=== PATIENT | female | born 1985 | race Caucasian/White ===

== ENCOUNTER 2017-12-17 10:26 | Inpatient (IN) | payer BC, OTHER ==
[2017-12-17] MEDS ORDERED: Sodium Chloride 0.9% 10 ML Syringe FLUSH PRN (11:05)
[2017-12-17] MEDS ORDERED: fentaNYL 100 MCG/2 ML SDV IVPUSH ONE ×2 (11:07→12:19)
[2017-12-17] MEDS ORDERED: Ondansetron 4 MG/2 ML SDV IVPUSH ONE (11:07)
--- NOTE | 2017-12-17 11:09 | EDM.PDOC ---
ED HPI GENERAL MEDICAL PROBLEM - General Chief Complaint: Abdominal Pain Stated Complaint: ABD PAIN/SCOTTY PT Time Seen by Provider: 12/17/17 10:59 Source of Information: Reports: Patient, RN Notes Reviewed History Limitations: Reports: No Limitations - History of Present Illness INITIAL COMMENTS - FREE TEXT/NARRATIVE: 32-year-old female presents to the emergency department day complaint of abdominal pain, she is a history of gastric bypass about 3 years ago states over the last couple days she's had increasing abdominal pain that does come in waves she has vomited does feel extremely nauseated. No fevers Epigastric Pain Score (Numeric/FACES): 5 - Related Data Allergies Allergy/AdvReac Type Severity Reaction Status Date / Time cefaclor [Cefaclor] Allergy Unknown Hives Verified 12/17/17 10:47 ciprofloxacin [From Cipro] Allergy Unknown Hives Verified 12/17/17 10:47 ciprofloxacin HCl Allergy Unknown Hives Verified 12/17/17 10:47 [From Cipro] Home Meds: Home Meds Cyanocobalamin (Vitamin B-12) [B-12] 1,000 mcg PO DAILY 06/05/14 [History] Multivitamin with Minerals [Multiple Vitamin] 1 tab PO BID 06/05/14 [History] Vitamin B Complex 1 each PO DAILY 08/03/14 [History] Calcium Carbonate [Calcium] 500 mg PO BID 08/04/14 [History] Cyanocobalamin (Vitamin B12) [Vitamin B12] 1,000 mcg IM ASDIRECTED 12/10/15 [ History] Ergocalciferol (Vitamin D2) [Vitamin D2] 1 cap PO .MWF 12/10/15 [History] Polyethylene Glycol 3350 [MiraLAX] 17 gm PO DAILY PRN 01/20/16 [History] ALPRAZolam [Xanax] 2 tab PO TID PRN 05/14/16 [History] Levonorgestrel [Mirena] 1 device IUTERINE ASDIRECTED 05/14/16 [History] Ondansetron [Zofran ODT] 4 mg PO Q6H PRN 05/14/16 [History] Sennosides [Senna] 2 tab PO DAILY PRN 05/14/16 [History] Biotin 2,500 mcg PO DAILY 08/05/16 [History] PHENobarb/Hyoscy/Atropine/Scop [ Tablet] 16.2 mg PO Q4HR PRN 08/06/16 [ History] Docusate Sodium [Colace] 100 mg PO BID PRN #100 cap 08/11/16 [Rx] Thiamine [Vitamin B-1] 50 mg PO DAILY 12/17/17 [History] Past Medical History HEENT History: Reports: Otitis Media Respiratory History: Reports: Sleep Apnea Other Respiratory History: history of sleep apnea but since her RNY she has not needed her CPAP Gastrointestinal History: Reports: Bowel Obstruction, Cholelithiasis, Gastritis , GERD, Hemorrhoids, Hiatal Hernia Genitourinary History: Reports: UTI, Recurrent MANAGEMENT LIAISON History: Reports: 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, Musculoskeletal History: Reports: Back Pain, Chronic Neurological History: Reports: Concussion, Headaches, Chronic, Seizure Psychiatric History: Reports: Anxiety, Depression, Psych Hospitalization(s) Endocrine/Metabolic History: Reports: Vitamin D Deficiency Hematologic History: Reports: B12 Deficiency, Iron Deficiency Dermatologic History: Reports: Other (See Below) Other Dermatologic History: mole removed neck - Infectious Disease History Infectious Disease History: Reports: Chicken Pox - Past Surgical History HEENT Surgical History: Reports: Adenoidectomy, Myringotomy w Tube(s), Tonsillectomy GI Surgical History: Reports: Bariatric Procedure, Cholecystectomy, EGD, Esophageal Dilatation, Hernia Repair/Other, Small Bowel Female Surgical History: Reports: Section Social & Family History - Family History Family Medical History: Noncontributory - Tobacco Use Smoking Status *Q: Light Tobacco Smoker Years of Tobacco use: 16 Packs/Tins Daily: 0.4 Used Tobacco, but Quit: No Month/Year Tobacco Last Used: November Second Hand Smoke Exposure: No - Caffeine Use Caffeine Use: Reports: None - Alcohol Use Days Per Week of Alcohol Use: 0 Number of Drinks Per Day: 5 Total Drinks Per Week: 0 - Recreational Drug Use Recreational Drug Use: No Drug Use in Last 12 Months: No Recreational Drug Type: Reports: Marijuana/Hashish Recreational Drug Use Frequency: Not Used In Over 1 Year ED ROS GENERAL - Review of Systems Review Of Systems: See Below Constitutional: Reports: No Symptoms HEENT: Reports: No Symptoms Respiratory: Reports: No Symptoms Cardiovascular: Reports: No Symptoms GI/Abdominal: Reports: Abdominal Pain, Flatus, Nausea, Vomiting : Reports: No Symptoms Musculoskeletal: Reports: No Symptoms Skin: Reports: No Symptoms Neurological: Reports: No Symptoms ED EXAM, GI/ABD - Physical Exam Exam: See Below Exam Limited By: No Limitations General Appearance: Alert, Mild Distress Respiratory/Chest: No Respiratory Distress, Lungs Clear, Normal Breath Sounds, No Accessory Muscle Use Cardiovascular: Regular Rate, Rhythm, No Murmur GI/Abdominal Exam: Soft, No Distention, Tender (Periumbilical region) Back Exam: Normal Inspection, Full Range of Motion. No: CVA Tenderness (R), CVA Tenderness (L) Course - Vital Signs Last Recorded V/S: Last Vital Signs Temp 98.2 F 12/17/17 10:53 Pulse 61 12/17/17 12:03 Resp 14 12/17/17 12:03 BP 126/65 12/17/17 12:03 Pulse Ox 96 12/17/17 12:03 - Orders/Labs/Meds Orders: Active Orders 24 hr Category Date Time Status Peripheral IV Care [RC] . DIRECTED Care 12/17/17 11:05 Active HCG QUALITATIVE,URINE [URCHEM] Routine Lab 12/17/17 11:08 Ordered UA W/MICROSCOPIC [URIN] Urgent Lab 12/17/17 11:08 Ordered Lactated Ringers [Ringers, Lactated] 1,000 ml Med 12/17/17 11:15 Active IV ASDIRECTED Sodium Chloride 0.9% [Normal Saline] 100 ml Med 12/17/17 11:30 Active IV ASDIRECTED Sodium Chloride 0.9% [Saline Flush] Med 12/17/17 11:05 Active 10 ml FLUSH ASDIRECTED PRN Peripheral IV Insertion Adult [OM.PC] Urgent Oth 12/17/17 11:05 Ordered Medication Orders Lactated Ringer's (Ringers, Lactated) 1,000 mls @ 500 mls/hr IV ASDIRECTED HENRY Last Admin: 12/17/17 11:24 Dose: 500 mls/hr Sodium Chloride (Normal Saline) 100 mls @ 3 mls/sec IV ASDIRECTED HENRY Last Admin: 12/17/17 11:55 Dose: 3 mls/sec Sodium Chloride (Saline Flush) 10 ml FLUSH ASDIRECTED PRN PRN Reason: Keep Vein Open Last Admin: 12/17/17 12:03 Dose: 10 ml Labs: Laboratory Tests 12/17/17 12/17/17 12/17/17 Range/Units 11:08 11:08 11:18 WBC 7.1 (4.5-11.0) K/uL RBC 5.20 (3.30-5.50) M/uL Hgb 15.3 H D (12.0-15.0) g/dL Hct 45.2 (36.0-48.0) % MCV 87 (80-98) fL MCH 29 (27-31) pg MCHC 34 (32-36) % Plt Count 251 (150-400) K/uL Neut % (Auto) 57 (36-66) % Lymph % (Auto) 34 (24-44) % [place] % (Auto) 6 (2-6) % Eos % (Auto) 3 (2-4) % Baso % (Auto) 1 (0-1) % Sodium (140-148) mmol/L Potassium (3.6-5.2) mmol/L Chloride (100-108) mmol/L Carbon Dioxide (21-32) mmol/L Anion Gap (5.0-14.0) mmol/L BUN (7-18) mg/dL Creatinine (0.6-1.0) mg/dL Est Cr Clr Drug Dosing mL/min Estimated GFR (MDRD) (>60) Glucose (74-106) mg/dL Lactic Acid (0.4-2.0) mmol/L Calcium (8.5-10.1) mg/dL Total Bilirubin (0.2-1.0) mg/dL AST (15-37) U/L ALT (12-78) U/L Alkaline Phosphatase (46-116) U/L Total Protein (6.4-8.2) g/dL Albumin (3.4-5.0) g/dL Globulin (2.3-3.5) g/dL Albumin/Globulin Ratio (1.2-2.2) Lipase (73-393) U/L Urine Color Yellow Urine Appearance Clear Urine pH 7.0 (4.5-8.0) Ur Specific [place] 1.005 L (1.008-1.030) Urine Protein Negative (NEGATIVE) mg/dL Urine Glucose (UA) Normal (NEGATIVE) mg/dL Urine Ketones Negative (NEGATIVE) mg/dL Urine Occult Blood Negative (NEGATIVE) Urine Nitrite Negative (NEGATIVE) Urine Bilirubin Negative (NEGATIVE) Urine Urobilinogen 4 (NORMAL) mg/dL Ur Leukocyte Esterase Negative (NEGATIVE) Urine RBC Not seen (0-5) Urine WBC 0-5 (0-5) Ur Epithelial Cells Few Amorphous Sediment Not seen Urine Bacteria Rare Urine Mucus Not seen Urine HCG, Qual Negative 12/17/17 12/17/17 Range/Units 11:18 11:18 WBC (4.5-11.0) K/uL RBC (3.30-5.50) M/uL Hgb (12.0-15.0) g/dL Hct (36.0-48.0) % MCV (80-98) fL MCH (27-31) pg MCHC (32-36) % Plt Count (150-400) K/uL Neut % (Auto) (36-66) % Lymph % (Auto) (24-44) % [place] % (Auto) (2-6) % Eos % (Auto) (2-4) % Baso % (Auto) (0-1) % Sodium 142 (140-148) mmol/L Potassium 4.1 (3.6-5.2) mmol/L Chloride 106 (100-108) mmol/L Carbon Dioxide 26 (21-32) mmol/L Anion Gap 10.5 (5.0-14.0) mmol/L BUN 12 (7-18) mg/dL Creatinine 0.6 (0.6-1.0) mg/dL Est Cr Clr Drug Dosing 112.38 mL/min Estimated GFR (MDRD) > 60 (>60) Glucose 90 (74-106) mg/dL Lactic Acid 1.2 (0.4-2.0) mmol/L Calcium 8.5 (8.5-10.1) mg/dL Total Bilirubin 0.6 (0.2-1.0) mg/dL AST 14 L (15-37) U/L ALT 30 D (12-78) U/L Alkaline Phosphatase 68 (46-116) U/L Total Protein 6.7 (6.4-8.2) g/dL Albumin 3.6 (3.4-5.0) g/dL Globulin 3.1 (2.3-3.5) g/dL Albumin/Globulin Ratio 1.2 (1.2-2.2) Lipase 166 (73-393) U/L Urine Color Urine Appearance Urine pH (4.5-8.0) Ur Specific [place] (1.008-1.030) Urine Protein (NEGATIVE) mg/dL Urine Glucose (UA) (NEGATIVE) mg/dL Urine Ketones (NEGATIVE) mg/dL Urine Occult Blood (NEGATIVE) Urine Nitrite (NEGATIVE) Urine Bilirubin (NEGATIVE) Urine Urobilinogen (NORMAL) mg/dL Ur Leukocyte Esterase (NEGATIVE) Urine RBC (0-5) Urine WBC (0-5) Ur Epithelial Cells Amorphous Sediment Urine Bacteria Urine Mucus Urine HCG, Qual Meds: Medications Generic Name Dose Route Start Last Admin Trade Name Freq PRN Reason Stop Dose Admin Lactated Ringer's 1,000 mls @ 500 mls/hr 12/17/17 11:15 12/17/17 11:24 Ringers, Lactated IV 500 mls/hr ASDIRECTED HENRY Administration Sodium Chloride 100 mls @ 3 mls/sec 12/17/17 11:30 12/17/17 11:55 Normal Saline IV 3 mls/sec ASDIRECTED HENRY Administration Sodium Chloride 10 ml 12/17/17 11:05 12/17/17 12:03 Saline Flush FLUSH 10 ml ASDIRECTED PRN Administration Keep Vein Open Discontinued Medications Generic Name Dose Route Start Last Admin Trade Name Freq PRN Reason Stop Dose Admin Fentanyl 50 mcg 12/17/17 11:07 12/17/17 11:25 Sublimaze IVPUSH 12/17/17 11:08 50 mcg ONETIME ONE Administration Iopamidol 150 ml 12/17/17 11:30 12/17/17 11:55 Isovue-300 (61%) IV 150 ml . DIRECTED HENRY Administration Ondansetron HCl 4 mg 12/17/17 11:07 12/17/17 11:25 Zofran IVPUSH 12/17/17 11:08 4 mg ONETIME ONE Administration Departure - Departure Time of Disposition: 12:17 Disposition: Admitted As Inpatient 67 Condition: Good Clinical Impression: Abdominal pain Qualifiers: Abdominal location: generalized Qualified Code(s): R10.84 - Generalized abdominal pain - Discharge Information Referrals: PCP,None [Primary Care Provider] - Forms: ED Department Discharge - My Orders Last 24 Hours: My Active Orders 12/17/17 11:05 Peripheral IV Care [RC] . DIRECTED Sodium Chloride 0.9% [Saline Flush] 10 ml FLUSH ASDIRECTED PRN Peripheral IV Insertion Adult [OM.PC] Urgent 12/17/17 11:08 HCG QUALITATIVE,URINE [URCHEM] Routine UA W/MICROSCOPIC [URIN] Urgent 12/17/17 11:15 Lactated Ringers [Ringers, Lactated] 1,000 ml IV ASDIRECTED 12/17/17 11:30 Sodium Chloride 0.9% [Normal Saline] 100 ml IV ASDIRECTED - Assessment/Plan Last 24 Hours: My Active Orders 12/17/17 11:05 Peripheral IV Care [RC] . DIRECTED Sodium Chloride 0.9% [Saline Flush] 10 ml FLUSH ASDIRECTED PRN Peripheral IV Insertion Adult [OM.PC] Urgent 12/17/17 11:08 HCG QUALITATIVE,URINE [URCHEM] Routine UA W/MICROSCOPIC [URIN] Urgent 12/17/17 11:15 Lactated Ringers [Ringers, Lactated] 1,000 ml IV ASDIRECTED 12/17/17 11:30 Sodium Chloride 0.9% [Normal Saline] 100 ml IV ASDIRECTED Plan: Assessment Acuity = acute Site and laterality = abdominal pain complicated patient with gastric bypass status Etiology = unclear etiology Manifestations = nausea vomiting Location of injury = Home Lab values = CBC, CMP, lactic acid, urinalysis all within normal limits CT scan does show thickened small bowel consists with enteritis and also concern for intussusception around the anastomosis Plan Called discussed case with Dori Mills physician administrative services assistant with gastric bypass team she agreed to come and evaluate the patient in the hospital for admission and further consultation with Dr. Felder general surgery This note was dictated using [employer] voice recognition software please call with any questions on syntax or nadia.
[2017-12-17] MEDS ORDERED: Lactated Ringers 1,000 ML IV SCH (11:15)
[2017-12-17] MEDS ORDERED: Sodium Chloride 0.9% 100 ML IV SCH (11:30)
[2017-12-17] MEDS ORDERED: Iopamidol 612 MG/ML 150 ML Bottle IV SCH (11:30)
--- NOTE | 2017-12-17 12:10 | CT ---
Abdomen Pelvis w Cont HISTORY: Prior gastric bypass. COMPARISON: CT scan 08/07/2016. FINDINGS: Lung bases demonstrate no infiltrates no effusions. There is been prior gastric bypass. Kieran ng the margin of the distal anastomosis there appears to be intussusception. This is best seen on axi al image 46. This is seen on coronal image 42. This is a new finding from the prior study. There are some slightly thickened small bowel loops in the left abdomen could represent nonspecific enteritis. I do not see evidence for obstruction. The liver, spleen, pancreas and adrenal glands appear normal. Prior cholecystectomy. The abdominal aorta is normal in caliber. Kidneys unremarkable. There is midli ne incision. There is early hernia formation between the rectus abdominous muscles. This is slightly more prominent than 2016 study this is seen on axial image 76. IUD in the uterus. No free fluid seen. Impression: 1. Along the distal anastomosis of the gastric bypass. There appears to be very small intussusception . No evidence for obstruction. There are some thickened small bowel loops in the left abdomen could r epresent nonspecific enteritis. 2. Early hernia formation in the midline. This involves approximately 1 cm of fat image 47 and minima l bowel herniation along the incision image 76 more prominent than previous study.
[2017-12-17] MEDS ORDERED: Acetaminophen 650 MG Supp RECTAL PRN (14:29)
[2017-12-17] MEDS ORDERED: Acetaminophen 325 MG Tab PO PRN (14:29)
[2017-12-17] MEDS ORDERED: Naloxone 0.4 MG/ML SDV IV PRN (14:38)
[2017-12-17] MEDS ORDERED: HYDROmorphone/Normal Saline 15 MG/30 ML PCA IV PRN (14:38)
[2017-12-17] MEDS ORDERED: HYDROmorphone/Normal Saline 15 MG/30 ML PCA IV ONE (14:39)
[2017-12-17] MEDS: Ondansetron 4 MG/2 ML SDV IVPUSH PRN (14:55)
[2017-12-17] MEDS: Dextrose 5%-Lactated Ringers 1,000 ML IV SCH ×2 (14:58→21:39)
[2017-12-17] MEDS: Pantoprazole 40 MG Vial IV SCH (15:24)
[2017-12-17] MEDS ORDERED: diphenhydrAMINE 25 MG Cap PO PRN (17:48)
[2017-12-17] MEDS: ALPRAZolam 0.25 MG Tab PO PRN (21:15)
[2017-12-17] MEDS ORDERED: Morphine PF 150 MG/30 ML PCA Syringe IV PRN (22:00)
[2017-12-17] MEDS ORDERED: Morphine PF 150 MG/30 ML PCA Syringe IV SCH (22:00)
--- NOTE | 2017-12-17 22:03 | PCM.HP ---
H&P History of Present Illness - General Date of Service: 12/17/17 Admit Problem/Dx: Admission Diagnosis/Problem Admission Diagnosis/Problem Partial small bowel obstruction Source of Information: Patient History Limitations: Reports: Other (History is somewhat limited by abdominal pain ) - History of Present Illness Initial Comments - Free Text/Narative: Pamela states she has had postprandial abdominal pain on and off for about 2 - 3 weeks. she states that the past 3 days the abdominal pain didn't go away and she has been nauseated. states she is having her normal 3 BMs a day but doesn't feel she is completely emptying out. Nausea comes and goes. Onset of Symptoms: Reports: Gradual Symptom Onset Date: 12/15/17 Duration of Symptoms: Reports: Getting Worse, Waxing/Waning Location: Reports: Generalized Epigastric Pain Score (Numeric/FACES): 5 - Related Data Allergies/Adverse Reactions: Allergies Allergy/AdvReac Type Severity Reaction Status Date / Time cefaclor [Cefaclor] Allergy Unknown Hives Verified 12/17/17 10:47 ciprofloxacin [From Cipro] Allergy Unknown Hives Verified 12/17/17 10:47 ciprofloxacin HCl Allergy Unknown Hives Verified 12/17/17 10:47 [From Cipro] tramadol Allergy Seizure Verified 12/17/17 13:29 Home Medications: Home Meds Cyanocobalamin (Vitamin B-12) [B-12] 1,000 mcg PO DAILY 06/05/14 [History] Multivitamin with Minerals [Multiple Vitamin] 1 tab PO BID 06/05/14 [History] Vitamin B Complex 1 each PO DAILY 08/03/14 [History] Calcium Carbonate [Calcium] 500 mg PO BID 08/04/14 [History] Cyanocobalamin (Vitamin B12) [Vitamin B12] 1,000 mcg IM ASDIRECTED 12/10/15 [ History] Ergocalciferol (Vitamin D2) [Vitamin D2] 1 cap PO .MWF 12/10/15 [History] Polyethylene Glycol 3350 [MiraLAX] 17 gm PO DAILY PRN 01/20/16 [History] ALPRAZolam [Xanax] 1 tab PO TID PRN 05/14/16 [History] Levonorgestrel [Mirena] 1 device IUTERINE ASDIRECTED 05/14/16 [History] Ondansetron [Zofran ODT] 4 mg PO Q6H PRN 05/14/16 [History] Sennosides [Senna] 2 tab PO DAILY PRN 05/14/16 [History] Biotin 2,500 mcg PO DAILY 08/05/16 [History] PHENobarb/Hyoscy/Atropine/Scop [ Tablet] 16.2 mg PO Q4HR PRN 08/06/16 [ History] Docusate Sodium [Colace] 100 mg PO BID PRN #100 cap 08/11/16 [Rx] Thiamine [Vitamin B-1] 50 mg PO DAILY 12/17/17 [History] Past Medical History HEENT History: Reports: Otitis Media Respiratory History: Reports: Sleep Apnea Other Respiratory History: history of sleep apnea but since her RNY she has not needed her CPAP Gastrointestinal History: Reports: Bowel Obstruction, Cholelithiasis, Gastritis , GERD, Hemorrhoids, Hiatal Hernia Genitourinary History: Reports: UTI, Recurrent [employer] History: Reports: 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, Musculoskeletal History: Reports: Back Pain, Chronic Neurological History: Reports: Concussion, Headaches, Chronic, Seizure Psychiatric History: Reports: Anxiety, Depression, Psych Hospitalization(s) Endocrine/Metabolic History: Reports: Vitamin D Deficiency Hematologic History: Reports: B12 Deficiency, Iron Deficiency Dermatologic History: Reports: Other (See Below) Other Dermatologic History: mole removed neck - Infectious Disease History Infectious Disease History: Reports: Chicken Pox - Past Surgical History HEENT Surgical History: Reports: Adenoidectomy, Myringotomy w Tube(s), Tonsillectomy GI Surgical History: Reports: Bariatric Procedure, Cholecystectomy, EGD, Esophageal Dilatation, Hernia Repair/Other, Small Bowel Female Surgical History: Reports: Section Social & Family History - Family History Family Medical History: Noncontributory Psychiatric: Reports: Other (See Below) Other Psychiatric Family History: sister and mom alcoholics Oncologic: Reports: Lung Other Oncologic Family History: grandpa had lung ca - Tobacco Use Smoking Status *Q: Current Every Day Smoker Years of Tobacco use: 15 Packs/Tins Daily: 0.5 Used Tobacco, but Quit: No Month/Year Tobacco Last Used: November Second Hand Smoke Exposure: No - Caffeine Use Caffeine Use: Reports: Coffee - Alcohol Use Days Per Week of Alcohol Use: 3 Number of Drinks Per Day: 5 Total Drinks Per Week: 15 Date of Last Drink: 11/28/17 Time of Last Drink: 00:00 - Recreational Drug Use Recreational Drug Use: No Drug Use in Last 12 Months: No Recreational Drug Type: Reports: Marijuana/Hashish Recreational Drug Use Frequency: Not Used In Over 1 Year H&P Review of Systems - Review of Systems: Review Of Systems: See Below General: Reports: Chills, Weakness, Fatigue, Decreased Appetite, Weight Gain HEENT: Reports: No Symptoms Pulmonary: Reports: No Symptoms Gastrointestinal: Reports: Abdominal Pain, Decreased Appetite, Distension, Other (nausea and vomiting ) Genitourinary: Reports: No Symptoms Musculoskeletal: Reports: No Symptoms Skin: Reports: No Symptoms Psychiatric: Reports: Depression, Anxiety Neurological: Reports: No Symptoms, Weakness Hematologic/Lymphatic: Reports: No Symptoms Immunologic: Reports: No Symptoms Exam - Exam Exam: See Below - Vital Signs Vital Signs: Last Vital Signs Temp 98.1 F 12/17/17 19:14 Pulse 65 12/17/17 19:14 Resp 16 12/17/17 19:14 BP 110/68 12/17/17 19:14 Pulse Ox 97 12/17/17 19:31 Weight: 174 lb 11.461 oz - Exam Quality Assessment: DVT Prophylaxis General: Alert, Oriented, Moderate Distress HEENT: PERRLA, Conjunctiva Clear Neck: Supple, Trachea Midline Lungs: Clear to Auscultation, Normal Respiratory Effort Cardiovascular: Regular Rate, Regular Rhythm GI/Abdominal Exam: Guarding, Tender (in the jv umbilical area ) (Female) Exam: Deferred Rectal (Female) Exam: Deferred Back Exam: Normal Inspection, Full Range of Motion Extremities: Normal Inspection, Normal Range of Motion Skin: Warm, Dry, Intact Neurological: Cranial Nerves Intact, Reflexes Equal Bilateral Neuro Extensive - Mental Status: Alert, Oriented x3, Normal Mood/Affect Neuro Extensive - Motor, Sensory, Reflexes: CN II-XII Intact, Normal Gait Psychiatric: Alert, Anxious, Other (enotional ) - Patient Data Lab Results Last 24 hrs: Laboratory Results - last 24 hr 12/17/17 12/17/17 12/17/17 Range/Units 11:08 11:08 11:18 WBC 7.1 (4.5-11.0) K/uL RBC 5.20 (3.30-5.50) M/uL Hgb 15.3 H D (12.0-15.0) g/dL Hct 45.2 (36.0-48.0) % MCV 87 (80-98) fL MCH 29 (27-31) pg MCHC 34 (32-36) % Plt Count 251 (150-400) K/uL Neut % (Auto) 57 (36-66) % Lymph % (Auto) 34 (24-44) % [place] % (Auto) 6 (2-6) % Eos % (Auto) 3 (2-4) % Baso % (Auto) 1 (0-1) % Sodium (140-148) mmol/L Potassium (3.6-5.2) mmol/L Chloride (100-108) mmol/L Carbon Dioxide (21-32) mmol/L Anion Gap (5.0-14.0) mmol/L BUN (7-18) mg/dL Creatinine (0.6-1.0) mg/dL Est Cr Clr Drug Dosing mL/min Estimated GFR (MDRD) (>60) Glucose (74-106) mg/dL Lactic Acid (0.4-2.0) mmol/L Calcium (8.5-10.1) mg/dL Total Bilirubin (0.2-1.0) mg/dL AST (15-37) U/L ALT (12-78) U/L Alkaline Phosphatase (46-116) U/L Total Protein (6.4-8.2) g/dL Albumin (3.4-5.0) g/dL Globulin (2.3-3.5) g/dL Albumin/Globulin Ratio (1.2-2.2) Lipase (73-393) U/L Urine Color Yellow Urine Appearance Clear Urine pH 7.0 (4.5-8.0) Ur Specific [place] 1.005 L (1.008-1.030) Urine Protein Negative (NEGATIVE) mg/dL Urine Glucose (UA) Normal (NEGATIVE) mg/dL Urine Ketones Negative (NEGATIVE) mg/dL Urine Occult Blood Negative (NEGATIVE) Urine Nitrite Negative (NEGATIVE) Urine Bilirubin Negative (NEGATIVE) Urine Urobilinogen 4 (NORMAL) mg/dL Ur Leukocyte Esterase Negative (NEGATIVE) Urine RBC Not seen (0-5) Urine WBC 0-5 (0-5) Ur Epithelial Cells Few Amorphous Sediment Not seen Urine Bacteria Rare Urine Mucus Not seen Urine HCG, Qual Negative 04/20/18 04/20/18 Range/Units 11:18 11:18 WBC (4.5-11.0) K/uL RBC (3.30-5.50) M/uL Hgb (12.0-15.0) g/dL Hct (36.0-48.0) % MCV (80-98) fL MCH (27-31) pg MCHC (32-36) % Plt Count (150-400) K/uL Neut % (Auto) (36-66) % Lymph % (Auto) (24-44) % [place] % (Auto) (2-6) % Eos % (Auto) (2-4) % Baso % (Auto) (0-1) % Sodium 142 (140-148) mmol/L Potassium 4.1 (3.6-5.2) mmol/L Chloride 106 (100-108) mmol/L Carbon Dioxide 26 (21-32) mmol/L Anion Gap 10.5 (5.0-14.0) mmol/L BUN 12 (7-18) mg/dL Creatinine 0.6 (0.6-1.0) mg/dL Est Cr Clr Drug Dosing 112.38 mL/min Estimated GFR (MDRD) > 60 (>60) Glucose 90 (74-106) mg/dL Lactic Acid 1.2 (0.4-2.0) mmol/L Calcium 8.5 (8.5-10.1) mg/dL Total Bilirubin 0.6 (0.2-1.0) mg/dL AST 14 L (15-37) U/L ALT 30 D (12-78) U/L Alkaline Phosphatase 68 (46-116) U/L Total Protein 6.7 (6.4-8.2) g/dL Albumin 3.6 (3.4-5.0) g/dL Globulin 3.1 (2.3-3.5) g/dL Albumin/Globulin Ratio 1.2 (1.2-2.2) Lipase 166 (73-393) U/L Urine Color Urine Appearance Urine pH (4.5-8.0) Ur Specific [place] (1.008-1.030) Urine Protein (NEGATIVE) mg/dL Urine Glucose (UA) (NEGATIVE) mg/dL Urine Ketones (NEGATIVE) mg/dL Urine Occult Blood (NEGATIVE) Urine Nitrite (NEGATIVE) Urine Bilirubin (NEGATIVE) Urine Urobilinogen (NORMAL) mg/dL Ur Leukocyte Esterase (NEGATIVE) Urine RBC (0-5) Urine WBC (0-5) Ur Epithelial Cells Amorphous Sediment Urine Bacteria Urine Mucus Urine HCG, Qual Result Diagrams: 12/17/17 11:18 12/17/17 11:18 - Problem List (1) Abdominal pain SNOMED Code(s): 03759801 ICD Code: R10.9 - UNSPECIFIED ABDOMINAL PAIN Status: Acute Current Visit : Yes Qualifiers: Abdominal location: generalized Qualified Code(s): R10.84 - Generalized abdominal pain Problem List Initiated/Reviewed/Updated: Yes Orders Last 24hrs: Active Orders 24 hr Category Date Time Status Patient Status [ADT] Routine ADT 12/17/17 13:39 Active Activity as Tolerated [RC] .Routine Care 12/17/17 13:54 Active Incentive Spirometry [RT Incentive Spirometry] [RC] Care 12/17/17 13:58 Active ASDIRECTED Intake and Output [RC] ASDIRECTED Care 12/17/17 13:57 Active May Shower [RC] ASDIRECTED Care 12/17/17 17:52 Active Verify Patient Consent Obtain [RC] ASDIRECTED Care 12/17/17 13:59 Active Vital Signs [RC] Q4H Care 12/17/17 13:55 Active Nothing Per Oral Diet [DIET] Diet 12/17/17 Dinner Active Nothing per Oral After Midnight Diet [DIET] Diet 12/17/17 Dinner Active CBC WITH AUTO DIFF [HEME] Routine Lab 12/18/17 05:00 Ordered COMPREHENSIVE METABOLIC PN,CMP [CHEM] Routine Lab 12/18/17 05:00 Ordered FERRITIN [CHEM] Routine Lab 12/18/17 05:00 Ordered HCG QUALITATIVE,URINE [URCHEM] Routine Lab 12/17/17 11:08 Ordered UA W/MICROSCOPIC [URIN] Urgent Lab 12/17/17 11:08 Ordered ALPRAZolam [Xanax] Med 12/17/17 17:15 Active 0.25 mg PO TID PRN Acetaminophen [Ofirmev] 1,000 mg Med 12/18/17 10:00 Active Premix Bag 1 bag IV ONETIME Acetaminophen [Tylenol] Med 12/17/17 14:29 Active 650 mg PO Q4H PRN Acetaminophen [Tylenol] Med 12/17/17 14:29 Active 650 mg RECTAL Q4H PRN Atropine/Hyoscy/PHENobarb/Scop [ Elixir] Med 12/17/17 17:30 Active 5 ml PO Q4H PRN Dextrose 5%-Lactated Ringers 1,000 ml Med 12/17/17 14:30 Active IV ASDIRECTED Ketamine [Ketalar] Med 12/18/17 11:00 Once 26 mg IV ONETIME ONE Ketamine [Ketalar] 100 mg Med 12/18/17 11:00 Active Sodium Chloride 0.9% [Normal Saline] 99 ml IV ASDIRECTED Lidocaine 0.4%/D5W [Lidocaine 2 GM/D5W 500 ML] Med 12/18/17 11:00 Active 2 gm in 500 ml IV 1.5 mg/min Lidocaine 2% [Xylocaine 2%] Med 12/18/17 11:00 Once 94 mg IVPUSH ONETIME ONE Naloxone [Narcan] Med 12/17/17 14:38 Active 0.1 mg IV ASDIRECTED PRN Ondansetron [Zofran] Med 12/17/17 14:29 Active 4 mg IVPUSH Q4H PRN Pantoprazole [ProTONIX IV] Med 12/17/17 16:00 Active 40 mg IV Q24H Ropivacaine [Naropin 0.5%] 40 ml Med 12/18/17 11:00 Active Dexamethasone 8 mg EPINEPHrine [Adrenalin] 0.4 mg Sodium Chloride 0.9% [Normal Saline] 37.6 ml NERVRT ONETIME diphenhydrAMINE [Benadryl] Med 12/17/17 17:48 Active 25 mg PO Q4H PRN Peripheral IV Insertion Adult [OM.PC] Urgent Oth 12/17/17 11:05 Ordered Code Status [Resuscitation Status] Routine Resus Stat 12/17/17 14:47 Ordered Medication Orders Acetaminophen (Tylenol) 650 mg PO Q4H PRN PRN Reason: ANALGESIA/FEVER Acetaminophen (Tylenol) 650 mg RECTAL Q4H PRN PRN Reason: ANALGESIA/FEVER Alprazolam (Xanax) 0.25 mg PO TID PRN PRN Reason: Anxiety Last Admin: 12/17/17 21:15 Dose: 0.25 mg Belladonna/Phenobarbital ( Elixir) 5 ml PO Q4H PRN PRN Reason: Indigestion Ropivacaine 40 ml/Dexamethasone 8 mg/Epinephrine HCl 0.4 mg/ Sodium Chloride 37.6 ml 0 ml NERVRT ONETIME ONE Stop: 12/18/17 11:01 Diphenhydramine HCl (Benadryl) 25 mg PO Q4H PRN PRN Reason: Itching Last Admin: 12/17/17 18:12 Dose: 25 mg Lidocaine HCl/Dextrose (Lidocaine 2 Gm/D5w 500 Ml) 2 gm in 500 mls @ 22.5 mls/ hr IV .[id number] HENRY Ketamine HCl 100 mg/ Sodium (Chloride) 100 mls @ 15.72 mls/hr IV ASDIRECTED HENRY Stop: 12/18/17 13:00 Dextrose/Lactated Ringer's (Dextrose 5%-Lactated Ringers) 1,000 mls @ 150 mls/ hr IV ASDIRECTED HENRY Last Admin: 12/17/17 21:39 Dose: 150 mls/hr Infusion: 12/17/17 21:39 Dose: 150 mls/hr Admin: 12/17/17 14:58 Dose: 150 mls/hr Acetaminophen 1,000 mg/ Premix 100 mls @ 400 mls/hr IV ONETIME ONE Stop: 12/18/17 10:14 Ketamine HCl (Ketalar) 26 mg IV ONETIME ONE Stop: 12/18/17 11:01 Lidocaine HCl (Xylocaine 2%) 94 mg IVPUSH ONETIME ONE Stop: 12/18/17 11:01 Naloxone HCl (Narcan) 0.1 mg IV ASDIRECTED PRN PRN Reason: decreased respiratory rate Ondansetron HCl (Zofran) 4 mg IVPUSH Q4H PRN PRN Reason: Nausea Last Admin: 12/17/17 14:55 Dose: 4 mg Pantoprazole Sodium (Protonix Iv) 40 mg IV Q24H HENRY Last Admin: 12/17/17 15:24 Dose: 40 mg Assessment/Plan Comment:: Admit to Inpatient Scheduled for Surgery in AM Humberto Felder MD was consulted See Copy of orders. Dori Wolfe 12/17/17
[2017-12-17] MEDS: diphenhydrAMINE 25 MG Cap PO PRN (22:25)
[2017-12-18] MEDS: diphenhydrAMINE 25 MG Cap PO PRN (03:35)
[2017-12-18] MEDS: Dextrose 5%-Lactated Ringers 1,000 ML IV SCH ×3 (03:43→23:48)
[2017-12-18] MEDS: ALPRAZolam 0.25 MG Tab PO PRN ×2 (05:31→10:28)
[2017-12-18] MEDS ORDERED: Meropenem 500 MG SDV ONE (05:49)
[2017-12-18] MEDS ORDERED: Dexamethasone 4 MG/ML SDV ONE (09:11)
[2017-12-18] MEDS ORDERED: Succinylcholine 200 MG/10 ML MDV ONE (09:11)
[2017-12-18] MEDS ORDERED: Rocuronium 50 MG/5 ML Vial ONE (09:11)
[2017-12-18] MEDS ORDERED: Neostigmine Methylsulfate 1 MG/ML 5 ML Syringe ONE (09:11)
[2017-12-18] MEDS ORDERED: Ondansetron 4 MG/2 ML SDV ONE (09:11)
[2017-12-18] MEDS ORDERED: Glycopyrrolate 0.2 MG/ML 5 ML MDV ONE (09:11)
[2017-12-18] MEDS ORDERED: Propofol 200 MG/20 ML SDV ONE (09:11)
[2017-12-18] MEDS ORDERED: fentaNYL 250 MCG/5 ML SDV ONE ×2 (09:11→11:52)
[2017-12-18] MEDS ORDERED: Acetaminophen 1,000 MG in Premix Bag 1 BAG IV ONE (10:00)
[2017-12-18] MEDS ORDERED: Ketamine 500 MG/5 ML MDV IV ONE (11:00)
[2017-12-18] MEDS ORDERED: Ropivacaine 40 ML, Dexamethasone 8 MG, EPINEPHrine 0.4 MG, Sodium Chloride 0.9% 37.6 ML NERVRT ONE ×4 (11:00)
[2017-12-18] MEDS ORDERED: Lidocaine 2% 100 MG/5 ML Syringe IVPUSH ONE (11:00)
[2017-12-18] MEDS ORDERED: Lidocaine 0.4%/D5W 2 GM/500 ML BAG IV SCH (11:00)
[2017-12-18] MEDS ORDERED: Scopolamine 1.5 MG Transdermal Patch ONE (11:21)
[2017-12-18] MEDS ORDERED: Meropenem 500 MG in Sodium Chloride 0.9% 50 ML IV ONE (12:00)
[2017-12-18] MEDS ORDERED: hydrOXYzine HCl 100 MG/2 ML SDV IM ONE ×2 (13:00→14:05)
[2017-12-18] MEDS ORDERED: Ondansetron 4 MG/2 ML SDV IVPUSH ONE (13:15)
[2017-12-18] MEDS ORDERED: diphenhydrAMINE 25 MG Cap PO PRN (13:19)
[2017-12-18] MEDS ORDERED: diphenhydrAMINE 50 MG/ML SDV IVPUSH PRN ×2 (13:20→14:00)
[2017-12-18] MEDS ORDERED: Labetalol 20 MG/4 ML Syringe IVPUSH PRN (14:00)
[2017-12-18] MEDS ORDERED: Meperidine PF 100 MG/ML Syringe IM ONE (14:05)
[2017-12-18] MEDS: LORazepam 2 MG/ML SDV IVPUSH PRN (14:32)
[2017-12-18] MEDS: Cyclobenzaprine 10 MG Tab PO PRN (14:42)
[2017-12-18] MEDS ORDERED: MVI, Adult with Vitamin K 10 ML, Thiamine 100 MG, Chromium/Copper/Mang/Selen/Zn 1 ML in... IV SCH ×4 (16:00)
[2017-12-18] MEDS: Gabapentin 250 MG/5 ML Solution ML 470 ML Bottle PO SCH ×2 (16:23→20:58)
[2017-12-18] MEDS: Pantoprazole 40 MG Vial IV SCH (16:23)
[2017-12-18] MEDS: Acetaminophen Soln 650 MG/20.3 ML UD Cup PO SCH ×2 (16:23→23:48)
[2017-12-18] MEDS: Meropenem 500 MG in Sodium Chloride 0.9% 50 ML IV SCH ×2 (16:23→23:05)
[2017-12-18] MEDS ORDERED: Morphine PF 150 MG/30 ML PCA Syringe IV SCH (19:45)
[2017-12-18] MEDS: Heparin Sodium 5,000 Units/ML Vial SUBCUT SCH (20:14)
[2017-12-19] MEDS: Cyclobenzaprine 10 MG Tab PO PRN ×4 (00:29→23:13)
[2017-12-19] MEDS: Ondansetron 4 MG/2 ML SDV IVPUSH PRN ×3 (02:14→22:14)
[2017-12-19] MEDS ORDERED: Iohexol 647 MG/ML 50 ML SDV PO STA (03:20)
[2017-12-19] MEDS: LORazepam 2 MG/ML SDV IVPUSH PRN (04:00)
[2017-12-19] MEDS: Acetaminophen Soln 650 MG/20.3 ML UD Cup PO SCH ×4 (04:20→23:14)
[2017-12-19] MEDS: Meropenem 500 MG in Sodium Chloride 0.9% 50 ML IV SCH (04:20)
[2017-12-19] MEDS: Dextrose 5%-Lactated Ringers 1,000 ML IV SCH (06:05)
[2017-12-19] MEDS: Celecoxib 200 MG Cap PO SCH (07:23)
[2017-12-19] MEDS: Heparin Sodium 5,000 Units/ML Vial SUBCUT SCH ×2 (07:23→19:44)
[2017-12-19] MEDS: ALPRAZolam 0.25 MG Tab PO PRN ×2 (07:23→14:00)
[2017-12-19] MEDS ORDERED: Morphine PF 150 MG/30 ML PCA Syringe IV PRN (08:12)
[2017-12-19] MEDS: Docusate Sodium 100 MG Cap PO SCH ×2 (10:06→20:44)
[2017-12-19] MEDS: SCOPOLAMINE PATCH CHECK TOP SCH (10:06)
[2017-12-19] MEDS: Atropine/Hyoscyamine/PHENobarbital/Scopolamine Elixir 10 ML UD PO PRN ×2 (10:13→16:57)
[2017-12-19] MEDS: Calcium Carbonate 500 MG Tab.Chew PO PRN (14:00)
--- NOTE | 2017-12-19 14:51 | PN ---
DATE OF SERVICE: 12/18/2017 The patient has been afebrile with stable vital signs. She still complains of some abdominal pain. The review of the CAT scan shows an incisional hernia present in the small upper midline incision. I did go ahead with an open laparotomy which will give us a little bit better fixation of the small bowel as well as allow repair of the hernia as we would not be able to use mesh assuming that we are doing some bowel resection type of work. She is allergic to cephalosporins. We will switch the preoperative antibiotic to meropenem, and otherwise plan to proceed with an open laparotomy, repair of incisional hernia. She is also noted to have some elevation of her liver function tests. She has already had her gallbladder out, and given this, we will also obtain a liver biopsy. Humberto Felder MD /[id number]
[2017-12-19] MEDS: Pantoprazole 40 MG Vial IV SCH (15:51)
[2017-12-19] MEDS: MVI, Adult with Vitamin K 10 ML, Thiamine 100 MG, Chromium/Copper/Mang/Selen/Zn 1 ML in... IV SCH ×4 (15:52)
[2017-12-19] MEDS: hydrOXYzine HCl 100 MG/2 ML SDV IM PRN (19:43)
[2017-12-19] MEDS: Metoclopramide 10 MG/2 ML SDV IVPUSH PRN (23:13)
[2017-12-20] MEDS: Dextrose 5%-Lactated Ringers 1,000 ML IV SCH (04:13)
[2017-12-20] MEDS: Acetaminophen Soln 650 MG/20.3 ML UD Cup PO SCH ×5 (05:03→22:06)
[2017-12-20] MEDS: Ondansetron 4 MG/2 ML SDV IVPUSH PRN ×4 (07:00→22:08)
[2017-12-20] MEDS ORDERED: oxyCODONE 5 MG Tab PO PRN (07:32)
[2017-12-20] MEDS: Celecoxib 200 MG Cap PO SCH (08:09)
[2017-12-20] MEDS: Heparin Sodium 5,000 Units/ML Vial SUBCUT SCH ×2 (08:09→22:06)
[2017-12-20] MEDS: Docusate Sodium 100 MG Cap PO SCH ×2 (08:10→22:06)
[2017-12-20] MEDS ORDERED: Magnesium Hydroxide 400 MG/5 ML Susp 30 ML Cup PO ONE (08:15)
[2017-12-20] MEDS: Cyclobenzaprine 10 MG Tab PO PRN ×3 (08:31→23:31)
[2017-12-20] MEDS ORDERED: Cyanocobalamin (Vitamin B12) 1,000 MCG/ML SDV IM ONE (09:00)
[2017-12-20] MEDS: SCOPOLAMINE PATCH CHECK TOP SCH (09:00)
--- NOTE | 2017-12-20 09:06 | CR ---
UGI wo KUB HISTORY: Eval R-Y GBP FINDINGS: Limited upper GI series was obtained without fluoroscopy. Water-soluble contrast was admini stered orally. Immediate along with 15 and 25 minute delayed images were obtained. Small gastric pouc h is demonstrated. Contrast passes readily through the gastrojejunostomy into loops of jejunum. No ob struction is identified. There is no contrast extravasation. Midline skin carmella are noted. IUD over lies the mid pelvis. Surgical clips are noted right upper quadrant consistent with prior cholecystect arin. Multiple surgical staple lines are noted left mid abdomen and in the pelvis. IMPRESSION: No postoperative complication identified status post Emerson-en-Y gastric bypass.
[2017-12-20] MEDS ORDERED: Bisacodyl 5 MG Tab PO ONE (09:15)
[2017-12-20] MEDS: Metoclopramide 10 MG/2 ML SDV IVPUSH PRN ×3 (10:12→23:32)
[2017-12-20] MEDS: hydrOXYzine HCl 100 MG/2 ML SDV IM PRN ×2 (11:01→16:39)
[2017-12-20] MEDS: ALPRAZolam 0.25 MG Tab PO PRN ×2 (11:10→19:20)
--- NOTE | 2017-12-20 12:26 | PN ---
DATE OF SERVICE: 12/19/2017 The patient has been afebrile with stable vital signs. She took in liquids satisfactorily yesterday. Upper GI x-ray looked good. She has been oversleeping and we will hold the lidocaine and gabapentin at this time with the exception of stool softener. We will go up to step-4 diet today and back down the IV rate, and maximize activity, and work with pulmonary toilet. Humberto Felder MD /[id number]
[2017-12-20] MEDS: oxyCODONE 5 MG Tab PO PRN ×3 (12:31→22:05)
[2017-12-20] MEDS: Atropine/Hyoscyamine/PHENobarbital/Scopolamine Elixir 10 ML UD PO PRN (12:34)
[2017-12-20] MEDS: Morphine 2 MG/ML Syringe IVPUSH PRN ×4 (13:10→22:07)
[2017-12-20] MEDS: Calcium Carbonate 500 MG Tab.Chew PO PRN ×2 (15:09→22:08)
[2017-12-20] MEDS: MVI, Adult with Vitamin K 10 ML, Thiamine 100 MG, Chromium/Copper/Mang/Selen/Zn 1 ML in... IV SCH ×4 (15:10)
[2017-12-20] MEDS: Pantoprazole 40 MG Tab.CR PO SCH (16:41)
--- NOTE | 2017-12-20 18:00 | PCM.SURGPN ---
- General Info Date of Service: 12/20/17 POD#: 2 Functional Status: Reports: Pain Controlled, Tolerating Diet, Ambulating - Review of Systems General: Reports: No Symptoms Pulmonary: Reports: No Symptoms Gastrointestinal: Reports: Abdominal Pain, Nausea Skin: Reports: No Symptoms Systems Review Comment:: Pt states she is doing very well and pain is well controlled but abdomen is bird tender. Pt states she was really nauseous through the night but the zofran and reglan helped this. - Patient Data Vitals - Most Recent: Last Vital Signs Temp 36.9 C 12/20/17 11:47 Pulse 49 L 12/20/17 11:47 Resp 16 12/20/17 11:47 BP 119/77 12/20/17 11:47 Pulse Ox 99 12/20/17 11:47 Weight - Most Recent: 79.25 kg I&O - Last 24 Hours: Intake & Output 12/20/17 12/20/17 12/20/17 06:59 14:59 22:59 Intake Total 1416 1000 240 Output Total 900 1250 1000 Balance 595 -313 -326 Med Orders - Current: Current Medications Acetaminophen (Tylenol) 650 mg PO Q6H [facility] Last Admin: 12/20/17 16:47 Dose: 650 mg Alprazolam (Xanax) 0.25 mg PO Q6H PRN PRN Reason: Anxiety Last Admin: 12/20/17 11:10 Dose: 0.25 mg Belladonna/Phenobarbital ( Elixir) 5 ml PO Q4H PRN PRN Reason: Indigestion Last Admin: 12/20/17 12:34 Dose: 5 ml Calcium Carbonate/Glycine (Tums) 1,000 mg PO Q2H PRN PRN Reason: Indigestion Last Admin: 12/20/17 15:09 Dose: 1,000 mg Celecoxib (Celebrex) 200 mg PO DAILY@0800 [facility] Last Admin: 12/20/17 08:09 Dose: 200 mg Cyclobenzaprine HCl (Flexeril) 10 mg PO Q6H PRN PRN Reason: Pain (moderate 4-6) Last Admin: 12/20/17 16:41 Dose: 10 mg Diphenhydramine HCl (Benadryl) 50 mg PO Q4H PRN PRN Reason: Itching Docusate Sodium (Colace) 100 mg PO BID [facility] Last Admin: 12/20/17 08:10 Dose: 100 mg Heparin Sodium (Porcine) (Heparin Sodium) 5,000 units SUBCUT Q12H [facility] Last Admin: 12/20/17 08:09 Dose: 5,000 units Hydroxyzine HCl (Vistaril) 75 - 100 mg IM Q4H PRN PRN Reason: pain Last Admin: 12/20/17 16:39 Dose: 100 mg Dextrose/Lactated Ringer's (Dextrose 5%-Lactated Ringers) 1,000 mls @ 80 mls/ hr IV ASDIRECTED [facility] Last Admin: 12/20/17 04:13 Dose: 80 mls/hr Multivitamins/Minerals 10 ml/Thiamine HCl 100 mg/ Chromium/Copper/Manganese/ Seleni/Zn 1 ml/ Dextrose/Lactated Ringer's 1,012 mls @ 80 mls/hr IV DAILY@1600 [facility] Last Admin: 12/20/17 15:10 Dose: 80 mls/hr Labetalol HCl (Normodyne) 5 - 15 mg IVPUSH Q1H PRN PRN Reason: SBP over 160 OR DBP over 95 Metoclopramide HCl (Reglan) 10 mg IVPUSH Q6H PRN PRN Reason: NAUSEA NOT CONTROL BY ZOFRAN Last Admin: 12/20/17 16:41 Dose: 10 mg Morphine Sulfate (Morphine) 2 mg IVPUSH Q2H PRN PRN Reason: Pain Last Admin: 12/20/17 15:36 Dose: 2 mg Ondansetron HCl (Zofran) 4 mg IVPUSH Q4H PRN PRN Reason: Nausea Last Admin: 12/20/17 15:09 Dose: 4 mg Oxycodone HCl (Oxycodone) 5 - 10 mg PO Q4H PRN PRN Reason: Pain Last Admin: 12/20/17 16:41 Dose: 10 mg Pantoprazole Sodium (Protonix) 40 mg PO Q24H [facility] Last Admin: 12/20/17 16:41 Dose: 40 mg Discontinued Medications Acetaminophen (Tylenol) 650 mg PO Q4H PRN PRN Reason: ANALGESIA/FEVER Acetaminophen (Tylenol) 650 mg RECTAL Q4H PRN PRN Reason: ANALGESIA/FEVER Alprazolam (Xanax) 0.25 mg PO TID PRN PRN Reason: Anxiety Last Admin: 12/18/17 10:28 Dose: 0.25 mg Bisacodyl (Dulcolax) 20 mg PO ONETIME ONE Stop: 12/20/17 09:16 Last Admin: 12/20/17 08:16 Dose: 20 mg Ropivacaine 40 ml/Dexamethasone 8 mg/Epinephrine HCl 0.4 mg/ Sodium Chloride 37.6 ml 0 ml NERVRT ONETIME ONE Stop: 12/18/17 11:01 Last Admin: 12/18/17 11:14 Dose: 80 syringe Cyanocobalamin (Vitamin B12) 1,000 mcg IM ONETIME ONE Stop: 12/20/17 09:01 Last Admin: 12/20/17 08:10 Dose: 1,000 mcg Dexamethasone (Dexamethasone) Confirm Administered Dose 4 mg .ROUTE .STK-MED ONE Stop: 12/18/17 09:12 Diphenhydramine HCl (Benadryl) 25 mg PO Q4H PRN PRN Reason: Itching Last Admin: 12/17/17 18:12 Dose: 25 mg Diphenhydramine HCl (Benadryl) 25 - 50 mg PO Q4H PRN PRN Reason: Itching Last Admin: 12/18/17 03:35 Dose: 50 mg Diphenhydramine HCl (Benadryl) 25 - 50 mg IVPUSH Q4H PRN PRN Reason: ITCHING Diphenhydramine HCl (Benadryl) 50 mg IVPUSH Q4H PRN PRN Reason: Itching Fentanyl (Sublimaze) 50 mcg IVPUSH ONETIME ONE Stop: 12/17/17 11:08 Last Admin: 12/17/17 11:25 Dose: 50 mcg Fentanyl (Sublimaze) 100 mcg IVPUSH ONETIME ONE Stop: 12/17/17 12:20 Last Admin: 12/17/17 12:30 Dose: 100 mcg Fentanyl (Sublimaze) Confirm Administered Dose 250 mcg .ROUTE .STK-MED ONE Stop: 12/18/17 09:12 Fentanyl (Sublimaze) Confirm Administered Dose 250 mcg .ROUTE .STK-MED ONE Stop: 12/18/17 11:53 Gabapentin (Neurontin) 300 mg PO TID [facility] Last Admin: 12/18/17 20:58 Dose: 300 mg Glycopyrrolate (Robinul) Confirm Administered Dose 1 mg .ROUTE .STK-MED ONE Stop: 12/18/17 09:12 Hydromorphone HCl (Dilaudid Project/Production Manager Imaging 15 Mg In Ns 30 Ml) 0 mg IV ASDIRECTED PRN; Protocol PRN Reason: BILLET CUTTER PAIN CONTROL Last Admin: 12/17/17 14:59 Dose: 15 mg Hydromorphone HCl (Dilaudid Project/Production Manager Imaging 15 Mg In Ns 30 Ml) Confirm Administered Dose 15 mg IV .STK-MED ONE Stop: 12/17/17 14:40 Last Admin: 12/17/17 15:01 Dose: Not Given Hydroxyzine HCl (Vistaril) 100 mg IM ONETIME ONE Stop: 12/18/17 13:01 Last Admin: 12/18/17 12:57 Dose: 100 mg Hydroxyzine HCl (Vistaril) 50 mg IM ONETIME ONE Stop: 12/18/17 14:06 Last Admin: 12/18/17 14:12 Dose: 50 mg Lactated Ringer's (Ringers, Lactated) 1,000 mls @ 500 mls/hr IV ASDIRECTED [facility] Last Admin: 12/17/17 11:24 Dose: 500 mls/hr Sodium Chloride (Normal Saline) 100 mls @ 3 mls/sec IV ASDIRECTED [facility] Last Admin: 12/17/17 11:55 Dose: 3 mls/sec Lidocaine HCl/Dextrose (Lidocaine 2 Gm/D5w 500 Ml) 2 gm in 500 mls @ 22.5 mls/ hr IV .[id number] [facility] Stop: 12/19/17 09:00 Last Admin: 12/18/17 14:52 Dose: 1.5 mg/min, 22.5 mls/hr Dextrose/Lactated Ringer's (Dextrose 5%-Lactated Ringers) 1,000 mls @ 150 mls/ hr IV ASDIRECTED [facility] Last Admin: 12/18/17 10:24 Dose: 150 mls/hr Acetaminophen 1,000 mg/ Premix 100 mls @ 400 mls/hr IV ONETIME ONE Stop: 12/18/17 10:14 Last Admin: 12/18/17 11:14 Dose: 400 mls/hr Meropenem 500 mg/ Sodium (Chloride) 50 mls @ 100 mls/hr IV ONCALL ONE Stop: 12/18/17 12:29 Last Admin: 12/18/17 11:10 Dose: 100 mls/hr Dextrose/Lactated Ringer's (Dextrose 5%-Lactated Ringers) 1,000 mls @ 175 mls/ hr IV ASDIRECTED [facility] Last Admin: 12/19/17 06:05 Dose: 175 mls/hr Multivitamins/Minerals 10 ml/Thiamine HCl 100 mg/ Chromium/Copper/Manganese/ Seleni/Zn 1 ml/ Dextrose/Lactated Ringer's 1,012 mls @ 175 mls/hr IV DAILY@ 1600 [facility] Last Admin: 12/18/17 17:36 Dose: 175 mls/hr Meropenem 500 mg/ Sodium (Chloride) 50 mls @ 100 mls/hr IV Q6H [facility] Stop: 12/19/17 05:29 Last Admin: 12/19/17 04:20 Dose: 100 mls/hr Iohexol (Omnipaque-300) 50 ml PO .ASDIRECTED [facility] Stop: 12/19/17 03:21 Last Admin: 12/19/17 03:33 Dose: 50 ml Iopamidol (Isovue-300 (61%)) 150 ml IV . DIRECTED [facility] Last Admin: 12/17/17 11:55 Dose: 150 ml Ketamine HCl (Ketalar) 26 mg IV ONETIME ONE Stop: 12/18/17 11:01 Last Admin: 12/18/17 14:52 Dose: Not Given Lidocaine HCl (Xylocaine 2%) 94 mg IVPUSH ONETIME ONE Stop: 12/18/17 11:01 Last Admin: 12/18/17 14:52 Dose: Not Given Lorazepam (Ativan) 1 mg IVPUSH Q1H PRN PRN Reason: Pain (mild 1-3) Last Admin: 12/19/17 04:00 Dose: 1 mg Magnesium Hydroxide (Milk Of Magnesia) 30 ml PO ONETIME ONE Stop: 12/20/17 08:16 Last Admin: 12/20/17 08:10 Dose: 30 ml Meperidine HCl (Demerol) 100 mg IM ONETIME ONE Stop: 12/18/17 14:06 Last Admin: 12/18/17 14:13 Dose: 100 mg Meropenem (Merrem) Confirm Administered Dose 500 mg .ROUTE .STK-MED ONE Stop: 12/18/17 05:50 Last Admin: 12/18/17 14:16 Dose: 500 mg Miscellaneous Information (Remove Patch) 1 ea TRDERM ONETIME ONE Stop: 12/20/17 10:01 Last Admin: 12/20/17 16:49 Dose: 1 ea Morphine Sulfate (Morphine Project/Production Manager Imaging 150 Mg In 30 Ml) 0 mg IV ASDIRECTED PRN; Protocol PRN Reason: PAIN Last Admin: 12/17/17 22:15 Dose: 150 mg Morphine Sulfate (Morphine Project/Production Manager Imaging 150 Mg In 30 Ml) 150 mg IV ASDIRECTED [facility]; Protocol Morphine Sulfate (Morphine Project/Production Manager Imaging 150 Mg In 30 Ml) 150 mg IV ASDIRECTED [facility]; Protocol Morphine Sulfate (Morphine Project/Production Manager Imaging 150 Mg In 30 Ml) 0 mg IV ASDIRECTED PRN; Protocol PRN Reason: Pain Naloxone HCl (Narcan) 0.1 mg IV ASDIRECTED PRN PRN Reason: decreased respiratory rate Neostigmine Methylsulfate (Neostigmine) Confirm Administered Dose 5 mg .ROUTE .STK-MED ONE Stop: 12/18/17 09:12 Scopolamine Patch (Check) 1 each TOP DAILY [facility] Stop: 12/20/17 14:01 Last Admin: 12/20/17 09:00 Dose: Not Given Ondansetron HCl (Zofran) 4 mg IVPUSH ONETIME ONE Stop: 12/17/17 11:08 Last Admin: 12/17/17 11:25 Dose: 4 mg Ondansetron HCl (Zofran) Confirm Administered Dose 4 mg .ROUTE .STK-MED ONE Stop: 12/18/17 09:12 Ondansetron HCl (Zofran) 4 mg IVPUSH ONETIME ONE Stop: 12/18/17 13:16 Last Admin: 12/18/17 13:13 Dose: 4 mg Oxycodone HCl (Oxycodone) 5 mg PO Q4H PRN PRN Reason: Pain Last Admin: 12/20/17 08:11 Dose: 5 mg Pantoprazole Sodium (Protonix Iv) 40 mg IV Q24H [facility] Last Admin: 12/19/17 15:51 Dose: 40 mg Propofol (Diprivan 20 Ml) Confirm Administered Dose 200 mg .ROUTE .STK-MED ONE Stop: 12/18/17 09:12 Rocuronium [place] (Zemuron) Confirm Administered Dose 50 mg .ROUTE .STK-MED ONE Stop: 12/18/17 09:12 Scopolamine (Transderm-Scop) Confirm Administered Dose 1.5 mg .ROUTE .STK-MED ONE Stop: 12/18/17 11:22 Sodium Chloride (Saline Flush) 10 ml FLUSH ASDIRECTED PRN PRN Reason: Keep Vein Open Last Admin: 12/17/17 12:03 Dose: 10 ml Succinylcholine Chloride (Quelicin) Confirm Administered Dose 200 mg .ROUTE .STK -MED ONE Stop: 12/18/17 09:12 - Exam General: Alert, Oriented, Cooperative, No Acute Distress Lungs: Clear to Auscultation, Normal Respiratory Effort GI/Abdominal Exam: Tender Skin: Warm, Dry Psy/Mental Status: Alert, Normal Affect, Normal Mood Physical Findings Comment:: Pt is AO X3 and affect is very bright today. pt is sitting up in bed. - Problem List & Annotations (1) Abdominal pain SNOMED Code(s): 98042376 Code(s): R10.9 - UNSPECIFIED ABDOMINAL PAIN Status: Acute Current Visit: Yes Qualifiers: Abdominal location: generalized Qualified Code(s): R10.84 - Generalized abdominal pain (2) Status post colon resection SNOMED Code(s): 638142029, 71274845, 37111610, 293606286 Code(s): Z90.49 - ACQUIRED ABSENCE OF OTHER SPECIFIED PARTS OF DIGESTIVE TRACT Status: Acute Current Visit: Yes (3) Status post exploratory laparotomy SNOMED Code(s): 675622847, 81720551, 099069641 Code(s): Z98.890 - OTHER SPECIFIED POSTPROCEDURAL STATES Status: Acute Current Visit: Yes Annotation/Comment:: release of small bowel obstruction, small bowel resection, hernia repair (4) Status post hernia repair SNOMED Code(s): 95916595196891, 46733615967069 Code(s): Z98.890 - OTHER SPECIFIED POSTPROCEDURAL STATES; Z87.19 - PERSONAL HISTORY OF OTHER DISEASES OF THE DIGESTIVE SYSTEM Status: Acute Current Visit: Yes - Problem List Review Problem List Initiated/Reviewed/Updated: Yes - My Orders Last 24 Hours: Active Orders 24 hr Category Date Time Status May Shower [RC] ASDIRECTED Care 12/20/17 07:33 Active Consult to Yard Specialist [CONS] Routine Cons 12/20/17 08:00 Active Morphine Med 12/20/17 12:52 Active 2 mg IVPUSH Q2H PRN Pantoprazole [ProTONIX] Med 12/20/17 16:00 Active 40 mg PO Q24H oxyCODONE Med 12/20/17 10:47 Active 5 - 10 mg PO Q4H PRN PT Screening [OM.PC] Routine Oth 12/20/17 08:00 Active Remove Dressing [OM.PC] Routine Oth 12/20/17 07:33 Ordered Medication Orders Acetaminophen (Tylenol) 650 mg PO Q6H [facility] Last Admin: 12/20/17 16:47 Dose: 650 mg Admin: 12/20/17 11:07 Dose: 650 mg Admin: 12/20/17 05:03 Dose: 650 mg Admin: 12/19/17 23:14 Dose: 650 mg Admin: 12/19/17 16:57 Dose: 650 mg Admin: 12/19/17 10:06 Dose: 650 mg Admin: 12/19/17 04:20 Dose: 650 mg Admin: 12/18/17 23:48 Dose: 650 mg Admin: 12/18/17 16:23 Dose: 650 mg Alprazolam (Xanax) 0.25 mg PO Q6H PRN PRN Reason: Anxiety Last Admin: 12/20/17 11:10 Dose: 0.25 mg Admin: 12/19/17 14:00 Dose: 0.25 mg Admin: 12/19/17 07:23 Dose: 0.25 mg Belladonna/Phenobarbital ( Elixir) 5 ml PO Q4H PRN PRN Reason: Indigestion Last Admin: 12/20/17 12:34 Dose: 5 ml Admin: 12/19/17 16:57 Dose: 5 ml Admin: 12/19/17 10:13 Dose: 5 ml Calcium Carbonate/Glycine (Tums) 1,000 mg PO Q2H PRN PRN Reason: Indigestion Last Admin: 12/20/17 15:09 Dose: 1,000 mg Admin: 12/19/17 14:00 Dose: 1,000 mg Celecoxib (Celebrex) 200 mg PO DAILY@0800 [facility] Last Admin: 12/20/17 08:09 Dose: 200 mg Admin: 12/19/17 07:23 Dose: 200 mg Cyclobenzaprine HCl (Flexeril) 10 mg PO Q6H PRN PRN Reason: Pain (moderate 4-6) Last Admin: 12/20/17 16:41 Dose: 10 mg Admin: 12/20/17 08:31 Dose: 10 mg Admin: 12/19/17 23:13 Dose: 10 mg Admin: 12/19/17 14:00 Dose: 10 mg Admin: 12/19/17 07:23 Dose: 10 mg Admin: 12/19/17 00:29 Dose: 10 mg Admin: 12/18/17 14:42 Dose: 10 mg Diphenhydramine HCl (Benadryl) 50 mg PO Q4H PRN PRN Reason: Itching Docusate Sodium (Colace) 100 mg PO BID [facility] Last Admin: 12/20/17 08:10 Dose: 100 mg Admin: 12/19/17 20:44 Dose: 100 mg Admin: 12/19/17 10:06 Dose: 100 mg Heparin Sodium (Porcine) (Heparin Sodium) 5,000 units SUBCUT Q12H [facility] Last Admin: 12/20/17 08:09 Dose: 5,000 units Admin: 12/19/17 19:44 Dose: 5,000 units Admin: 12/19/17 07:23 Dose: 5,000 units Admin: 12/18/17 20:14 Dose: 5,000 units Hydroxyzine HCl (Vistaril) 75 - 100 mg IM Q4H PRN PRN Reason: pain Last Admin: 12/20/17 16:39 Dose: 100 mg Admin: 12/20/17 11:01 Dose: 100 mg Admin: 12/19/17 19:43 Dose: 100 mg Dextrose/Lactated Ringer's (Dextrose 5%-Lactated Ringers) 1,000 mls @ 80 mls/ hr IV ASDIRECTED [facility] Last Admin: 12/20/17 04:13 Dose: 80 mls/hr Multivitamins/Minerals 10 ml/Thiamine HCl 100 mg/ Chromium/Copper/Manganese/ Seleni/Zn 1 ml/ Dextrose/Lactated Ringer's 1,012 mls @ 80 mls/hr IV DAILY@1600 [facility] Last Admin: 12/20/17 15:10 Dose: 80 mls/hr Admin: 12/19/17 15:52 Dose: 80 mls/hr Labetalol HCl (Normodyne) 5 - 15 mg IVPUSH Q1H PRN PRN Reason: SBP over 160 OR DBP over 95 Metoclopramide HCl (Reglan) 10 mg IVPUSH Q6H PRN PRN Reason: NAUSEA NOT CONTROL BY ZOFRAN Last Admin: 12/20/17 16:41 Dose: 10 mg Admin: 12/20/17 10:12 Dose: 10 mg Admin: 12/19/17 23:13 Dose: 10 mg Morphine Sulfate (Morphine) 2 mg IVPUSH Q2H PRN PRN Reason: Pain Last Admin: 12/20/17 15:36 Dose: 2 mg Admin: 12/20/17 13:10 Dose: 2 mg Ondansetron HCl (Zofran) 4 mg IVPUSH Q4H PRN PRN Reason: Nausea Last Admin: 12/20/17 15:09 Dose: 4 mg Admin: 12/20/17 11:01 Dose: 4 mg Admin: 12/20/17 07:00 Dose: 4 mg Admin: 12/19/17 22:14 Dose: 4 mg Admin: 12/19/17 16:45 Dose: 4 mg Admin: 12/19/17 02:14 Dose: 4 mg Admin: 12/17/17 14:55 Dose: 4 mg Oxycodone HCl (Oxycodone) 5 - 10 mg PO Q4H PRN PRN Reason: Pain Last Admin: 12/20/17 16:41 Dose: 10 mg Admin: 12/20/17 12:31 Dose: 10 mg Pantoprazole Sodium (Protonix) 40 mg PO Q24H [facility] Last Admin: 12/20/17 16:41 Dose: 40 mg - Assessment Assessment (Free Text/Narrative):: abdominal pain post op exploratory laparotomy, colon resection, and hernia repair - Plan Plan (Free Text/Narrative):: -We will DC BILLET CUTTER and switch to oral pain medication : Tylenol, Celebrex, Oxycodone, and flexeril -give 2 tabs ducolax BID and milk of magnesia to help move bowels -may remove dressing and shower today
[2017-12-20] MEDS ORDERED: Lidocaine 2% 60 ML, Alum Hydrox/Mag Hydrox/Simeth 360 ML PO ONE ×2 (19:22)
[2017-12-20] MEDS ORDERED: MAGNESIUM HYDROXIDE PO ONE ×2 (19:23)
[2017-12-20] MEDS ORDERED: LIDOCAINE PO ONE ×2 (19:23)
[2017-12-20] MEDS ORDERED: ALUMINUM HYDROXIDE PO ONE ×2 (19:23)
[2017-12-20] MEDS ORDERED: SIMETHICONE PO ONE ×2 (19:23)
[2017-12-20] MEDS ORDERED: Aluminum Hydroxide/Magnesium Hydroxide/Simethicone Susp 30 ML Cup ONE (19:58)
[2017-12-20] MEDS ORDERED: Lidocaine 2% Viscous Solution 15 ML Cup ONE (19:58)
[2017-12-21] MEDS: Ondansetron 4 MG/2 ML SDV IVPUSH PRN (02:25)
[2017-12-21] MEDS: Morphine 2 MG/ML Syringe IVPUSH PRN (02:33)
[2017-12-21] MEDS: Dextrose 5%-Lactated Ringers 1,000 ML IV SCH (03:53)
[2017-12-21] MEDS: Acetaminophen Soln 650 MG/20.3 ML UD Cup PO SCH ×4 (04:13→23:05)
[2017-12-21] MEDS: Calcium Carbonate 500 MG Tab.Chew PO PRN (04:13)
[2017-12-21] MEDS: ALPRAZolam 0.25 MG Tab PO PRN ×3 (04:13→18:11)
[2017-12-21] MEDS: oxyCODONE 5 MG Tab PO PRN ×3 (04:14→20:13)
[2017-12-21] MEDS: Heparin Sodium 5,000 Units/ML Vial SUBCUT SCH ×2 (08:30→20:15)
[2017-12-21] MEDS: Bisacodyl 10 MG Supp RECTAL SCH ×2 (08:30→20:17)
[2017-12-21] MEDS: Docusate Sodium 100 MG Cap PO SCH ×2 (08:30→20:18)
[2017-12-21] MEDS: Celecoxib 200 MG Cap PO SCH (08:30)
--- NOTE | 2017-12-21 08:56 | CR ---
Abdomen 2V AP Flat Upright HISTORY: post op ileus FINDINGS: There is residual contrast in the colon. Bowel gas pattern is otherwise nonspecific. No obstruction o r free air is identified. No soft tissue mass, organomegaly, or abnormal calcifications are seen. Ector gical clips right upper quadrant are noted consistent with prior cholecystectomy. IUD overlies the mi d pelvis. Gastric bypass postoperative changes are again noted. There are midline skin carmella. Bony structures are unremarkable. IMPRESSION: Postoperative changes. Otherwise nonspecific abdomen.
[2017-12-21] MEDS ORDERED: Polyethylene Glycol 3350 Powder 119 GM Bottle PO ONE (09:00)
--- NOTE | 2017-12-21 15:03 | PCM.SURGPN ---
- General Info Date of Service: 12/21/17 POD#: 3 Functional Status: Reports: Ambulating, Urinating - Review of Systems General: Reports: No Symptoms Pulmonary: Reports: No Symptoms Cardiovascular: Reports: No Symptoms Gastrointestinal: Reports: Abdominal Pain, Constipation, Decreased Appetite Genitourinary: Reports: No Symptoms Skin: Reports: No Symptoms Psychiatric: Reports: Anxiety (Pt complains of abdominal pain and bloating, pt states he appetite is decreased and she still has not had a BM. ) - Patient Data Vitals - Most Recent: Last Vital Signs Temp 36.9 C 12/21/17 11:21 Pulse 66 12/21/17 11:21 Resp 19 12/21/17 11:21 BP 136/67 12/21/17 11:21 Pulse Ox 93 L 12/21/17 11:21 Weight - Most Recent: 79.25 kg I&O - Last 24 Hours: Intake & Output 12/20/17 12/21/17 12/21/17 22:59 06:59 14:59 Intake Total 1507 1522 Output Total 1950 1000 400 Balance -443 522 -400 Med Orders - Current: Current Medications Acetaminophen (Tylenol) 650 mg PO Q6H [facility] Last Admin: 12/21/17 10:33 Dose: 650 mg Alprazolam (Xanax) 0.25 mg PO Q6H PRN PRN Reason: Anxiety Last Admin: 12/21/17 10:33 Dose: 0.25 mg Belladonna/Phenobarbital ( Elixir) 5 ml PO Q4H PRN PRN Reason: Indigestion Last Admin: 12/20/17 12:34 Dose: 5 ml Bisacodyl (Dulcolax) 10 mg RECTAL BID [facility] Last Admin: 12/21/17 08:30 Dose: 10 mg Calcium Carbonate/Glycine (Tums) 1,000 mg PO Q2H PRN PRN Reason: Indigestion Last Admin: 12/21/17 04:13 Dose: 1,000 mg Celecoxib (Celebrex) 200 mg PO DAILY@0800 [facility] Last Admin: 12/21/17 08:30 Dose: 200 mg Cyclobenzaprine HCl (Flexeril) 10 mg PO Q6H PRN PRN Reason: Pain (moderate 4-6) Last Admin: 12/20/17 23:31 Dose: 10 mg Diphenhydramine HCl (Benadryl) 50 mg PO Q4H PRN PRN Reason: Itching Last Admin: 12/20/17 23:32 Dose: 50 mg Docusate Sodium (Colace) 100 mg PO BID [facility] Last Admin: 12/21/17 08:30 Dose: 100 mg Heparin Sodium (Porcine) (Heparin Sodium) 5,000 units SUBCUT Q12H [facility] Last Admin: 12/21/17 08:30 Dose: 5,000 units Hydroxyzine HCl (Vistaril) 75 - 100 mg IM Q4H PRN PRN Reason: pain Last Admin: 12/20/17 16:39 Dose: 100 mg Dextrose/Lactated Ringer's (Dextrose 5%-Lactated Ringers) 1,000 mls @ 80 mls/ hr IV ASDIRECTED [facility] Last Admin: 12/21/17 03:53 Dose: 80 mls/hr Multivitamins/Minerals 10 ml/Thiamine HCl 100 mg/ Chromium/Copper/Manganese/ Seleni/Zn 1 ml/ Dextrose/Lactated Ringer's 1,012 mls @ 80 mls/hr IV DAILY@1600 [facility] Last Admin: 12/20/17 15:10 Dose: 80 mls/hr Labetalol HCl (Normodyne) 5 - 15 mg IVPUSH Q1H PRN PRN Reason: SBP over 160 OR DBP over 95 Metoclopramide HCl (Reglan) 10 mg IVPUSH Q6H PRN PRN Reason: NAUSEA NOT CONTROL BY ZOFRAN Last Admin: 12/20/17 23:32 Dose: 10 mg Morphine Sulfate (Morphine) 2 mg IVPUSH Q2H PRN PRN Reason: Pain Last Admin: 12/21/17 02:33 Dose: 2 mg Ondansetron HCl (Zofran) 4 mg IVPUSH Q4H PRN PRN Reason: Nausea Last Admin: 12/21/17 02:25 Dose: 4 mg Oxycodone HCl (Oxycodone) 5 - 10 mg PO Q4H PRN PRN Reason: Pain Last Admin: 12/21/17 12:06 Dose: 10 mg Pantoprazole Sodium (Protonix) 40 mg PO Q24H [facility] Last Admin: 12/20/17 16:41 Dose: 40 mg Discontinued Medications Acetaminophen (Tylenol) 650 mg PO Q4H PRN PRN Reason: ANALGESIA/FEVER Acetaminophen (Tylenol) 650 mg RECTAL Q4H PRN PRN Reason: ANALGESIA/FEVER Al Hydroxide/Mg Hydroxide (Mag-Al Plus) Confirm Administered Dose 30 ml .ROUTE .STK-MED ONE Stop: 12/20/17 19:59 Last Admin: 12/20/17 21:58 Dose: Not Given Alprazolam (Xanax) 0.25 mg PO TID PRN PRN Reason: Anxiety Last Admin: 12/18/17 10:28 Dose: 0.25 mg Bisacodyl (Dulcolax) 20 mg PO ONETIME ONE Stop: 12/20/17 09:16 Last Admin: 12/20/17 08:16 Dose: 20 mg Ropivacaine 40 ml/Dexamethasone 8 mg/Epinephrine HCl 0.4 mg/ Sodium Chloride 37.6 ml 0 ml NERVRT ONETIME ONE Stop: 12/18/17 11:01 Last Admin: 12/18/17 11:14 Dose: 80 syringe Al Hydroxide/Mg Hydroxide 30 (ml/ Lidocaine HCl 30 ml) 0 ml PO ONETIME ONE Stop: 12/20/17 19:24 Last Admin: 12/20/17 20:00 Dose: 30 ml Cyanocobalamin (Vitamin B12) 1,000 mcg IM ONETIME ONE Stop: 12/20/17 09:01 Last Admin: 12/20/17 08:10 Dose: 1,000 mcg Dexamethasone (Dexamethasone) Confirm Administered Dose 4 mg .ROUTE .STK-MED ONE Stop: 12/18/17 09:12 Diphenhydramine HCl (Benadryl) 25 mg PO Q4H PRN PRN Reason: Itching Last Admin: 12/17/17 18:12 Dose: 25 mg Diphenhydramine HCl (Benadryl) 25 - 50 mg PO Q4H PRN PRN Reason: Itching Last Admin: 12/18/17 03:35 Dose: 50 mg Diphenhydramine HCl (Benadryl) 25 - 50 mg IVPUSH Q4H PRN PRN Reason: ITCHING Diphenhydramine HCl (Benadryl) 50 mg IVPUSH Q4H PRN PRN Reason: Itching Fentanyl (Sublimaze) 50 mcg IVPUSH ONETIME ONE Stop: 12/17/17 11:08 Last Admin: 12/17/17 11:25 Dose: 50 mcg Fentanyl (Sublimaze) 100 mcg IVPUSH ONETIME ONE Stop: 12/17/17 12:20 Last Admin: 12/17/17 12:30 Dose: 100 mcg Fentanyl (Sublimaze) Confirm Administered Dose 250 mcg .ROUTE .STK-MED ONE Stop: 12/18/17 09:12 Fentanyl (Sublimaze) Confirm Administered Dose 250 mcg .ROUTE .STK-MED ONE Stop: 12/18/17 11:53 Gabapentin (Neurontin) 300 mg PO TID [facility] Last Admin: 12/18/17 20:58 Dose: 300 mg Glycopyrrolate (Robinul) Confirm Administered Dose 1 mg .ROUTE .STK-MED ONE Stop: 12/18/17 09:12 Hydromorphone HCl (Dilaudid Insurance Defense Attorney 15 Mg In Ns 30 Ml) 0 mg IV ASDIRECTED PRN; Protocol PRN Reason: [employer] PAIN CONTROL Last Admin: 12/17/17 14:59 Dose: 15 mg Hydromorphone HCl (Dilaudid Insurance Defense Attorney 15 Mg In Ns 30 Ml) Confirm Administered Dose 15 mg IV .STK-MED ONE Stop: 12/17/17 14:40 Last Admin: 12/17/17 15:01 Dose: Not Given Hydroxyzine HCl (Vistaril) 100 mg IM ONETIME ONE Stop: 12/18/17 13:01 Last Admin: 12/18/17 12:57 Dose: 100 mg Hydroxyzine HCl (Vistaril) 50 mg IM ONETIME ONE Stop: 12/18/17 14:06 Last Admin: 12/18/17 14:12 Dose: 50 mg Lactated Ringer's (Ringers, Lactated) 1,000 mls @ 500 mls/hr IV ASDIRECTED [facility] Last Admin: 12/17/17 11:24 Dose: 500 mls/hr Sodium Chloride (Normal Saline) 100 mls @ 3 mls/sec IV ASDIRECTED [facility] Last Admin: 12/17/17 11:55 Dose: 3 mls/sec Lidocaine HCl/Dextrose (Lidocaine 2 Gm/D5w 500 Ml) 2 gm in 500 mls @ 22.5 mls/ hr IV .[id number] [facility] Stop: 12/19/17 09:00 Last Admin: 12/18/17 14:52 Dose: 1.5 mg/min, 22.5 mls/hr Dextrose/Lactated Ringer's (Dextrose 5%-Lactated Ringers) 1,000 mls @ 150 mls/ hr IV ASDIRECTED [facility] Last Admin: 12/18/17 10:24 Dose: 150 mls/hr Acetaminophen 1,000 mg/ Premix 100 mls @ 400 mls/hr IV ONETIME ONE Stop: 12/18/17 10:14 Last Admin: 12/18/17 11:14 Dose: 400 mls/hr Meropenem 500 mg/ Sodium (Chloride) 50 mls @ 100 mls/hr IV ONCALL ONE Stop: 12/18/17 12:29 Last Admin: 12/18/17 11:10 Dose: 100 mls/hr Dextrose/Lactated Ringer's (Dextrose 5%-Lactated Ringers) 1,000 mls @ 175 mls/ hr IV ASDIRECTED [facility] Last Admin: 12/19/17 06:05 Dose: 175 mls/hr Multivitamins/Minerals 10 ml/Thiamine HCl 100 mg/ Chromium/Copper/Manganese/ Seleni/Zn 1 ml/ Dextrose/Lactated Ringer's 1,012 mls @ 175 mls/hr IV DAILY@ 1600 [facility] Last Admin: 12/18/17 17:36 Dose: 175 mls/hr Meropenem 500 mg/ Sodium (Chloride) 50 mls @ 100 mls/hr IV Q6H [facility] Stop: 12/19/17 05:29 Last Admin: 12/19/17 04:20 Dose: 100 mls/hr Iohexol (Omnipaque-300) 50 ml PO .ASDIRECTED [facility] Stop: 12/19/17 03:21 Last Admin: 12/19/17 03:33 Dose: 50 ml Iopamidol (Isovue-300 (61%)) 150 ml IV . DIRECTED [facility] Last Admin: 12/17/17 11:55 Dose: 150 ml Ketamine HCl (Ketalar) 26 mg IV ONETIME ONE Stop: 12/18/17 11:01 Last Admin: 12/18/17 14:52 Dose: Not Given Lidocaine HCl (Xylocaine 2%) 94 mg IVPUSH ONETIME ONE Stop: 12/18/17 11:01 Last Admin: 12/18/17 14:52 Dose: Not Given Lidocaine HCl (Xylocaine 2% Viscous) Confirm Administered Dose 30 ml .ROUTE .STK -MED ONE Stop: 12/20/17 19:59 Last Admin: 12/20/17 21:59 Dose: Not Given Lorazepam (Ativan) 1 mg IVPUSH Q1H PRN PRN Reason: Pain (mild 1-3) Last Admin: 12/19/17 04:00 Dose: 1 mg Magnesium Hydroxide (Milk Of Magnesia) 30 ml PO ONETIME ONE Stop: 12/20/17 08:16 Last Admin: 12/20/17 08:10 Dose: 30 ml Meperidine HCl (Demerol) 100 mg IM ONETIME ONE Stop: 12/18/17 14:06 Last Admin: 12/18/17 14:13 Dose: 100 mg Meropenem (Merrem) Confirm Administered Dose 500 mg .ROUTE .STK-MED ONE Stop: 12/18/17 05:50 Last Admin: 12/18/17 14:16 Dose: 500 mg Miscellaneous Information (Remove Patch) 1 ea TRDERM ONETIME ONE Stop: 12/20/17 10:01 Last Admin: 12/20/17 16:49 Dose: 1 ea Morphine Sulfate (Morphine Insurance Defense Attorney 150 Mg In 30 Ml) 0 mg IV ASDIRECTED PRN; Protocol PRN Reason: PAIN Last Admin: 12/17/17 22:15 Dose: 150 mg Morphine Sulfate (Morphine Insurance Defense Attorney 150 Mg In 30 Ml) 150 mg IV ASDIRECTED [facility]; Protocol Morphine Sulfate (Morphine Insurance Defense Attorney 150 Mg In 30 Ml) 150 mg IV ASDIRECTED [facility]; Protocol Morphine Sulfate (Morphine Insurance Defense Attorney 150 Mg In 30 Ml) 0 mg IV ASDIRECTED PRN; Protocol PRN Reason: Pain Naloxone HCl (Narcan) 0.1 mg IV ASDIRECTED PRN PRN Reason: decreased respiratory rate Neostigmine Methylsulfate (Neostigmine) Confirm Administered Dose 5 mg .ROUTE .STK-MED ONE Stop: 12/18/17 09:12 Scopolamine Patch (Check) 1 each TOP DAILY [facility] Stop: 12/20/17 14:01 Last Admin: 12/20/17 09:00 Dose: Not Given Ondansetron HCl (Zofran) 4 mg IVPUSH ONETIME ONE Stop: 12/17/17 11:08 Last Admin: 12/17/17 11:25 Dose: 4 mg Ondansetron HCl (Zofran) Confirm Administered Dose 4 mg .ROUTE .STK-MED ONE Stop: 12/18/17 09:12 Ondansetron HCl (Zofran) 4 mg IVPUSH ONETIME ONE Stop: 12/18/17 13:16 Last Admin: 12/18/17 13:13 Dose: 4 mg Oxycodone HCl (Oxycodone) 5 mg PO Q4H PRN PRN Reason: Pain Last Admin: 12/20/17 08:11 Dose: 5 mg Pantoprazole Sodium (Protonix Iv) 40 mg IV Q24H [facility] Last Admin: 12/19/17 15:51 Dose: 40 mg Polyethylene Glycol (Miralax) 119 gm PO ONETIME ONE Stop: 12/21/17 09:01 Last Admin: 12/21/17 08:30 Dose: 119 gm Propofol (Diprivan 20 Ml) Confirm Administered Dose 200 mg .ROUTE .STK-MED ONE Stop: 12/18/17 09:12 Rocuronium [place] (Zemuron) Confirm Administered Dose 50 mg .ROUTE .STK-MED ONE Stop: 12/18/17 09:12 Scopolamine (Transderm-Scop) Confirm Administered Dose 1.5 mg .ROUTE .STK-MED ONE Stop: 12/18/17 11:22 Sodium Chloride (Saline Flush) 10 ml FLUSH ASDIRECTED PRN PRN Reason: Keep Vein Open Last Admin: 12/17/17 12:03 Dose: 10 ml Succinylcholine Chloride (Quelicin) Confirm Administered Dose 200 mg .ROUTE .STK -MED ONE Stop: 12/18/17 09:12 - Exam Wound/Incisions: Healing Well, Dressing Dry and Intact, No Drainage General: Alert, Oriented, Cooperative, No Acute Distress HEENT: Pupils Equal, EOMI Lungs: Clear to Auscultation, Normal Respiratory Effort Cardiovascular: Regular Rate, Regular Rhythm, No Murmurs GI/Abdominal Exam: Soft, Tender (very tender near superior aspect of incision) Skin: Warm, Dry (Pts incision is healing well, and seen without erythema or drainage) Neurological: Normal Speech Psy/Mental Status: Normal Affect, Normal Mood - Problem List & Annotations (1) Abdominal pain SNOMED Code(s): 91714552 Code(s): R10.9 - UNSPECIFIED ABDOMINAL PAIN Status: Acute Current Visit: Yes Qualifiers: Abdominal location: generalized Qualified Code(s): R10.84 - Generalized abdominal pain (2) Status post colon resection SNOMED Code(s): 718985146, 06332344, 61056039, 043133678 Code(s): Z90.49 - ACQUIRED ABSENCE OF OTHER SPECIFIED PARTS OF DIGESTIVE TRACT Status: Acute Current Visit: Yes (3) Status post exploratory laparotomy SNOMED Code(s): 717577979, 68829980, 074045318 Code(s): Z98.890 - OTHER SPECIFIED POSTPROCEDURAL STATES Status: Acute Current Visit: Yes Annotation/Comment:: release of small bowel obstruction, small bowel resection, hernia repair (4) Status post hernia repair SNOMED Code(s): 34855910271990, 85683108174744 Code(s): Z98.890 - OTHER SPECIFIED POSTPROCEDURAL STATES; Z87.19 - PERSONAL HISTORY OF OTHER DISEASES OF THE DIGESTIVE SYSTEM Status: Acute Current Visit: Yes - Problem List Review Problem List Initiated/Reviewed/Updated: Yes - My Orders Last 24 Hours: Active Orders 24 hr Category Date Time Status Full Liquid Diet [DIET] Diet 12/21/17 Breakfast Ordered Abdomen 2V AP Flat Upright [CR] DAILY Exams 12/22/17 04:00 Ordered Abdomen 2V AP Flat Upright [CR] DAILY Exams 12/23/17 04:00 Ordered Abdomen 2V AP Flat Upright [CR] DAILY Exams 12/24/17 04:00 Ordered Bisacodyl [Dulcolax] Med 12/21/17 09:00 Active 10 mg RECTAL BID Pantoprazole [ProTONIX] Med 12/20/17 16:00 Active 40 mg PO Q24H Medication Orders Acetaminophen (Tylenol) 650 mg PO Q6H [facility] Last Admin: 12/21/17 10:33 Dose: 650 mg Admin: 12/21/17 04:13 Dose: 650 mg Admin: 12/20/17 22:06 Dose: 650 mg Admin: 12/20/17 18:15 Dose: Not Given Admin: 12/20/17 11:07 Dose: 650 mg Admin: 12/20/17 05:03 Dose: 650 mg Admin: 12/19/17 23:14 Dose: 650 mg Admin: 12/19/17 16:57 Dose: 650 mg Admin: 12/19/17 10:06 Dose: 650 mg Admin: 12/19/17 04:20 Dose: 650 mg Admin: 12/18/17 23:48 Dose: 650 mg Admin: 12/18/17 16:23 Dose: 650 mg Alprazolam (Xanax) 0.25 mg PO Q6H PRN PRN Reason: Anxiety Last Admin: 12/21/17 10:33 Dose: 0.25 mg Admin: 12/21/17 04:13 Dose: 0.25 mg Admin: 12/20/17 19:20 Dose: 0.25 mg Admin: 12/20/17 11:10 Dose: 0.25 mg Admin: 12/19/17 14:00 Dose: 0.25 mg Admin: 12/19/17 07:23 Dose: 0.25 mg Belladonna/Phenobarbital ( Elixir) 5 ml PO Q4H PRN PRN Reason: Indigestion Last Admin: 12/20/17 12:34 Dose: 5 ml Admin: 12/19/17 16:57 Dose: 5 ml Admin: 12/19/17 10:13 Dose: 5 ml Bisacodyl (Dulcolax) 10 mg RECTAL BID [facility] Last Admin: 12/21/17 08:30 Dose: 10 mg Calcium Carbonate/Glycine (Tums) 1,000 mg PO Q2H PRN PRN Reason: Indigestion Last Admin: 12/21/17 04:13 Dose: 1,000 mg Admin: 12/20/17 22:08 Dose: 1,000 mg Admin: 12/20/17 15:09 Dose: 1,000 mg Admin: 12/19/17 14:00 Dose: 1,000 mg Celecoxib (Celebrex) 200 mg PO DAILY@0800 [facility] Last Admin: 12/21/17 08:30 Dose: 200 mg Admin: 12/20/17 08:09 Dose: 200 mg Admin: 12/19/17 07:23 Dose: 200 mg Cyclobenzaprine HCl (Flexeril) 10 mg PO Q6H PRN PRN Reason: Pain (moderate 4-6) Last Admin: 12/20/17 23:31 Dose: 10 mg Admin: 12/20/17 16:41 Dose: 10 mg Admin: 12/20/17 08:31 Dose: 10 mg Admin: 12/19/17 23:13 Dose: 10 mg Admin: 12/19/17 14:00 Dose: 10 mg Admin: 12/19/17 07:23 Dose: 10 mg Admin: 12/19/17 00:29 Dose: 10 mg Admin: 12/18/17 14:42 Dose: 10 mg Diphenhydramine HCl (Benadryl) 50 mg PO Q4H PRN PRN Reason: Itching Last Admin: 12/20/17 23:32 Dose: 50 mg Docusate Sodium (Colace) 100 mg PO BID [facility] Last Admin: 12/21/17 08:30 Dose: 100 mg Admin: 12/20/17 22:06 Dose: 100 mg Admin: 12/20/17 08:10 Dose: 100 mg Admin: 12/19/17 20:44 Dose: 100 mg Admin: 12/19/17 10:06 Dose: 100 mg Heparin Sodium (Porcine) (Heparin Sodium) 5,000 units SUBCUT Q12H [facility] Last Admin: 12/21/17 08:30 Dose: 5,000 units Admin: 12/20/17 22:06 Dose: 5,000 units Admin: 12/20/17 08:09 Dose: 5,000 units Admin: 12/19/17 19:44 Dose: 5,000 units Admin: 12/19/17 07:23 Dose: 5,000 units Admin: 12/18/17 20:14 Dose: 5,000 units Hydroxyzine HCl (Vistaril) 75 - 100 mg IM Q4H PRN PRN Reason: pain Last Admin: 12/20/17 16:39 Dose: 100 mg Admin: 12/20/17 11:01 Dose: 100 mg Admin: 12/19/17 19:43 Dose: 100 mg Dextrose/Lactated Ringer's (Dextrose 5%-Lactated Ringers) 1,000 mls @ 80 mls/ hr IV ASDIRECTED [facility] Last Admin: 12/21/17 03:53 Dose: 80 mls/hr Infusion: 12/20/17 16:43 Dose: 80 mls/hr Admin: 12/20/17 04:13 Dose: 80 mls/hr Multivitamins/Minerals 10 ml/Thiamine HCl 100 mg/ Chromium/Copper/Manganese/ Seleni/Zn 1 ml/ Dextrose/Lactated Ringer's 1,012 mls @ 80 mls/hr IV DAILY@1600 [facility] Last Admin: 12/20/17 15:10 Dose: 80 mls/hr Admin: 12/19/17 15:52 Dose: 80 mls/hr Labetalol HCl (Normodyne) 5 - 15 mg IVPUSH Q1H PRN PRN Reason: SBP over 160 OR DBP over 95 Metoclopramide HCl (Reglan) 10 mg IVPUSH Q6H PRN PRN Reason: NAUSEA NOT CONTROL BY ZOFRAN Last Admin: 12/20/17 23:32 Dose: 10 mg Admin: 12/20/17 16:41 Dose: 10 mg Admin: 12/20/17 10:12 Dose: 10 mg Admin: 12/19/17 23:13 Dose: 10 mg Morphine Sulfate (Morphine) 2 mg IVPUSH Q2H PRN PRN Reason: Pain Last Admin: 12/21/17 02:33 Dose: 2 mg Admin: 12/20/17 22:07 Dose: 2 mg Admin: 12/20/17 19:20 Dose: 2 mg Admin: 12/20/17 15:36 Dose: 2 mg Admin: 12/20/17 13:10 Dose: 2 mg Ondansetron HCl (Zofran) 4 mg IVPUSH Q4H PRN PRN Reason: Nausea Last Admin: 12/21/17 02:25 Dose: 4 mg Admin: 12/20/17 22:08 Dose: 4 mg Admin: 12/20/17 15:09 Dose: 4 mg Admin: 12/20/17 11:01 Dose: 4 mg Admin: 12/20/17 07:00 Dose: 4 mg Admin: 12/19/17 22:14 Dose: 4 mg Admin: 12/19/17 16:45 Dose: 4 mg Admin: 12/19/17 02:14 Dose: 4 mg Admin: 12/17/17 14:55 Dose: 4 mg Oxycodone HCl (Oxycodone) 5 - 10 mg PO Q4H PRN PRN Reason: Pain Last Admin: 12/21/17 12:06 Dose: 10 mg Admin: 12/21/17 04:14 Dose: 10 mg Admin: 12/20/17 22:05 Dose: 5 mg Admin: 12/20/17 16:41 Dose: 10 mg Admin: 12/20/17 12:31 Dose: 10 mg Pantoprazole Sodium (Protonix) 40 mg PO Q24H [facility] Last Admin: 12/20/17 16:41 Dose: 40 mg - Assessment Assessment (Free Text/Narrative):: abdominal pain post op exploratory laparotomy, colon resection, and hernia repair - Plan Plan (Free Text/Narrative):: -continue oral oxycodone and IV morphine for pain -move to full liquid diet -get abdominal xray flat and upright -leave IV at 8o ml/hr -give Ducolax suppository, pt may try Miralax if she can tolerate it
[2017-12-21] MEDS: MVI, Adult with Vitamin K 10 ML, Thiamine 100 MG, Chromium/Copper/Mang/Selen/Zn 1 ML in... IV SCH ×4 (15:25)
[2017-12-21] MEDS: Pantoprazole 40 MG Tab.CR PO SCH (15:25)
[2017-12-21] MEDS: Cyclobenzaprine 10 MG Tab PO PRN (17:05)
[2017-12-22] MEDS: Calcium Carbonate 500 MG Tab.Chew PO PRN (02:06)
[2017-12-22] MEDS: Acetaminophen Soln 650 MG/20.3 ML UD Cup PO SCH (05:54)
[2017-12-22] MEDS: oxyCODONE 5 MG Tab PO PRN (06:03)
[2017-12-22] MEDS: Celecoxib 200 MG Cap PO SCH (07:30)
[2017-12-22] MEDS ORDERED: Ondansetron 4 MG Tab.DIS PO PRN (07:48)
[2017-12-22] MEDS: Docusate Sodium 100 MG Cap PO SCH (08:12)
[2017-12-22] MEDS: Bisacodyl 10 MG Supp RECTAL SCH (08:12)
[2017-12-22] MEDS: Cyclobenzaprine 10 MG Tab PO PRN (08:17)
--- NOTE | 2017-12-22 08:39 | CR ---
Abdomen 2V AP Flat Upright HISTORY: postop ileus FINDINGS: Bowel gas pattern is nonspecific. No obstruction or free air is identified. No soft tissue mass, orga nomegaly, or abnormal calcifications are seen. Bony structures are unremarkable. Midline skin carmella are redemonstrated. Postcholecystectomy changes are noted. IUD overlies the mid pelvis. IMPRESSION: Postoperative changes are redemonstrated. Nonspecific bowel gas pattern. No obstruction is identified .
[2017-12-22 09:18] VITALS: BP 108/64
[2017-12-22] MEDS: Heparin Sodium 5,000 Units/ML Vial SUBCUT SCH (10:05)
--- NOTE | 2017-12-23 08:17 | DISCH ---
ADMISSION DIAGNOSES: Partial small bowel obstruction, status post Emerson-en-Y gastric bypass surgery, unspecified surgical malabsorption, B12 deficiency, vitamin D deficiency, vitamin B deficiency, iron deficiency, endometriosis, chronic back pain, chronic headaches, depression and anxiety, and alcohol abuse and nicotine addiction. DISCHARGE DIAGNOSES: Exploratory laparotomy with small bowel resection with revision of the JJ, sigmoid colon resection and ileoproctostomy, repair of multifocal incarcerated hernia, and liver biopsy for partial small bowel obstruction secondary to intussusception of the JJ sigmoid colon volvulus, incarcerated periumbilical incisional hernia, non-incarcerated separate hernia at support end of incision, and elevated liver function tests. Date of surgery, 12/18/2017. HISTORY: Pamela Mendoza is a 32-year-old female, who presented to the emergency room with severe abdominal pain on 12/17/2017. After preoperative evaluation and discussion of possible risks and possible complications, she had surgery on 12/18/2017. She had no operative complications. On postop day 1, her [employer] was increased to demand dose of 2 mg. Gabapentin was discontinued. She was started on a step-4 gastric bypass diet, stool softener, and her IV was decreased. On postop day 2, she was given bowel stimulation and by postop day 4, her pain was well managed, her activity was good, oral intake adequate, pain controlled, and she was able to be discharged to home without any complications. PHYSICAL EXAMINATION: GENERAL: Pamela Mendoza is a 32-year-old female. Height is 5 feet 2.99 inches. Weight is 174 pounds. VITAL SIGNS: TPR 98.4, 65, 18, blood pressure 102/68. HEENT: Negative. NECK: Supple. HEART: Regular rate and rhythm. LUNGS: Clear. ABDOMEN: Danii intact. Abdominal binder is on. EXTREMITIES: Without peripheral edema. DISPOSITION: Discharged to home. CONDITION: Stable and improving. FOLLOWUP APPOINTMENT: With Dori Mills PA-C, on 01/03/2018 at 11 a.m. DISCHARGE MEDICATIONS: New home medications: 1. Percocet 5/325 mg 1 to 2 every 4 hours p.r.n. pain, #40. 2. Zofran ODT 4 mg q.4 hours sublingual p.r.n. nausea, #30. She is to resume her home medications and vitamins and supplements. DISCHARGE DIET: Step-4 gastric bypass diet. Drink 8 to 10 glasses of water a day ACTIVITY: No lifting greater than 10 pounds for 6 weeks. Driving, do not drive while on pain medication. Wear abdominal binder for 6 weeks and then as tolerated. Shower/bathing, may shower. DISCHARGE INSTRUCTIONS: Notify provider if any fever, increased pain, nausea, or vomiting. Keep site clean and dry. Wear abdominal binder for 6 weeks and then as tolerated. Special instruction, use incentive spirometer 10 times every hour while awake.
--- NOTE | 2017-12-27 21:16 | OR ---
DATE OF PROCEDURE: 12/18/2017 PREOPERATIVE DIAGNOSES: 1. Partial small bowel obstruction secondary to intussusception at jejunojejunostomy. 2. Elevated liver function test. POSTOPERATIVE DIAGNOSES: 1. Partial small bowel obstruction secondary to intussusception at jejunojejunostomy. 2. Elevated liver function test. 3. Sigmoid colon volvulus. 4. Incarcerated periumbilical incisional hernia. 5. Non-incarcerated separate hernia at the superior end of upper midline incision. OPERATIVE PROCEDURE: Exploratory laparotomy with: 1. Small bowel resection and revision of jejunojejunostomy (31180). 2. Rectosigmoid colon resection with coloproctostomy (70969). 3. Repair of non-incarcerated periumbilical incisional hernia (04123). 4. Repair of incarcerated separate incisional hernia (81786). 5. Candido-Cut needle liver biopsy (96290). ANESTHESIA: General. INDICATIONS FOR PROCEDURE: This is a 32-year-old presenting with ongoing crampy abdominal pain particularly in the postprandial period. On recent CT scan, she was noted to have intussusception involving the jejunojejunostomy, which appeared to be likely the source of her symptoms. The plan is to proceed with an exploratory laparotomy with likely revision of the jejunojejunostomy, so as to alleviate the recurrent intussusception and then other procedures as indicated. Potential risks including bleeding, infection, injury to underlying viscera, possible recurrent bowel obstruction over time as well as possibility of cardiopulmonary, septic, or hemorrhagic complications leading to were discussed, and the patient wishes to proceed. She was also noted to have some elevated liver function tests and will proceed with intraoperative liver biopsy and finally clinically she appears to have hernias involving the previous midline incision, one in the periumbilical area and one on the superior end of the incision. If these are confirmed, these will be repaired concurrently, but not likely with mesh, as some bowel resection was undertaken. DETAILS OF PROCEDURE: The patient was taken to the operating room, and after general endotracheal anesthesia was induced, a Branch catheter was inserted and the abdomen was prepped and draped. Previous midline incision was then re-used from the umbilicus to roughly a handsbreadth's above that carried down to a full-thickness abdominal wall. At each end of the incision, the hernias were identified. The incision along the inferior aspect near the umbilicus was incarcerated with some omentum. This was reduced and the hernia along the superior end of this incision was non-incarcerated. Some loose adhesions to that were taken down. Following initial lysis of adhesions, there were 2 significant findings, one is markedly edematous and reddened jejunojejunostomy likely consistent with recurrent volvulus. She also had a massively dilated sigmoid colon with an obvious chronic volvulus with the colon rotated on itself and increased across the colon where it crossed over itself. Additionally, the patient was noted otherwise to have normal-appearing liver. At this point, Candido-Cut needle biopsies were taken from the left lobe of the liver. Minimal bleeding from the biopsy sites was controlled with electrocautery. The point where the biliopancreatic limb entered, the Emerson limb was then divided with a TAJ stapler roughly 20 cm further distally, then this was reimplanted with a standard side-to- side enteroenterostomy using a sequence of 60 mm staplers. The underlying mesenteric defect was closed with 2-0 Vicryl stitch and angle was anastomosed, was reinforced with some 3-0 Vicryl stitch. At this point, it was decided to proceed with the rectosigmoid resection. The area roughly amounting to the junction of the upper and mid levels of the rectum were then divided with a TAJ stapler as was the roughly mid sigmoid colon. This allowed a [id number] coloproctostomy with a staple sequence of 60 mm stapler followed by 45 mm stapler within and then common opening was closed transversely with 2 firings of the TAJ stapler as well. Angle was anastomosed and mesenteric defect was then anastomosed and reinforced with some 3- 0 Vicryl stitch. At this point, no further problems noted. The abdomen was irrigated with antibiotic- containing saline solution. The midline incision was then closed with #2-0 Vicryl stitch, which included repair of both hernias. A 10-Mauritanian round Macario-Matthew drain was then placed into the depths of the incision and the subcutaneous tissue was closed with 2 layers of 3-0 Vicryl stitch and the skin with carmella. Dressing was applied. The patient was taken to the recovery room in satisfactory condition. There were no evident complications. One additional aspect of the procedure was a bilateral transversus abdominis plane block was placed from within using a standard solution. Humberto Felder MD /[id number]
== END 2017-12-22 10:11 | disposition home or self-care (01) | DRG 221 ==
LOC: JP.ED 10:26 → JP.2SS 13:39
PROVIDERS: ADMIT Surgery; ATTEND Surgery
PROC: 0DBA0ZX Excision of Jejunum, Open Approach, Diagnostic (ICD-10-PCS; principal; 2017-12-18)
PROC: 0FB20ZX Excision of Left Lobe Liver, Open Approach, Diagnostic (ICD-10-PCS; 2017-12-18)
PROC: 0DBP0ZX Excision of Rectum, Open Approach, Diagnostic (ICD-10-PCS; 2017-12-18)
PROC: 0DBN0ZX Excision of Sigmoid Colon, Open Approach, Diagnostic (ICD-10-PCS; 2017-12-18)
PROC: 0D1N0ZP Bypass Sigmoid Colon to Rectum, Open Approach (ICD-10-PCS; 2017-12-18)
PROC: 3E0T3BZ Introduction of Anesthetic Agent into Peripheral Nerves and Plexi, Percutaneous Approach (ICD-10-PCS; 2017-12-18)
PROC: 0WQF0ZZ Repair Abdominal Wall, Open Approach (ICD-10-PCS; 2017-12-18)
PROC: 0WQF0ZZ Repair Abdominal Wall, Open Approach (ICD-10-PCS; 2017-12-18)
DX: K56.1 Intussusception (principal); K43.0 Incisional hernia with obstruction, without gangrene; K56.2 Volvulus; K43.2 Incisional hernia without obstruction or gangrene; K91.2 Postsurgical malabsorption, not elsewhere classified; R79.89 Other specified abnormal findings of blood chemistry; G44.89 Other headache syndrome; Z98.84 Bariatric surgery status; Z98.0 Intestinal bypass and anastomosis status; F17.210 Nicotine dependence, cigarettes, uncomplicated; F10.10 Alcohol abuse, uncomplicated; Z90.49 Acquired absence of other specified parts of digestive tract; E53.8 Deficiency of other specified B group vitamins; E55.9 Vitamin D deficiency, unspecified; F32.9 Major depressive disorder, single episode, unspecified; F41.9 Anxiety disorder, unspecified; Z87.440 Personal history of urinary (tract) infections; Z88.1 Allergy status to other antibiotic agents
CPT/HCPCS: 36415; 74019; 74019-26; 74177; 74177-26; 74240; 74240-26; 80053; 81001; 81025; 82728; 83605; 83690; 85025; 88302; 88307; 88313; 94762; 96361; 96374; 96375; 96376; 99285-25; A9270-GY; C9113; J0131; J0171; J0330; J1100; J1170; J1644; J2001; J2060; J2175; J2185; J2270; J2405; J2704; J2710; J2765; J2795; J3010; J3410; J3411; J3420; J7030; J7042; J7050; J7120; Q9967

== ENCOUNTER 2018-01-13 21:35 | Inpatient (IN) | payer BC ==
[2018-01-13] MEDS ORDERED: Ondansetron 4 MG/2 ML SDV IVPUSH ONE (22:38)
[2018-01-13] MEDS ORDERED: Morphine 2 MG/ML Syringe IVPUSH ONE (22:38)
--- NOTE | 2018-01-13 22:43 | EDM.PDOC ---
ED HPI GENERAL MEDICAL PROBLEM - General Chief Complaint: Gastrointestinal Problem Stated Complaint: ABD PAIN/VOMITING/SURG 3 WKS AGO Time Seen by Provider: 01/13/18 22:39 Source of Information: Reports: Patient History Limitations: Reports: No Limitations - History of Present Illness INITIAL COMMENTS - FREE TEXT/NARRATIVE: pt arrived with severe pain in the rt upper abdoman. She has been vomiting alot today. She has been having stools. She did have surgery 3 weeks ago for 2 hernias and some adhesions. Onset: Today, Other ( The pain got alot worse today and she started having alot of vomiting. ) Duration: Hour(s):, Getting Worse Location: Reports: Abdomen Associated Symptoms: Reports: Nausea/Vomiting, Other (pt has some chilling. ) Abdomen Pain Score (Numeric/FACES): 10 - Related Data Allergies Allergy/AdvReac Type Severity Reaction Status Date / Time cefaclor [Cefaclor] Allergy Unknown Hives Verified 01/13/18 22:58 ciprofloxacin [From Cipro] Allergy Unknown Hives Verified 01/13/18 22:58 Home Meds: Home Meds Cyanocobalamin (Vitamin B-12) [B-12] 1,000 mcg PO DAILY 06/05/14 [History] Multivitamin with Minerals [Multiple Vitamin] 1 tab PO BID 06/05/14 [History] Vitamin B Complex 1 each PO DAILY 08/03/14 [History] Calcium Carbonate [Calcium] 500 mg PO BID 08/04/14 [History] Cyanocobalamin (Vitamin B12) [Vitamin B12] 1,000 mcg IM ASDIRECTED 12/10/15 [ History] Ergocalciferol (Vitamin D2) [Vitamin D2] 1 cap PO .MWF 12/10/15 [History] Polyethylene Glycol 3350 [MiraLAX] 17 gm PO DAILY PRN 01/20/16 [History] ALPRAZolam [Xanax] 1 tab PO TID PRN 05/14/16 [History] Levonorgestrel [Mirena] 1 device IUTERINE ASDIRECTED 05/14/16 [History] Biotin 2,500 mcg PO DAILY 08/05/16 [History] Docusate Sodium [Colace] 100 mg PO BID PRN #100 cap 08/11/16 [Rx] Thiamine [Vitamin B-1] 50 mg PO DAILY 12/17/17 [History] Ondansetron [Zofran ODT] 4 mg PO Q4H PRN #30 tab.dis 12/22/17 [Rx] DULoxetine HCl [Duloxetine HCl] 60 mg PO DAILY 01/13/18 [History] Dicyclomine [Bentyl] 10 mg PO QIDACANDBED 01/13/18 [History] traMADol [Ultram] 50 mg PO Q4H PRN 01/13/18 [History] Past Medical History HEENT History: Reports: Otitis Media Respiratory History: Reports: Sleep Apnea Other Respiratory History: history of sleep apnea but since her RNY she has not needed her CPAP Gastrointestinal History: Reports: Bowel Obstruction, Cholelithiasis, Gastritis , GERD, Hemorrhoids, Hiatal Hernia Genitourinary History: Reports: UTI, 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: Reports: 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, Musculoskeletal History: Reports: Back Pain, Chronic Neurological History: Reports: Concussion, Headaches, Chronic, Seizure Psychiatric History: Reports: Anxiety, Depression, Psych Hospitalization(s) Endocrine/Metabolic History: Reports: Vitamin D Deficiency Hematologic History: Reports: B12 Deficiency, Iron Deficiency Dermatologic History: Reports: Other (See Below) Other Dermatologic History: mole removed neck - Infectious Disease History Infectious Disease History: Reports: Chicken Pox - Past Surgical History HEENT Surgical History: Reports: Adenoidectomy, Myringotomy w Tube(s), Tonsillectomy GI Surgical History: Reports: Bariatric Procedure, Cholecystectomy, EGD, Esophageal Dilatation, Hernia Repair/Other, Small Bowel Female Surgical History: Reports: Section Social & Family History - Family History Family Medical History: Noncontributory Psychiatric: Reports: Other (See Below) Other Psychiatric Family History: sister and mom alcoholics Oncologic: Reports: Lung Other Oncologic Family History: grandpa had lung ca - Caffeine Use Caffeine Use: Reports: Coffee ED ROS GENERAL - Review of Systems Review Of Systems: See Below Constitutional: Reports: Fever, Malaise, Decreased Appetite HEENT: Reports: No Symptoms Respiratory: Reports: No Symptoms Cardiovascular: Reports: No Symptoms Endocrine: Reports: No Symptoms GI/Abdominal: Reports: Abdominal Pain, Nausea ( pt has severe pain in the rt upper abdoman. ), Vomiting, Other : Reports: No Symptoms Musculoskeletal: Reports: No Symptoms ED EXAM, GI/ABD - Physical Exam Exam: See Below Text/Narrative:: arrived with severe abdomanal pain in the rt upper abdoman. She has a iud. She has her period. Exam Limited By: No Limitations General Appearance: Alert, Severe Distress Ears: Normal TMs Nose: Normal Inspection Throat/Mouth: Normal Inspection Head: Atraumatic Neck: Normal Inspection Respiratory/Chest: No Respiratory Distress Cardiovascular: Regular Rate, Rhythm GI/Abdominal Exam: Tender, Other (pt is having severe pain in the rt upper abdoman. ) (Female) Exam: Deferred Rectal (Female) Exam: Deferred Back Exam: Normal Inspection Extremities: Normal Inspection Neurological: Alert, Oriented, Normal Cognition Psychiatric: Anxious, Other (pt is very agitated. ) Course - Vital Signs Last Recorded V/S: Last Vital Signs Temp 36.0 C 01/14/18 00:24 Pulse 96 01/14/18 00:24 Resp 16 01/14/18 00:24 BP 128/88 01/14/18 00:24 Pulse Ox 94 L 01/14/18 00:24 - Orders/Labs/Meds Orders: Active Orders 24 hr Category Date Time Status Abdomen Pelvis w Cont [CT] Stat Exams 01/13/18 23:18 Taken UA W/MICROSCOPIC [URIN] Urgent Lab 01/13/18 22:39 Ordered Iopamidol [Isovue-300 (61%)] Med 01/13/18 23:30 Active 100 ml IV . DIRECTED Sodium Chloride 0.9% [Normal Saline] 1,000 ml Med 01/13/18 22:45 Active IV ASDIRECTED Sodium Chloride 0.9% [Normal Saline] 1,000 ml Med 01/14/18 00:15 Active IV ASDIRECTED Sodium Chloride 0.9% [Normal Saline] 100 ml Med 01/13/18 23:30 Active IV ASDIRECTED Medication Orders Sodium Chloride (Normal Saline) 1,000 mls @ 999 mls/hr IV ASDIRECTED [facility] Last Admin: 01/13/18 22:58 Dose: 999 mls/hr Sodium Chloride (Normal Saline) 100 mls @ 3 mls/sec IV ASDIRECTED [facility] Last Admin: 01/13/18 23:51 Dose: 3 mls/sec Sodium Chloride (Normal Saline) 1,000 mls @ 999 mls/hr IV ASDIRECTED [facility] Last Admin: 01/14/18 00:19 Dose: 999 mls/hr Iopamidol (Isovue-300 (61%)) 100 ml IV . DIRECTED [facility] Last Admin: 01/13/18 23:51 Dose: 100 ml Labs: Laboratory Tests 01/13/18 01/13/18 Range/Units 22:48 22:48 WBC 9.8 (4.5-11.0) K/uL RBC 5.27 (3.30-5.50) M/uL Hgb 15.5 H D (12.0-15.0) g/dL Hct 45.4 (36.0-48.0) % MCV 86 (80-98) fL MCH 29 (27-31) pg MCHC 34 (32-36) % Plt Count 342 (150-400) K/uL Neut % (Auto) 53 (36-66) % Lymph % (Auto) 35 (24-44) % [place] % (Auto) 6 (2-6) % Eos % (Auto) 5 H (2-4) % Baso % (Auto) 1 (0-1) % Sodium 142 (140-148) mmol/L Potassium 4.1 (3.6-5.2) mmol/L Chloride 106 (100-108) mmol/L Carbon Dioxide 25 (21-32) mmol/L Anion Gap 10.6 (5.0-14.0) mmol/L BUN 7 (7-18) mg/dL Creatinine 0.7 (0.6-1.0) mg/dL Est Cr Clr Drug Dosing 96.33 mL/min Estimated GFR (MDRD) > 60 (>60) Glucose 91 (74-106) mg/dL Calcium 8.5 (8.5-10.1) mg/dL Total Bilirubin 0.4 D (0.2-1.0) mg/dL AST 29 D (15-37) U/L ALT 67 D (12-78) U/L Alkaline Phosphatase 85 (46-116) U/L Total Protein 6.8 (6.4-8.2) g/dL Albumin 3.6 (3.4-5.0) g/dL Globulin 3.2 (2.3-3.5) g/dL Albumin/Globulin Ratio 1.1 L (1.2-2.2) Meds: Medications Generic Name Dose Route Start Last Admin Trade Name Freq PRN Reason Stop Dose Admin Sodium Chloride 1,000 mls @ 999 mls/hr 05/17/18 22:45 01/13/18 22:58 Normal Saline IV 999 mls/hr ASDIRECTED [facility] Administration Sodium Chloride 100 mls @ 3 mls/sec 01/13/18 23:30 01/13/18 23:51 Normal Saline IV 3 mls/sec ASDIRECTED [facility] Administration Sodium Chloride 1,000 mls @ 999 mls/hr 01/14/18 00:15 01/14/18 00:19 Normal Saline IV 999 mls/hr ASDIRECTED [facility] Administration Iopamidol 100 ml 01/13/18 23:30 01/13/18 23:51 Isovue-300 (61%) IV 100 ml . DIRECTED [facility] Administration Discontinued Medications Generic Name Dose Route Start Last Admin Trade Name Robertq PRN Reason Stop Dose Admin Lorazepam 0.5 mg 01/13/18 23:40 01/13/18 23:58 Ativan IVPUSH 01/13/18 23:41 0.5 mg ONETIME ONE Administration Morphine Sulfate 2 mg 01/13/18 22:38 01/13/18 23:03 Morphine IVPUSH 01/13/18 22:39 2 mg ONETIME ONE Administration Morphine Sulfate 4 mg 01/13/18 23:41 01/14/18 00:03 Morphine IVPUSH 01/13/18 23:42 4 mg ONETIME ONE Administration Ondansetron HCl 4 mg 01/13/18 22:38 01/13/18 23:00 Zofran IVPUSH 01/13/18 22:39 4 mg ONETIME ONE Administration - Re-Assessments/Exams Free Text/Narrative Re-Assessment/Exam: 01/14/18 00:50 pt had a cat scan of the abdoman which did not show acute findings Departure - Departure Time of Disposition: 00:51 Disposition: Admitted As Inpatient 67 Condition: Fair Clinical Impression: Gastric bypass status for obesity, Dehydration Abdominal pain Qualifiers: Abdominal location: generalized Qualified Code(s): R10.84 - Generalized abdominal pain - Discharge Information Referrals: Nyasia Arevalo MD [Primary Care Provider] - Forms: ED Department Discharge Care Plan Goals: admit to [facility] for pain control - My Orders Last 24 Hours: My Active Orders 01/13/18 22:39 UA W/MICROSCOPIC [URIN] Urgent 01/13/18 22:45 Sodium Chloride 0.9% [Normal Saline] 1,000 ml IV ASDIRECTED 01/13/18 23:18 Abdomen Pelvis w Cont [CT] Stat 01/13/18 23:30 Iopamidol [Isovue-300 (61%)] 100 ml IV . DIRECTED Sodium Chloride 0.9% [Normal Saline] 100 ml IV ASDIRECTED 01/14/18 00:15 Sodium Chloride 0.9% [Normal Saline] 1,000 ml IV ASDIRECTED - Assessment/Plan Last 24 Hours: My Active Orders 01/13/18 22:39 UA W/MICROSCOPIC [URIN] Urgent 01/13/18 22:45 Sodium Chloride 0.9% [Normal Saline] 1,000 ml IV ASDIRECTED 01/13/18 23:18 Abdomen Pelvis w Cont [CT] Stat 01/13/18 23:30 Iopamidol [Isovue-300 (61%)] 100 ml IV . DIRECTED Sodium Chloride 0.9% [Normal Saline] 100 ml IV ASDIRECTED 01/14/18 00:15 Sodium Chloride 0.9% [Normal Saline] 1,000 ml IV ASDIRECTED
[2018-01-13] MEDS ORDERED: Sodium Chloride 0.9% 1,000 ML IV SCH (22:45)
[2018-01-13] MEDS ORDERED: Sodium Chloride 0.9% 100 ML IV SCH (23:30)
[2018-01-13] MEDS ORDERED: Iopamidol 612 MG/ML 100 ML Bottle IV SCH (23:30)
[2018-01-13] MEDS ORDERED: LORazepam 2 MG/ML SDV IVPUSH ONE (23:40)
[2018-01-13] MEDS ORDERED: Morphine 4 MG/ML Syringe IVPUSH ONE (23:41)
[2018-01-14] MEDS ORDERED: Sodium Chloride 0.9% 1,000 ML IV SCH (00:15)
[2018-01-14] MEDS ORDERED: Morphine PF 150 MG/30 ML PCA Syringe IV PRN (01:19)
[2018-01-14] MEDS ORDERED: Naloxone 0.4 MG/ML SDV IVPUSH PRN (01:19)
[2018-01-14] MEDS ORDERED: Ondansetron 4 MG/2 ML SDV IVPUSH PRN (01:21)
[2018-01-14] MEDS: Sodium Chloride 0.9% 1,000 ML IV SCH ×2 (01:55→07:05)
[2018-01-14] MEDS ORDERED: Ondansetron 4 MG Tab.DIS PO PRN (09:21)
[2018-01-14] MEDS ORDERED: ALPRAZolam 0.25 MG Tab PO PRN (09:21)
[2018-01-14] MEDS ORDERED: Docusate Sodium 100 MG Cap PO PRN (09:21)
[2018-01-14] MEDS ORDERED: Celecoxib 200 MG Cap PO SCH (09:30)
[2018-01-14] MEDS ORDERED: DULOXETINE HCL 60 MG PO SCH (09:30)
[2018-01-14] MEDS: DULoxetine 30 MG Cap PO SCH (10:16)
[2018-01-14] MEDS: Dicyclomine 10 MG Cap PO SCH ×3 (10:16→20:10)
[2018-01-14] MEDS: Acetaminophen/HYDROcodone 325-5 MG Tab PO PRN ×3 (10:19→20:02)
[2018-01-14] MEDS: Cyclobenzaprine 10 MG Tab PO PRN ×2 (11:26→20:02)
[2018-01-14] MEDS ORDERED: Sodium Chloride 0.9% 10 ML Syringe FLUSH PRN (11:30)
[2018-01-14] MEDS ORDERED: Calcium Carbonate 500 MG Tab.Chew PO PRN (11:46)
[2018-01-14] MEDS: Dextrose 5%-Lactated Ringers 1,000 ML IV SCH ×2 (13:38→22:59)
[2018-01-14] MEDS: Pantoprazole 40 MG Tab.CR PO SCH ×2 (13:57→20:11)
--- NOTE | 2018-01-14 14:12 | PCM.HP ---
H&P History of Present Illness - General Date of Service: 01/13/18 Admit Problem/Dx: Admission Diagnosis/Problem Admission Diagnosis/Problem Dehydration Source of Information: Patient History Limitations: Reports: No Limitations - History of Present Illness Initial Comments - Free Text/Narative: Pamela states she saw me on Wednesday and then the day she developed pain in the mid right abdominal incision states it is where the incision is draining. She had a seroma that drained. Abdomen Pain Score (Numeric/FACES): 7 - Related Data Allergies/Adverse Reactions: Allergies Allergy/AdvReac Type Severity Reaction Status Date / Time cefaclor [Cefaclor] Allergy Unknown Hives Verified 01/13/18 22:58 ciprofloxacin [From Cipro] Allergy Unknown Hives Verified 01/13/18 22:58 Home Medications: Home Meds Cyanocobalamin (Vitamin B-12) [B-12] 1,000 mcg PO DAILY 06/05/14 [History] Multivitamin with Minerals [Multiple Vitamin] 1 tab PO BID 06/05/14 [History] Vitamin B Complex 1 each PO DAILY 08/03/14 [History] Calcium Carbonate [Calcium] 500 mg PO BID 08/04/14 [History] Cyanocobalamin (Vitamin B12) [Vitamin B12] 1,000 mcg IM ASDIRECTED 12/10/15 [ History] Ergocalciferol (Vitamin D2) [Vitamin D2] 1 cap PO .MWF 12/10/15 [History] Polyethylene Glycol 3350 [MiraLAX] 17 gm PO DAILY PRN 01/20/16 [History] ALPRAZolam [Xanax] 1 tab PO TID PRN 05/14/16 [History] Levonorgestrel [Mirena] 1 device IUTERINE ASDIRECTED 05/14/16 [History] Biotin 2,500 mcg PO DAILY 08/05/16 [History] Docusate Sodium [Colace] 100 mg PO BID PRN #100 cap 08/11/16 [Rx] Thiamine [Vitamin B-1] 50 mg PO DAILY 12/17/17 [History] Ondansetron [Zofran ODT] 4 mg PO Q4H PRN #30 tab.dis 12/22/17 [Rx] DULoxetine HCl [Duloxetine HCl] 60 mg PO DAILY 01/13/18 [History] Dicyclomine [Bentyl] 10 mg PO QIDACANDBED 01/13/18 [History] traMADol [Ultram] 50 mg PO Q4H PRN 01/13/18 [History] Past Medical History HEENT History: Reports: Otitis Media Respiratory History: Reports: Sleep Apnea Other Respiratory History: history of sleep apnea but since her RNY she has not needed her CPAP Gastrointestinal History: Reports: Bowel Obstruction, Cholelithiasis, Gastritis , GERD, Hemorrhoids, Hiatal Hernia Genitourinary History: Reports: UTI, 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, Musculoskeletal History: Reports: Back Pain, Chronic Neurological History: Reports: Concussion, Headaches, Chronic, Seizure Psychiatric History: Reports: Anxiety, Depression, Psych Hospitalization(s) Endocrine/Metabolic History: Reports: Vitamin D Deficiency Hematologic History: Reports: B12 Deficiency, Iron Deficiency Dermatologic History: Reports: Other (See Below) Other Dermatologic History: mole removed neck - Infectious Disease History Infectious Disease History: Reports: Chicken Pox - Past Surgical History Head Surgeries/Procedures: Reports: None HEENT Surgical History: Reports: Adenoidectomy, Myringotomy w Tube(s), Tonsillectomy GI Surgical History: Reports: Bariatric Procedure, Cholecystectomy, EGD, Esophageal Dilatation, Hernia Repair/Other, Small Bowel Female Surgical History: Reports: Section Social & Family History - Family History Family Medical History: Noncontributory Psychiatric: Reports: Other (See Below) Other Psychiatric Family History: sister and mom alcoholics Oncologic: Reports: Lung Other Oncologic Family History: grandpa had lung ca - Tobacco Use Smoking Status *Q: Never Smoker Second Hand Smoke Exposure: No - Caffeine Use Caffeine Use: Reports: Soda - Recreational Drug Use Recreational Drug Use: No Exam - Vital Signs Vital Signs: Last Vital Signs Temp 97.4 F 01/14/18 11:52 Pulse 88 01/14/18 11:52 Resp 16 01/14/18 11:52 BP 131/95 H 01/14/18 11:52 Pulse Ox 95 01/14/18 11:52 Weight: 166 lb 14.415 oz - Patient Data Lab Results Last 24 hrs: Laboratory Results - last 24 hr 01/13/18 01/13/18 01/14/18 Range/Units 22:48 22:48 08:30 WBC 9.8 (4.5-11.0) K/uL RBC 5.27 (3.30-5.50) M/uL Hgb 15.5 H D (12.0-15.0) g/dL Hct 45.4 (36.0-48.0) % MCV 86 (80-98) fL MCH 29 (27-31) pg MCHC 34 (32-36) % Plt Count 342 (150-400) K/uL Neut % (Auto) 53 (36-66) % Lymph % (Auto) 35 (24-44) % [place] % (Auto) 6 (2-6) % Eos % (Auto) 5 H (2-4) % Baso % (Auto) 1 (0-1) % Sodium 142 (140-148) mmol/L Potassium 4.1 (3.6-5.2) mmol/L Chloride 106 (100-108) mmol/L Carbon Dioxide 25 (21-32) mmol/L Anion Gap 10.6 (5.0-14.0) mmol/L BUN 7 (7-18) mg/dL Creatinine 0.7 (0.6-1.0) mg/dL Est Cr Clr Drug Dosing 96.33 mL/min Estimated GFR (MDRD) > 60 (>60) Glucose 91 (74-106) mg/dL Calcium 8.5 (8.5-10.1) mg/dL Total Bilirubin 0.4 D (0.2-1.0) mg/dL AST 29 D (15-37) U/L ALT 67 D (12-78) U/L Alkaline Phosphatase 85 (46-116) U/L Total Protein 6.8 (6.4-8.2) g/dL Albumin 3.6 (3.4-5.0) g/dL Globulin 3.2 (2.3-3.5) g/dL Albumin/Globulin Ratio 1.1 L (1.2-2.2) Urine Color Yellow Urine Appearance Clear Urine pH 5.0 (4.5-8.0) Ur Specific [place] 1.010 (1.008-1.030) Urine Protein Negative (NEGATIVE) mg/dL Urine Glucose (UA) Normal (NEGATIVE) mg/dL Urine Ketones Negative (NEGATIVE) mg/dL Urine Occult Blood Negative (NEGATIVE) Urine Nitrite Negative (NEGATIVE) Urine Bilirubin Small (NEGATIVE) Urine Urobilinogen 8 (NORMAL) mg/dL Ur Leukocyte Esterase Negative (NEGATIVE) Urine RBC 0-5 (0-5) Urine WBC Not seen (0-5) Ur Epithelial Cells Not seen Amorphous Sediment Rare Urine Bacteria Not seen Urine Mucus Not seen Result Diagrams: 01/13/18 22:48 01/13/18 22:48 Orders Last 24hrs: Active Orders 24 hr Category Date Time Status Admission Status [Patient Status] [ADT] Routine ADT 01/14/18 01:04 Active Activity as Tolerated [RC] .Routine Care 01/14/18 01:15 Active Bariatric Diet [DIET] Diet 01/14/18 Breakfast Active Abdomen Pelvis w Cont [CT] Stat Exams 01/13/18 23:18 Taken UA W/MICROSCOPIC [URIN] Urgent Lab 01/14/18 08:30 Ordered ALPRAZolam [Xanax] Med 01/14/18 09:21 Active 0.25 mg PO TID PRN Acetaminophen/HYDROcodone [[place] 325-5 MG] Med 01/14/18 09:33 Active 1 - 2 tab PO Q4H PRN Calcium Carbonate [Tums] Med 01/14/18 11:46 Active 1,000 mg PO Q2H PRN Cyclobenzaprine [Flexeril] Med 01/14/18 09:19 Active 10 mg PO Q6H PRN DULoxetine [Cymbalta] Med 01/14/18 10:00 Active 60 mg PO DAILY Dextrose 5%-Lactated Ringers 1,000 ml Med 01/14/18 09:30 Active IV ASDIRECTED Dicyclomine [Bentyl] Med 01/14/18 11:00 Active 10 mg PO QIDACANDBED Docusate Sodium [Colace] Med 01/14/18 09:21 Active 100 mg PO BID PRN Lidocaine 2% [Xylocaine 2% Viscous] 60 ml Med 01/14/18 13:18 Active Alum Hydrox/Mag Hydrox/Simeth [Mag-Al Plus] 360 ml PO ASDIRECTED Ondansetron [Zofran ODT] Med 01/14/18 09:21 Active 4 mg PO Q4H PRN Ondansetron [Zofran] Med 01/14/18 01:21 Active 4 mg IVPUSH Q6H PRN Pantoprazole [ProTONIX] Med 01/14/18 13:30 Active 40 mg PO BID Sodium Chloride 0.9% [Saline Flush] Med 01/14/18 11:30 Active 10 ml FLUSH ASDIRECTED PRN Sucralfate [Carafate] Med 01/14/18 17:00 Active 1 gm PO QIDACANDBED Ice Pack [Ice Therapy] [OM.PC] Routine Oth 01/14/18 09:20 Ordered SCD [Sequential Compression Device] [OM.PC] Routine Oth 01/14/18 01:22 Ordered Medication Orders Hydrocodone Bitart/Acetaminophen ([place] 325-5 Mg) 1 - 2 tab PO Q4H PRN PRN Reason: Pain Last Admin: 01/14/18 10:19 Dose: 2 tab Alprazolam (Xanax) 0.25 mg PO TID PRN PRN Reason: Anxiety Calcium Carbonate/Glycine (Tums) 1,000 mg PO Q2H PRN PRN Reason: Indigestion Lidocaine HCl 60 ml/ Al (Hydroxide/Mg Hydroxide 360 ml) 0 ml PO ASDIRECTED PRN PRN Reason: Indigestion Cyclobenzaprine HCl (Flexeril) 10 mg PO Q6H PRN PRN Reason: muscle spasms Last Admin: 01/14/18 11:26 Dose: 10 mg Dicyclomine HCl (Bentyl) 10 mg PO QIDACANDBED [facility] Last Admin: 01/14/18 10:16 Dose: 10 mg Docusate Sodium (Colace) 100 mg PO BID PRN PRN Reason: Constipation Duloxetine HCl (Cymbalta) 60 mg PO DAILY [facility] Last Admin: 01/14/18 10:16 Dose: 60 mg Dextrose/Lactated Ringer's (Dextrose 5%-Lactated Ringers) 1,000 mls @ 100 mls/ hr IV ASDIRECTED [facility] Last Admin: 01/14/18 13:38 Dose: 100 mls/hr Ondansetron HCl (Zofran) 4 mg IVPUSH Q6H PRN PRN Reason: Nausea/Vomiting Last Admin: 01/14/18 11:30 Dose: 4 mg Ondansetron HCl (Zofran Odt) 4 mg PO Q4H PRN PRN Reason: Nausea/Vomiting Pantoprazole Sodium (Protonix) 40 mg PO BID [facility] Last Admin: 01/14/18 13:57 Dose: 40 mg Sodium Chloride (Saline Flush) 10 ml FLUSH ASDIRECTED PRN PRN Reason: Keep Vein Open Sucralfate (Carafate) 1 gm PO QIDACANDBED [facility]
[2018-01-14] MEDS: Lidocaine 2% 60 ML, Alum Hydrox/Mag Hydrox/Simeth 360 ML PO PRN ×4 (14:17→20:12)
[2018-01-14] MEDS: Sucralfate Suspension 1 GM/10 ML Cup PO SCH ×2 (16:42→20:10)
[2018-01-14] MEDS ORDERED: hydrOXYzine HCl 100 MG/2 ML SDV IM PRN (20:46)
[2018-01-14] MEDS ORDERED: ALPRAZolam 0.5 MG Tab PO PRN (20:47)
[2018-01-15] MEDS: Acetaminophen/HYDROcodone 325-5 MG Tab PO PRN ×2 (00:15→07:36)
[2018-01-15] MEDS: Cyclobenzaprine 10 MG Tab PO PRN ×3 (03:17→22:18)
[2018-01-15] MEDS: Dextrose 5%-Lactated Ringers 1,000 ML IV SCH ×2 (07:37→09:03)
[2018-01-15] MEDS: Dicyclomine 10 MG Cap PO SCH ×4 (07:38→20:26)
[2018-01-15] MEDS: Sucralfate Suspension 1 GM/10 ML Cup PO SCH ×4 (07:38→20:26)
--- NOTE | 2018-01-15 09:25 | PN ---
DATE OF SERVICE: 01/15/2018 SUBJECTIVE: Pamela reports that she is still having the pain intermittently in the right upper quadrant adjacent to where the seroma was. She states it feels like a bad muscle spasm and will be quite intense. If she gets up, walks around and rubs it, it will improve. She has not had a bowel movement for 2 days. No appetite. No fever or chills. Vital signs have been stable. REVIEW OF SYSTEMS: HEENT: Negative. NECK: Negative. CV: No chest pain, shortness of breath, fast or irregular heartbeat. LUNGS: No cough. ABDOMEN: As above. Localized abdominal pain, right mid-quadrant, comes and goes. : Negative. EXTREMITIES: No joint pain or swelling. NEURO: Negative for weakness, dizziness, or loss of coordination. PSYCHIATRIC: Less emotional today. History of anxiety and depression. Remainder of review of systems negative for any pertinent positives and negatives. OBJECTIVE: GENERAL: Pamela Mendoza is a 32-year-old female. She is lying in bed with her boyfriend. VITAL SIGNS: TPR is 97.5, 67, 16, and blood pressure 108/80. HEENT: Negative. NECK: Supple. HEART: Regular rate and rhythm. LUNGS: Clear. ABDOMEN: Soft and nontender. EXTREMITIES: Without peripheral edema. ASSESSMENT: Right-sided abdominal pain. PLAN: 1. Continue to increase liquids. 2. [place] was discontinued. 3. Milk of magnesia 30 mL given b.i.d. until BM. 4. Protein supplements t.i.d. 5. Communication order to give 3 med cups per hour in order to get enough fluids in. 6. Saline lock IV today. 7. Plan discharge in a.. Dori Mills PA-C /[id number]
[2018-01-15] MEDS: Pantoprazole 40 MG Tab.CR PO SCH ×2 (09:40→20:27)
[2018-01-15] MEDS: Magnesium Hydroxide 400 MG/5 ML Susp 30 ML Cup PO SCH ×2 (09:40→20:26)
[2018-01-15] MEDS: DULoxetine 30 MG Cap PO SCH (09:41)
[2018-01-15] MEDS: Acetaminophen 160 MG Tab,Disintegrating PO PRN ×2 (12:23→20:23)
[2018-01-16] MEDS: Acetaminophen 160 MG Tab,Disintegrating PO PRN (05:56)
[2018-01-16] MEDS: Cyclobenzaprine 10 MG Tab PO PRN (06:02)
[2018-01-16] MEDS: Dicyclomine 10 MG Cap PO SCH (08:07)
[2018-01-16] MEDS: Magnesium Hydroxide 400 MG/5 ML Susp 30 ML Cup PO SCH (08:07)
[2018-01-16] MEDS: DULoxetine 30 MG Cap PO SCH (08:07)
[2018-01-16] MEDS: Sucralfate Suspension 1 GM/10 ML Cup PO SCH (08:08)
[2018-01-16] MEDS: Pantoprazole 40 MG Tab.CR PO SCH (08:08)
--- NOTE | 2018-01-16 08:20 | PCM.HP ---
H&P History of Present Illness - General Admit Problem/Dx: Admission Diagnosis/Problem Admission Diagnosis/Problem Dehydration Abdomen Pain Score (Numeric/FACES): 4 - Related Data Allergies/Adverse Reactions: Allergies Allergy/AdvReac Type Severity Reaction Status Date / Time cefaclor [Cefaclor] Allergy Unknown Hives Verified 01/13/18 22:58 ciprofloxacin [From Cipro] Allergy Unknown Hives Verified 01/13/18 22:58 Home Medications: Home Meds Cyanocobalamin (Vitamin B-12) [B-12] 1,000 mcg PO DAILY 06/05/14 [History] Multivitamin with Minerals [Multiple Vitamin] 1 tab PO BID 06/05/14 [History] Vitamin B Complex 1 each PO DAILY 08/03/14 [History] Calcium Carbonate [Calcium] 500 mg PO BID 08/04/14 [History] Cyanocobalamin (Vitamin B12) [Vitamin B12] 1,000 mcg IM ASDIRECTED 12/10/15 [ History] Ergocalciferol (Vitamin D2) [Vitamin D2] 1 cap PO .MWF 12/10/15 [History] Polyethylene Glycol 3350 [MiraLAX] 17 gm PO DAILY PRN 01/20/16 [History] ALPRAZolam [Xanax] 1 tab PO TID PRN 05/14/16 [History] Levonorgestrel [Mirena] 1 device IUTERINE ASDIRECTED 05/14/16 [History] Biotin 2,500 mcg PO DAILY 08/05/16 [History] Docusate Sodium [Colace] 100 mg PO BID PRN #100 cap 08/11/16 [Rx] Thiamine [Vitamin B-1] 50 mg PO DAILY 12/17/17 [History] Ondansetron [Zofran ODT] 4 mg PO Q4H PRN #30 tab.dis 12/22/17 [Rx] DULoxetine HCl [Duloxetine HCl] 60 mg PO DAILY 01/13/18 [History] Dicyclomine [Bentyl] 10 mg PO QIDACANDBED 01/13/18 [History] traMADol [Ultram] 50 mg PO Q4H PRN 01/13/18 [History] Cyclobenzaprine [Flexeril] 10 mg PO Q6H PRN #30 tablet 01/16/18 [Rx] Past Medical History HEENT History: Reports: Otitis Media Respiratory History: Reports: Sleep Apnea Other Respiratory History: history of sleep apnea but since her RNY she has not needed her CPAP Gastrointestinal History: Reports: Bowel Obstruction, Cholelithiasis, Gastritis , GERD, Hemorrhoids, Hiatal Hernia Genitourinary History: Reports: UTI, Recurrent 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 History: Reports: 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, Musculoskeletal History: Reports: Back Pain, Chronic Neurological History: Reports: Concussion, Headaches, Chronic, Seizure Psychiatric History: Reports: Anxiety, Depression, Psych Hospitalization(s) Endocrine/Metabolic History: Reports: Vitamin D Deficiency Hematologic History: Reports: B12 Deficiency, Iron Deficiency Dermatologic History: Reports: Other (See Below) Other Dermatologic History: mole removed neck - Infectious Disease History Infectious Disease History: Reports: Chicken Pox - Past Surgical History Head Surgeries/Procedures: Reports: None HEENT Surgical History: Reports: Adenoidectomy, Myringotomy w Tube(s), Tonsillectomy GI Surgical History: Reports: Bariatric Procedure, Cholecystectomy, EGD, Esophageal Dilatation, Hernia Repair/Other, Small Bowel Female Surgical History: Reports: Section Social & Family History - Family History Family Medical History: Noncontributory Psychiatric: Reports: Other (See Below) Other Psychiatric Family History: sister and mom alcoholics Oncologic: Reports: Lung Other Oncologic Family History: grandpa had lung ca - Tobacco Use Smoking Status *Q: Never Smoker Second Hand Smoke Exposure: No - Caffeine Use Caffeine Use: Reports: Soda - Recreational Drug Use Recreational Drug Use: No H&P Review of Systems - Review of Systems: Review Of Systems: See Below General: Reports: No Symptoms HEENT: Reports: No Symptoms Pulmonary: Reports: No Symptoms Cardiovascular: Reports: No Symptoms Gastrointestinal: Reports: Abdominal Pain (pain is episodic spasms in the right mid quadrant ) Exam - Exam Exam: See Below - Vital Signs Vital Signs: Last Vital Signs Temp 98.4 F 01/15/18 23:00 Pulse 61 01/15/18 23:00 Resp 16 01/15/18 23:00 BP 125/79 01/15/18 23:00 Pulse Ox 94 L 01/15/18 23:00 Weight: 166 lb 14.415 oz - Exam General: Alert, Oriented HEENT: PERRLA Neck: Supple, Trachea Midline Lungs: Clear to Auscultation, Normal Respiratory Effort Cardiovascular: Regular Rate, Regular Rhythm GI/Abdominal Exam: Normal Bowel Sounds, Soft, Tender (tenderness adjacent to the pin point open area of the incision where a seroma had drained earlier this week. ), Other (Female) Exam: Deferred Rectal (Female) Exam: Deferred Back Exam: Normal Inspection Extremities: Normal Inspection Skin: Warm, Dry, Intact Neurological: Cranial Nerves Intact, Reflexes Equal Bilateral Neuro Extensive - Mental Status: Alert, Oriented x3, Normal Mood/Affect Neuro Extensive - Motor, Sensory, Reflexes: CN II-XII Intact Psychiatric: Anxious (emotional and crying), Depressed, Other - Patient Data Result Diagrams: 01/13/18 22:48 01/13/18 22:48 - Problem List (1) Abdominal pain SNOMED Code(s): 49177614 ICD Code: R10.9 - UNSPECIFIED ABDOMINAL PAIN Status: Acute Current Visit : Yes Qualifiers: Abdominal location: generalized Qualified Code(s): R10.84 - Generalized abdominal pain (2) Dehydration SNOMED Code(s): 15026527 ICD Code: E86.0 - DEHYDRATION Status: Acute Current Visit: Yes (3) Status post colon resection SNOMED Code(s): 826620327, 61364491, 24154121, 199304058 ICD Code: Z90.49 - ACQUIRED ABSENCE OF OTHER SPECIFIED PARTS OF DIGESTIVE TRACT Status: Acute Current Visit: No (4) Status post exploratory laparotomy SNOMED Code(s): 615128905, 78982692, 620298042 ICD Code: Z98.890 - OTHER SPECIFIED POSTPROCEDURAL STATES Status: Acute Current Visit: No Problem Details: release of small bowel obstruction, small bowel resection, hernia repair Problem List Initiated/Reviewed/Updated: Yes Orders Last 24hrs: Active Orders 24 hr Category Date Time Status Communication Order [RC] ASDIRECTED Care 01/15/18 07:36 Active Communication Order [RC] ROUTINE Care 01/15/18 07:36 Active Dietary Supplements [RC] TIDAC Care 01/15/18 07:35 Active Ready for Discharge [RC] PER UNIT ROUTINE Care 01/16/18 07:25 Active Acetaminophen [Tylenol Jr. Meltaways] Med 01/15/18 08:12 Active 640 mg PO Q4H PRN Magnesium Hydroxide [Milk of Magnesia] Med 01/15/18 09:00 Active 30 ml PO BID Medication Orders Acetaminophen (Tylenol Jr. Meltaways) 640 mg PO Q4H PRN PRN Reason: Pain Last Admin: 01/16/18 05:56 Dose: 640 mg Admin: 01/15/18 20:23 Dose: 640 mg Admin: 01/15/18 12:23 Dose: 640 mg Alprazolam (Xanax) 1 mg PO Q4H PRN PRN Reason: Anxiety Last Admin: 01/15/18 03:18 Dose: 1 mg Calcium Carbonate/Glycine (Tums) 1,000 mg PO Q2H PRN PRN Reason: Indigestion Lidocaine HCl 60 ml/ Al (Hydroxide/Mg Hydroxide 360 ml) 0 ml PO ASDIRECTED PRN PRN Reason: Indigestion Last Admin: 01/14/18 20:12 Dose: 30 ml Admin: 01/14/18 14:17 Dose: 60 ml Cyclobenzaprine HCl (Flexeril) 10 mg PO Q6H PRN PRN Reason: muscle spasms Last Admin: 01/16/18 06:02 Dose: 10 mg Admin: 01/15/18 22:18 Dose: 10 mg Admin: 01/15/18 15:21 Dose: 10 mg Admin: 01/15/18 03:17 Dose: 10 mg Admin: 01/14/18 20:02 Dose: 10 mg Admin: 01/14/18 11:26 Dose: 10 mg Dicyclomine HCl (Bentyl) 10 mg PO QIDACANDBED [facility] Last Admin: 01/16/18 08:07 Dose: 10 mg Admin: 01/15/18 20:26 Dose: 10 mg Admin: 01/15/18 17:28 Dose: 10 mg Admin: 01/15/18 12:24 Dose: 10 mg Admin: 01/15/18 07:38 Dose: 10 mg Admin: 01/14/18 20:10 Dose: 10 mg Admin: 01/14/18 16:39 Dose: 10 mg Admin: 01/14/18 10:16 Dose: 10 mg Docusate Sodium (Colace) 100 mg PO BID PRN PRN Reason: Constipation Last Admin: 01/15/18 17:28 Dose: 100 mg Duloxetine HCl (Cymbalta) 60 mg PO DAILY [facility] Last Admin: 01/16/18 08:07 Dose: 60 mg Admin: 01/15/18 09:41 Dose: 60 mg Admin: 01/14/18 10:16 Dose: 60 mg Hydroxyzine HCl (Vistaril) 50 mg IM Q4H PRN PRN Reason: Pain Last Admin: 01/14/18 21:01 Dose: 50 mg Magnesium Hydroxide (Milk Of Magnesia) 30 ml PO BID [facility] Last Admin: 01/16/18 08:07 Dose: 30 ml Admin: 01/15/18 20:26 Dose: 30 ml Admin: 01/15/18 09:40 Dose: 30 ml Ondansetron HCl (Zofran Odt) 4 mg PO Q4H PRN PRN Reason: Nausea/Vomiting Pantoprazole Sodium (Protonix) 40 mg PO BID [facility] Last Admin: 01/16/18 08:08 Dose: 40 mg Admin: 01/15/18 20:27 Dose: 40 mg Admin: 01/15/18 09:40 Dose: 40 mg Admin: 01/14/18 20:11 Dose: 40 mg Admin: 01/14/18 13:57 Dose: 40 mg Sodium Chloride (Saline Flush) 10 ml FLUSH ASDIRECTED PRN PRN Reason: Keep Vein Open Sucralfate (Carafate) 1 gm PO QIDACANDBED [facility] Last Admin: 01/16/18 08:08 Dose: 1 gm Admin: 01/15/18 20:26 Dose: 1 gm Admin: 01/15/18 17:28 Dose: 1 gm Admin: 01/15/18 12:23 Dose: 1 gm Admin: 01/15/18 07:38 Dose: 1 gm Admin: 01/14/18 20:10 Dose: 1 gm Admin: 01/14/18 16:42 Dose: 1 gm Assessment/Plan Comment:: Plan: Admit for inpatient length of stay 3 days and 4 nights. See Copy of Orders Dori Wolfe
[2018-01-16 08:34] VITALS: BP 128/88
--- NOTE | 2018-01-16 10:27 | DISCH ---
ADMISSION DIAGNOSES: 1. Abdominal pain. 2. Status post exploratory laparotomy for partial small bowel obstruction with small seroma which has drained. 3. Status post Emerson-en-Y gastric bypass surgery. 4. Unspecified surgical malabsorption. 5. B12 deficiency. 6. Anxiety and depression. 7. Alcohol abuse. DISCHARGE DIAGNOSES: Resolution/controlled right-sided abdominal pain, status post seroma in incision, status post Emerson-en-Y gastric bypass surgery, unspecified surgical malabsorption, B12 deficiency, anxiety and depression, and alcohol abuse with last use 2 weeks ago. HISTORY: Pamela Mendoza is a 32-year-old female who was admitted through the ER with severe pain in her right upper abdomen. She had been vomiting and could not get her pain under control. She was admitted for pain control and dehydration. HOSPITAL COURSE: Pamela was admitted on 01/13/2018, on a morphine GRINDING WHEEL FACER. She was given fluids replacement. She also was treated for her nausea. On day #1, she continued on the morphine GRINDING WHEEL FACER and started on a diet. On 01/15/2018, she felt like her pain was improved, it was more muscle spasm, and she did have episodic severe pain. The GRINDING WHEEL FACER was discontinued the day prior as well as the [place]. She was given bowel stimulation, protein supplements, and was encouraged to work on liquids. On 01/16/2018, she was able to be discharged to home. REVIEW OF SYSTEMS: CONSTITUTIONAL: No fever, chills, night sweats, or fatigue. HEENT: Negative. NECK: Negative for neck pain or lymphadenopathy. Full range of motion. HEART: No chest pain, shortness of breath, fast or irregular heartbeats. LUNGS: Denies any shortness of breath. ABDOMEN: Continues to have episodic, but less episodes. Small seroma, which has been draining very scant amounts out of a pencil-lead size opening in her abdomen and it has been pink serosanguineous, passing gas. Pain has been managed with Tylenol and Flexeril. Last bowel movement was diarrhea on the day of admission, 01/13/2018. : Negative. EXTREMITIES: Negative for joint pain or swelling. NEURO: No headaches, dizziness, or loss of coordination. PSYCHIATRIC: Mood and affect have improved. Less emotional. Boyfriend from [facility] is here with her. Remainder of review of systems negative for any pertinent positives and negatives. PHYSICAL EXAMINATION: GENERAL: Pamela Mendoza is a 32-year-old female. She is alert and orientated. Looks like she is feeling much better, quite talkative. VITAL SIGNS: Height is 5 feet 2.9 inches. Weight is 166 pounds. TPR is 98.4, 61, 16, and blood pressure 125/79. HEENT: Negative. NECK: Supple. HEART: Regular rate and rhythm. LUNGS: Clear. ABDOMEN: There is a pencil-lead opening in the mid-incision area, draining a pink serosanguineous drainage. The incision itself is soft and nontender. The seroma has completely drained and it was very superficial around the incision. Remainder of physical exam negative for any pertinent positives or negatives, with the exception of deep pain in the right mid-quadrant, but nothing is palpated. EXTREMITIES: Negative. NEURO: Intact. PSYCHIATRIC: Mood and affect appropriate. SKIN: Without rash. DISPOSITION: Discharged to home. CONDITION: Stable and improving. FOLLOWUP APPOINTMENT: With Dori Mills PA-C, on 01/19/2018 at 1:45 p.m. DISCHARGE MEDICATIONS: New Prescriptions: 1. Flexeril 10 mg q.6 hours p.r.n. muscle spasms, #30. 2. Resume Tylenol. Resume all home medications; 1. Xanax 1 tablet t.i.d. 2. Biotin 250 mcg oral daily. 3. Calcium 500 mg twice daily. 4. B12 1000 mcg oral daily. 5. B12 1000 mcg IM as directed. 6. Bentyl 10 mg oral before meals and at bedtime p.r.n. 7. Colace 100 mg b.i.d. 8. Vitamin D2 one capsule on Wednesday, Wednesday, and Wednesday. 9. Has a Mirena in. 10.Multivitamin 1 tablet twice a day. 11.Zofran ODT 4 mg every 4 hours p.r.n. nausea. 12.MiraLAX 17 grams oral daily as needed for constipation. 13.Vitamin B12 50 mg oral daily. 14.Vitamin B complex one daily. 15.Ultram 50 mg every 4 hours p.r.n. for severe pain, 7 to 10. DIET: Usual diet as tolerated. Drink 8 to 10 glasses of water a day. ACTIVITY: As tolerated. DISCHARGE INSTRUCTIONS: Wound incision care; keep area, that is draining, covered with gauze and change twice a day as needed. Keep dressing clean and dry. Notify provider if fever, increased pain, swelling, nausea, or vomiting. Follow up p.r.n.
--- NOTE | 2018-01-17 13:40 | PN ---
DATE OF SERVICE: 01/14/2018 Pamela was admitted yesterday 01/14/2018 through the emergency room. She had an incision with a seroma and it drained through a tiny opening in the incision. She states she is having a lot of pain to the right adjacent to the area where the incision has drained. It is no longer draining. Denies any fever, chills, night sweats, or fatigue. She does state that she just did not feel good yesterday. No fever. States that she tried oatmeal yesterday and it did not seem to settle where she was nauseated and threw up and that is when she decided to come into the emergency room. Nausea remains, but she states it is much better. Pain, if she is lying still, it is a 0/10. If she moves, the pain can be greater than 8/10. If she coughs or sits up, pain is 3/10. Pain used to be just when she coughed, moved, or sat up, now it is all the time. States that eating does not give any problems and it is not associated directly with the pain. CT was obtained. See copy of CT scan in the EMR. CURRENT MEDICATIONS: See EMR. PAST MEDICAL HISTORY: Alcohol abuse, anxiety associated with depression, SP Emerson-en-Y gastric bypass surgery, unspecified surgical malabsorption, B12 deficiency, endometriosis, GERD, history of depression, internal hernia, iron deficiency anemia, nicotine addiction. PAST SURGICAL HISTORY: SP Emerson-en-Y gastric bypass surgery 06/07/2014. Consult weight 284, today's weight 164.6, total weight loss 109 pounds. BMI is 28. Reduction of volvulus and internal hernia, intussusception 12/10/2015, another reduction of volvulus and internal bowel obstruction 05/15/2016. Part removal of colon with coloproctostomy 12/29/2017. A large laparoscopic cholecystectomy 08/03/2014. EGDs x5, section in 2009 and 2008 . SOCIAL HISTORY: Employed at the [employer], single, but recently broke up with her boyfriend of many years who is the father of her 2 children, children are 2 daughters. Step 2 gastric bypass diet. Protein is around 40 g. Exercise by walking. Fluid 64 ounces, taking all vitamins with the exception of vitamin B complex, PHQ 9 revealed a score of severe depression. She states that she has some therapy help and will be doing better. REVIEW OF SYSTEMS: Remainder of review of systems negative for any pertinent positives and negatives. OBJECTIVE: GENERAL: Pamela Mendoza is a 32-year-old female. VITAL SIGNS: Height is 5 feet 2.9. Weight is 166 pounds. TPR 97, 66, 16, blood pressure 90/70. HEENT: Negative. NECK: Supple. HEART: Regular rate and rhythm. LUNGS: Clear. ABDOMEN: Soft, nontender. She reports when she gets the pain it is about 3-4 inches from the middle of the abdomen which is draining as stated above. : Deferred. BREASTS: Deferred. EXTREMITIES: Without peripheral edema. Full range of motion. NEURO: Cranial nerves II through XII intact. EXTREMITIES: Without peripheral edema. PSYCHIATRIC: Emotional, cries easily. No anxiety is displayed. ASSESSMENT: 1. Abdominal pain, right mid quadrant. 2. Nausea and vomiting. 3. SP Emerson-en-Y gastric bypass surgery. 4. Unspecified surgical malabsorption. 5. B12 deficiency. 6. Anxiety associated with depression. 7. 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. 8. Chronic headaches. 9. Chronic back pain. PLAN: 1. Change IV to D5 LR. 2. Flexeril 10 mg q.6 hours p.r.n. muscle spasms. 3. Tums 1000 mg q.2 hours p.r.n. heartburn. 4. Discontinue GAR[employer] and continuous pulse ox. 5. [place] 5/325 mg 1-2 tabs every 4 hours p.r.n. pain. 6. Home medications. 7. Good pulmonary toilet. 8. We will evaluate. 9. Admit to inpatient. Length of stay would be 3 days and 3 nights. Dori Mills PA-C /[id number]
== END 2018-01-16 10:32 | disposition home or self-care (01) | DRG 251 ==
LOC: JP.ED 21:35 → JP.2SS 01-14 01:04
PROVIDERS: ADMIT Surgery; ATTEND Surgery
DX: R10.11 Right upper quadrant pain (principal); L76.34 Postprocedural seroma of skin and subcutaneous tissue following other procedure; E86.0 Dehydration; K91.2 Postsurgical malabsorption, not elsewhere classified; Z98.84 Bariatric surgery status; Z98.0 Intestinal bypass and anastomosis status; Z90.49 Acquired absence of other specified parts of digestive tract; Z98.890 Other specified postprocedural states; E53.8 Deficiency of other specified B group vitamins; E55.9 Vitamin D deficiency, unspecified; G44.89 Other headache syndrome; F32.9 Major depressive disorder, single episode, unspecified; F41.9 Anxiety disorder, unspecified; M54.9 Dorsalgia, unspecified; G89.29 Other chronic pain; Z87.440 Personal history of urinary (tract) infections; K21.9 Gastro-esophageal reflux disease without esophagitis; Z88.1 Allergy status to other antibiotic agents; F10.10 Alcohol abuse, uncomplicated; Z97.5 Presence of (intrauterine) contraceptive device
CPT/HCPCS: 36415; 74177; 80053; 81001; 85025; 96361; 96374; 96375; 99285-25; A9270-GY; J2060; J2270; J2405; J3410; J7030; J7040; J7042; Q9967

== ENCOUNTER 2018-11-03 05:38 | Inpatient (IN) | payer BC ==
[2018-11-03] MEDS ORDERED: Acetaminophen 500 MG Tab PO ONE (06:00)
[2018-11-03] MEDS ORDERED: Scopolamine 1.5 MG Transdermal Patch TOP SCH (06:00)
[2018-11-03] MEDS: Dextrose 5%-Lactated Ringers 1,000 ML IV SCH ×4 (06:15→23:00)
[2018-11-03] MEDS ORDERED: Bupivacaine 0.5%/EPINEPHrine 1:200,000 50 ML MDV ONE (06:47)
[2018-11-03] MEDS ORDERED: Meropenem 500 MG SDV ONE (06:47)
[2018-11-03] MEDS ORDERED: Meropenem 500 MG in Sodium Chloride 0.9% 50 ML IV ONE (07:00)
[2018-11-03] MEDS ORDERED: Albuterol/Ipratropium 3.0-0.5 MG/3 ML Neb Soln NEB ONE (07:15)
[2018-11-03] MEDS ORDERED: fentaNYL 250 MCG/5 ML SDV ONE ×3 (07:19→08:07)
[2018-11-03] MEDS ORDERED: Ondansetron 4 MG/2 ML SDV ONE (07:20)
[2018-11-03] MEDS ORDERED: Glycopyrrolate 0.2 MG/ML 5 ML MDV ONE (07:20)
[2018-11-03] MEDS ORDERED: Rocuronium 50 MG/5 ML Vial ONE (07:20)
[2018-11-03] MEDS ORDERED: Succinylcholine 200 MG/10 ML MDV ONE (07:20)
[2018-11-03] MEDS ORDERED: Neostigmine Methylsulfate 1 MG/ML 5 ML Syringe ONE (07:20)
[2018-11-03] MEDS ORDERED: Propofol 200 MG/20 ML SDV ONE ×2 (07:20→08:07)
[2018-11-03] MEDS ORDERED: Dexamethasone 4 MG/ML SDV ONE (07:20)
[2018-11-03] MEDS ORDERED: Ketamine 500 MG/5 ML MDV IV SCH (07:30)
[2018-11-03] MEDS ORDERED: Ropivacaine 40 ML, Dexamethasone 8 MG, EPINEPHrine 0.4 MG, Sodium Chloride 0.9% 37.6 ML NERVRT SCH ×4 (07:30)
[2018-11-03] MEDS ORDERED: Labetalol 20 MG/4 ML Syringe ONE (08:00)
[2018-11-03] MEDS ORDERED: LORazepam 2 MG/ML SDV IVPUSH ONE (09:05)
[2018-11-03] MEDS ORDERED: hydrOXYzine HCl 100 MG/2 ML SDV IM ONE (09:13)
[2018-11-03] MEDS ORDERED: HYDROmorphone/Normal Saline 15 MG/30 ML PCA IV PRN (09:14)
[2018-11-03] MEDS ORDERED: Naloxone 0.4 MG/ML SDV IVPUSH PRN (09:14)
[2018-11-03] MEDS: ALPRAZolam 0.25 MG Tab PO PRN ×2 (11:05→17:44)
[2018-11-03] MEDS ORDERED: diphenhydrAMINE 50 MG/ML SDV IVPUSH PRN (11:23)
[2018-11-03] MEDS: diphenhydrAMINE 25 MG Cap PO PRN ×2 (11:36→15:40)
[2018-11-03] MEDS: Meropenem 500 MG in Sodium Chloride 0.9% 50 ML IV SCH ×2 (13:07→18:17)
[2018-11-03] MEDS: Acetaminophen 500 MG Tab PO SCH ×2 (13:55→19:37)
[2018-11-03] MEDS: traMADol 50 MG Tab PO SCH ×2 (15:40→22:21)
[2018-11-03] MEDS: Ondansetron 4 MG/2 ML SDV IVPUSH PRN (16:54)
[2018-11-03] MEDS: Docusate Sodium 100 MG Cap PO SCH (22:21)
[2018-11-03] MEDS: LORazepam 2 MG/ML SDV IV PRN (22:57)
[2018-11-04] MEDS: Meropenem 500 MG in Sodium Chloride 0.9% 50 ML IV SCH (00:18)
[2018-11-04] MEDS: Acetaminophen 500 MG Tab PO SCH ×2 (01:08→09:38)
[2018-11-04] MEDS: traMADol 50 MG Tab PO SCH (04:21)
[2018-11-04] MEDS: LORazepam 2 MG/ML SDV IV PRN (06:04)
[2018-11-04] MEDS: Dextrose 5%-Lactated Ringers 1,000 ML IV SCH (06:09)
[2018-11-04] MEDS ORDERED: DULoxetine 30 MG Cap PO SCH (09:00)
[2018-11-04] MEDS: Docusate Sodium 100 MG Cap PO SCH (09:22)
[2018-11-04] MEDS: Bisacodyl 5 MG Tab PO SCH ×2 (09:22→20:32)
[2018-11-04] MEDS: Pantoprazole 40 MG Tab.CR PO SCH (09:23)
[2018-11-04] MEDS: Acetaminophen/oxyCODONE 325-5 MG Tab PO PRN ×3 (09:43→19:39)
[2018-11-04] MEDS: ALPRAZolam 0.25 MG Tab PO PRN ×2 (09:47→19:37)
[2018-11-04] MEDS ORDERED: MVI, Adult with Vitamin K 10 ML, Thiamine 100 MG, Magnesium Sulfate 2 GM, Folic Acid 1 ... IV ONE ×5 (10:00)
--- NOTE | 2018-11-04 10:22 | PCM.PN ---
- General Info Date of Service: 11/04/18 Admission Dx/Problem (Free Text): Recurrent incisional hernia Subjective Update: Pt is doing well. Pain 11/06. She has been up and walking. No gas yet. Tolerating diet. Functional Status: Reports: Pain Controlled Pain Score: 3 - Review of Systems General: Reports: No Symptoms HEENT: Reports: No Symptoms Pulmonary: Reports: No Symptoms Gastrointestinal: Reports: Abdominal Pain. Denies: Nausea, Vomiting Genitourinary: Reports: No Symptoms Musculoskeletal: Reports: No Symptoms Skin: Reports: No Symptoms Neurological: Reports: No Symptoms Psychiatric: Reports: No Symptoms - Patient Data Vitals - Most Recent: Last Vital Signs Temp 35.6 C 11/04/18 07:00 Pulse 47 L 11/04/18 07:00 Resp 16 11/04/18 07:00 BP 112/69 11/04/18 07:00 Pulse Ox 96 11/04/18 07:47 Weight - Most Recent: 78.653 kg I&O - Last 24 Hours: Intake & Output 11/03/18 11/04/18 11/04/18 22:59 06:59 14:59 Intake Total 1143 2634 200 Output Total 1125 700 500 Balance 18 1934 -300 Med Orders - Current: Current Medications Alprazolam (Xanax) 0.25 mg PO TID PRN PRN Reason: ANXIETY Last Admin: 11/04/18 09:47 Dose: 0.25 mg Bisacodyl (Dulcolax) 10 mg PO BID [facility] Last Admin: 11/04/18 09:22 Dose: 10 mg Bupropion HCl (Wellbutrin) 75 mg PO BEDTIME [facility] Diphenhydramine HCl (Benadryl) 25 - 50 mg PO Q4H PRN PRN Reason: Itching Last Admin: 11/03/18 15:40 Dose: 50 mg Docusate Sodium (Colace) 100 mg PO BID [facility] Last Admin: 11/04/18 09:22 Dose: 100 mg Duloxetine HCl (Cymbalta) 60 mg PO BEDTIME [facility] Dextrose/Lactated Ringer's (Dextrose 5%-Lactated Ringers) 1,000 mls @ 80 mls/ hr IV ASDIRECTED [facility] Last Admin: 11/04/18 06:09 Dose: 150 mls/hr Multivitamins/Minerals 10 ml/Thiamine HCl 100 mg/ Magnesium Sulfate 2 gm/ Folic Acid 1 mg / Lactated Ringer's 1,015.2 mls @ 100 mls/hr IV ONETIME ONE Stop: 11/04/18 20:09 Ondansetron HCl (Zofran) 4 mg IVPUSH Q4H PRN PRN Reason: Nausea Last Admin: 11/03/18 16:54 Dose: 4 mg Ondansetron HCl (Zofran Odt) 4 mg PO Q4H PRN PRN Reason: Nausea/Vomiting Oxycodone/Acetaminophen (Percocet 325-5 Mg) 1 - 2 tab PO Q4H PRN PRN Reason: paiin Last Admin: 11/04/18 09:43 Dose: 2 tab Pantoprazole Sodium (Protonix) 40 mg PO ACBREAKFAST [facility] Last Admin: 11/04/18 09:23 Dose: 40 mg Scopolamine (Transderm-Scop) 1.5 mg TOP Q72H [facility] Stop: 11/05/18 09:00 Last Admin: 11/03/18 06:14 Dose: 1.5 mg Senna/Docusate Sodium (Senna Plus) 2 tab PO BID [facility] Last Admin: 11/04/18 09:22 Dose: 2 tab Discontinued Medications Acetaminophen (Tylenol Extra Strength) 1,000 mg PO ONETIME ONE Stop: 11/03/18 06:01 Last Admin: 11/03/18 06:13 Dose: 1,000 mg Acetaminophen (Tylenol Extra Strength) 1,000 mg PO Q6H [facility] Last Admin: 11/04/18 09:38 Dose: Not Given Albuterol/Ipratropium (Duoneb 3.0-0.5 Mg/3 Ml) 3 ml NEB ONETIME ONE Stop: 11/03/18 07:16 Last Admin: 11/03/18 07:05 Dose: 3 ml Bupivacaine HCl/Epinephrine Bitart (Marcaine 0.5%/Epinephrine 1:200,000) Confirm Administered Dose 50 ml .ROUTE .STK-MED ONE Stop: 11/03/18 06:48 Ropivacaine 40 ml/Dexamethasone 8 mg/Epinephrine HCl 0.4 mg/ Sodium Chloride 37.6 ml 0 ml NERVRT ASDIRECTED [facility] Last Admin: 11/03/18 07:45 Dose: 80 syringe Dexamethasone (Dexamethasone) Confirm Administered Dose 4 mg .ROUTE .STK-MED ONE Stop: 11/03/18 07:21 Diphenhydramine HCl (Benadryl) 25 - 50 mg IVPUSH Q4H PRN PRN Reason: Itching Fentanyl (Sublimaze) Confirm Administered Dose 250 mcg .ROUTE .STK-MED ONE Stop: 11/03/18 07:20 Fentanyl (Sublimaze) Confirm Administered Dose 250 mcg .ROUTE .STK-MED ONE Stop: 11/03/18 07:39 Fentanyl (Sublimaze) Confirm Administered Dose 250 mcg .ROUTE .STK-MED ONE Stop: 11/03/18 08:08 Glycopyrrolate (Robinul) Confirm Administered Dose 1 mg .ROUTE .STK-MED ONE Stop: 11/03/18 07:21 Hydromorphone HCl (Dilaudid Net Wpf Developer 15 Mg In Ns 30 Ml) 0 mg IV ASDIRECTED PRN; Protocol PRN Reason: Pain Last Admin: 11/03/18 09:24 Dose: 0.3 mg Hydroxyzine HCl (Vistaril) 75 mg IM ONETIME ONE Stop: 11/03/18 09:14 Last Admin: 11/03/18 09:25 Dose: 75 mg Dextrose/Lactated Ringer's (Dextrose 5%-Lactated Ringers) 1,000 mls @ 100 mls/ hr IV ASDIRECTED [facility] Last Admin: 11/03/18 09:32 Dose: 100 mls/hr Meropenem 500 mg/ Sodium (Chloride) 50 mls @ 100 mls/hr IV ONCALL ONE Stop: 11/03/18 07:29 Last Admin: 11/03/18 07:15 Dose: 100 mls/hr Linezolid (Zyvox) Confirm Administered Dose 300 mls @ as directed .ROUTE .STK- MED ONE Stop: 11/03/18 07:57 Meropenem 500 mg/ Sodium (Chloride) 50 mls @ 100 mls/hr IV Q6H [facility] Stop: 11/04/18 00:59 Last Admin: 11/04/18 00:18 Dose: 100 mls/hr Ketamine HCl (Ketalar) 27 mg IV ASDIRECTED [facility] Labetalol HCl (Normodyne) Confirm Administered Dose 20 mg .ROUTE .STK-MED ONE Stop: 11/03/18 08:01 Linezolid (Zyvox) 600 mg .XX .STK-MED ONE Stop: 11/03/18 08:15 Last Admin: 11/03/18 08:14 Dose: 600 mg Lorazepam (Ativan) 0.5 mg IVPUSH ONETIME ONE Stop: 11/03/18 09:06 Last Admin: 11/03/18 09:15 Dose: 0.5 mg Lorazepam (Ativan) 0.5 - 1 mg IV Q2H PRN PRN Reason: ANXIETY Last Admin: 11/04/18 06:04 Dose: 1 mg Meropenem (Merrem) Confirm Administered Dose 500 mg .ROUTE .STK-MED ONE Stop: 11/03/18 06:48 Last Admin: 11/03/18 08:14 Dose: 500 mg Naloxone HCl (Narcan) 0.1 mg IVPUSH Q2M PRN PRN Reason: Respiratory Distress Neostigmine Methylsulfate (Neostigmine) Confirm Administered Dose 5 mg .ROUTE .STK-MED ONE Stop: 11/03/18 07:21 Ondansetron HCl (Zofran) Confirm Administered Dose 4 mg .ROUTE .STK-MED ONE Stop: 11/03/18 07:21 Propofol (Diprivan 20 Ml) Confirm Administered Dose 200 mg .ROUTE .STK-MED ONE Stop: 11/03/18 07:21 Propofol (Diprivan 20 Ml) Confirm Administered Dose 200 mg .ROUTE .STK-MED ONE Stop: 11/03/18 08:08 Rocuronium [place] (Zemuron) Confirm Administered Dose 50 mg .ROUTE .STK-MED ONE Stop: 11/03/18 07:21 Succinylcholine Chloride (Quelicin) Confirm Administered Dose 200 mg .ROUTE .STK -MED ONE Stop: 11/03/18 07:21 Tramadol HCl (Ultram) 50 mg PO Q6H [facility] Last Admin: 11/04/18 04:21 Dose: 50 mg - Exam General: Alert, Oriented HEENT: Pupils Equal, Pupils Reactive, EOMI, Mucous Membr. Moist/[place] Neck: Supple Lungs: Clear to Auscultation, Normal Respiratory Effort Cardiovascular: Regular Rate, Regular Rhythm GI/Abdominal Exam: Normal Bowel Sounds, Soft, Abnormal Bowel Sounds (hypoactive) Skin: Warm, Dry, Intact Wound/Incisions: Dressing Dry and Intact - Problem List & Annotations (1) Status post hernia repair SNOMED Code(s): 21076471177014, 59448183579585 Code(s): Z98.890 - OTHER SPECIFIED POSTPROCEDURAL STATES; Z87.19 - PERSONAL HISTORY OF OTHER DISEASES OF THE DIGESTIVE SYSTEM Status: Acute Current Visit: Yes Annotation/Comment:: recurrent incisional with mesh (2) Excessive drinking alcohol SNOMED Code(s): 329580082 Code(s): F10.10 - ALCOHOL ABUSE, UNCOMPLICATED Status: Acute Current Visit: No (3) Malabsorption due to intolerance, not elsewhere classified SNOMED Code(s): 29649999 Code(s): K90.49 - MALABSORPTION DUE TO INTOLERANCE, NOT ELSEWHERE CLASSIFIED Status: Acute Current Visit: No (4) Smoking SNOMED Code(s): 01908948 Code(s): F17.200 - NICOTINE DEPENDENCE, UNSPECIFIED, UNCOMPLICATED Status: Acute Current Visit: No (5) Bariatric surgery status SNOMED Code(s): 932483110, 571242526, 443661831 Code(s): Z98.84 - BARIATRIC SURGERY STATUS Status: Chronic Current Visit : No (6) Chronic back pain SNOMED Code(s): 726792500 Code(s): M54.9 - DORSALGIA, UNSPECIFIED; G89.29 - OTHER CHRONIC PAIN Status : Chronic Current Visit: No (7) Gastric bypass status for obesity SNOMED Code(s): 289869632, 971796781, 515436910, 499755622 Code(s): Z98.84 - BARIATRIC SURGERY STATUS Status: Chronic Current Visit : No (8) Gastroesophageal reflux disease SNOMED Code(s): 769645865 Code(s): K21.9 - GASTRO-ESOPHAGEAL REFLUX DISEASE WITHOUT ESOPHAGITIS Status: Chronic Current Visit: No - Problem List Review Problem List Initiated/Reviewed/Updated: Yes - Assessment Assessment:: 1. S/P hernia repair - Plan Plan:: 1. Continue with step 3 diet as tolerated. Start bowel regimen.
[2018-11-04] MEDS: diphenhydrAMINE 25 MG Cap PO PRN (11:52)
[2018-11-04] MEDS ORDERED: Bisacodyl 10 MG Supp RECTAL PRN (17:15)
[2018-11-04] MEDS: Dicyclomine 10 MG Cap PO PRN (17:50)
[2018-11-04] MEDS: DULoxetine 30 MG Cap PO SCH (20:32)
[2018-11-04] MEDS: Ondansetron 4 MG/2 ML SDV IVPUSH PRN (20:36)
[2018-11-05] MEDS: Dextrose 5%-Lactated Ringers 1,000 ML IV SCH (01:09)
[2018-11-05] MEDS: Acetaminophen/oxyCODONE 325-5 MG Tab PO PRN ×4 (01:12→19:35)
[2018-11-05] MEDS: ALPRAZolam 0.25 MG Tab PO PRN (03:25)
[2018-11-05] MEDS ORDERED: LORazepam 2 MG/ML SDV IVPUSH PRN (07:11)
[2018-11-05] MEDS: Pantoprazole 40 MG Tab.CR PO SCH (07:20)
[2018-11-05] MEDS ORDERED: Ketorolac 60 MG/2 ML SDV IM ONE (08:00)
[2018-11-05] MEDS ORDERED: Cyclobenzaprine 10 MG Tab PO ONE (08:00)
[2018-11-05] MEDS ORDERED: Ketorolac 60 MG/2 ML SDV IM PRN (13:00)
[2018-11-05] MEDS: Cyclobenzaprine 10 MG Tab PO PRN ×2 (14:42→21:30)
[2018-11-05] MEDS: Dicyclomine 10 MG Cap PO PRN (19:35)
[2018-11-05] MEDS: Ondansetron 4 MG Tab.DIS PO PRN (19:42)
[2018-11-05] MEDS: DULoxetine 30 MG Cap PO SCH (21:20)
[2018-11-06] MEDS: Acetaminophen/oxyCODONE 325-5 MG Tab PO PRN ×2 (01:20→07:14)
[2018-11-06] MEDS: Ondansetron 4 MG Tab.DIS PO PRN (03:45)
[2018-11-06] MEDS: Dicyclomine 10 MG Cap PO PRN (03:45)
[2018-11-06] MEDS: ALPRAZolam 0.25 MG Tab PO PRN (04:27)
[2018-11-06 07:49] VITALS: BP 123/72
[2018-11-06] MEDS: Pantoprazole 40 MG Tab.CR PO SCH (10:37)
--- NOTE | 2018-11-06 14:12 | PN ---
DATE OF SERVICE: 11/05/2018 The patient is complaining of quite a bit of pain in the right side of the abdomen and flank. I suspect this must be some sort of muscle spasm related to the trocar sites and such. We will give her some Toradol and Flexeril for that. Otherwise, she is not moving her bowels and we will back down on the bowel stimulation. The patient normally is quite anxious and we will offer some IV Ativan as well as needed. I suspect the overall situation should settle down as the day goes by. If it does not, we will need to readdress things and potentially getting a CAT scan. Humberto Felder MD /[id number]
--- NOTE | 2018-11-07 16:10 | DISCH ---
FINAL DIAGNOSES: 1. Recurrent incarcerated incisional hernia. 2. Extensive intraabdominal adhesions. 3. Bariatric surgery status. 4. History of depression. 5. History of alcoholism, presently in remission. 6. History of seizure disorder. OPERATIVE PROCEDURES: Done on 11/03/2018, diagnostic laparoscopy with lysis of adhesions. 1. Repair of recurrent incarcerated incisional hernia with mesh. 2. Placement of Vicryl mesh to limit recurrent adhesion formation. SUMMARY: This is a 33-year-old female presenting with recurrent incisional hernia located in the epigastrium. On the date of admission, the patient underwent repair of the hernia with mesh. This included adding some Vicryl mesh to limit recurrent adhesion formation. Postoperatively, the patient had some quite a bit of cramping on postop day #2 with bowel stimulation, but otherwise is doing well and at this point will be discharged home. Continue home her medications plus Flexeril 10 mg p.o. t.i.d. p.r.n. #24 refill x1 and Percocet 5/325, 1 to 2 tabs q.4 hours p.r.n. pain #40. She will be following up with Dori Mills in [facility] on 11/14/2018.
--- NOTE | 2018-11-09 11:51 | OR ---
DATE OF PROCEDURE: 11/03/2018 PREOPERATIVE DIAGNOSIS: Recurrent incarcerated incisional hernia. POSTOPERATIVE DIAGNOSES: 1. Recurrent incarcerated incisional hernia. 2. Extensive intraabdominal adhesions. OPERATIVE PROCEDURES: Diagnostic laparoscopy with lysis of extensive adhesions and; 1. Repair of recurrent incarcerated incisional hernia with mesh (72732). 2. Placement of Vicryl mesh to displace viscera from pelvic and abdominal wall to limit postoperative recurrent adhesion formation (08934). ANESTHESIA: General. LINE CREW SUPERVISOR: Dori Mills PA-C, and BALWINDER Thurman. INDICATION FOR PROCEDURE: This is a 33-year-old female, presenting with recurrent nonreducible incisional hernia that has decompressed at this time, and at this point wishes to proceed with repair. We will attempt a laparoscopic approach possible need for open approach. Otherwise potential risks including bleeding, infection, injury to underlying viscera, problems with hernia recurring or the mesh becoming infected as well as remote possibility of cardiopulmonary, septic, or hemorrhagic complications leading to were all discussed, and the patient wishes to proceed. DETAILS OF PROCEDURE: The patient was taken to the operating room, and after general endotracheal anesthesia was induced, a Branch catheter was inserted, and the abdomen prepped and draped. Branch catheter was removed at the conclusion of the procedure. In the left lower quadrant, a transverse incision was made and peritoneal cavity entered under direct vision with an Optiview trocar, inflated to 15 mmHg pressure with CO2. Laparoscope was then reinserted. No underlying trocar insertion site injuries were seen. Following this, eventually four additional 5 mm trocars were placed on the right and left abdomen, and the patient was noted to have quite a bit in the way of adhesions into the area of the hernia as well as some scattered adhesions between omentum and the pelvic sidewall. Once these adhesions were taken down, the incarcerated component of the hernia was reduced as well and small amount of that was sent as a surgical specimen. The hernia defect itself at fascia level measured at this time around 4 cm. Initially, the fascia was approximated from within with old Vicryl sutures and this nearly approximated the fascia. We then selected a Ventralight ST mesh with a circular configuration and then the balloon positioning system. The diameter on this mesh was 20.3 cm. Soaked int antibiotic-containing saline solution, placed into an intraabdominal location. Through the center of the hernia, small stab wound was made and the catheter pulled up, so thus centering the mesh in position at the left side of the hernia. The balloon was then inflated and the mesh was then fixed circumferentially with 2 rows of absorbable tacking screws. The balloon was then removed and the mesh appeared to be well positioned. A 12-inch square of Vicryl mesh was then placed underneath the area of the hernia repair and then extending downward into the pelvis from there to limit recurrent adhesion formation between the viscera and those areas. At this point, no further problems were noted. A 12 mm trocar was removed and fascia at that level closed with 0 Vicryl stitch and the skin with 4-0 Vicryl skin stitch. Dressing was applied. The patient was taken to the recovery room in satisfactory condition. Physician regulatory assistant, Dori Mills, played an essential role in assisting in this case, helping to position the patient, retract structures as needed, as well as suturing and cutting sutures when indicated. Her presence improved the patient's safety and decreased operative time. Humberto Felder MD /[id number]
== END 2018-11-06 10:20 | disposition home or self-care (01) | DRG 227 ==
LOC: JP.SDS 05:38 → JP.SDSSCHI 05:38 → JP.2SS 08:50 → UNDOADMIN 08:50 → EDSTATUS 09:00
PROVIDERS: ADMIT Surgery; ATTEND Surgery
PROC: 0WUF4JZ Supplement Abdominal Wall with Synthetic Substitute, Percutaneous Endoscopic Approach (ICD-10-PCS; principal; 2018-11-03)
PROC: 3E0M45Z Introduction of Adhesion Barrier into Peritoneal Cavity, Percutaneous Endoscopic Approach (ICD-10-PCS; 2018-11-03)
PROC: 0DNU4ZZ Release Omentum, Percutaneous Endoscopic Approach (ICD-10-PCS; 2018-11-03)
PROC: 0DNW4ZZ Release Peritoneum, Percutaneous Endoscopic Approach (ICD-10-PCS; 2018-11-03)
DX: K43.0 Incisional hernia with obstruction, without gangrene (principal); K90.49 Malabsorption due to intolerance, not elsewhere classified; E53.8 Deficiency of other specified B group vitamins; E55.9 Vitamin D deficiency, unspecified; K66.0 Peritoneal adhesions (postprocedural) (postinfection); F10.10 Alcohol abuse, uncomplicated; F17.210 Nicotine dependence, cigarettes, uncomplicated; M54.9 Dorsalgia, unspecified; G89.29 Other chronic pain; K21.9 Gastro-esophageal reflux disease without esophagitis; F41.8 Other specified anxiety disorders; Z98.84 Bariatric surgery status
CPT/HCPCS: 81025; 88302; 94640; 94762; A9270-GY; C1781; J0171; J0330; J1100; J1170; J1885; J2020; J2060; J2185; J2405; J2704; J2710; J2795; J3010; J3410; J3411; J3475; J3490; J7042; J7050; J7120; J7620-GY

== ENCOUNTER 2018-11-17 19:40 | Inpatient (IN) | payer BC ==
[2018-11-17] MEDS ORDERED: Sodium Chloride 0.9% 1,000 ML IV SCH (21:00)
[2018-11-17] MEDS ORDERED: Ondansetron 4 MG/2 ML SDV IVPUSH ONE (21:03)
[2018-11-17] MEDS ORDERED: HYDROmorphone 1 MG/ML Syringe IVPUSH ONE ×2 (21:04→22:27)
[2018-11-17] MEDS: Sodium Chloride 0.9% 10 ML Syringe FLUSH PRN ×2 (21:29→21:51)
[2018-11-17] MEDS ORDERED: Sodium Chloride 0.9% 80 ML IV SCH (21:30)
[2018-11-17] MEDS ORDERED: Iopamidol 612 MG/ML 100 ML Bottle IV SCH (21:30)
--- NOTE | 2018-11-17 22:13 | CRLCT ---
INDICATION: Abdominal pain, abdominal surgery 2 weeks ago, recurrent incisional hernia TECHNIQUE: CT Abdomen and pelvis with i.v. contrast. Coronal and sagittal reformats were obtained. CONTRAST: 100 mL Isovue 300 COMPARISON: 08/08/2018 FINDINGS: Lower chest: Trace bilateral pleural effusions are noted. Liver: Unremarkable. Spleen: Unremarkable. Pancreas: Unremarkable. Gallbladder: Previous cholecystectomy noted without significant intra- or extrahepatic biliary ductal dilatation seen. Kidney: Unremarkable. No kidney or ureteral stones or obstruction seen. Adrenal: Unremarkable. Bowel: Moderate amount of stool is present throughout the colon which may be due to chronic constipation. Previous antegastric-antecolic gastric bypass noted. There is a dilated stool filled loop of small bowel in the left flank between a proximal anastomotic staple line and a staple line seen in the left lower quadrant. Mild wall thickening is noted. The appendix is normal in appearance and size. Hyperdense mesh is seen in the anterior midline abdominal wall from prior PTFE ventral hernia repair. No evidence of recurrent hernia is seen. Vascular: Unremarkable. Lymph: Unremarkable. Peritoneum: Unremarkable. No pneumoperitoneum is seen. No significant ascites is noted. Pelvis: An IUD is present in the uterine cavity near the fundus with no identified complications. There is a cystic lesion in the left ovary measuring 4.8 x 4 cm. Soft tissue: A small fluid collection is seen in the midline subcutaneous soft tissues of the mid abdomen measuring 2.6 x 1.5 cm, likely a postoperative fluid collection. Bone: Unremarkable for age. IMPRESSIONS: 1. There is a dilated stool filled loop of small bowel in the left flank between a proximal anastomotic staple line and a staple line seen in the left lower quadrant. Mild wall thickening is noted. Mechanical bowel obstruction or anastomotic stricture should be considered. Given the mild wall thickening, ischemic changes of the segment should also be considered. 2. Trace bilateral pleural effusions are noted. 3. There is a cystic lesion in the left ovary measuring 4.8 x 4 cm. Dictated by Fernando Cohn MD @ 11/17/2018 10:12:25 PM Please note that all CT scans at this facility use dose modulation, iterative reconstruction, and/or weight-based dosing when appropriate to reduce radiation dose to as low as reasonably achievable. Dictated by: Fernando Cohn MD @ 11/17/2018 22:12:39 (Electronically Signed)
[2018-11-17] MEDS ORDERED: diphenhydrAMINE 50 MG/ML SDV IVPUSH ONE (22:42)
--- NOTE | 2018-11-17 23:19 | EDM.PDOC ---
ED HPI GENERAL MEDICAL PROBLEM - General Chief Complaint: Abdominal Pain Stated Complaint: SURGERY 2 WKS AGO,PAIN Time Seen by Provider: 11/17/18 20:55 Source of Information: Reports: Patient History Limitations: Reports: No Limitations - History of Present Illness INITIAL COMMENTS - FREE TEXT/NARRATIVE: Chief Complaint: abdominal pain, "worried something is wrong, can't stop vomiting" This is a 33 year old female presents to ER with friend. reports 2 weeks ago, had surgery for recurrent hernia with mesh. She reports on Wednesday, November 14 started to feel sick, abdomen was painful, then on Wednesday, had diarrhea, Wednesday felt better, Today, she ate, had a bowel movement, then experience unbearable abdominal pain, continuous vomiting. She arrived to ER with active vomiting. Onset: Gradual Onset Date: 11/14/18 Duration: Day(s):, Getting Worse Location: Reports: Abdomen Quality: Reports: Same as Previous Episode Severity: Severe Improves with: Reports: None Worsens with: Reports: Eating Context: Reports: Other (hx of 6 abdominal surgeries per patient) Treatments DIAMOND SIZER: Reports: Acetaminophen Right Upper Abdomen Pain Score (Numeric/FACES): 8 - Related Data Allergies Allergy/AdvReac Type Severity Reaction Status Date / Time cefaclor [Cefaclor] Allergy Unknown Hives Verified 11/17/18 20:42 ciprofloxacin [From Cipro] Allergy Unknown Hives Verified 11/17/18 20:42 Home Meds: Home Meds Cyanocobalamin (Vitamin B-12) [B-12] 1,000 mcg PO DAILY 06/05/14 [History] Multivitamin with Minerals [Multiple Vitamin] 1 tab PO BID 06/05/14 [History] Vitamin B Complex 1 each PO DAILY 08/03/14 [History] Calcium Carbonate [Calcium] 500 mg PO BID 08/04/14 [History] Cyanocobalamin (Vitamin B12) [Vitamin B12] 1,000 mcg IM ASDIRECTED 12/10/15 [ History] Polyethylene Glycol 3350 [MiraLAX] 17 gm PO DAILY PRN 01/20/16 [History] ALPRAZolam [Xanax] 0.25 mg PO TID PRN 05/14/16 [History] Levonorgestrel [Mirena] 1 device IUTERINE ASDIRECTED 05/14/16 [History] Biotin 2,500 mcg PO DAILY 08/05/16 [History] Docusate Sodium [Colace] 100 mg PO BID PRN #100 cap 08/11/16 [Rx] Thiamine [Vitamin B-1] 50 mg PO DAILY 12/17/17 [History] Ondansetron [Zofran ODT] 4 mg PO Q4H PRN #30 tab.dis 12/22/17 [Rx] DULoxetine HCl [Duloxetine HCl] 60 mg PO DAILY 01/13/18 [History] Dicyclomine [Bentyl] 10 mg PO QIDACANDBED 01/13/18 [History] Esomeprazole [NexIUM] 40 mg PO BID 11/01/18 [History] buPROPion [Wellbutrin] 75 mg PO DAILY 11/01/18 [History] traMADol [Ultram] 50 mg PO Q6H PRN 11/01/18 [History] Past Medical History HEENT History: Reports: Otitis Media Respiratory History: Reports: Sleep Apnea, Other (See Below) Other Respiratory History: history of sleep apnea but since her RNY she has not needed her CPAP Gastrointestinal History: Reports: Bowel Obstruction, Cholelithiasis, Gastritis , GERD, Hemorrhoids, Hiatal Hernia Genitourinary History: Reports: UTI, Recurrent CH[employer] MACHINE History: Reports: 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, Musculoskeletal History: Reports: Back Pain, Chronic Neurological History: Reports: Concussion, Headaches, Chronic, Migraines, Seizure Psychiatric History: Reports: Anxiety, Depression, Psych Hospitalization(s), Suicidal Ideation Endocrine/Metabolic History: Reports: Obesity/BMI 30+, Vitamin D Deficiency Hematologic History: Reports: B12 Deficiency, Iron Deficiency Dermatologic History: Reports: Other (See Below) Other Dermatologic History: mole removed neck and vaginal lip - Infectious Disease History Infectious Disease History: Reports: Chicken Pox - Past Surgical History Head Surgeries/Procedures: Reports: None HEENT Surgical History: Reports: Adenoidectomy, Myringotomy w Tube(s), Tonsillectomy GI Surgical History: Reports: Bariatric Procedure, Cholecystectomy, EGD, Esophageal Dilatation, Hernia Repair/Other, Small Bowel, Other (See Below) Female Surgical History: Reports: Section Endocrine Surgical History: Reports: None Musculoskeletal Surgical History: Reports: None Dermatological Surgical History: Reports: None Social & Family History - Family History Family Medical History: Noncontributory Psychiatric: Reports: Other (See Below) Other Psychiatric Family History: sister and mom alcoholics Oncologic: Reports: Lung Other Oncologic Family History: grandpa had lung ca - Tobacco Use Smoking Status *Q: Current Some Day Smoker Years of Tobacco use: 16 Packs/Tins Daily: 0.5 Second Hand Smoke Exposure: No - Caffeine Use Caffeine Use: Reports: Coffee - Recreational Drug Use Recreational Drug Use: No - Living Situation & Occupation Living situation: Reports: Single Occupation: Employed (Employed at [employer] in [place]. lives in house in [place] with her 2 children and a Friend and her children.) ED ROS GENERAL - Review of Systems Review Of Systems: See Below Constitutional: Reports: Weakness, Decreased Appetite, Other (active vomiting upon arrival to ER.) HEENT: Reports: No Symptoms Respiratory: Reports: No Symptoms, Other (smoking from 1/4 to 1 pack per day.) Cardiovascular: Reports: No Symptoms Endocrine: Reports: No Symptoms GI/Abdominal: Reports: Abdominal Pain, Diarrhea, Decreased Appetite, Nausea, Vomiting : Reports: No Symptoms Musculoskeletal: Reports: No Symptoms Skin: Reports: Pruritis (allergic type rash started on November 14, seen in Clinic , medications started), Urticaria (reports rash/hives started on Wednesday as well. was seen in [facility], given TMC 1%, [place], Benedryl and ) Neurological: Reports: No Symptoms Psychiatric: Reports: Anxiety Hematologic/Lymphatic: Reports: No Symptoms Immunologic: Reports: Environmental Allergy, Other (unknown allergic reaction since WednesdayNovember 14.) ED EXAM, GI/ABD - Physical Exam Exam: See Below Exam Limited By: No Limitations General Appearance: Anxious, Moderate Distress Eyes: Bilateral: Normal Appearance, EOMI Ears: Normal External Exam, Normal Canal, Hearing Grossly Normal, Normal TMs Nose: Normal Inspection, Normal Mucosa, No Blood Throat/Mouth: Normal Inspection Head: Atraumatic, Normocephalic Neck: Normal Inspection, Supple, Non-Tender, Full Range of Motion Respiratory/Chest: No Respiratory Distress, Lungs Clear, Normal Breath Sounds, No Accessory Muscle Use, Chest Non-Tender Cardiovascular: Normal Peripheral Pulses, Regular Rate, Rhythm, No Edema, No Gallop, No JVD, No Murmur, No Rub GI/Abdominal Exam: Normal Bowel Sounds, Soft, Non-Tender, No Organomegaly, No Distention, No Abnormal Bruit, No Mass, Pelvis Stable (Female) Exam: Deferred Rectal (Female) Exam: Deferred Back Exam: Normal Inspection, Full Range of Motion Extremities: Normal Inspection, Normal Range of Motion, Non-Tender, Normal Capillary Refill, No Pedal Edema Neurological: Alert, Oriented, Normal Cognition, No Motor/Sensory Deficits Psychiatric: Anxious, Tearful (when given results of CT scan began to cry, worried about missing work.) Skin Exam: Warm, Dry, Intact, Normal Color, Rash (generalized, reports started at abdomen and spread to arms and legs. ) Lymphatic: No Adenopathy Course - Vital Signs Last Recorded V/S: Last Vital Signs Temp 35.9 C 11/17/18 22:30 Pulse 82 11/17/18 22:30 Resp 14 11/17/18 22:30 BP 129/75 11/17/18 22:30 Pulse Ox 98 11/17/18 22:30 - Orders/Labs/Meds Orders: Active Orders 24 hr Category Date Time Status Patient Status Manage Transfer [TRANSFER] Routine ADT 11/17/18 22:52 Active CULTURE BLOOD [BC] Urgent Lab 11/17/18 21:00 Received CULTURE BLOOD [BC] Urgent Lab 11/17/18 21:10 Received Iopamidol [Isovue-300 (61%)] Med 11/17/18 21:30 Active 100 ml IV . DIRECTED Sodium Chloride 0.9% [Normal Saline] 1,000 ml Med 11/17/18 21:00 Active IV ASDIRECTED Sodium Chloride 0.9% [Normal Saline] 80 ml Med 11/17/18 21:30 Active IV ASDIRECTED Sodium Chloride 0.9% [Saline Flush] Med 11/17/18 21:19 Active 10 ml FLUSH ASDIRECTED PRN Blood Culture x2 Reflex Set [OM.PC] Urgent Oth 11/17/18 20:56 Ordered Resuscitation Status Routine Resus Stat 11/17/18 22:56 Ordered Medication Orders Sodium Chloride (Normal Saline) 1,000 mls @ 500 mls/hr IV ASDIRECTED HENRY Last Admin: 11/17/18 21:21 Dose: 500 mls/hr Sodium Chloride (Normal Saline) 80 mls @ 3 mls/sec IV ASDIRECTED HENRY Last Admin: 11/17/18 21:51 Dose: 3 mls/sec Iopamidol (Isovue-300 (61%)) 100 ml IV . DIRECTED HENRY Last Admin: 11/17/18 21:51 Dose: 100 ml Sodium Chloride (Saline Flush) 10 ml FLUSH ASDIRECTED PRN PRN Reason: Keep Vein Open Last Admin: 11/17/18 21:51 Dose: 10 ml Admin: 11/17/18 21:29 Dose: 10 ml Labs: Laboratory Tests 11/17/18 11/17/18 11/17/18 Range/Units 20:56 21:22 21:22 WBC 15.0 H (4.5-11.0) K/uL RBC 5.35 (3.30-5.50) M/uL Hgb 15.4 H (12.0-15.0) g/dL Hct 46.1 (36.0-48.0) % MCV 86 (80-98) fL MCH 29 (27-31) pg MCHC 33 (32-36) % Plt Count 392 (150-400) K/uL Neut % (Auto) 58 (36-66) % Lymph % (Auto) 28 (24-44) % Coal % (Auto) 5 (2-6) % Eos % (Auto) 9 H (2-4) % Baso % (Auto) 1 (0-1) % PT 11.4 (9.5-12.0) sec INR 1.04 (0.80-1.20) Sodium (140-148) mmol/L Potassium (3.6-5.2) mmol/L Chloride (100-108) mmol/L Carbon Dioxide (21-32) mmol/L Anion Gap (5.0-14.0) mmol/L BUN (7-18) mg/dL Creatinine (0.6-1.0) mg/dL Est Cr Clr Drug Dosing mL/min Estimated GFR (MDRD) (>60) Glucose (74-106) mg/dL Calcium (8.5-10.1) mg/dL Magnesium (1.8-2.4) mg/dL Total Bilirubin (0.2-1.0) mg/dL AST (15-37) U/L ALT (12-78) U/L Alkaline Phosphatase (46-116) U/L Total Protein (6.4-8.2) g/dL Albumin (3.4-5.0) g/dL Globulin (2.3-3.5) g/dL Albumin/Globulin Ratio (1.2-2.2) Amylase (25-115) U/L Lipase (73-393) U/L Urine Color Yellow Urine Appearance Slightly cloudy Urine pH 6.0 (4.5-8.0) Ur Specific [place] 1.020 (1.008-1.030) Urine Protein Negative (NEGATIVE) mg/dL Urine Glucose (UA) Normal (NEGATIVE) mg/dL Urine Ketones 50 H (NEGATIVE) mg/dL Urine Occult Blood Negative (NEGATIVE) Urine Nitrite Negative (NEGATIVE) Urine Bilirubin Negative (NEGATIVE) Urine Urobilinogen Normal (NORMAL) mg/dL Ur Leukocyte Esterase Negative (NEGATIVE) Urine RBC 0-5 (0-5) Urine WBC 0-5 (0-5) Ur Epithelial Cells Few Amorphous Sediment Not seen Urine Bacteria Moderate Urine Mucus Not seen 11/17/18 Range/Units 21:22 WBC (4.5-11.0) K/uL RBC (3.30-5.50) M/uL Hgb (12.0-15.0) g/dL Hct (36.0-48.0) % MCV (80-98) fL MCH (27-31) pg MCHC (32-36) % Plt Count (150-400) K/uL Neut % (Auto) (36-66) % Lymph % (Auto) (24-44) % Coal % (Auto) (2-6) % Eos % (Auto) (2-4) % Baso % (Auto) (0-1) % PT (9.5-12.0) sec INR (0.80-1.20) Sodium 139 L (140-148) mmol/L Potassium 3.8 (3.6-5.2) mmol/L Chloride 104 (100-108) mmol/L Carbon Dioxide 24 (21-32) mmol/L Anion Gap 14.8 H (5.0-14.0) mmol/L BUN 18 (7-18) mg/dL Creatinine 0.6 (0.6-1.0) mg/dL Est Cr Clr Drug Dosing 113.79 mL/min Estimated GFR (MDRD) > 60 (>60) Glucose 90 (74-106) mg/dL Calcium 9.0 (8.5-10.1) mg/dL Magnesium 1.8 (1.8-2.4) mg/dL Total Bilirubin 0.3 (0.2-1.0) mg/dL AST 16 (15-37) U/L ALT 23 (12-78) U/L Alkaline Phosphatase 70 (46-116) U/L Total Protein 7.3 (6.4-8.2) g/dL Albumin 3.7 (3.4-5.0) g/dL Globulin 3.6 H (2.3-3.5) g/dL Albumin/Globulin Ratio 1.0 L (1.2-2.2) Amylase 72 D (25-115) U/L Lipase 383 (73-393) U/L Urine Color Urine Appearance Urine pH (4.5-8.0) Ur Specific [place] (1.008-1.030) Urine Protein (NEGATIVE) mg/dL Urine Glucose (UA) (NEGATIVE) mg/dL Urine Ketones (NEGATIVE) mg/dL Urine Occult Blood (NEGATIVE) Urine Nitrite (NEGATIVE) Urine Bilirubin (NEGATIVE) Urine Urobilinogen (NORMAL) mg/dL Ur Leukocyte Esterase (NEGATIVE) Urine RBC (0-5) Urine WBC (0-5) Ur Epithelial Cells Amorphous Sediment Urine Bacteria Urine Mucus Meds: Medications Generic Name Dose Route Start Last Admin Trade Name Freq PRN Reason Stop Dose Admin Sodium Chloride 1,000 mls @ 500 mls/hr 11/17/18 21:00 11/17/18 21:21 Normal Saline IV 500 mls/hr ASDIRECTED HENRY Administration Sodium Chloride 80 mls @ 3 mls/sec 11/17/18 21:30 11/17/18 21:51 Normal Saline IV 3 mls/sec ASDIRECTED HENRY Administration Iopamidol 100 ml 11/17/18 21:30 11/17/18 21:51 Isovue-300 (61%) IV 100 ml . DIRECTED HENRY Administration Sodium Chloride 10 ml 11/17/18 21:19 11/17/18 21:51 Saline Flush FLUSH 10 ml ASDIRECTED PRN Administration Keep Vein Open Discontinued Medications Generic Name Dose Route Start Last Admin Trade Name Freq PRN Reason Stop Dose Admin Diphenhydramine HCl 25 mg 11/17/18 22:42 11/17/18 22:46 Benadryl IVPUSH 11/17/18 22:43 25 mg ONETIME ONE Administration Hydromorphone HCl 1 mg 11/17/18 21:04 11/17/18 21:26 Dilaudid IVPUSH 11/17/18 21:05 1 mg ONETIME ONE Administration Hydromorphone HCl 1 mg 11/17/18 22:27 11/17/18 22:36 Dilaudid IVPUSH 11/17/18 22:28 1 mg ONETIME ONE Administration Ondansetron HCl 4 mg 11/17/18 21:03 11/17/18 21:23 Zofran IVPUSH 11/17/18 21:04 4 mg ONETIME ONE Administration - Re-Assessments/Exams Free Text/Narrative Re-Assessment/Exam: 11/17/18 23:[address] abdominal - pelvis, reviewed with Ms. Mendoza CT report: consulted with Dr. Humberto Felder,will admit to Surgery Service, ordered IV fluids LR, NPO, and MARINE PIPEFITTER, will evaluate in am. 11/17/18 23:35 discussed plan of care with Pamela Mendoza, agrees with plan of care. 11/17/18 23:36 Plan: admit to Surgery Service, Dr. Humberto Felder Departure - Departure Time of Disposition: 23:36 Disposition: Admitted As Inpatient 67 Condition: Fair Clinical Impression: Small bowel obstruction, Abdominal pain, Bariatric surgery status - Discharge Information *PRESCRIPTION DRUG MONITORING PROGRAM REVIEWED*: No *COPY OF PRESCRIPTION DRUG MONITORING REPORT IN PATIENT [place]ASKAR: No Referrals: Nyasia Arevalo MD [Primary Care Provider] - - My Orders Last 24 Hours: My Active Orders 11/17/18 20:56 Blood Culture x2 Reflex Set [OM.PC] Urgent 11/17/18 21:00 CULTURE BLOOD [BC] Urgent Sodium Chloride 0.9% [Normal Saline] 1,000 ml IV ASDIRECTED 11/17/18 21:10 CULTURE BLOOD [BC] Urgent 11/17/18 22:52 Patient Status Manage Transfer [TRANSFER] Routine 11/17/18 22:56 Resuscitation Status Routine - Assessment/Plan Last 24 Hours: My Active Orders 11/17/18 20:56 Blood Culture x2 Reflex Set [OM.PC] Urgent 11/17/18 21:00 CULTURE BLOOD [BC] Urgent Sodium Chloride 0.9% [Normal Saline] 1,000 ml IV ASDIRECTED 11/17/18 21:10 CULTURE BLOOD [BC] Urgent 11/17/18 22:52 Patient Status Manage Transfer [TRANSFER] Routine 11/17/18 22:56 Resuscitation Status Routine
[2018-11-17] MEDS ORDERED: HYDROmorphone/Normal Saline 15 MG/30 ML PCA IV PRN (23:28)
[2018-11-17] MEDS ORDERED: Naloxone 0.4 MG/ML SDV IVPUSH PRN (23:28)
[2018-11-17] MEDS ORDERED: Lactated Ringers 1,000 ML IV SCH (23:28)
[2018-11-17] MEDS ORDERED: Albuterol 0.083% 2.5 MG/3 ML Neb Soln NEB PRN (23:28)
[2018-11-17] MEDS: LORazepam 2 MG/ML SDV IV PRN (23:50)
[2018-11-17] MEDS: Pantoprazole 40 MG Vial IVPUSH SCH (23:54)
[2018-11-18] MEDS: diphenhydrAMINE 50 MG/ML SDV IVPUSH PRN ×3 (03:12→19:31)
[2018-11-18] MEDS: LORazepam 2 MG/ML SDV IV PRN ×2 (04:12→09:36)
[2018-11-18] MEDS: MVI, Adult with Vitamin K 10 ML, Chromium/Copper/Mang/Selen/Zn 1 ML in Dextrose 5%-Lact... IV SCH ×3 (09:05)
--- NOTE | 2018-11-18 09:09 | CRLCR ---
INDICATION: Follow-up bowel obstruction. COMPARISON: CT abdomen pelvis dated 11/17/2018. TECHNIQUE: Two view abdomen. FINDINGS: There is persistent fecal buildup within the upper left abdomen adjacent to a radiopaque suture line. There are few air-filled nondistended loops of small bowel within the mid abdomen. There is no evidence of free intraperitoneal air or soft tissue mass effect. There are no pathologic calcifications. IMPRESSION: No significant improvement in the fecal buildup found within the left mid abdomen. Perhaps a retrograde Gastrografin enema may be of benefit in delineating the anatomy post surgical anastomosis and hopefully resolve the fecal buildup. Dictated by Kevin Brooks MD @ 11/18/2018 9:06:46 AM Read by: Kevin Brooks MD @ 11/18/2018 09:07:42 MEAGHAN/Dictated by: Kevin Brooks MD @ 11/23/2018 10:04:00 AM (Electronically Signed)
[2018-11-18] MEDS: Bisacodyl 10 MG Supp RECTAL SCH ×2 (09:46→21:28)
--- NOTE | 2018-11-18 09:52 | PCM.HP ---
H&P History of Present Illness - General Date of Service: 11/18/18 Admit Problem/Dx: Admission Diagnosis/Problem Admission Diagnosis/Problem Acute abdominal pain Source of Information: Patient History Limitations: Reports: No Limitations - History of Present Illness Onset of Symptoms: Reports: Sudden Quality: Reports: Ache, Dull, Pressure, Same as Previous Episode Severity: Severe Improves with: Reports: Other (Pain medication ( LEAD CASTER)) Worsens with: Reports: Eating, Movement Context: Reports: Sick Contact Associated Symptoms: Reports: Loss of Appetite, Nausea/Vomiting Right Upper Abdomen Pain Score (Numeric/FACES): 8 - Related Data Allergies/Adverse Reactions: Allergies Allergy/AdvReac Type Severity Reaction Status Date / Time cefaclor [Cefaclor] Allergy Unknown Hives Verified 11/17/18 20:42 ciprofloxacin [From Cipro] Allergy Unknown Hives Verified 11/17/18 20:42 Home Medications: Home Meds Cyanocobalamin (Vitamin B-12) [B-12] 1,000 mcg PO DAILY 06/05/14 [History] Multivitamin with Minerals [Multiple Vitamin] 1 tab PO BID 06/05/14 [History] Vitamin B Complex 1 each PO DAILY 08/03/14 [History] Calcium Carbonate [Calcium] 500 mg PO BID 08/04/14 [History] Cyanocobalamin (Vitamin B12) [Vitamin B12] 1,000 mcg IM ASDIRECTED 12/10/15 [ History] Polyethylene Glycol 3350 [MiraLAX] 17 gm PO DAILY PRN 01/20/16 [History] ALPRAZolam [Xanax] 0.25 mg PO TID PRN 05/14/16 [History] Levonorgestrel [Mirena] 1 device IUTERINE ASDIRECTED 05/14/16 [History] Biotin 2,500 mcg PO DAILY 08/05/16 [History] Docusate Sodium [Colace] 100 mg PO BID PRN #100 cap 08/11/16 [Rx] Thiamine [Vitamin B-1] 50 mg PO DAILY 12/17/17 [History] Ondansetron [Zofran ODT] 4 mg PO Q4H PRN #30 tab.dis 12/22/17 [Rx] DULoxetine HCl [Duloxetine HCl] 60 mg PO DAILY 01/13/18 [History] Dicyclomine [Bentyl] 10 mg PO QIDACANDBED 01/13/18 [History] Esomeprazole [NexIUM] 40 mg PO BID 11/01/18 [History] buPROPion [Wellbutrin] 75 mg PO DAILY 11/01/18 [History] traMADol [Ultram] 50 mg PO Q6H PRN 11/01/18 [History] Past Medical History HEENT History: Reports: Otitis Media Respiratory History: Reports: Sleep Apnea, Other (See Below) Other Respiratory History: history of sleep apnea but since her RNY she has not needed her CPAP Gastrointestinal History: Reports: Bowel Obstruction, Cholelithiasis, Gastritis , GERD, Hemorrhoids, Hiatal Hernia Genitourinary History: Reports: UTI, Recurrent ENERGY ASSISTANT History: Reports: 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, Musculoskeletal History: Reports: Back Pain, Chronic Neurological History: Reports: Concussion, Headaches, Chronic, Migraines, Seizure Psychiatric History: Reports: Anxiety, Depression, Psych Hospitalization(s), Suicidal Ideation Endocrine/Metabolic History: Reports: Obesity/BMI 30+, Vitamin D Deficiency Hematologic History: Reports: B12 Deficiency, Iron Deficiency Dermatologic History: Reports: Other (See Below) Other Dermatologic History: mole removed neck and vaginal lip - Infectious Disease History Infectious Disease History: Reports: Chicken Pox - Past Surgical History Head Surgeries/Procedures: Reports: None HEENT Surgical History: Reports: Adenoidectomy, Myringotomy w Tube(s), Tonsillectomy GI Surgical History: Reports: Bariatric Procedure, Cholecystectomy, EGD, Esophageal Dilatation, Hernia Repair/Other, Small Bowel, Other (See Below) Female Surgical History: Reports: Section Endocrine Surgical History: Reports: None Musculoskeletal Surgical History: Reports: None Dermatological Surgical History: Reports: None Social & Family History - Family History Family Medical History: Noncontributory Psychiatric: Reports: Other (See Below) Other Psychiatric Family History: sister and mom alcoholics Oncologic: Reports: Lung Other Oncologic Family History: grandpa had lung ca - Tobacco Use Smoking Status *Q: Current Some Day Smoker Years of Tobacco use: 16 Packs/Tins Daily: 0.5 Second Hand Smoke Exposure: No - Caffeine Use Caffeine Use: Reports: Coffee - Recreational Drug Use Recreational Drug Use: No - Living Situation & Occupation Living situation: Reports: Single Occupation: Employed (Employed at [employer] in [place]. lives in house in [place] with her 2 children and a Friend and her children.) H&P Review of Systems - Review of Systems: Review Of Systems: ROS reveals no pertinent complaints other than HPI. Exam - Exam Exam: See Below - Vital Signs Vital Signs: Last Vital Signs Temp 96.0 F 11/18/18 07:00 Pulse 94 11/18/18 07:00 Resp 12 11/18/18 07:00 BP 107/62 11/18/18 07:00 Pulse Ox 97 11/18/18 04:00 Weight: 172 lb 0.004 oz - Exam Quality Assessment: DVT Prophylaxis General: Moderate Distress HEENT: PERRLA Neck: Supple Lungs: Clear to Auscultation, Normal Respiratory Effort Cardiovascular: Regular Rate, Regular Rhythm GI/Abdominal Exam: Tender (in all 4 quadrants) (Female) Exam: Deferred Rectal (Female) Exam: Deferred Back Exam: Normal Inspection, Full Range of Motion Extremities: Normal Inspection, Non-Tender Skin: Warm, Dry, Intact Neurological: Cranial Nerves Intact, Reflexes Equal Bilateral Neuro Extensive - Mental Status: Oriented x3 Neuro Extensive - Motor, Sensory, Reflexes: CN II-XII Intact Psychiatric: Anxious - Patient Data Lab Results Last 24 hrs: Laboratory Results - last 24 hr 11/17/18 11/17/18 11/17/18 Range/Units 20:56 21:22 21:22 WBC 15.0 H (4.5-11.0) K/uL RBC 5.35 (3.30-5.50) M/uL Hgb 15.4 H (12.0-15.0) g/dL Hct 46.1 (36.0-48.0) % MCV 86 (80-98) fL MCH 29 (27-31) pg MCHC 33 (32-36) % Plt Count 392 (150-400) K/uL Neut % (Auto) 58 (36-66) % Lymph % (Auto) 28 (24-44) % Childress % (Auto) 5 (2-6) % Eos % (Auto) 9 H (2-4) % Baso % (Auto) 1 (0-1) % PT 11.4 (9.5-12.0) sec INR 1.04 (0.80-1.20) Sodium (140-148) mmol/L Potassium (3.6-5.2) mmol/L Chloride (100-108) mmol/L Carbon Dioxide (21-32) mmol/L Anion Gap (5.0-14.0) mmol/L BUN (7-18) mg/dL Creatinine (0.6-1.0) mg/dL Est Cr Clr Drug Dosing mL/min Estimated GFR (MDRD) (>60) Glucose (74-106) mg/dL Calcium (8.5-10.1) mg/dL Magnesium (1.8-2.4) mg/dL Total Bilirubin (0.2-1.0) mg/dL AST (15-37) U/L ALT (12-78) U/L Alkaline Phosphatase (46-116) U/L Total Protein (6.4-8.2) g/dL Albumin (3.4-5.0) g/dL Globulin (2.3-3.5) g/dL Albumin/Globulin Ratio (1.2-2.2) Amylase (25-115) U/L Lipase (73-393) U/L Urine Color Yellow Urine Appearance Slightly cloudy Urine pH 6.0 (4.5-8.0) Ur Specific [place] 1.020 (1.008-1.030) Urine Protein Negative (NEGATIVE) mg/dL Urine Glucose (UA) Normal (NEGATIVE) mg/dL Urine Ketones 50 H (NEGATIVE) mg/dL Urine Occult Blood Negative (NEGATIVE) Urine Nitrite Negative (NEGATIVE) Urine Bilirubin Negative (NEGATIVE) Urine Urobilinogen Normal (NORMAL) mg/dL Ur Leukocyte Esterase Negative (NEGATIVE) Urine RBC 0-5 (0-5) Urine WBC 0-5 (0-5) Ur Epithelial Cells Few Amorphous Sediment Not seen Urine Bacteria Moderate Urine Mucus Not seen 11/17/18 11/18/18 11/18/18 Range/Units 21:22 04:57 04:57 WBC 11.3 H (4.5-11.0) K/uL RBC 4.77 (3.30-5.50) M/uL Hgb 13.9 (12.0-15.0) g/dL Hct 41.7 (36.0-48.0) % MCV 87 (80-98) fL MCH 29 (27-31) pg MCHC 33 (32-36) % Plt Count 317 (150-400) K/uL Neut % (Auto) 64 (36-66) % Lymph % (Auto) 22 L (24-44) % Childress % (Auto) 7 H (2-6) % Eos % (Auto) 7 H (2-4) % Baso % (Auto) 0 (0-1) % PT (9.5-12.0) sec INR (0.80-1.20) Sodium 139 L 140 (140-148) mmol/L Potassium 3.8 3.4 L (3.6-5.2) mmol/L Chloride 104 106 (100-108) mmol/L Carbon Dioxide 24 25 (21-32) mmol/L Anion Gap 14.8 H 12.4 (5.0-14.0) mmol/L BUN 18 13 (7-18) mg/dL Creatinine 0.6 0.6 (0.6-1.0) mg/dL Est Cr Clr Drug Dosing 113.79 111.35 mL/min Estimated GFR (MDRD) > 60 > 60 (>60) Glucose 90 90 (74-106) mg/dL Calcium 9.0 8.6 (8.5-10.1) mg/dL Magnesium 1.8 (1.8-2.4) mg/dL Total Bilirubin 0.3 (0.2-1.0) mg/dL AST 16 (15-37) U/L ALT 23 (12-78) U/L Alkaline Phosphatase 70 (46-116) U/L Total Protein 7.3 (6.4-8.2) g/dL Albumin 3.7 (3.4-5.0) g/dL Globulin 3.6 H (2.3-3.5) g/dL Albumin/Globulin Ratio 1.0 L (1.2-2.2) Amylase 72 D (25-115) U/L Lipase 383 (73-393) U/L Urine Color Urine Appearance Urine pH (4.5-8.0) Ur Specific [place] (1.008-1.030) Urine Protein (NEGATIVE) mg/dL Urine Glucose (UA) (NEGATIVE) mg/dL Urine Ketones (NEGATIVE) mg/dL Urine Occult Blood (NEGATIVE) Urine Nitrite (NEGATIVE) Urine Bilirubin (NEGATIVE) Urine Urobilinogen (NORMAL) mg/dL Ur Leukocyte Esterase (NEGATIVE) Urine RBC (0-5) Urine WBC (0-5) Ur Epithelial Cells Amorphous Sediment Urine Bacteria Urine Mucus Result Diagrams: 11/18/18 04:57 11/18/18 04:57 - Problem List (1) Small bowel obstruction SNOMED Code(s): 557121372 ICD Code: K56.609 - UNSP INTESTNL OBST, UNSP TO PARTIAL VERSUS COMPLETE OBST Status: Acute Current Visit: Yes (2) Abdominal pain SNOMED Code(s): 99635794 ICD Code: R10.9 - UNSPECIFIED ABDOMINAL PAIN Status: Acute Current Visit : Yes (3) Status post hernia repair SNOMED Code(s): 11779248518923, 59569630412006 ICD Code: Z98.890 - OTHER SPECIFIED POSTPROCEDURAL STATES; Z87.19 - PERSONAL HISTORY OF OTHER DISEASES OF THE DIGESTIVE SYSTEM Status: Acute Current Visit: No Problem Details: recurrent incisional with mesh (4) Excessive drinking alcohol SNOMED Code(s): 477563244 ICD Code: F10.10 - ALCOHOL ABUSE, UNCOMPLICATED Status: Acute Current Visit: No (5) Malabsorption due to intolerance, not elsewhere classified SNOMED Code(s): 41121644 ICD Code: K90.49 - MALABSORPTION DUE TO INTOLERANCE, NOT ELSEWHERE CLASSIFIED Status: Acute Current Visit: No (6) Smoking SNOMED Code(s): 09922260 ICD Code: F17.200 - NICOTINE DEPENDENCE, UNSPECIFIED, UNCOMPLICATED Status : Acute Current Visit: No (7) Gastric bypass status for obesity SNOMED Code(s): 299900265, 213765624, 828832201, 431269203 ICD Code: Z98.84 - BARIATRIC SURGERY STATUS Status: Chronic Current Visit : No (8) History of - depression SNOMED Code(s): 701155339 ICD Code: Z86.59 - PERSONAL HISTORY OF OTHER MENTAL AND BEHAVIORAL DISORDERS Status: Chronic Current Visit: No Problem List Initiated/Reviewed/Updated: Yes Orders Last 24hrs: Active Orders 24 hr Category Date Time Status Communication Order [RC] STAT Care 11/17/18 23:28 Active Intake and Output [RC] QSHIFT Care 11/17/18 23:28 Active Notify Provider Vital Signs [RC] ASDIRECTED Care 11/17/18 23:28 Active Notify Provider [RC] PRN Care 11/17/18 23:28 Active Oxygen Therapy [RC] PRN Care 11/17/18 23:28 Active LEAD CASTER Record [RC] PER UNIT ROUTINE Care 11/17/18 23:28 Active Pulse Oximetry [RC] CONTINUOUS Care 11/17/18 23:28 Active RT Aerosol Therapy [RC] ASDIRECTED Care 11/17/18 23:28 Active Up ad Meredith [RC] ASDIRECTED Care 11/17/18 23:28 Active VTE/DVT Education [RC] Per Unit Routine Care 11/17/18 23:28 Active Vital Signs [RC] Q4H Care 11/17/18 23:28 Active Clear Liquid Diet [DIET] Diet 11/18/18 Breakfast Active Abdomen 2V AP Flat Upright [CR] DAILY Exams 11/19/18 08:00 Ordered Abdomen 2V AP Flat Upright [CR] DAILY Exams 11/20/18 08:00 Ordered CBC WITH AUTO DIFF [HEME] Routine Lab 11/19/18 04:00 Ordered COMPREHENSIVE METABOLIC PN,CMP [CHEM] Routine Lab 11/19/18 04:00 Ordered CULTURE BLOOD [BC] Urgent Lab 11/17/18 21:00 Received CULTURE BLOOD [BC] Urgent Lab 11/17/18 21:10 Received FERRITIN [CHEM] Routine Lab 11/19/18 04:00 Ordered MAGNESIUM [CHEM] Routine Lab 11/19/18 04:00 Ordered PHOSPHORUS [CHEM] Routine Lab 11/19/18 04:00 Ordered Albuterol [Proventil Neb Soln] Med 11/17/18 23:28 Active 2.5 mg NEB Q4H PRN Bisacodyl [Dulcolax] Med 11/18/18 09:00 Active 10 mg RECTAL BID Dextrose 5%-Lact Ringers w/KCl [D5 LR with 20 mEq KCl] Med 11/18/18 17:00 Active 1,000 ml IV ASDIRECTED HYDROmorphone/Normal Saline [Dilaudid LEAD CASTER 15 MG in NS Med 11/17/18 23:28 Active 30 ML] See Protocol IV ASDIRECTED PRN LORazepam [Ativan] Med 11/17/18 23:28 Active 1 mg IV Q4H PRN MVI, Adult with Vitamin K [Infuvite Adult] 10 ml Med 11/18/18 10:00 Active Chromium/Copper/Gopal/Selen/Zn [Multitrace-5 Concentrate ] 1 ml Dextrose 5%-Lact Ringers w/KCl [D5 LR with 20 mEq KCl] 1,000 ml IV DAILY@1000 Naloxone [Narcan] Med 11/17/18 23:28 Active 0.4 mg IVPUSH Q2M PRN Ondansetron [Zofran] Med 11/17/18 23:28 Active 4 mg IV Q4H PRN Pantoprazole [ProTONIX IV] Med 11/17/18 23:30 Active 40 mg IVPUSH Q12H diphenhydrAMINE [Benadryl] Med 11/17/18 23:28 Active 25 mg IVPUSH Q6H PRN Blood Culture x2 Reflex Set [OM.PC] Urgent Oth 11/17/18 20:56 Ordered Medication Discontinuation Instructions [OM.PC] Stat Oth 11/17/18 23:28 Ordered Sequential Compression Device [OM.PC] Per Unit Routine Oth 11/17/18 23:28 Ordered Resuscitation Status Routine Resus Stat 11/17/18 22:56 Ordered Medication Orders Albuterol (Proventil Neb Soln) 2.5 mg NEB Q4H PRN PRN Reason: Shortness Of Breath/wheezing Bisacodyl (Dulcolax) 10 mg RECTAL BID HENRY Diphenhydramine HCl (Benadryl) 25 mg IVPUSH Q6H PRN PRN Reason: Hives Last Admin: 11/18/18 03:12 Dose: 25 mg Hydromorphone HCl (Dilaudid Bun Panner 15 Mg In Ns 30 Ml) 0 mg IV ASDIRECTED PRN; Protocol PRN Reason: Pain Last Admin: 11/17/18 23:44 Dose: 15 mg Multivitamins/Minerals 10 ml/Chromium/Copper/Manganese/Seleni/Zn 1 ml/ Potassium Cl/Dextrose/Lact Ringer's 1,011 mls @ 125 mls/hr IV DAILY@1000 HENRY Last Admin: 11/18/18 09:05 Dose: 125 mls/hr Potassium Cl/Dextrose/Lact Ringer's (D5 Lr With 20 Meq Kcl) 1,000 mls @ 125 mls /hr IV ASDIRECTED HENRY Lorazepam (Ativan) 1 mg IV Q4H PRN PRN Reason: Anxiety Last Admin: 11/18/18 09:36 Dose: 1 mg Admin: 11/18/18 04:12 Dose: 1 mg Admin: 11/17/18 23:50 Dose: 1 mg Naloxone HCl (Narcan) 0.4 mg IVPUSH Q2M PRN PRN Reason: Respiratory Distress Ondansetron HCl (Zofran) 4 mg IV Q4H PRN PRN Reason: Nausea/Vomiting Pantoprazole Sodium (Protonix Iv) 40 mg IVPUSH Q12H HENRY Last Admin: 11/17/18 23:54 Dose: 40 mg Assessment/Plan Comment:: Plan: Admit to Inpatient Plan of hospitalization 3 nights and 4 days. Treat Partial Small Bowel Obstruction conservatively. Sips of Clear Liquids Abdominal Flat and Upright X Rays Series Dulcolax Suppositories as directed Will Evaluate prn or in AM Dori Wolfe 11/18/18
[2018-11-18] MEDS: Pantoprazole 40 MG Vial IVPUSH SCH ×2 (10:57→23:58)
[2018-11-18] MEDS: Dextrose 5%-Lact Ringers w/KCl 1,000 ML IV SCH (17:42)
[2018-11-18] MEDS: Ondansetron 4 MG/2 ML SDV IV PRN (19:30)
[2018-11-19] MEDS: LORazepam 2 MG/ML SDV IV PRN ×2 (00:07→04:41)
[2018-11-19] MEDS: Dextrose 5%-Lact Ringers w/KCl 1,000 ML IV SCH ×2 (03:02→19:27)
--- NOTE | 2018-11-19 05:24 | CRLCR ---
Final Report: INDICATION: Follow up partial small bowel obstruction TECHNIQUE: Abdominal radiograph 3 views COMPARISON: 11/18/2018 FINDINGS: Bowel: Air-filled dilated bowel loops in mid abdomen are no longer appreciated. IUD is present in the midline pelvis. Soft tissue: No evidence of pneumoperitoneum present. No suspicious calcifications noted. Surgical clips are noted in the right upper quadrant from prior cholecystectomy. Bone: Unremarkable for age. IMPRESSION: 1. Unremarkable appearance of the visualized abdomen. Dictated by Fernando Cohn MD @ 11/19/2018 3:20:56 AM Dictated by: Fernando Cohn MD @ 11/19/2018 03:21:01 (Electronic Signature) MTDJose Ramon
[2018-11-19] MEDS ORDERED: Polyethylene Glycol 3350 Powder 17 GM Packet PO PRN (08:07)
[2018-11-19] MEDS ORDERED: Docusate Sodium 100 MG Cap PO PRN (08:07)
[2018-11-19] MEDS ORDERED: [UNRECOGNIZED DRUG - OTHER] IUTERINE SCH (08:15)
[2018-11-19] MEDS: ALPRAZolam 0.25 MG Tab PO PRN (08:32)
[2018-11-19] MEDS: DULoxetine 30 MG Cap PO SCH (09:34)
[2018-11-19] MEDS: Polyethylene Glycol 3350 Powder 17 GM Packet PO SCH (09:34)
[2018-11-19] MEDS: Bisacodyl 10 MG Supp RECTAL SCH ×2 (09:35→20:36)
--- NOTE | 2018-11-19 09:43 | PN ---
DATE OF SERVICE: 11/19/2018 SUBJECTIVE: Pamela has had one large firm bowel movement and has had a small loose bowel movement. Abdominal flat and upright film showed air-filled dilated bowel loops in mid abdomen are no longer appreciated, unremarkable appearance of abdomen. Pamela has been on clear liquid diet. She has been up ambulating. Currently, she cannot stay awake to answer any questions and can speak no more than a couple of words at a time before falling asleep, extremely sedated. Father is in the room. OBJECTIVE: GENERAL: Pamela is a 33-year-old female. VITAL SIGNS: TPR 96.6, 56, 18, blood pressure is 115/78. HEENT: Negative. NECK: Supple. HEART: Regular rate and rhythm. LUNGS: Clear. ABDOMEN: Soft. Completely nontender. EXTREMITIES: Without peripheral edema. ASSESSMENT: Partial small-bowel obstruction. Magnesium 1.6. Elevated liver function tests. AST is 224, ALT 326, and alkaline phosphate 147. PLAN: 1. Restart oral medication her staff when she is more awake. Has extreme anxiety, so Cymbalta 60 mg p.o. daily. 2. Xanax 0.25 mg p.o. t.i.d. p.r.n., Wellbutrin 75 mg p.o. daily, Colace 100 mg p.o. b.i.d., Bentyl 10 mg p.o. q.i.d. and bedtime, and MiraLAX 17 g p.o. daily. 3. Discontinue IV Ativan. 4. Discontinue IV Benadryl. 5. 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 6. Full liquid diet. 7. Magnesium IV 2 g q.6 hours x72 hours. 8. Check CBC, CMP, and phos in a.m. 9. Continue flat and upright abdominal x-rays. 10.Check TSH in a.m. 11.We will evaluate p.r.n. or in a.m. Dori Mills PA-C /[id number]
[2018-11-19] MEDS: Acetaminophen 325 MG Tab PO PRN ×2 (10:52→15:33)
[2018-11-19] MEDS: MVI, Adult with Vitamin K 10 ML, Chromium/Copper/Mang/Selen/Zn 1 ML in Dextrose 5%-Lact... IV SCH ×3 (11:45)
[2018-11-19] MEDS: Magnesium Sulfate/Water 2 GM in Premix Bag 1 BAG IV SCH ×3 (11:53→23:11)
[2018-11-19] MEDS: Dicyclomine 10 MG Cap PO SCH ×3 (11:56→20:37)
[2018-11-19] MEDS: Pantoprazole 40 MG Tab.CR PO SCH ×2 (11:56→17:20)
[2018-11-19] MEDS: Ondansetron 4 MG/2 ML SDV IV PRN ×2 (13:43→18:31)
[2018-11-20] MEDS: Dextrose 5%-Lact Ringers w/KCl 1,000 ML IV SCH (03:15)
[2018-11-20] MEDS: Magnesium Sulfate/Water 2 GM in Premix Bag 1 BAG IV SCH (03:15)
--- NOTE | 2018-11-20 05:02 | CRLCR ---
INDICATION: Partial small bowel obstruction TECHNIQUE: Abdominal radiograph 3 views COMPARISON: 11/19/18 FINDINGS: Bowel: Multiple surgical bowel staple lines are present in the left flank. No radiographic evidence of bowel obstruction is seen. Soft tissue: No evidence of pneumoperitoneum present. No suspicious calcifications noted. Surgical clips are noted in the right upper quadrant from prior cholecystectomy. Bone: Unremarkable for age. IMPRESSION: 1. Unremarkable appearance of the visualized abdomen. Dictated by Fernando Cohn MD @ 11/20/2018 5:01:36 AM Dictated by: Fernando Cohn MD @ 11/20/2018 05:01:41 (Electronically Signed)
[2018-11-20] MEDS: Ondansetron 4 MG/2 ML SDV IV PRN (05:13)
[2018-11-20] MEDS: Acetaminophen 325 MG Tab PO PRN ×2 (05:14→10:52)
[2018-11-20] MEDS: Dicyclomine 10 MG Cap PO SCH (06:13)
[2018-11-20] MEDS: Pantoprazole 40 MG Tab.CR PO SCH ×2 (07:14→17:21)
[2018-11-20] MEDS: Calcium Carbonate 500 MG Tab.Chew PO PRN (08:04)
--- NOTE | 2018-11-20 08:33 | PN ---
DATE OF SERVICE: 11/20/2018 SUBJECTIVE: Pamela is alert, orientated. She is having no abdominal pain. She slept well during the night. Had 2 normal bowel movements. Oral intake 1200. Urine output 2900. Breakfast consumed 100%, lunch 25%. No other intake was recorded for dinner, snacks. She has been drinking the Ensure Clear. Vital signs have been stable. REVIEW OF SYSTEMS: Remainder of review of systems negative for any pertinent positives and negatives. OBJECTIVE: GENERAL: Pamela Mendoza is a 33-year-old female. VITAL SIGNS: TPR is 96, 64, 16, blood pressure 117/57. HEENT: Negative. NECK: Supple. HEART: Regular rate and rhythm. LUNGS: Clear. ABDOMEN: Soft, nontender. The patient while examining stated "no pain to push on it." EXTREMITIES: Without peripheral edema. NEUROLOGIC: Intact. PSYCHIATRIC: Less anxiety. She is alert, orientated. Mood and affect appropriate. ASSESSMENT: Partial small bowel obstruction. PLAN: 1. Increase diet to step 3 gastric bypass diet. 2. Discontinue all straws. The patient is status post Emerson-en-Y gastric bypass surgery. 3. Saline lock IV. The patient feels she is retaining fluid. 4. We will change magnesium to Magnesium Oxide and Zofran to ODT. Continue the abdominal x-rays flat and upright, and we will evaluate p.r.n. or in a.m. 5. Check CBC, CMP, and phos in a.m. Dori Mills PA-C /[id number]
[2018-11-20] MEDS: Bisacodyl 10 MG Supp RECTAL SCH ×2 (08:57→20:19)
[2018-11-20] MEDS: DULoxetine 30 MG Cap PO SCH (08:57)
[2018-11-20] MEDS: Magnesium Oxide 400 MG Tab PO SCH (08:57)
[2018-11-20] MEDS: Polyethylene Glycol 3350 Powder 17 GM Packet PO SCH (08:58)
[2018-11-20] MEDS: Docusate Sodium 100 MG Cap PO SCH ×2 (08:58→20:19)
[2018-11-20] MEDS: Ondansetron 4 MG Tab.DIS PO PRN (10:52)
[2018-11-20] MEDS: ALPRAZolam 0.25 MG Tab PO PRN (10:52)
[2018-11-20] MEDS: Dicyclomine 10 MG Cap PO PRN (10:52)
--- NOTE | 2018-11-21 04:43 | CRLCR ---
INDICATION: Partial small bowel obstruction TECHNIQUE: Abdominal radiograph 3 views COMPARISON: 11/20/2018 FINDINGS: Bowel: The bowel gas pattern is normal without evidence of bowel obstruction. Multiple surgical staple lines are present in the left flank. Soft tissue: No evidence of pneumoperitoneum present. No suspicious calcifications noted. Surgical clips are noted in the right upper quadrant from prior cholecystectomy. IUD is noted within the midline pelvis. Bone: Unremarkable for age. IMPRESSION: 1. Unremarkable appearance of the visualized abdomen. Dictated by Fernando Cohn MD @ 11/21/2018 4:41:12 AM Dictated by: Fernando Cohn MD @ 11/21/2018 04:41:16 (Electronically Signed)
[2018-11-21] MEDS: Ondansetron 4 MG Tab.DIS PO PRN ×4 (06:09→18:47)
[2018-11-21] MEDS ORDERED: Iohexol 647 MG/ML 50 ML SDV IVPUSH PRN (07:58)
--- NOTE | 2018-11-21 09:58 | PN ---
DATE OF SERVICE: 11/21/2018 SUBJECTIVE: Pamela's vital signs have been stable. Pain has been 0/10, but reports she just does not feel right. She cannot really describe how she feels. Oral intake was 820. Urine output 450 recorded. She has had four large bowel movements yesterday. REVIEW OF SYSTEMS: Remainder of review of systems negative for any pertinent positives and negatives. OBJECTIVE: GENERAL: Pamela Mendoza is a 33-year-old female. Alert and orientated. Resting comfortably in bed. VITAL SIGNS: TPR 96.9, 71, 16, and blood pressure 109/61. HEENT: Negative. NECK: Supple. HEART: Regular rate and rhythm. LUNGS: Clear. ABDOMEN: Soft, nontender, and nondistended. EXTREMITIES: Without peripheral edema. NEURO: Intact. PSYCHIATRIC: Mood and affect appropriate. ASSESSMENT: Partial small bowel obstruction. PLAN: 1. NPO. 2. Scheduled upper GI with water-soluble contrast with small bowel follow-through today. 3. To call with results. 4. We will evaluate p.r.n. or in a.m. Dori Mills PA-C /[id number]
--- NOTE | 2018-11-21 10:11 | CR ---
UGI w Small Bowel wo Air CLINICAL HISTORY: Previous gastric bypass, chronic abdominal pain FINDINGS: Patient swallowed thin barium without difficulty. The esophagus shows no stricture. The there is a small Schatzki's ring with a small sliding-type hiatal hernia. Patient is status post gastric bypass. On early filling of the proximal small bowel loops there does appear to be some mucosal thickening or edema there was relatively rapid transit through the small bowel to colon. The no strictures identified. Fluoroscopic spot compression showed the no focal wall thickening. The small bowel loops were compressible and pliable. Impression: There is mild mucosal edema in the proximal small bowel which is likely some regional inflammation Rapid transit through the small bowel No obstruction or narrowing
[2018-11-21] MEDS: Acetaminophen 325 MG Tab PO PRN ×3 (10:26→18:49)
[2018-11-21] MEDS: Pantoprazole 40 MG Tab.CR PO SCH ×2 (10:29→16:13)
[2018-11-21] MEDS: Magnesium Oxide 400 MG Tab PO SCH (10:30)
[2018-11-21] MEDS: DULoxetine 30 MG Cap PO SCH (10:30)
[2018-11-21] MEDS: Docusate Sodium 100 MG Cap PO SCH ×2 (10:30→20:17)
[2018-11-21] MEDS: Polyethylene Glycol 3350 Powder 17 GM Packet PO SCH (10:30)
[2018-11-21] MEDS: Calcium Carbonate 500 MG Tab.Chew PO PRN ×2 (13:51→17:46)
[2018-11-22] MEDS: Dicyclomine 10 MG Cap PO PRN (01:31)
[2018-11-22] MEDS: Ondansetron 4 MG Tab.DIS PO PRN ×2 (01:31→08:26)
[2018-11-22] MEDS: Calcium Carbonate 500 MG Tab.Chew PO PRN (02:52)
[2018-11-22] MEDS: Acetaminophen 325 MG Tab PO PRN ×2 (04:54→09:20)
[2018-11-22] MEDS ORDERED: Metoclopramide 10 MG Tab PO PRN (07:49)
[2018-11-22 08:20] VITALS: BP 129/88
[2018-11-22] MEDS: Docusate Sodium 100 MG Cap PO SCH (08:23)
[2018-11-22] MEDS: Pantoprazole 40 MG Tab.CR PO SCH (08:23)
[2018-11-22] MEDS: DULoxetine 30 MG Cap PO SCH (08:24)
[2018-11-22] MEDS: Polyethylene Glycol 3350 Powder 17 GM Packet PO SCH (08:25)
[2018-11-22] MEDS: Magnesium Oxide 400 MG Tab PO SCH (08:25)
--- NOTE | 2018-11-22 15:49 | DISCH ---
ADMISSION DIAGNOSES: 1. Abdominal pain. 2. Emerson-en-Y gastric bypass surgery. 3. Unspecified surgical malabsorption. 4. B12 deficiency. 5. Vitamin D deficiency. 6. Depression and anxiety. 7. Chronic abdominal pain. 8. Chronic back pain. 9. Seizure disorder. 10.Excessive drinking alcohol in remission. DISCHARGE DIAGNOSIS: Partial small-bowel obstruction, resolved. HISTORY: Pamela Mendoza is a 33-year-old female who presented to the emergency department at [place], [place], on 11/17/2018. A CT exam showed possible partial small bowel obstruction. She was admitted with MECHANIC SOUND TECHNICIAN Dilaudid pain control, IV Ativan, and IV Zofran. She did have some itching, so was also prescribed IV Benadryl. On 11/19/2018, her abdominal flat and upright did show improvement. Her magnesium was replaced, it was 1.6. Elevated liver function tests were noted. Her MECHANIC SOUND TECHNICIAN was discontinued with extreme anxiety. Her abdominal x-rays improved. She was started on her oral medications, Cymbalta 60 mg daily, Xanax 0.25 mg oral 3 times a day, Wellbutrin 75 mg, and Bentyl 10 mg p.o. q.i.d. She was also started on Colace and MiraLAX, advanced to a full- liquid diet. On 11/20/2018, her pain was well controlled without the MECHANIC SOUND TECHNICIAN and her home medication. X-ray abdominal flat and upright continued to improve. Lab values looked good. She was up ambulating and having bowel movements. On 11/21/2018, she had an upper GI with small-bowel follow-through and this was normal. On 11/22/2018, she was able to be discharged to home. REVIEW OF SYSTEMS: HEENT: Negative. NECK: Negative. CHEST: No chest pain, shortness of breath. HEART: Fast irregular heart beat. LUNGS: No cough. ABDOMEN: She states it feels "funny," "things are moving around." Having bowel movements that are looser than normal. Denies any pain. : Negative for any UTI signs and symptoms. EXTREMITIES: No joint pain. NEUROLOGIC: No headaches, dizziness, loss of coordination. PSYCHIATRIC: States depression is a little bit worse and so is anxiety. SKIN: Without rash. Remainder of review of systems negative for any pertinent positives and negatives. OBJECTIVE: GENERAL: Pamela Mendoza is a 33-year-old female. VITAL SIGNS: Height is 5 feet 2.99 inches. Weight is 172 pounds. TPR 97, 60, 16, blood pressure 129/88. HEENT: Negative. NECK: Supple. HEART: Regular rate and rhythm. LUNGS: Clear. ABDOMEN: Soft, completely nontender, nondistended. : Deferred. EXTREMITIES: Full range of motion. NEUROLOGIC: Cranial nerves 2 through 12 intact. PSYCHIATRIC: Mood and affect appropriate today. DISPOSITION: Discharged to home. CONDITION: Stable and improving. FOLLOWUP APPOINTMENT: Dori Mills PA-C, on 11/30/2018 at 10 a.m. HOME MEDICATIONS: Reglan 10 mg oral q.6 hours p.r.n. nausea, #30. Zofran ODT 4 mg every 4 hours p.r.n. nausea. She is to resume her home medications of Xanax 0.25 mg oral 3 times daily p.r.n. anxiety, Tylenol 650 mg oral every 4 hours, Biotin 2500 oral daily, calcium 500 mg oral twice daily, vitamin B12 1000 mcg oral daily, vitamin B12 1000 mcg IM as directed, duloxetine 60 mg oral daily, Bentyl 10 mg before meals and at bedtime p.r.n., Colace 100 mg twice daily, Nexium 40 mg twice daily, Mirena is used for control, multivitamin 1 twice daily, MiraLAX 17 g p.r.n. constipation, vitamin B1 100 mg oral daily, bupropion 75 mg oral daily, discontinue tramadol. DIET: Usual diet as tolerated. Drink 8 to 10 glasses of water a day. ACTIVITY: As tolerated. Notify provider if any fever, increased pain, nausea, or vomiting.
--- NOTE | 2018-11-24 10:46 | CRLCR ---
Final Report: INDICATION: Partial small bowel obstruction. TECHNIQUE: Supine and upright views of the abdomen. COMPARISON: 11/21/2018. FINDINGS: There postoperative changes in left upper quadrant from a prior gastric bypass. Surgical clips in the right upper quadrant from a cholecystectomy. Anastomotic sutures in the left mid abdomen. There is residual contrast in the colon without a colonic obstruction. Appendix is opacified with contrast. No free air. IUD in the uterus. Dictated by Nicolas Juarez MD @ Nov 23 2018 12:49PM Signed by: Nicolas Juarez MD @11/23/2018 12:53:44 PM (Electronic Signature) MTDD
== END 2018-11-22 11:00 | disposition home or self-care (01) | DRG 247 ==
LOC: JP.ED 19:40 → JP.ICU 22:52 → JP.2SS 11-18 15:20
PROVIDERS: ADMIT Surgery; ATTEND Surgery
DX: K56.600 Partial intestinal obstruction, unspecified as to cause (principal); K91.2 Postsurgical malabsorption, not elsewhere classified; F10.11 Alcohol abuse, in remission; F17.210 Nicotine dependence, cigarettes, uncomplicated; Z98.890 Other specified postprocedural states; Z98.84 Bariatric surgery status; Z98.0 Intestinal bypass and anastomosis status; K21.9 Gastro-esophageal reflux disease without esophagitis; Z87.440 Personal history of urinary (tract) infections; M54.9 Dorsalgia, unspecified; G89.29 Other chronic pain; F41.9 Anxiety disorder, unspecified; F32.9 Major depressive disorder, single episode, unspecified; E53.8 Deficiency of other specified B group vitamins; E55.9 Vitamin D deficiency, unspecified; R10.9 Unspecified abdominal pain; E83.42 Hypomagnesemia; Z88.1 Allergy status to other antibiotic agents; R79.89 Other specified abnormal findings of blood chemistry; Z97.5 Presence of (intrauterine) contraceptive device
CPT/HCPCS: 36415; 74019; 74177; 74245; 74245-26; 80048; 80053; 81001; 82150; 82728; 83690; 83735; 84100; 84443; 85025; 85027; 85610; 87040; 94762; 96361; 96374; 96375; 96376; 99285-25; A9270-GY; C9113; J1170; J1200; J2060; J2405; J3475; J3480; J7030; J7120; Q9967

== ENCOUNTER 2019-08-17 13:10 | Emergency (ER) | payer BC ==
[2019-08-17 13:20] VITALS: BP 152/108; PULSE 93
[2019-08-17] MEDS ORDERED: Ondansetron 4 MG/2 ML SDV IVPUSH ONE (13:44)
[2019-08-17] MEDS ORDERED: Sodium Chloride 0.9% 1,000 ML IV SCH (13:45)
--- NOTE | 2019-08-17 13:49 | EDM.PDOC ---
ED HPI GENERAL MEDICAL PROBLEM - General Chief Complaint: Abdominal Pain Stated Complaint: ABD PAIN Time Seen by Provider: 08/17/19 13:30 Source of Information: Reports: Patient History Limitations: Reports: No Limitations - History of Present Illness INITIAL COMMENTS - FREE TEXT/NARRATIVE: 34-year-old female with a history of Emerson-en-Y, and subsequent bowel obstructions, EGD dilatations, and several laparoscopic abdominal surgeries presents with pain for 1 week. It seemed to improve for a couple of days but over the past 2 days it is been intensely painful, she vomited on the way to the hospital. No fevers or chills, no diarrhea, no recent trauma. The pain is epigastric and left upper quadrant and radiates through to her back and up into her chest. It does feel similar to her past bowel obstructive symptoms. Onset: Gradual Duration: Week(s): (Symptoms for 7 days, worse the last 2 to 3 days) Location: Reports: Abdomen Associated Symptoms: Reports: Chest Pain (Some pain radiating up into the substernal area), Nausea/Vomiting. Denies: Shortness of Breath, Weakness - Related Data Allergies Allergy/AdvReac Type Severity Reaction Status Date / Time cefaclor [Cefaclor] Allergy Unknown Hives Verified 11/17/18 20:42 ciprofloxacin [From Cipro] Allergy Unknown Hives Verified 11/17/18 20:42 Home Meds: Home Meds Cyanocobalamin (Vitamin B-12) [B-12] 1,000 mcg PO DAILY 06/05/14 [History] Multivitamin with Minerals [Multiple Vitamin] 1 tab PO BID 06/05/14 [History] Vitamin B Complex 1 each PO DAILY 08/03/14 [History] Calcium Carbonate [Calcium] 500 mg PO BID 08/04/14 [History] Cyanocobalamin (Vitamin B12) [Vitamin B12] 1,000 mcg IM ASDIRECTED 12/10/15 [ History] Polyethylene Glycol 3350 [MiraLAX] 17 gm PO DAILY PRN 01/20/16 [History] ALPRAZolam [Xanax] 0.25 mg PO TID PRN 05/14/16 [History] Levonorgestrel [Mirena] 1 device IUTERINE ASDIRECTED 05/14/16 [History] Biotin 2,500 mcg PO DAILY 08/05/16 [History] Docusate Sodium [Colace] 100 mg PO BID PRN #100 cap 08/11/16 [Rx] Thiamine [Vitamin B-1] 50 mg PO DAILY 12/17/17 [History] Ondansetron [Zofran ODT] 4 mg PO Q4H PRN #30 tab.dis 12/22/17 [Rx] DULoxetine HCl [Duloxetine HCl] 60 mg PO DAILY 01/13/18 [History] Dicyclomine [Bentyl] 10 mg PO QIDACANDBED 01/13/18 [History] Esomeprazole [NexIUM] 40 mg PO BID 11/01/18 [History] buPROPion [Wellbutrin] 75 mg PO DAILY 11/01/18 [History] Acetaminophen [Tylenol] 650 mg PO Q4H PRN tablet 11/22/18 [Rx] Metoclopramide HCl [Reglan] 10 mg PO Q6H PRN #30 tablet 11/22/18 [Rx] Ondansetron [Zofran ODT] 4 mg PO Q4H PRN #30 tab.dis 11/22/18 [Rx] Pantoprazole [ProTONIX] 40 mg PO DAILY 08/17/19 [History] Sucralfate 1 gm PO QID 08/17/19 [History] Past Medical History HEENT History: Reports: Otitis Media Respiratory History: Reports: Sleep Apnea, Other (See Below) Other Respiratory History: history of sleep apnea but since her RNY she has not needed her CPAP Gastrointestinal History: Reports: Bowel Obstruction, Cholelithiasis, Gastritis , GERD, Hemorrhoids, Hiatal Hernia Genitourinary History: Reports: UTI, Recurrent MANAGER IN TRAINING History: Reports: 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, Musculoskeletal History: Reports: Back Pain, Chronic Neurological History: Reports: Concussion, Headaches, Chronic, Migraines, Seizure Psychiatric History: Reports: Anxiety, Depression, Psych Hospitalization(s), Suicidal Ideation Endocrine/Metabolic History: Reports: Obesity/BMI 30+, Vitamin D Deficiency Hematologic History: Reports: B12 Deficiency, Iron Deficiency Dermatologic History: Reports: Other (See Below) Other Dermatologic History: mole removed neck and vaginal lip - Infectious Disease History Infectious Disease History: Reports: Chicken Pox - Past Surgical History Head Surgeries/Procedures: Reports: None HEENT Surgical History: Reports: Adenoidectomy, Myringotomy w Tube(s), Tonsillectomy GI Surgical History: Reports: Bariatric Procedure, Cholecystectomy, EGD, Esophageal Dilatation, Hernia Repair/Other, Small Bowel, Other (See Below) Female Surgical History: Reports: Section Endocrine Surgical History: Reports: None Musculoskeletal Surgical History: Reports: None Dermatological Surgical History: Reports: None Social & Family History - Family History Family Medical History: Noncontributory Psychiatric: Reports: Other (See Below) Other Psychiatric Family History: sister and mom alcoholics Oncologic: Reports: Lung Other Oncologic Family History: grandpa had lung ca - Tobacco Use Smoking Status *Q: Former Smoker Used Tobacco, but Quit: Yes Month/Year Tobacco Last Used: 1 - Caffeine Use Caffeine Use: Reports: None, Coffee - Alcohol Use Days Per Week of Alcohol Use: 1 Number of Drinks Per Day: 3 Total Drinks Per Week: 3 - Recreational Drug Use Recreational Drug Use: No - Living Situation & Occupation Living situation: Reports: Single Occupation: Employed (Employed at [employer] in [employer]. lives in house in [place] with her 2 children and a Friend and her children.) ED ROS GENERAL - Review of Systems Review Of Systems: See Below Constitutional: Reports: Malaise, Decreased Appetite. Denies: Fever, Chills HEENT: Reports: No Symptoms Respiratory: Denies: Shortness of Breath Cardiovascular: Reports: Chest Pain. Denies: Palpitations GI/Abdominal: Reports: Abdominal Pain, Nausea, Vomiting. Denies: Constipation, Diarrhea : Reports: No Symptoms Skin: Reports: No Symptoms Neurological: Denies: Headache Psychiatric: Reports: Anxiety ED EXAM, GI/ABD - Physical Exam Exam: See Below Exam Limited By: No Limitations General Appearance: Alert, Moderate Distress (Tearful, looks very uncomfortable) Eyes: Bilateral: Normal Appearance Head: Atraumatic (Well hydrated, no jaundice) Respiratory/Chest: No Respiratory Distress, Lungs Clear Cardiovascular: Regular Rate, Rhythm GI/Abdominal Exam: Soft, Guarding (Abdomen is soft but she is very tender in the epigastric and left upper quadrant to palpation with significant guarding and mild rebound tenderness), Tender Neurological: Alert, Oriented Psychiatric: Anxious Skin Exam: Warm, Dry Course - Vital Signs Last Recorded V/S: Last Vital Signs Temp 97.8 F 08/17/19 13:18 Pulse 93 08/17/19 13:18 Resp 18 12/19/19 13:18 BP 152/108 H 12/19/19 13:18 Pulse Ox 97 08/17/19 13:18 - Orders/Labs/Meds Labs: Laboratory Tests 08/17/19 08/17/19 Range/Units 14:01 14:01 WBC 11.3 H (4.5-11.0) K/uL RBC 5.20 (3.30-5.50) M/uL Hgb 15.4 H (12.0-15.0) g/dL Hct 45.8 (36.0-48.0) % MCV 88 (80-98) fL MCH 30 (27-31) pg MCHC 34 (32-36) % Plt Count 328 (150-400) K/uL Neut % (Auto) 56 (36-66) % Lymph % (Auto) 34 (24-44) % Mills % (Auto) 8 H (2-6) % Eos % (Auto) 2 (2-4) % Baso % (Auto) 1 (0-1) % Sodium 141 (140-148) mmol/L Potassium 4.5 (3.6-5.2) mmol/L Chloride 105 (100-108) mmol/L Carbon Dioxide 27 (21-32) mmol/L Anion Gap 9.4 (5.0-14.0) mmol/L BUN 7 (7-18) mg/dL Creatinine 0.7 (0.6-1.0) mg/dL Est Cr Clr Drug Dosing 94.56 mL/min Estimated GFR (MDRD) > 60 (>60) Glucose 91 (74-106) mg/dL Calcium 8.7 (8.5-10.1) mg/dL Total Bilirubin 0.5 (0.2-1.0) mg/dL AST 18 (15-37) U/L ALT 32 D (12-78) U/L Alkaline Phosphatase 68 (46-116) U/L Total Protein 7.3 (6.4-8.2) g/dL Albumin 3.9 (3.4-5.0) g/dL Globulin 3.4 (2.3-3.5) g/dL Albumin/Globulin Ratio 1.1 L (1.2-2.2) Lipase 135 (73-393) U/L Meds: Medications Discontinued Medications Generic Name Dose Route Start Last Admin Trade Name Freq PRN Reason Stop Dose Admin Al Hydroxide/Mg Hydroxide 30 ml 08/17/19 15:11 08/17/19 15:11 Mag-Al Plus PO 08/17/19 15:12 30 ml ONETIME ONE Administration Al Hydroxide/Mg Hydroxide 15 0 ml 08/17/19 15:06 08/17/19 15:12 ml/ Lidocaine HCl 15 ml PO 08/17/19 15:07 30 ml ONETIME ONE Administration Al Hydroxide/Mg Hydroxide 360 0 ml 08/17/19 16:00 08/17/19 15:34 ml/ Lidocaine HCl 60 ml PO Not Given TIDAC HENRY Hydromorphone HCl 0.5 mg 08/17/19 13:44 08/17/19 14:57 Dilaudid IVPUSH 08/17/19 13:45 0.5 mg ONETIME ONE Administration Hydromorphone HCl 0.5 mg 08/17/19 14:53 08/17/19 15:12 Dilaudid IVPUSH 08/17/19 14:54 0.5 mg ONETIME ONE Administration Sodium Chloride 1,000 mls @ 1,000 mls/hr 08/17/19 13:45 08/17/19 14:02 Normal Saline IV 1,000 mls/hr ASDIRECTED HENRY Administration Sodium Chloride 75 mls @ 3 mls/sec 08/17/19 14:00 08/17/19 14:10 Normal Saline IV 3 mls/sec ASDIRECTED HENRY Administration Iopamidol 100 ml 08/17/19 14:00 08/17/19 14:10 Isovue-300 (61%) IV 100 ml . DIRECTED HENRY Administration Ondansetron HCl 4 mg 08/17/19 13:44 08/17/19 13:59 Zofran IVPUSH 08/17/19 13:45 4 mg ONETIME ONE Administration Sodium Chloride 10 ml 08/17/19 13:56 08/17/19 14:10 Saline Flush FLUSH 08/17/19 13:57 10 ml ONETIME ONE Administration - Re-Assessments/Exams Free Text/Narrative Re-Assessment/Exam: 08/17/19 13:48 An IV will be started, patient will be given normal saline, 0.5 mg of IV Dilaudid and 4 mg of IV Zofran. CBC CMP and lipase will be obtained and a CT of the abdomen and pelvis with IV contrast. 08/17/19 14:58 White count was just mildly elevated at 11,300, hemoglobin and entire chemistry profile was normal. She needed an additional dose of Dilaudid for pain control prior to CT report. 08/17/19 15:22 FINDINGS: The lung bases are unremarkable. No focal abnormalities identified in the visualized portions of the liver, spleen, pancreas, adrenal glands, and kidneys. No hydronephrosis. No obstructing uroliths. IUD in the uterus. Multiple postsurgical changes/anastomotic sutures in the small bowel and colon. Small periumbilical hernia which contains a loop of small bowel with no evidence of strangulation or incarceration. Gastric bypass changes. The remainder of the GI tract is incompletely distended but shows no gross abnormalities. Normal appendix. No retroperitoneal, pelvic sidewall, or mesenteric adenopathy. IMPRESSION: 1. No acute abnormalities of the abdomen or pelvis identified. Patient was then given a GI cocktail of viscous lidocaine and Maalox which markedly reduced her symptoms. This was discussed with Dr. Felder, she was discharged with 12 ounces of a mixture of viscous lidocaine and Maalox and will be set up for an EGD on Wednesday. She can return sooner if worsening. Departure - Departure Time of Disposition: 15:41 Disposition: Home, Self-Care 01 Clinical Impression: Abdominal pain Qualifiers: Abdominal location: upper abdomen, unspecified Qualified Code(s): R10.10 - Upper abdominal pain, unspecified Gastritis Qualifiers: Gastritis type: unspecified gastritis Chronicity: acute Gastritis bleeding: without bleeding Qualified Code(s): K29.00 - Acute gastritis without bleeding - Discharge Information Instructions: Abdominal Pain, Adult Referrals: Nyasia Arevalo MD [Primary Care Provider] - Forms: ED Department Discharge Care Plan Goals: [place] diet for the next several days with frequent small amounts of fluid will be helpful, and use medication every 4 hours for pain when needed. Return Wednesday for EGD as scheduled. Return sooner if worsening. Sepsis Event Note - Evaluation Sepsis Screening Result: No Definite Risk - Focused Exam Vital Signs: Vital Signs Temp Pulse Resp BP Pulse Ox 08/17/19 13:18 97.8 F 93 18 152/108 H 97 Date Exam was Performed: 08/17/19 Time Exam was Performed: 16:18
[2019-08-17] MEDS: HYDROmorphone 0.5 MG/0.5 ML Syringe IVPUSH ONE ×2 (13:59→14:57)
[2019-08-17] MEDS: Sodium Chloride 0.9% 10 ML Syringe FLUSH ONE ×2 (14:00→14:10)
[2019-08-17] MEDS ORDERED: Sodium Chloride 0.9% 75 ML IV SCH (14:00)
[2019-08-17] MEDS ORDERED: Iopamidol 612 MG/ML 100 ML Bottle IV SCH (14:00)
[2019-08-17] MEDS ORDERED: HYDROmorphone 0.5 MG/0.5 ML Syringe IVPUSH ONE (14:53)
--- NOTE | 2019-08-17 14:57 | CRLCT ---
INDICATION: Upper abdominal pain. COMPARISON: CT scan of the abdomen and pelvis dated 17 November 2018. TECHNIQUE: CT scan of the abdomen and pelvis with 100 cc of Isovue-300 given intravenously. FINDINGS: The lung bases are unremarkable. No focal abnormalities identified in the visualized portions of the liver, spleen, pancreas, adrenal glands, and kidneys. No hydronephrosis. No obstructing uroliths. IUD in the uterus. Multiple postsurgical changes/anastomotic sutures in the small bowel and colon. Small periumbilical hernia which contains a loop of small bowel with no evidence of strangulation or incarceration. Gastric bypass changes. The remainder of the GI tract is incompletely distended but shows no gross abnormalities. Normal appendix. No retroperitoneal, pelvic sidewall, or mesenteric adenopathy. IMPRESSION: 1. No acute abnormalities of the abdomen or pelvis identified. Dictated by Luke Ho MD @ 08/17/2019 2:56:32 PM Dictated by: Luke oH MD @ 08/17/2019 14:56:46 (Electronically Signed)
[2019-08-17] MEDS ORDERED: Alum Hydrox/Mag Hydrox/Simeth 15 ML, Lidocaine 2% 15 ML PO ONE ×2 (15:06)
[2019-08-17] MEDS ORDERED: Aluminum Hydroxide/Magnesium Hydroxide/Simethicone Susp 30 ML Cup PO ONE (15:11)
[2019-08-17] MEDS ORDERED: Alum Hydrox/Mag Hydrox/Simeth 360 ML, Lidocaine 2% 60 ML PO SCH ×2 (16:00)
== END 2019-08-17 15:40 | disposition home or self-care (01) ==
LOC: JP.ED 13:10
DX: K29.70 Gastritis, unspecified, without bleeding (principal); K21.9 Gastro-esophageal reflux disease without esophagitis; F41.9 Anxiety disorder, unspecified; F32.9 Major depressive disorder, single episode, unspecified; Z88.1 Allergy status to other antibiotic agents; E66.9 Obesity, unspecified; Z68.32 Body mass index [BMI] 32.0-32.9, adult; Z79.899 Other long term (current) drug therapy; Z90.49 Acquired absence of other specified parts of digestive tract; Z98.84 Bariatric surgery status; Z87.891 Personal history of nicotine dependence
CPT/HCPCS: 36415; 74177; 80053; 83690; 85025; 96361; 96374; 96375; 96376; 99284; A9270; J1170; J2405; J7030; J7050; Q9967

== ENCOUNTER 2019-08-21 08:18 | Day surgery (SDC) | payer BC ==
[~2019-08-21 08:18] MED LIST: Midazolam 1 MG/ML 2 ML SDV ONE; Propofol 200 MG/20 ML SDV ONE; fentaNYL 100 MCG/2 ML SDV ONE
[2019-08-21] MEDS ORDERED: MVI, Adult with Vitamin K 10 ML, Chromium/Copper/Mang/Selen/Zn 1 ML in Lactated Ringers... IV ONE ×3 (09:00)
[2019-08-21] MEDS ORDERED: MVI, Adult with Vitamin K 10 ML, Thiamine 200 MG, Chromium/Copper/Mang/Selen/Zn 1 ML in... IV ONE ×4 (09:30)
[2019-08-21] MEDS ORDERED: Glycopyrrolate 0.2 MG/ML 2 ML SDV IVPUSH ONE (10:00)
[2019-08-21] MEDS ORDERED: Dextrose 5%-Lactated Ringers 1,000 ML IV SCH (11:00)
[2019-08-21] MEDS ORDERED: Acetaminophen 325 MG Tab PO ONE (12:07)
[2019-08-21 12:30] VITALS: BP 123/72; PULSE 71
--- NOTE | 2019-08-31 15:25 | OR ---
DATE OF PROCEDURE: 08/21/2019 SURGEON: Humberto Felder MD PREOPERATIVE DIAGNOSIS: Upper abdominal pain. POSTOPERATIVE DIAGNOSES: 1. Mild (nonsignificant) stricture of the esophagogastric junction. 2. Very small pouch with mild inflammation of pouch and jejunum adjacent to gastrojejunostomy. OPERATIVE PROCEDURE: Upper gastrointestinal endoscopy. ANESTHESIA: IV sedation. INDICATION FOR PROCEDURE: This is a 34-year-old female status post Emerson-en-Y gastric bypass and previous bowel obstruction, presenting with some epigastric pain and she presently is on both Protonix and Carafate. Plan is to proceed with upper GI endoscopy with biopsies and/or dilation as indicated. Potential risks including bleeding and perforation were discussed and the patient wishes to proceed. DESCRIPTION OF PROCEDURE: The patient was taken to the operating room, placed in a left lateral decubitus position. IV sedation was administered, after which the upper GI endoscope was passed orally through the length of the esophagus through the esophagogastric junction and into a very small gastric pouch, from there through the gastrojejunostomy roughly 20 cm into the Emerson limb. There was some ring of stricture-type finding at the esophagogastric junction. This, however, was not likely significant and was more than twice the diameter of the scope. Within the very small pouch, which essentially was that of a small rim of gastric mucosa, there was minimal inflammation, as was there in the adjacent jejunum. Remainder of the examination was unremarkable. Scope was then withdrawn and the above findings reconfirmed. The procedure was then concluded. At this point, we will add Xylocaine and Mylanta mix to take it p.r.n. prior to eating to see if that is helpful. If, between the Protonix, Carafate, and the Xylocaine and Mylanta mix, the patient remains symptomatic, I think one needs to raise a question whether we are dealing with some recurrent partial small bowel obstruction. She will be seeing Dori Mills back in 2 weeks for recheck. Humberto Felder MD /[id number]
== END 2019-08-21 12:35 | disposition home or self-care (01) ==
LOC: JP.SDS 08:18
PROVIDERS: ATTEND Surgery
DX: K22.2 Esophageal obstruction (principal); K91.850 Pouchitis; Z93.4 Other artificial openings of gastrointestinal tract status; Z98.84 Bariatric surgery status
CPT/HCPCS: 43235; A9270; J2250; J2704; J3010; J3490; J7120; J7121

== ENCOUNTER 2020-10-03 15:09 | Emergency (ER) | payer BC ==
[2020-10-03 15:31] VITALS: BP 161/105; PULSE 74
[2020-10-03] MEDS ORDERED: Acetaminophen/HYDROcodone 325-5 MG Tab PO ONE (16:03)
--- NOTE | 2020-10-03 16:10 | EDM.PDOC ---
ED HPI GENERAL MEDICAL PROBLEM - General Chief Complaint: Abdominal Pain Stated Complaint: STOMACH PAINS Time Seen by Provider: 10/03/20 15:45 Source of Information: Reports: Patient, Old Records, RN History Limitations: Reports: No Limitations - History of Present Illness INITIAL COMMENTS - FREE TEXT/NARRATIVE: 35 yo female with a pHx of Emerson-N-Y gastric bypass and multiple subsequent abdominal surgeries per Dr. Felder presents with several days of waxing and waning abdominal pain associated with diarrhea and some nausea. No def'n blood in stool. Saw Dori Mills early in the week and nothing was felt to be seriously wrong. Has an appt to see Dr. Felder in the future. Has tried clear liquids with some benefit. Eating and drinking makes her sx's worse. No fever. Has nausea med at home that helps. Onset: Gradual Duration: Week(s): (~2), Waxing/Waning Location: Reports: Abdomen Quality: Reports: Other (cramping) Severity: Moderate Improves with: Denies: Eating (not eating) Worsens with: Reports: Eating Context: Reports: Other (See HPI) Associated Symptoms: Reports: Nausea/Vomiting. Denies: Fever/Chills Treatments MACHINE ICER: Reports: Other (see below) (none) Abdomen Pain Score (Numeric/FACES): 7 - Related Data Allergies Allergy/AdvReac Type Severity Reaction Status Date / Time cefaclor [Cefaclor] Allergy Unknown Hives Verified 10/03/20 15:31 ciprofloxacin [From Cipro] Allergy Unknown Hives Verified 10/03/20 15:31 Home Meds: Home Meds Cyanocobalamin (Vitamin B-12) [B-12] 1,000 mcg PO DAILY 06/05/14 [History] Multivitamin with Minerals [Multiple Vitamin] 1 tab PO BID 06/05/14 [History] Vitamin B Complex 1 each PO DAILY 08/03/14 [History] Calcium Carbonate [Calcium] 500 mg PO BID 08/04/14 [History] Cyanocobalamin (Vitamin B12) [Vitamin B12] 1,000 mcg IM ASDIRECTED 12/10/15 [History] Polyethylene Glycol 3350 [MiraLAX] 17 gm PO DAILY PRN 01/20/16 [History] Levonorgestrel [Mirena] 1 device IUTERINE ASDIRECTED 09/15/16 [History] Docusate Sodium [Colace] 100 mg PO BID PRN #100 cap 08/11/16 [Rx] Thiamine [Vitamin B-1] 50 mg PO DAILY 12/17/17 [History] DULoxetine HCl [Duloxetine HCl] 60 mg PO DAILY 01/13/18 [History] buPROPion [Wellbutrin] 75 mg PO DAILY 11/01/18 [History] Acetaminophen [Tylenol] 650 mg PO Q4H PRN tablet 11/22/18 [Rx] Metoclopramide HCl [Reglan] 10 mg PO Q6H PRN #30 tablet 11/22/18 [Rx] Pantoprazole [ProTONIX] 40 mg PO DAILY 08/17/19 [History] Sucralfate 1 gm PO QID 08/17/19 [History] Past Medical History HEENT History: Reports: Otitis Media Respiratory History: Reports: Sleep Apnea, Other (See Below) Other Respiratory History: history of sleep apnea but since her RNY she has not needed her CPAP Gastrointestinal History: Reports: Bowel Obstruction, Cholelithiasis, Gastritis, GERD, Hemorrhoids, Hiatal Hernia Other Gastrointestinal History: 9 hernias in past Genitourinary History: Reports: UTI, Recurrent DIVING JUDGE History: Reports: 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, Musculoskeletal History: Reports: Back Pain, Chronic Neurological History: Reports: Concussion, Headaches, Chronic, Migraines, Seizure Psychiatric History: Reports: Anxiety, Depression, Psych Hospitalization(s), Suicidal Ideation Endocrine/Metabolic History: Reports: Obesity/BMI 30+, Vitamin D Deficiency Hematologic History: Reports: B12 Deficiency, Iron Deficiency, Other (See Below) Other Hematologic History: magnesium deficiency hx Dermatologic History: Reports: Other (See Below) Other Dermatologic History: mole removed neck and vaginal lip - Infectious Disease History Infectious Disease History: Reports: Chicken Pox - Past Surgical History Head Surgeries/Procedures: Reports: None HEENT Surgical History: Reports: Adenoidectomy, Myringotomy w Tube(s), Tonsillectomy Respiratory Surgical History: Reports: None GI Surgical History: Reports: Bariatric Procedure, Cholecystectomy, EGD, Esophageal Dilatation, Hernia Repair/Other, Small Bowel, Other (See Below) Other GI Surgeries/Procedures: portion of small bowel removed Female Surgical History: Reports: Section Other Female Surgeries/Procedures: x2 Endocrine Surgical History: Reports: None Neurological Surgical History: Reports: None Musculoskeletal Surgical History: Reports: None Dermatological Surgical History: Reports: None Social & Family History - Family History Family Medical History: No Pertinent Family History Psychiatric: Reports: Other (See Below) Other Psychiatric Family History: sister and mom alcoholics Oncologic: Reports: Lung Other Oncologic Family History: grandpa had lung ca - Tobacco Use Tobacco Use Status *Q: Former Tobacco User Used Tobacco, but Quit: Yes Month/Year Tobacco Last Used: 07/2020 - Caffeine Use Caffeine Use: Reports: Coffee - Recreational Drug Use Recreational Drug Use: No - Living Situation & Occupation Living situation: Reports: Single Occupation: Employed (Employed at [employer] in [employer] lives in house in [place] with her 2 children and a Friend and her children.) ED ROS GENERAL - Review of Systems Review Of Systems: See Below Constitutional: Reports: No Symptoms HEENT: Reports: No Symptoms Respiratory: Reports: No Symptoms Cardiovascular: Reports: No Symptoms Endocrine: Reports: No Symptoms GI/Abdominal: Reports: Abdominal Pain (crampy), Diarrhea, Nausea, Vomiting. Denies: Black Stool, Bloody Stool, Constipation, Distension, Flatus, Hematemesis, Hematochezia : Reports: No Symptoms Musculoskeletal: Reports: No Symptoms Skin: Reports: No Symptoms ED EXAM, GI/ABD - Physical Exam Exam: See Below Exam Limited By: No Limitations General Appearance: Alert, WD/WN, No Apparent Distress Eyes: Bilateral: Normal Appearance Ears: Normal External Exam, Normal Canal, Hearing Grossly Normal Nose: Normal Inspection, No Blood Throat/Mouth: Normal Inspection, Normal Lips, Normal Oropharynx, Normal Voice, No Airway Compromise Head: Atraumatic, Normocephalic Neck: Normal Inspection, Non-Tender Respiratory/Chest: No Respiratory Distress, Lungs Clear, Normal Breath Sounds, No Accessory Muscle Use Cardiovascular: Regular Rate, Rhythm, No Edema GI/Abdominal Exam: Normal Bowel Sounds, Soft, No Distention, Tender (mild mid abdomen), Other (old surgical scars present.). No: Non-Tender, Distended, Guarding, Rigid, Rebound Back Exam: Normal Inspection. No: CVA Tenderness (R), CVA Tenderness (L) Extremities: Normal Inspection, Normal Range of Motion, Non-Tender, No Pedal Edema Neurological: Alert, Oriented, CN II-XII Intact, Normal Cognition, No Motor/Sensory Deficits Psychiatric: Normal Affect, Normal Mood Skin Exam: Warm, Dry, Intact, Normal Color, No Rash Course - Vital Signs Text/Narrative:: Discussed with Dr. Felder @ 1704h Last Recorded V/S: Last Vital Signs Temp 36.6 C 10/03/20 15:36 Pulse 74 10/03/20 15:36 Resp 18 10/03/20 15:36 BP 161/105 H 10/03/20 15:36 Pulse Ox 95 10/03/20 15:36 - Orders/Labs/Meds Orders: Active Orders 24 hr Category Date Time Status Abdomen 2V AP Flat Upright [CR] Stat Exams 10/03/20 16:04 Taken Labs: Laboratory Tests 10/03/20 10/03/20 10/03/20 Range/Units 16:18 16:18 16:18 WBC 10.2 (4.5-11.0) K/uL RBC 5.36 (3.30-5.50) M/uL Hgb 15.2 H (12.0-15.0) g/dL Hct 46.6 (36.0-48.0) % MCV 87 (80-98) fL MCH 28 (27-31) pg MCHC 33 (32-36) % Plt Count 313 (150-400) K/uL Sodium 140 (140-148) mmol/L Potassium 4.8 (3.6-5.2) mmol/L Chloride 104 (100-108) mmol/L Carbon Dioxide 27 (21-32) mmol/L Anion Gap 9.0 (5.0-14.0) mmol/L BUN 10 (7-18) mg/dL Creatinine 0.7 (0.6-1.0) mg/dL Est Cr Clr Drug Dosing 93.68 mL/min Estimated GFR (MDRD) > 60 (>60) Glucose 90 (74-106) mg/dL Calcium 9.2 (8.5-10.1) mg/dL C-Reactive Protein < 0.05 (0.0-0.3) mg/dL Lipase 162 (73-393) U/L Meds: Medications Discontinued Medications Generic Name Dose Route Start Last Admin Trade Name Freq PRN Reason Stop Dose Admin Hydrocodone Bitart/Acetaminophen 1 tab 10/03/20 16:03 10/03/20 16:09 [place] 325-5 Mg PO 10/03/20 16:04 1 tab ONETIME ONE Administration Al Hydroxide/Mg Hydroxide 15 0 ml 10/03/20 16:55 10/03/20 17:02 ml/ Lidocaine HCl 15 ml PO 10/03/20 16:56 15 ml ONETIME ONE Administration Simethicone 160 mg 10/03/20 16:57 10/03/20 17:01 Simethicone PO 10/03/20 16:58 160 mg ONETIME ONE Administration - Radiology Interpretation Free Text/Narrative:: Flat/upright abdominal x-rays- Departure - Departure Time of Disposition: 17:12 Disposition: Home, Self-Care 01 Condition: Fair Clinical Impression: Nonspecific abdominal pain - Discharge Information *PRESCRIPTION DRUG MONITORING PROGRAM REVIEWED*: Not Applicable *COPY OF PRESCRIPTION DRUG MONITORING REPORT IN PATIENT [place]: Not Applicable Instructions: Abdominal Pain, Adult, Yehc-ox-Nnmd Referrals: Humberto Felder MD [Primary Care Provider] - Forms: ED Department Discharge Additional Instructions: Acetaminophen up to 1000 mg every 6 hrs as needed for pain relief. Simethicone as needed for gas pains. Peptobismol per package instructions for loose stools and antacid effect. Eat yogurt at least daily to encourage healthy bacteria in your colon, best to buy fresh, plain yogurt and add fruit to it. Call tomorrow to schedule a visit with Dori Mills. Sepsis Event Note (ED) - Evaluation Sepsis Screening Result: No Definite Risk - Focused Exam Vital Signs: Vital Signs Temp Pulse Resp BP Pulse Ox 10/03/20 15:36 36.6 C 74 18 161/105 H 95 10/03/20 15:30 36.6 C 74 18 161/105 H 95 - My Orders Last 24 Hours: My Active Orders 10/03/20 16:04 Abdomen 2V AP Flat Upright [CR] Stat - Assessment/Plan Last 24 Hours: My Active Orders 10/03/20 16:04 Abdomen 2V AP Flat Upright [CR] Stat
[2020-10-03] MEDS ORDERED: Alum Hydrox/Mag Hydrox/Simeth 15 ML, Lidocaine 2% 15 ML PO ONE ×2 (16:55)
[2020-10-03] MEDS ORDERED: Simethicone 80 MG Tab.Chew PO ONE (16:57)
--- NOTE | 2020-10-04 08:55 | CR ---
Abdomen 2V AP Flat Upright CLINICAL HISTORY: Abdominal pain, diarrhea FINDINGS: Patient has had previous bariatric surgery. There surgical clips in right upper quadrant from cholecystectomy. IUD is seen in place. No free air is identified. Intestinal gas pattern is nonacute. Impression: Previous abdominal surgery Nonacute intestinal gas pattern
== END 2020-10-03 17:20 | disposition home or self-care (01) ==
LOC: JP.ED 15:09
DX: R10.9 Unspecified abdominal pain (principal); K21.9 Gastro-esophageal reflux disease without esophagitis; E66.9 Obesity, unspecified; Z68.33 Body mass index [BMI] 33.0-33.9, adult; Z88.1 Allergy status to other antibiotic agents; Z79.899 Other long term (current) drug therapy
CPT/HCPCS: 36415; 74019; 80048; 83690; 85027; 86140; 99284; A9270; 99283

== ENCOUNTER 2020-10-11 06:18 | Inpatient (IN) | payer BC ==
[2020-10-11] MEDS ORDERED: Scopolamine 1.5 MG Transdermal Patch TOP SCH (06:30)
[2020-10-11] MEDS ORDERED: Acetaminophen 500 MG Tab PO ONE (06:30)
[2020-10-11] MEDS ORDERED: Bupivacaine 0.5%/EPINEPHrine 1:200,000 50 ML MDV ONE ×2 (06:37→08:12)
[2020-10-11] MEDS ORDERED: Meropenem 500 MG SDV ONE (06:37)
[2020-10-11] MEDS ORDERED: Dextrose 5%-Lactated Ringers 1,000 ML IV SCH ×2 (07:00→10:30)
[2020-10-11] MEDS ORDERED: Lidocaine 1% with EPINEPHrine 1:100,000 50 ML MDV ONE (07:01)
[2020-10-11] MEDS ORDERED: Bupivacaine 0.5% 50 ML MDV ONE (07:01)
[2020-10-11] MEDS ORDERED: fentaNYL 250 MCG/5 ML SDV ONE (07:08)
[2020-10-11] MEDS ORDERED: Neostigmine Methylsulfate 1 MG/ML 5 ML Syringe ONE (07:09)
[2020-10-11] MEDS ORDERED: Succinylcholine 200 MG/10 ML MDV ONE (07:09)
[2020-10-11] MEDS ORDERED: Ondansetron 4 MG/2 ML SDV ONE (07:09)
[2020-10-11] MEDS ORDERED: Glycopyrrolate 0.2 MG/ML 5 ML MDV ONE (07:09)
[2020-10-11] MEDS ORDERED: Rocuronium 50 MG/5 ML Vial ONE (07:09)
[2020-10-11] MEDS ORDERED: Dexamethasone 4 MG/ML SDV ONE (07:09)
[2020-10-11] MEDS ORDERED: Propofol 200 MG/20 ML SDV ONE (07:09)
[2020-10-11] MEDS ORDERED: Linezolid 600 MG in Premix Bag 1 BAG IV ONE (08:00)
[2020-10-11] MEDS ORDERED: fentaNYL 100 MCG/2 ML SDV ONE (08:08)
[2020-10-11] MEDS ORDERED: Ketamine 50 MG in Sodium Chloride 0.9% 49.5 ML IV SCH (08:30)
[2020-10-11] MEDS ORDERED: Ketamine 500 MG/5 ML MDV IV SCH (08:30)
[2020-10-11] MEDS ORDERED: Loperamide 2 MG Cap PO PRN (10:29)
[2020-10-11] MEDS ORDERED: HYDROmorphone 1 MG/ML Syringe IV PRN (11:00)
[2020-10-11] MEDS ORDERED: Ondansetron 4 MG/2 ML SDV IVPUSH PRN (11:00)
[2020-10-11] MEDS ORDERED: HYDROmorphone 0.5 MG/0.5 ML Syringe IVPUSH PRN (11:00)
[2020-10-11] MEDS ORDERED: MVI, Adult with Vitamin K 10 ML, Thiamine 100 MG, Zinc/Copper/Manganese/Selenium 1 ML i... IV ONE ×4 (14:00)
[2020-10-11] MEDS: DULoxetine 30 MG Cap PO SCH (14:21)
[2020-10-11] MEDS: Acetaminophen 325 MG Tab PO SCH ×2 (14:21→19:46)
[2020-10-11] MEDS: Pantoprazole 40 MG Tab.CR PO SCH (14:21)
[2020-10-11] MEDS ORDERED: Linezolid 600 MG in Premix Bag 1 BAG IV SCH (18:00)
[2020-10-11] MEDS: oxyCODONE 5 MG Tab PO PRN ×2 (18:25→22:18)
[2020-10-11] MEDS ORDERED: Melatonin 3 MG Tab PO PRN (21:24)
[2020-10-11] MEDS: Ondansetron 4 MG Tab.DIS PO PRN (22:17)
[2020-10-11] MEDS: LORazepam 0.5 MG Tab PO PRN (23:56)
[2020-10-12] MEDS: oxyCODONE 5 MG Tab PO PRN ×4 (02:28→16:50)
[2020-10-12] MEDS: Acetaminophen 325 MG Tab PO SCH ×4 (02:28→19:59)
[2020-10-12] MEDS: LORazepam 0.5 MG Tab PO PRN ×3 (03:48→16:10)
[2020-10-12] MEDS: Pantoprazole 40 MG Tab.CR PO SCH (07:09)
[2020-10-12] MEDS ORDERED: Sodium Chloride 0.9% 10 ML Syringe FLUSH PRN (07:26)
[2020-10-12] MEDS: DULoxetine 30 MG Cap PO SCH (08:13)
[2020-10-12] MEDS ORDERED: Cyanocobalamin (Vitamin B12) 1,000 MCG/ML SDV IM ONE (09:00)
[2020-10-12] MEDS: Sodium Chloride 0.9% 240 ML IV SCH (09:22)
[2020-10-12] MEDS: Sodium Ferric Gluconate Cmplex 250 MG in Sodium Chloride 0.9% 100 ML IV SCH (09:23)
[2020-10-12] MEDS: Bisacodyl 5 MG Tab PO SCH ×2 (09:27→20:01)
[2020-10-12] MEDS: SCOPOLAMINE PATCH CHECK TOP SCH (09:28)
[2020-10-12] MEDS: Docusate Sodium 100 MG Cap PO SCH ×2 (09:28→20:00)
[2020-10-12] MEDS: Dextrose 5%-Lactated Ringers 1,000 ML with MVI, Adult with Vitamin K 10 ML, Zinc/Copper... IV SCH ×4 (13:32)
[2020-10-12] MEDS: Ondansetron 4 MG Tab.DIS PO PRN (16:13)
[2020-10-12] MEDS ORDERED: Cyclobenzaprine 10 MG Tab PO PRN (16:20)
[2020-10-13] MEDS: Acetaminophen 325 MG Tab PO SCH ×2 (02:29→07:37)
[2020-10-13] MEDS: Calcium Carbonate 500 MG Tab.Chew PO PRN ×4 (02:29→12:20)
[2020-10-13] MEDS: oxyCODONE 5 MG Tab PO PRN ×2 (04:03→12:19)
[2020-10-13] MEDS: Dextrose 5%-Lactated Ringers 1,000 ML with MVI, Adult with Vitamin K 10 ML, Zinc/Copper... IV SCH ×4 (05:31)
[2020-10-13] MEDS: Ondansetron 4 MG Tab.DIS PO PRN ×2 (05:34→12:19)
[2020-10-13] MEDS: Pantoprazole 40 MG Tab.CR PO SCH (07:37)
[2020-10-13 07:46] VITALS: BP 116/62; PULSE 55
[2020-10-13] MEDS: Sodium Ferric Gluconate Cmplex 250 MG in Sodium Chloride 0.9% 100 ML IV SCH (08:04)
[2020-10-13] MEDS: Sodium Chloride 0.9% 240 ML IV SCH (08:05)
[2020-10-13] MEDS: LORazepam 0.5 MG Tab PO PRN (08:10)
[2020-10-13] MEDS: Bisacodyl 5 MG Tab PO SCH (08:11)
[2020-10-13] MEDS: DULoxetine 30 MG Cap PO SCH (08:11)
[2020-10-13] MEDS: Docusate Sodium 100 MG Cap PO SCH (08:11)
[2020-10-13] MEDS ORDERED: Magnesium Hydroxide 400 MG/5 ML Susp 30 ML Cup PO ONE (09:00)
[2020-10-13] MEDS: SCOPOLAMINE PATCH CHECK TOP SCH (12:15)
--- NOTE | 2020-10-14 17:33 | PN ---
DATE OF SERVICE: 10/12/2020 The patient has been afebrile with stable vital signs. IV came out, but she is going to be scheduled to get some iron today some IV vitamins and thiamine as well and begin some bowel stimulation. She will go over to oral pain medication, is tolerating that, but is having a fair bit of anxiety and is getting some Ativan as well, which is fairly common for her post procedure, and she will likely be ready for discharge home tomorrow. Humberto Felder MD /[id number]
--- NOTE | 2020-10-15 09:06 | DISCH ---
FINAL DIAGNOSES: 1. Recurrent incarcerated incisional hernia. 2. Peritoneal implant on abdominal wall extending into small bowel. SECONDARY DIAGNOSES: 1. Status post Emerson-en-Y gastric bypass. 2. History of previous bowel obstructions. 3. History previous abdominal hernia repairs. 4. History of alcohol abuse. 5. History of depression. 6. History of seizure disorder. OPERATIVE PROCEDURES: Done on 10/11, exploratory laparotomy with: 1. Repair of recurrent incarcerated incisional hernia with mesh. 2. Excision of peritoneal nodule extending from abdominal wall into small bowel. 3. Placement of Interceed mesh to limit recurrent adhesion formation between pelvic and abdominal wall and underlying viscera. SUMMARY: This is a 35-year-old female presenting with recurrent incisional hernia. This occurred at a point immediately inferior to the previous mesh repair in the supraumbilical area. Plan was to proceed with an open repair of that with a mesh, which was done on the date of admission with the above adjunct procedures added as well. Postoperatively, she has done well at this point, and she is tolerating a step 3 diet and oral pain medication. She will be discharged home on oxycodone 5 mg q.4 hours p.r.n. pain, #40; Flexeril 10 mg p.o. t.i.d. p.r.n. muscle spasm, #30, refill x1; Tylenol 650 p.o. q.6 hours p.r.n. pain; and we will send home with two doses of milk of magnesia to take on a p.r.n. basis for bowel movements. She will be instructed to avoid lifting more than 10 pounds for four weeks postoperatively. Followup will be with Dori Mills at [facility] on 10/21/2020. /[id number]
--- NOTE | 2020-10-21 08:23 | OR ---
DATE OF PROCEDURE: 10/11/2020 SURGEON: Humberto Felder MD PREOPERATIVE DIAGNOSIS: Recurrent incarcerated incisional hernia. POSTOPERATIVE DIAGNOSES: 1. Recurrent incarcerated incisional hernia. 2. Peritoneal implant on the anterior abdominal wall extending down onto subjacent small bowel (7 cm). OPERATIVE PROCEDURES: Exploratory laparotomy with: 1. Repair of incarcerated recurrent incisional hernia with mesh (50867, 78505). 2. Excision of peritoneal nodule extending from the anterior abdominal wall onto small bowel (33543). 3. Placement of Interceed mesh to limit recurrent adhesion formation between pelvic and abdominal wall and underlying viscera (47284). ANESTHESIA: General. TUNNEL ELASTIC OPERATOR CHAINSTITCH: Dori Mills PA-C and BALWINDER Tena INDICATIONS FOR PROCEDURE: The patient presents with a recurrent incisional hernia. This appears to most likely be inferior to some previously placed mesh. The defect at this point was fairly broad-based and not easily reducible, likely containing some bowel within it. Given this, we opted to proceed with an open incision rather than laparoscopic approach so as to avoid potential issues with bowel injury. Potential risks of the procedure including bleeding, infection, injury to underlying viscera, problems with the hernia recurring or the mesh becoming infected were all reviewed, and the patient wishes to proceed. DETAILS OF PROCEDURE: The patient was taken to the operating room and placed in a supine position. After general endotracheal anesthesia was induced, a Branch catheter was inserted which was removed at the end of the procedure and the abdomen prepped and draped. A midline incision from the umbilicus to roughly a handsbreadth superiorly was then made and carried down through the skin, subcutaneous tissue onto the hernia sac. The hernia sac was then dissected down to the level of the fascia circumferentially. At that point, a free area of the hernia sac was opened. This did contain some incarcerated small bowel and omentum. The incarcerated components were then dissected free from the hernia sac and the sac then excised flush with the underlying viscera. Just inferior to the hernia defect, there was an elongated peritoneal nodule extending from the anterior abdominal wall at that level downward along the small bowel which appeared to be creating somewhat of a partial obstruction at that level as well. This was then excised and measured 7 cm in total length. At this point, a circular Ventrio ST hernia patch with the diameter of 11.4 cm was selected at equidistant locations on the polypropylene side of the mesh. 2-0 Vicryl sutures were placed and the mesh was then soaked in antibiotic-containing saline solution. The upper half of the sutures were then pulled up through the abdominal wall at the premarked locations with a suture passer and the mesh then pulled into that location. Below the mesh and then extending somewhat above and inferiorly to the new mesh, Interceed mesh was placed as well to limit recurrent adhesion formation. The remaining sutures were then pulled up thus fixing the mesh in general position. The underside of the mesh at the shelving portion of the mesh was fixed circumferentially with titanium tacking screws as well. At that point, the patient had already had bilateral transversus abdominis plane blocks and the incision was anesthetized with 1% lidocaine mixed with Marcaine. The midline fascia was then approximated with #2 Vicryl stitch, subcutaneous tissue with 2 layers of 3-0 and 4-0 Vicryl stitch, and the skin with carmella. Dressing was applied. The patient was taken to the recovery room in satisfactory condition. There were no evident complications. Physician bilingual office assistant, Dori Mills, played an essential role in assisting in this case, helping to position the patient, retract structures as needed as well as suturing and cutting sutures when indicated. Her presence improved patient safety and decreased the operative time. Humberto Felder MD /[id number]
== END 2020-10-13 14:30 | disposition home or self-care (01) | DRG 227 ==
LOC: JP.SDSSCHI 06:18 → JP.SDS 06:18 → JP.MS 09:10 → EDSTATUS 11:15
PROVIDERS: ADMIT Surgery; ATTEND Surgery
PROC: 0WUF0JZ Supplement Abdominal Wall with Synthetic Substitute, Open Approach (ICD-10-PCS; principal; 2020-10-11)
PROC: 3E0M05Z Introduction of Adhesion Barrier into Peritoneal Cavity, Open Approach (ICD-10-PCS; principal; 2020-10-11)
PROC: 0DBW0ZZ Excision of Peritoneum, Open Approach (ICD-10-PCS; principal; 2020-10-11)
DX: K43.0 Incisional hernia with obstruction, without gangrene (principal); F32.9 Major depressive disorder, single episode, unspecified; G40.909 Epilepsy, unspecified, not intractable, without status epilepticus; F41.9 Anxiety disorder, unspecified; G89.29 Other chronic pain; M54.9 Dorsalgia, unspecified; K21.9 Gastro-esophageal reflux disease without esophagitis; E53.9 Vitamin B deficiency, unspecified; E55.9 Vitamin D deficiency, unspecified; F10.10 Alcohol abuse, uncomplicated; Z98.84 Bariatric surgery status; Z98.890 Other specified postprocedural states; Z79.899 Other long term (current) drug therapy
CPT/HCPCS: 81025; 88302; 88305; A9270-GY; C1713; C1781; J0171; J0330; J1100; J1790; J2020; J2185; J2405; J2704; J2710; J2795; J2916; J3010; J3411; J3420; J3490; J7050; J7121

== ENCOUNTER 2020-10-24 11:28 | Inpatient (IN) | payer BC ==
[2020-10-24] MEDS ORDERED: Acetaminophen 325 MG Tab PO PRN (11:54)
[2020-10-24] MEDS ORDERED: Acetaminophen 650 MG Supp RECTAL PRN (11:54)
[2020-10-24] MEDS ORDERED: Iopamidol 612 MG/ML 50 ML SDV PO ONE (11:57)
[2020-10-24] MEDS ORDERED: Dextrose 5%-Lactated Ringers 1,000 ML IV SCH (12:00)
[2020-10-24] MEDS ORDERED: HYDROmorphone/Normal Saline 15 MG/30 ML PCA IV PRN (12:16)
[2020-10-24] MEDS: Pantoprazole 40 MG Vial IV SCH ×2 (12:31→12:32)
[2020-10-24] MEDS: Meropenem 500 MG in Sodium Chloride 0.9% 50 ML IV SCH ×3 (12:33→23:48)
[2020-10-24] MEDS ORDERED: Linezolid 600 MG in Premix Bag 1 BAG IV ONE ×2 (12:45→15:00)
[2020-10-24] MEDS ORDERED: Glycopyrrolate 0.2 MG/ML 5 ML MDV ONE (12:51)
[2020-10-24] MEDS ORDERED: fentaNYL 250 MCG/5 ML SDV ONE (12:51)
[2020-10-24] MEDS ORDERED: Dexamethasone 4 MG/ML SDV ONE (12:51)
[2020-10-24] MEDS ORDERED: Rocuronium 50 MG/5 ML Vial ONE (12:51)
[2020-10-24] MEDS ORDERED: Ondansetron 4 MG/2 ML SDV ONE (12:51)
[2020-10-24] MEDS ORDERED: Propofol 200 MG/20 ML SDV ONE (12:51)
[2020-10-24] MEDS ORDERED: Succinylcholine 200 MG/10 ML MDV ONE (12:51)
[2020-10-24] MEDS ORDERED: Neostigmine Methylsulfate 1 MG/ML 5 ML Syringe ONE (12:51)
[2020-10-24] MEDS ORDERED: Naloxone 0.4 MG/ML SDV IV PRN (13:00)
[2020-10-24] MEDS ORDERED: Meropenem 500 MG SDV ONE (13:17)
[2020-10-24] MEDS ORDERED: Lactated Ringers 1,000 ML ONE (14:59)
[2020-10-24] MEDS ORDERED: Ketamine 500 MG/5 ML MDV IV SCH (15:00)
[2020-10-24] MEDS ORDERED: Ketamine 50 MG in Sodium Chloride 0.9% 49.5 ML IV SCH (15:00)
[2020-10-24] MEDS ORDERED: Sugammadex Sodium 200 MG/2 ML VIAL ONE (15:22)
[2020-10-24] MEDS ORDERED: hydrOXYzine HCL 100 MG/2 ML SDV IM PRN (16:26)
[2020-10-24] MEDS: Dextrose 5%-Lactated Ringers 1,000 ML IV SCH ×2 (18:12→23:48)
[2020-10-24] MEDS: Linezolid 600 MG in Premix Bag 1 BAG IV SCH (18:48)
[2020-10-24] MEDS: Calcium Carbonate 500 MG Tab.Chew PO PRN (19:34)
[2020-10-24] MEDS: Acetaminophen 500 MG Tab PO SCH (21:12)
[2020-10-25] MEDS: Acetaminophen 500 MG Tab PO SCH ×4 (04:57→21:03)
[2020-10-25] MEDS: Meropenem 500 MG in Sodium Chloride 0.9% 50 ML IV SCH ×4 (05:02→23:40)
[2020-10-25] MEDS ORDERED: LORazepam 2 MG/ML SDV IV PRN (07:36)
[2020-10-25] MEDS: Linezolid 600 MG in Premix Bag 1 BAG IV SCH (08:00)
[2020-10-25] MEDS: LORazepam 0.5 MG Tab PO PRN ×2 (08:01→21:04)
[2020-10-25] MEDS: oxyCODONE 5 MG Tab PO PRN ×4 (08:01→21:03)
--- NOTE | 2020-10-25 08:04 | PCM.HP.2 ---
H&P History of Present Illness - General Date of Service: 10/24/20 Admit Problem/Dx: Admission Diagnosis/Problem Admission Diagnosis/Problem Cellulitis of Abdominal Wall Source of Information: Patient History Limitations: Reports: No Limitations - History of Present Illness Initial Comments - Free Text/Narative: Pamela had an Exploratory Laparotomy with Repair of Incarcerated incisional Hernia with Mesh on 10/11/20 and was doing great until Wednesday evening 10/23/2020 she states she vomited violently after eating chicken and developed incisional pain. Today she noticed a redness around her incision and severe pain, low grad fever and occasionally nauseated. She came into the clinic and was a direct admit to the hospital for IV Antibiotics and scheduled for surgery. Onset of Symptoms: Reports: Today Quality: Reports: Ache, Burning, Stabbing, Throbbing Severity: Severe Improves with: Reports: None Worsens with: Reports: None Associated Symptoms: Reports: Fever/Chills, Loss of Appetite Abdominal Pain Score (Numeric/FACES): 4 - Related Data Allergies/Adverse Reactions: Allergies Allergy/AdvReac Type Severity Reaction Status Date / Time cefaclor [Cefaclor] Allergy Unknown Hives Verified 10/24/20 12:02 ciprofloxacin [From Cipro] Allergy Unknown Hives Verified 10/24/20 12:02 Home Medications: Home Meds Cyanocobalamin (Vitamin B-12) [B-12] 1,000 mcg PO DAILY 06/05/14 [History] Multivitamin with Minerals [Multiple Vitamin] 1 tab PO BID 06/05/14 [History] Vitamin B Complex 1 each PO DAILY 08/03/14 [History] Calcium Carbonate [Calcium] 500 mg PO BID 08/04/14 [History] Cyanocobalamin (Vitamin B12) [Vitamin B12] 1,000 mcg IM Q14D 12/10/15 [History] Levonorgestrel [Mirena] 1 device IUTERINE ASDIRECTED 05/14/16 [History] DULoxetine HCl [Duloxetine HCl] 60 mg PO DAILY 01/13/18 [History] buPROPion [Wellbutrin] 75 mg PO DAILY 11/01/18 [History] Acetaminophen [Tylenol] 650 mg PO Q4H PRN tablet 11/22/18 [Rx] Pantoprazole [ProTONIX] 40 mg PO DAILY 08/17/19 [History] Ergocalciferol (Vitamin D2) [Vitamin D2] 50,000 unit PO MOWEFR 10/09/20 [History] Hydrocortisone [Hydrocortisone 1% Crm] 1 applic TOP BID PRN 10/09/20 [History] Lactobacillus Rhamnosus GG [Culturelle] 2 cap PO BID 10/09/20 [History] Loperamide [Imodium] 2 mg PO Q6H 10/09/20 [History] Nystatin [Nystatin Crm] 15 gm TOP BID PRN 10/09/20 [History] Ondansetron [Zofran ODT] 4 mg PO Q4H PRN 10/09/20 [History] Cyclobenzaprine [Flexeril] 10 mg PO TID PRN 10/24/20 [History] Thiamine [Vitamin B-1] 100 mg PO DAILY 10/24/20 [History] oxyCODONE 5 mg PO Q4H PRN 10/24/20 [History] Past Medical History HEENT History: Reports: Otitis Media Respiratory History: Reports: Sleep Apnea, Other (See Below) Other Respiratory History: history of sleep apnea but since her RNY she has not needed her CPAP Gastrointestinal History: Reports: Bowel Obstruction, Cholelithiasis, Gastritis, GERD, Hemorrhoids, Hiatal Hernia Other Gastrointestinal History: 9 hernias in past Genitourinary History: Reports: UTI, Recurrent DIRECTOR OF AGRONOMY History: Reports: 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, Musculoskeletal History: Reports: Back Pain, Chronic Neurological History: Reports: Concussion, Headaches, Chronic, Migraines, Seizure Psychiatric History: Reports: Anxiety, Depression, Psych Hospitalization(s), Suicidal Ideation Endocrine/Metabolic History: Reports: Obesity/BMI 30+, Vitamin D Deficiency Hematologic History: Reports: B12 Deficiency, Iron Deficiency, Other (See Below) Other Hematologic History: magnesium deficiency hx Dermatologic History: Reports: Other (See Below) Other Dermatologic History: mole removed neck and vaginal lip - Infectious Disease History Infectious Disease History: Reports: Chicken Pox - Past Surgical History Head Surgeries/Procedures: Reports: None HEENT Surgical History: Reports: Adenoidectomy, Myringotomy w Tube(s), Tonsillectomy Respiratory Surgical History: Reports: None GI Surgical History: Reports: Bariatric Procedure, Cholecystectomy, EGD, Esophageal Dilatation, Hernia Repair/Other, Small Bowel, Other (See Below) Other GI Surgeries/Procedures: portion of small bowel removed Female Surgical History: Reports: Section Other Female Surgeries/Procedures: x2, IUD Endocrine Surgical History: Reports: None Neurological Surgical History: Reports: None Musculoskeletal Surgical History: Reports: None Dermatological Surgical History: Reports: None Social & Family History - Family History Family Medical History: No Pertinent Family History Psychiatric: Reports: Other (See Below) Other Psychiatric Family History: sister and mom alcoholics Oncologic: Reports: Lung Other Oncologic Family History: grandpa had lung ca - Tobacco Use Tobacco Use Status *Q: Never Tobacco User - Caffeine Use Caffeine Use: Reports: Coffee - Recreational Drug Use Recreational Drug Use: No - Living Situation & Occupation Living situation: Reports: Single Occupation: Employed (Employed at [employer] in [employer] lives in house in [place] with her 2 children and a Friend and her children.) H&P Review of Systems - Review of Systems: Review Of Systems: See Below General: Reports: Fever, Chills, Fatigue HEENT: Reports: No Symptoms Pulmonary: Reports: No Symptoms Cardiovascular: Reports: No Symptoms Gastrointestinal: Reports: Abdominal Pain, Decreased Appetite Genitourinary: Reports: No Symptoms Musculoskeletal: Reports: No Symptoms Skin: Reports: Wound (redness around the incision ) Psychiatric: Reports: No Symptoms Neurological: Reports: No Symptoms Hematologic/Lymphatic: Reports: No Symptoms Immunologic: Reports: No Symptoms Exam - Exam Exam: See Below - Vital Signs Vital Signs: Last Vital Signs Temp 96.5 F L 10/25/20 05:10 Pulse 99 10/24/20 16:52 Resp 19 10/25/20 05:10 BP 127/88 10/25/20 05:10 Pulse Ox 91 L 10/25/20 05:10 Weight: 191 lb - Exam Quality Assessment: DVT Prophylaxis General: Alert, Oriented, Moderate Distress HEENT: PERRLA Neck: Supple, Trachea Midline Lungs: Clear to Auscultation, Normal Respiratory Effort Cardiovascular: Regular Rate, Regular Rhythm GI/Abdominal Exam: Distended, Guarding, Tender, Other (Tenderness around her incision. Area of Redness 9 inches across abdomen and 7 inches long. ) (Female) Exam: Deferred Rectal (Female) Exam: Deferred Back Exam: Normal Inspection, Full Range of Motion Extremities: Normal Inspection, Normal Range of Motion Skin: Warm, Dry, Intact Neurological: Cranial Nerves Intact Neuro Extensive - Mental Status: Alert, Oriented x3 Neuro Extensive - Motor, Sensory, Reflexes: CN II-XII Intact Psychiatric: Alert, Anxious - Patient Data Lab Results Last 24 hrs: Laboratory Results - last 24 hr 10/24/20 10/24/20 10/24/20 Range/Units 12:05 12:05 12:05 WBC 17.7 H (4.5-11.0) K/uL RBC 5.04 (3.30-5.50) M/uL Hgb 14.6 (12.0-15.0) g/dL Hct 44.9 (36.0-48.0) % MCV 89 (80-98) fL MCH 29 (27-31) pg MCHC 33 (32-36) % Plt Count 255 (150-400) K/uL Sodium 135 L (140-148) mmol/L Potassium 3.6 (3.6-5.2) mmol/L Chloride 99 L (100-108) mmol/L Carbon Dioxide 25 (21-32) mmol/L Anion Gap 14.6 H (5.0-14.0) mmol/L BUN 9 (7-18) mg/dL Creatinine 0.7 (0.6-1.0) mg/dL Est Cr Clr Drug Dosing 93.68 mL/min Estimated GFR (MDRD) > 60 (>60) Glucose 97 (74-106) mg/dL Lactic Acid 1.0 (0.4-2.0) mmol/L Calcium 9.1 (8.5-10.1) mg/dL Phosphorus 2.7 (2.5-4.9) mg/dL Magnesium 1.8 (1.8-2.4) mg/dL Total Bilirubin 0.8 D (0.2-1.0) mg/dL AST 24 (15-37) U/L ALT 40 (12-78) U/L Alkaline Phosphatase 106 (46-116) U/L Total Protein 7.5 (6.4-8.2) g/dL Albumin 3.5 (3.4-5.0) g/dL Globulin 4.0 H (2.3-3.5) g/dL Albumin/Globulin Ratio 0.9 L (1.2-2.2) SARS-CoV-2 RNA ([facility]) (NEGATIVE) 10/24/20 Range/Units 14:12 WBC (4.5-11.0) K/uL RBC (3.30-5.50) M/uL Hgb (12.0-15.0) g/dL Hct (36.0-48.0) % MCV (80-98) fL MCH (27-31) pg MCHC (32-36) % Plt Count (150-400) K/uL Sodium (140-148) mmol/L Potassium (3.6-5.2) mmol/L Chloride (100-108) mmol/L Carbon Dioxide (21-32) mmol/L Anion Gap (5.0-14.0) mmol/L BUN (7-18) mg/dL Creatinine (0.6-1.0) mg/dL Est Cr Clr Drug Dosing mL/min Estimated GFR (MDRD) (>60) Glucose (74-106) mg/dL Lactic Acid (0.4-2.0) mmol/L Calcium (8.5-10.1) mg/dL Phosphorus (2.5-4.9) mg/dL Magnesium (1.8-2.4) mg/dL Total Bilirubin (0.2-1.0) mg/dL AST (15-37) U/L ALT (12-78) U/L Alkaline Phosphatase (46-116) U/L Total Protein (6.4-8.2) g/dL Albumin (3.4-5.0) g/dL Globulin (2.3-3.5) g/dL Albumin/Globulin Ratio (1.2-2.2) SARS-CoV-2 RNA ([facility]) Negative (NEGATIVE) Result Diagrams: 10/24/20 12:05 10/24/20 12:05 Arpan Results Last 24 hrs: Microbiology 10/24/20 15:08 Gram Stain - Final Abdomen - Abscess Sepsis Event Note - Evaluation Sepsis Screening Result: No Definite Risk - Focused Exam Vital Signs: Vital Signs Temp Resp BP Pulse Ox 10/25/20 05:10 96.5 F L 19 127/88 91 L 10/25/20 01:00 95 10/24/20 22:13 16 119/63 96 - Problem List (1) Cellulitis, abdominal wall SNOMED Code(s): 50984026 ICD Code: L03.311 - CELLULITIS OF ABDOMINAL WALL Status: Acute Current Visit: Yes Problem List Initiated/Reviewed/Updated: Yes Orders Last 24hrs: Active Orders 24 hr Category Date Time Status Patient Status [ADT] Routine ADT 10/24/20 11:28 Active Communication Order [RC] ASDIRECTED Care 10/24/20 16:27 Active Communication Order [RC] ASDIRECTED Care 10/24/20 16:29 Active Communication Order [RC] ASDIRECTED Care 10/24/20 16:30 Active Communication Order [RC] BID Care 10/25/20 07:24 Active Overnight Pulse Oximetry [RC] Click to Edit Care 10/24/20 22:48 Active Pulse Oximetry [RC] ASDIRECTED Care 10/24/20 22:48 Active Up ad Meredith [RC] ASDIRECTED Care 10/24/20 11:39 Active Bariatric Diet [DIET] Diet 10/24/20 Dinner Active Nothing Per Oral Diet [DIET] Diet 10/24/20 Lunch Active CULTURE ANAEROBIC [RM] Routine Lab 10/24/20 15:08 Results CULTURE WOUND + SMEAR [RM] Routine Lab 10/24/20 15:08 Results Acetaminophen [Tylenol Extra Strength] Med 10/24/20 22:00 Active 1,000 mg PO Q6H Calcium Carbonate [Tums] Med 10/24/20 19:27 Active 500 mg PO Q2H PRN Cyclobenzaprine [Flexeril] Med 10/24/20 16:29 Active 10 mg PO Q8H PRN DULoxetine [Cymbalta] Med 10/25/20 09:00 Active 60 mg PO DAILY Dextrose 5%-Lactated Ringers 1,000 ml Med 10/24/20 16:30 Active IV ASDIRECTED LORazepam [Ativan] Med 10/25/20 07:36 Active 0.5 mg IV Q6H PRN LORazepam [Ativan] Med 10/25/20 07:36 Active 0.5 mg PO Q6H PRN Lactobacillus Rhamnosus GG [Culturelle] Med 10/25/20 09:00 Active 2 cap PO DAILY Linezolid [Zyvox] 600 mg Med 10/24/20 19:00 Active Premix Bag 1 bag IV Q12H Meropenem [Merrem] 500 mg Med 10/24/20 12:00 Active Sodium Chloride 0.9% [Normal Saline] 50 ml IV Q6H Multivitamins with Iron [Child Chew Iron] Med 10/25/20 09:00 Active 2 tab PO DAILY Ondansetron [Zofran] Med 10/24/20 12:12 Active 4 mg IVPUSH Q4H PRN Pantoprazole [ProTONIX IV] Med 10/25/20 09:00 Active 40 mg IV Q24H buPROPion [Wellbutrin] Med 10/25/20 09:00 Active 75 mg PO DAILY hydrOXYzine HCL [Vistaril] Med 10/24/20 16:26 Active 100 mg IM Q4H PRN oxyCODONE Med 10/25/20 07:35 Active 5 mg PO Q4H PRN Sequential Compression Device [OM.PC] Routine Oth 10/24/20 11:39 Ordered Resuscitation Status Routine Resus Stat 10/24/20 11:39 Ordered Medication Orders Acetaminophen (Tylenol Extra Strength) 1,000 mg PO Q6H [facility] Last Admin: 10/25/20 04:57 Dose: 1,000 mg Documented by: Admin: 10/24/20 21:12 Dose: 1,000 mg Documented by: CYNTHIA Bupropion HCl (Wellbutrin) 75 mg PO DAILY [facility] Calcium Carbonate/Glycine (Tums) 500 mg PO Q2H PRN PRN Reason: Indigestion Last Admin: 10/24/20 19:34 Dose: 500 mg Documented by: CYNTHIA Cyclobenzaprine HCl (Flexeril) 10 mg PO Q8H PRN PRN Reason: MUSCLE SPASM Duloxetine HCl (Cymbalta) 60 mg PO DAILY [facility] Hydroxyzine HCl (Vistaril) 100 mg IM Q4H PRN PRN Reason: PAIN Last Admin: 10/25/20 04:57 Dose: 100 mg Documented by: CYNTHIA Meropenem 500 mg/ Sodium (Chloride) 50 mls @ 100 mls/hr IV Q6H [facility] Last Admin: 10/25/20 05:02 Dose: 100 mls/hr Documented by: Admin: 10/24/20 23:48 Dose: 100 mls/hr Documented by: Admin: 10/24/20 18:14 Dose: 100 mls/hr Documented by: Admin: 10/24/20 12:33 Dose: 100 mls/hr Documented by: HOWATER Dextrose/Lactated Ringer's (Dextrose 5%-Lactated Ringers) 1,000 mls @ 100 mls/hr IV ASDIRECTED [facility] Last Admin: 10/24/20 23:48 Dose: 100 mls/hr Documented by: Infusion: 10/24/20 23:48 Dose: 100 mls/hr Documented by: Admin: 10/24/20 18:12 Dose: 100 mls/hr Documented by: VALERY Linezolid 600 mg/ Premix 300 mls @ 300 mls/hr IV Q12H [facility] Last Admin: 10/24/20 18:48 Dose: 300 mls/hr Documented by: VALERY Lactobacillus Rhamnosus (Culturelle) 2 cap PO DAILY [facility] Lorazepam (Ativan) 0.5 mg IV Q6H PRN PRN Reason: ANXIETY Lorazepam (Ativan) 0.5 mg PO Q6H PRN PRN Reason: ANXIETY Multivitamins/Iron (Child Chew Iron) 2 tab PO DAILY [facility] Ondansetron HCl (Zofran) 4 mg IVPUSH Q4H PRN PRN Reason: Nausea Oxycodone HCl (Oxycodone) 5 mg PO Q4H PRN PRN Reason: PAIN Pantoprazole Sodium (Protonix Iv) 40 mg IV Q24H [facility] Assessment: Cellulitis Abdominal Wall SP Exploratory Laparotomy with Repair of Incisional Hernia with Mesh Fever SP RNY Gastric Bypass Surgery Anxiety and Depression Vitamin B12, B1 and Vitamin D deficiency Plan: Admit to Inpatient Length of stay 3 nights and 4 days Surgery is Scheduled Case to Follow - 10/24/2020 See Orders in EMR. Dori BAKER C - Mortality Measure Prognosis:: Good
[2020-10-25] MEDS ORDERED: Pantoprazole 40 MG Vial IV SCH (09:00)
[2020-10-25] MEDS: Multivitamins with Iron Tab.Chew PO SCH (09:13)
[2020-10-25] MEDS: Lactobacillus Rhamnosus GG (Probiotic) Cap PO SCH (09:13)
[2020-10-25] MEDS: DULoxetine 30 MG Cap PO SCH (09:14)
[2020-10-25] MEDS: LINEZOLID 600 MG TOP SCH ×2 (11:17→21:04)
[2020-10-25] MEDS: Ondansetron 4 MG/2 ML SDV IVPUSH PRN (13:07)
[2020-10-25] MEDS: Calcium Carbonate 500 MG Tab.Chew PO PRN (13:08)
[2020-10-25] MEDS ORDERED: Linezolid 600 MG in Premix Bag 1 BAG IV SCH (20:00)
[2020-10-25] MEDS ORDERED: Polyethylene Glycol 3350 Powder 17 GM Packet PO ONE (20:10)
[2020-10-26] MEDS: oxyCODONE 5 MG Tab PO PRN ×6 (02:34→23:58)
[2020-10-26] MEDS: Ondansetron 4 MG/2 ML SDV IVPUSH PRN ×3 (02:34→11:27)
[2020-10-26] MEDS: Acetaminophen 500 MG Tab PO SCH ×4 (04:57→21:00)
[2020-10-26] MEDS: Meropenem 500 MG in Sodium Chloride 0.9% 50 ML IV SCH (04:59)
[2020-10-26] MEDS: Calcium Carbonate 500 MG Tab.Chew PO PRN ×4 (04:59→18:39)
[2020-10-26] MEDS: LORazepam 0.5 MG Tab PO PRN ×2 (07:44→19:59)
[2020-10-26] MEDS: Pantoprazole 40 MG Tab.CR PO SCH (07:46)
[2020-10-26] MEDS: Bisacodyl 5 MG Tab PO SCH ×2 (08:19→20:00)
[2020-10-26] MEDS: Docusate Sodium 100 MG Cap PO SCH ×2 (08:20→20:00)
[2020-10-26] MEDS: DULoxetine 30 MG Cap PO SCH (08:20)
[2020-10-26] MEDS: Multivitamins with Iron Tab.Chew PO SCH (08:21)
[2020-10-26] MEDS: Lactobacillus Rhamnosus GG (Probiotic) Cap PO SCH (08:21)
[2020-10-26] MEDS: LINEZOLID 600 MG TOP SCH ×2 (10:12→20:00)
[2020-10-26] MEDS: Cyclobenzaprine 10 MG Tab PO PRN ×2 (11:27→21:00)
[2020-10-26] MEDS: Ampicillin/Sulbactam Na 3 GM in Sodium Chloride 0.9% 100 ML IV SCH ×3 (12:15→23:55)
[2020-10-27] MEDS: Calcium Carbonate 500 MG Tab.Chew PO PRN ×2 (00:30→13:46)
[2020-10-27] MEDS: Acetaminophen 500 MG Tab PO SCH ×4 (03:04→22:02)
[2020-10-27] MEDS: Docusate Sodium 100 MG Cap PO SCH ×3 (03:53→22:02)
[2020-10-27] MEDS: Bisacodyl 5 MG Tab PO SCH ×3 (03:53→22:02)
[2020-10-27] MEDS: LORazepam 0.5 MG Tab PO PRN (04:02)
[2020-10-27] MEDS: Ondansetron 4 MG/2 ML SDV IVPUSH PRN (04:02)
[2020-10-27] MEDS: Cyclobenzaprine 10 MG Tab PO PRN ×3 (04:56→22:46)
[2020-10-27] MEDS: Ampicillin/Sulbactam Na 3 GM in Sodium Chloride 0.9% 100 ML IV SCH ×4 (05:00→23:23)
[2020-10-27] MEDS: LINEZOLID 600 MG TOP SCH ×4 (06:47→21:30)
[2020-10-27] MEDS: Pantoprazole 40 MG Tab.CR PO SCH (07:53)
[2020-10-27] MEDS: Multivitamins with Iron Tab.Chew PO SCH (08:15)
[2020-10-27] MEDS: DULoxetine 30 MG Cap PO SCH (08:15)
[2020-10-27] MEDS: oxyCODONE 5 MG Tab PO PRN ×4 (08:15→22:03)
[2020-10-27] MEDS: Lactobacillus Rhamnosus GG (Probiotic) Cap PO SCH (08:15)
--- NOTE | 2020-10-27 09:46 | PN ---
DATE OF SERVICE: 10/26/2020 The patient has been afebrile with stable vital signs. The cultures are growing out a beta A Strep, non-A, non-B, and sensitive to amoxicillin. She has penicillin listed as an allergy, but she says she took amoxicillin in the past, so we will switch her over to IV Minocin for the weekend. Still has some cellulitis in the right lateral abdominal wall and we will probably keep the IV antibiotics going until that has subsided and probably send her home on amoxicillin orally for something like a month dressing changes today. Humberto Felder MD /[id number]
--- NOTE | 2020-10-27 11:46 | PN ---
DATE OF SERVICE: 10/27/2020 The patient has been afebrile with stable vital signs. Overall, doing fairly well. The abdominal cellulitis in the abdominal wall decreased radically over the last 24 hours. Continue the IV antibiotics for 1 more day as a precaution given the underlying mesh and probably discharge home tomorrow. She will be dressing change regimen at this time as well. Humberto Felder MD /[id number]
[2020-10-27] MEDS ORDERED: Ampicillin/Sulbactam Na 3 GM Vial ONE (12:04)
--- NOTE | 2020-10-27 13:01 | PN ---
DATE OF SERVICE: 10/25/2020 The patient has been afebrile with stable vital signs. Overnight, fairly uncomfortable, little bit anxious, and we will add some Ativan. We will then go with oral pain medications today. The Gram stain result showed some gram-positive cocci. We will begin dressing changes today with b.i.d. Zyvox soaked gauze. Likely, we will discontinue the Azactam at this time, continue the meropenem pending C and S results, and can go over oral pain medications. We will need to probably keep her in the hospital on IV antibiotics until such time we get some sensitivities or we could do some targeted oral antibiotics, so obviously there does not appear to be any penetration of the infection into the mesh over time here. We will likely be able to treat this with several week course of antibiotics and may not certainly take out the mesh. We will begin the dressing changes today. Humberto Felder MD /[id number]
[2020-10-27] MEDS ORDERED: Sodium Chloride 0.9% 10 ML Syringe IV PRN (13:04)
[2020-10-27] MEDS ORDERED: MVI, Adult with Vitamin K 10 ML, Zinc/Copper/Manganese/Selenium 1 ML, Thiamine 100 MG i... IV ONE ×4 (16:00)
[2020-10-28] MEDS: oxyCODONE 5 MG Tab PO PRN ×3 (02:21→10:27)
[2020-10-28] MEDS: Acetaminophen 500 MG Tab PO SCH ×2 (04:59→09:52)
[2020-10-28] MEDS: Ampicillin/Sulbactam Na 3 GM in Sodium Chloride 0.9% 100 ML IV SCH (05:00)
[2020-10-28] MEDS: Calcium Carbonate 500 MG Tab.Chew PO PRN ×2 (05:39→10:56)
[2020-10-28] MEDS: Cyclobenzaprine 10 MG Tab PO PRN (06:48)
[2020-10-28 06:56] VITALS: BP 138/96; PULSE 75
[2020-10-28] MEDS: Pantoprazole 40 MG Tab.CR PO SCH (07:32)
[2020-10-28] MEDS: LINEZOLID 600 MG TOP SCH (09:00)
[2020-10-28] MEDS: Docusate Sodium 100 MG Cap PO SCH (09:47)
[2020-10-28] MEDS: Lactobacillus Rhamnosus GG (Probiotic) Cap PO SCH (09:48)
[2020-10-28] MEDS: Multivitamins with Iron Tab.Chew PO SCH (09:49)
[2020-10-28] MEDS: DULoxetine 30 MG Cap PO SCH (09:49)
[2020-10-28] MEDS: Bisacodyl 5 MG Tab PO SCH (09:50)
--- NOTE | 2020-10-28 10:05 | DISCH ---
ADMISSION DIAGNOSES: 1. Cellulitis abdominal wall. 2. Status post exploratory laparotomy with repair of incarcerated incisional hernia with mesh, 10/11/2020. DISCHARGE DIAGNOSES: 1. Incision and drainage of subcutaneous wound infection without communication with underlying mesh. Date of procedure: 10/24/2020. Surgeon: Humberto Felder MD. 2. Microbiology: Beta Strep, not group A or B. HISTORY: Pamela Mendoza is a pleasant 35-year-old female who presented to the clinic on 10/25/2020 after noticing a redness and severe pain in her incision with a low-grade fever. She did have an exploratory laparotomy with repair of incarcerated incisional hernia with mesh on 10/11/2020. She was admitted to the hospital and started on IV antibiotics of meropenem and Zyvox. She was taken to surgery later that afternoon and had the above surgical procedure. She tolerated the surgical procedure without any complications. On postoperative day #1, vital signs were stable. She was afebrile. The cellulitis in the right lateral abdominal wall started clearing. On 10/27/2020, Pamela was taught how to pack her open incision twice daily, and on 10/28/2020, she was able to be discharged to home without any complications. PHYSICAL EXAMINATION: GENERAL: Pamela Mendoza is a 35-year-old female. She is alert and orientated. VITAL SIGNS: Height is 5 feet 2.99 inches, weight is 190 pounds. TPR is 96.8, 75, 18, blood pressure 138/96. HEENT: Negative. NECK: Supple. HEART: Regular rate and rhythm. LUNGS: Clear. ABDOMEN: Incision is open about 2-1/2 inches and it is 1 inch deep. Packing was removed and it is healing well. Cellulitis on right side of abdomen is very light pink. EXTREMITIES: Without peripheral edema. DISPOSITION: Discharged to home. CONDITION: Stable and improving. FOLLOWUP: Appointment with Dori Mills PA-C, on 11/06/2020, at [address] Humberto Felder will be available to see the patient as well. HOME MEDICATIONS: 1. Amoxicillin 500 mg p.o. t.i.d. for a month, #90 given. 2. Diflucan 200 mg p.o. weekly, #2 tabs given and to start if she would develop either thrush or candidiasis vaginitis and 4 refills. 3. Flexeril 10 mg p.o. q.8 hours p.r.n. muscle spasms, #30. 4. Oxycodone 5 mg p.o. q.4 hours p.r.n. pain, #42. 5. She is to resume all home medications. DIET: Usual diet as tolerated. Step 4 gastric bypass diet. Drink 8 to 10 glasses of water a day and 65 g of protein. ACTIVITY: As tolerated. No lifting over 10 pounds for 6 weeks. DISCHARGE INSTRUCTIONS: Driving: Do not drive for 1 week or while on pain medication. Shower/bathing: May shower. Keep operative site clean and dry. Change dressing twice a day as directed. Notify provider if any fever, increased pain, swelling, redness, drainage, nausea, vomiting, and use incentive spirometer 10 times every hour while awake. /[id number]
--- NOTE | 2020-10-28 11:34 | OR ---
DATE OF PROCEDURE: 10/24/2020 SURGEON: Humberto Felder MD PREOPERATIVE DIAGNOSIS: Postoperative wound infection. POSTOPERATIVE DIAGNOSIS: Postoperative wound infection consisting subcutaneous abscess without evidence of fascial involvement. OPERATIVE PROCEDURE: Incision and drainage of postoperative wound infection ([id number]). VOLTMETER OPERATOR: Dori Mills PA-C ANESTHESIA: General. INDICATIONS FOR PROCEDURE: The patient is recently status post repair of recurrent incisional hernia with mesh. She presents now with a fairly abrupt onset of redness and a bulge in the area at and slightly superior to the umbilicus at the recent incision. Plan is to proceed with incision and drainage of this. If it does not extend down into the mesh, the mesh would need to be removed. Potential risks of procedure per se including bleeding, infection, and injury to underlying viscera were all reviewed and the patient wishes to proceed. DETAILS OF PROCEDURE: The patient was taken to the operating room and placed in a supine position. After general endotracheal anesthesia was induced, a Branch catheter was inserted, which was removed at the end of the procedure and the abdomen prepped and draped. The previous midline incision was then reused partially and carried down through the skin and subcutaneous tissue. The patient had a roughly 10 mL of white purulent abscess encountered at that point. Cultures were obtained. Gram stain showed Gram-positive cocci. The area was then evacuated. Inspection of fascia at this point revealed the fascia otherwise to be intact, and the pressure around the areas of the fascia produced no evident purulence draining from the deeper layers. This appeared to be confined to the subcutaneous tissue, and given this, it was felt reasonable to try to treat this situation with antibiotics rather than removal of the underlying mesh. The wound was then irrigated with Zyvox- and meropenem-containing saline solution and then packed open with Zyvox-containing gauze and dressing applied. Bilateral transversus abdominis plane blocks were placed using ultrasound guidance and the procedure concluded. There were no evident complications. Physician contract administrative assistant, Dori Mills, played an essential role in assisting in this case, helping to position the patient, retract structures as needed, as well as packing the wound at the end of the procedure and her presence improved patient safety and decreased operative time. Humberto Felder MD /[id number]
== END 2020-10-28 11:22 | disposition home or self-care (01) | DRG 711 ==
LOC: JP.ICU 11:28 → JP.MS 10-26 08:15
PROVIDERS: ADMIT Surgery; ATTEND Surgery
PROC: 0J980ZZ Drainage of Abdomen Subcutaneous Tissue and Fascia, Open Approach (ICD-10-PCS; principal; 2020-10-24)
DX: T81.41XA Infection following a procedure, superficial incisional surgical site, initial encounter (principal); L03.311 Cellulitis of abdominal wall; Z88.1 Allergy status to other antibiotic agents; Z79.899 Other long term (current) drug therapy; G47.30 Sleep apnea, unspecified; K21.9 Gastro-esophageal reflux disease without esophagitis; Z87.440 Personal history of urinary (tract) infections; G89.29 Other chronic pain; M54.9 Dorsalgia, unspecified; G43.909 Migraine, unspecified, not intractable, without status migrainosus; F41.9 Anxiety disorder, unspecified; F32.9 Major depressive disorder, single episode, unspecified; E66.9 Obesity, unspecified; Z90.49 Acquired absence of other specified parts of digestive tract; Z90.89 Acquired absence of other organs; Z98.84 Bariatric surgery status; E55.9 Vitamin D deficiency, unspecified; E53.8 Deficiency of other specified B group vitamins; E51.9 Thiamine deficiency, unspecified; Z68.33 Body mass index [BMI] 33.0-33.9, adult; Z20.822 Contact with and (suspected) exposure to COVID-19
CPT/HCPCS: 36415; 80053; 83605; 83735; 84100; 85027; 87070; 87075; 87077; 87205; 94762; A9270-GY; C9113; J0171; J0295; J0330; J1100; J1170; J1790; J2020; J2185; J2405; J2704; J2710; J2795; J3010; J3410; J3411; J3490; J7120; J7121; U0002

== ENCOUNTER 2021-01-30 07:45 | Day surgery (SDC) | payer BC ==
[2021-01-30] MEDS ORDERED: Propofol 200 MG/20 ML SDV ONE (07:50)
[2021-01-30] MEDS ORDERED: Midazolam 1 MG/ML 2 ML SDV ONE (07:50)
[2021-01-30] MEDS ORDERED: fentaNYL 100 MCG/2 ML SDV ONE (07:50)
[2021-01-30] MEDS ORDERED: Cyanocobalamin (Vitamin B12) 1,000 MCG/ML SDV IM ONE (08:30)
[2021-01-30] MEDS ORDERED: Lactated Ringers 1,000 ML IV ONE (08:30)
[2021-01-30] MEDS ORDERED: Glycopyrrolate 0.2 MG/ML 2 ML SDV IVPUSH ONE (09:00)
[2021-01-30] MEDS ORDERED: Lidocaine 1% 2 ML ONE (09:17)
[2021-01-30] MEDS ORDERED: Dexamethasone 4 MG/ML SDV ONE (09:20)
[2021-01-30] MEDS ORDERED: Ondansetron 4 MG/2 ML SDV ONE (09:20)
[2021-01-30] MEDS ORDERED: MVI, Adult with Vitamin K 10 ML, Thiamine 200 MG, Chromium/Copper/Mang/Selen/Zn 1 ML in... IV ONE ×4 (09:30)
[2021-01-30] MEDS ORDERED: Calcium Carbonate 500 MG Tab.Chew PO ONE ×2 (10:20→10:50)
[2021-01-30 10:55] VITALS: BP 121/85; PULSE 68
--- NOTE | 2021-02-12 15:48 | OR ---
DATE OF PROCEDURE: 01/30/2021 SURGEON: Humberto Felder MD PREOPERATIVE DIAGNOSIS: CAT scan suggestive of narrowing and slow transit through the esophagus. POSTOPERATIVE DIAGNOSIS: Normal upper gastrointestinal endoscopy status post gastric bypass other than a focal area of isolated columnar mucosa within distal esophagus, potentially representing Farmer esophagus. PROCEDURE PERFORMED: Upper gastrointestinal endoscopy with biopsies of the area of columnar mucosa within distal esophagus. ANESTHESIA: IV sedation. INDICATION FOR PROCEDURE: A 35-year-old presenting with some dysphagia referable to the distal esophagus or esophagogastric junction area. A CT scan was obtained also which showed some possible narrowing and slow transit of contrast through the esophagus. The plan is to proceed with upper GI endoscopy with biopsies and/or dilation as indicated. Potential risks including bleeding and perforation were discussed, and the patient wishes to proceed. DETAILS OF PROCEDURE: The patient was taken to the operating room and placed in a left lateral decubitus position. IV sedation was administered after which the upper GI endoscope was passed orally through the length of the esophagus and into the area of the gastrojejunostomy, roughly 20 cm into the Emerson limb. Findings included normal hypopharynx, larynx, upper esophageal sphincter, and esophageal body. 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 There was no plaquing or thickening of that area. Otherwise, there was no gross inflammation or stricturing within the area of the of the distal esophagus, gastroduodenoscopy, or associated Emerson limb. Biopsies were then obtained from the area of the possible columnar mucosa, and minimal bleeding from the biopsy sites was seen, and the procedure was then concluded. The patient is presently on both Protonix and Prilosec. She will be instructed that she take some Gaviscon for p.r.n. epigastric discomfort and dyspepsia. Otherwise, she will be following up with Dori Mills in roughly one month. Humberto Felder MD /[id number]
== END 2021-01-30 12:10 | disposition home or self-care (01) ==
LOC: JP.SDS 07:45
PROVIDERS: ATTEND Surgery
DX: K22.8 Other specified diseases of esophagus (principal); Z98.84 Bariatric surgery status; Z86.16 Personal history of COVID-19; Z88.8 Allergy status to other drugs, medicaments and biological substances
CPT/HCPCS: 43239; 81025; 88305; A9270; J1100; J2250; J2405; J2704; J3010; J3411; J3420; J3490; J7120

== ENCOUNTER 2021-07-09 12:15 | Inpatient (IN) | payer BC ==
[2021-07-09] MEDS: HYDROmorphone/Normal Saline 15 MG/30 ML PCA IV PRN (13:36)
[2021-07-09] MEDS ORDERED: Naloxone 0.4 MG/ML SDV IV PRN (14:00)
[2021-07-09 14:13] LABS: CORONAVIRUS COVID-19 NAA NEGATIVE (NEGATIVE)
[2021-07-09] MEDS: Ondansetron 4 MG/2 ML SDV IVPUSH PRN (14:17)
[2021-07-09] MEDS: Pantoprazole 40 MG Vial IV SCH (14:17)
[2021-07-09] MEDS ORDERED: MVI, Adult with Vitamin K 10 ML, Zinc/Copper/Manganese/Selenium 1 ML in Dextrose 5%-Lac... IV ONE ×3 (14:30)
[2021-07-09] MEDS: diphenhydrAMINE 25 MG Cap PO PRN (21:58)
[2021-07-10] MEDS: Dextrose 5%-Lactated Ringers 1,000 ML IV SCH ×3 (00:13→21:56)
[2021-07-10] MEDS: ALPRAZolam 0.25 MG Tab PO PRN (02:39)
[2021-07-10] MEDS: Ondansetron 4 MG/2 ML SDV IVPUSH PRN ×2 (04:10→09:39)
--- NOTE | 2021-07-10 07:23 | PCM.HP.2 ---
H&P History of Present Illness - General Date of Service: 07/10/21 Admit Problem/Dx: Admission Diagnosis/Problem Admission Diagnosis/Problem Small bowel obstruction Source of Information: Patient, Other (transfer records from ED reviewed. ) History Limitations: Reports: No Limitations - History of Present Illness Initial Comments - Free Text/Narative: Pamela states she ate supper then developed abdominal pain and vomiting. Pain was severe and generalized and went to the ED. A CT Scan was done and showed a partial small bowel obstruction and she was transferred to [place], [place]. Currently pain is controlled. Using Dilaudid DRIVER MATERIAL HANDLER for pain and taking Zofran for nausea. Symptom Onset Date: 07/08/21 Duration of Symptoms: Reports: Getting Worse Location: Reports: Abdomen Quality: Reports: Same as Previous Episode, Stabbing, Throbbing Severity: Moderate Improves with: Reports: Medication Worsens with: Reports: Eating, Movement Context: Reports: Sick Contact Associated Symptoms: Reports: Loss of Appetite, Nausea/Vomiting Abdomen Pain Score (Numeric/FACES): 5 - Related Data Allergies/Adverse Reactions: Allergies Allergy/AdvReac Type Severity Reaction Status Date / Time cefaclor [Cefaclor] Allergy Unknown Hives Verified 07/09/21 12:54 ciprofloxacin [From Cipro] Allergy Unknown Hives Verified 07/09/21 12:54 Home Medications: Home Meds Cyanocobalamin (Vitamin B-12) [B-12] 1,000 mcg PO DAILY 06/05/14 [History] Multivitamin with Minerals [Multiple Vitamin] 1 tab PO BID 06/05/14 [History] Vitamin B Complex 1 each PO DAILY 08/03/14 [History] Calcium Carbonate [Calcium] 500 mg PO BID 08/04/14 [History] Cyanocobalamin (Vitamin B12) [Vitamin B12] 1,000 mcg IM Q14D 12/10/15 [History] DULoxetine HCl [Duloxetine HCl] 60 mg PO DAILY 01/13/18 [History] buPROPion [Wellbutrin] 75 mg PO DAILY 11/01/18 [History] Pantoprazole [ProTONIX] 40 mg PO DAILY 08/17/19 [History] Lactobacillus Rhamnosus GG [Culturelle] 2 cap PO BID 10/09/20 [History] Nystatin [Nystatin Crm] 15 gm TOP BID PRN 10/09/20 [History] Ondansetron [Zofran ODT] 4 mg PO Q4H PRN 10/09/20 [History] Cyclobenzaprine [Flexeril] 10 mg PO TID PRN 10/24/20 [History] Biotin 2,500 mcg PO DAILY 01/28/21 [History] Loratadine/Pseudoephedrine [Claritin-D 12 Hour] 1 tab PO Q12H PRN 01/28/21 [History] Omeprazole 20 mg PO DAILY 01/30/21 [History] Past Medical History HEENT History: Reports: Otitis Media Respiratory History: Reports: Sleep Apnea, Other (See Below) Other Respiratory History: history of sleep apnea but since her RNY she has not needed her CPAP Gastrointestinal History: Reports: Bowel Obstruction, Cholelithiasis, Gastritis, GERD, Hemorrhoids, Hiatal Hernia Other Gastrointestinal History: 10 hernias in past Genitourinary History: Reports: Pyelonephritis, UTI, Recurrent FISCAL MANAGER History: Reports: 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, Musculoskeletal History: Reports: None Neurological History: Reports: Concussion, Headaches, Chronic, Migraines, Seizure Psychiatric History: Reports: Anxiety, Depression, Psych Hospitalization(s), Suicidal Ideation Endocrine/Metabolic History: Reports: Obesity/BMI 30+, Vitamin D Deficiency Hematologic History: Reports: B12 Deficiency, Iron Deficiency, Other (See Below) Other Hematologic History: magnesium deficiency hx Dermatologic History: Reports: Other (See Below) Other Dermatologic History: mole removed neck and vaginal lip - Infectious Disease History Infectious Disease History: Reports: Chicken Pox - Past Surgical History Head Surgeries/Procedures: Reports: None HEENT Surgical History: Reports: Adenoidectomy, Myringotomy w Tube(s), Tonsillectomy Respiratory Surgical History: Reports: None GI Surgical History: Reports: Bariatric Procedure, Cholecystectomy, EGD, Esophageal Dilatation, Hernia Repair/Other, Small Bowel, Other (See Below) Other GI Surgeries/Procedures: portion of small bowel removed and large, RNY in 2013. Female Surgical History: Reports: Section Other Female Surgeries/Procedures: x2, IUD Endocrine Surgical History: Reports: None Neurological Surgical History: Reports: None Musculoskeletal Surgical History: Reports: None Dermatological Surgical History: Reports: None Social & Family History - Family History Family Medical History: No Pertinent Family History Psychiatric: Reports: Other (See Below) Other Psychiatric Family History: sister and mom alcoholics Oncologic: Reports: Lung Other Oncologic Family History: grandpa had lung ca - Tobacco Use Tobacco Use Status *Q: Former Tobacco User Used Tobacco, but Quit: Yes Month/Year Tobacco Last Used: 05/2021 - Caffeine Use Caffeine Use: Reports: Coffee - Recreational Drug Use Recreational Drug Use: No - Living Situation & Occupation Living situation: Reports: Single Occupation: Employed (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 ) Neurological: Reports: No Symptoms Hematologic/Lymphatic: Reports: No Symptoms Immunologic: Reports: No Symptoms Exam - Exam Exam: See Below - Vital Signs Vital Signs: Last Vital Signs Temp 96.9 F 07/10/21 02:36 Pulse 64 07/10/21 02:36 Resp 16 07/10/21 02:36 BP 95/48 L 07/10/21 02:36 Pulse Ox 95 07/10/21 02:36 Weight: 176 lb - Exam Quality Assessment: DVT Prophylaxis General: Alert, Oriented, Moderate Distress HEENT: PERRLA Neck: Supple, Trachea Midline Lungs: Clear to Auscultation, Normal Respiratory Effort Cardiovascular: Regular Rate, Regular Rhythm GI/Abdominal Exam: Tender (in all 4 quadrants ) (Female) Exam: Deferred Rectal (Female) Exam: Deferred Back Exam: Normal Inspection, Full Range of Motion Extremities: Normal Inspection, Normal Range of Motion, No Pedal Edema Skin: Warm, Dry, Intact Neurological: Cranial Nerves Intact Neuro Extensive - Mental Status: Alert, Oriented x3, Normal Mood/Affect, Normal Cognition, Memory Intact Neuro Extensive - Motor, Sensory, Reflexes: CN II-XII Intact Psychiatric: Alert, Labile Mood, Depressed - Patient Data Lab Results Last 24 hrs: Laboratory Results - last 24 hr 07/09/21 07/10/21 07/10/21 Range/Units 13:40 04:40 04:40 WBC 7.0 (4.5-11.0) K/uL RBC 4.29 (3.30-5.50) M/uL Hgb 12.9 (12.0-15.0) g/dL Hct 38.8 (36.0-48.0) % MCV 90 (80-98) fL MCH 30 (27-31) pg MCHC 33 (32-36) % Plt Count 236 (150-400) K/uL Neut % (Auto) 56.4 (36-66) % Lymph % (Auto) 35.0 (24-44) % [place] % (Auto) 5.7 (2-6) % Eos % (Auto) 2.6 (2-4) % Baso % (Auto) 0.3 (0-1) % Sodium 142 (140-148) mmol/L Potassium 4.0 (3.6-5.2) mmol/L Chloride 108 (100-108) mmol/L Carbon Dioxide 25 (21-32) mmol/L Anion Gap 9.3 (5.0-14.0) mmol/L BUN 11 (7-18) mg/dL Creatinine 0.8 (0.6-1.0) mg/dL Est Cr Clr Drug Dosing 81.19 mL/min Estimated GFR (MDRD) > 60 (>60) Glucose 101 (74-106) mg/dL Calcium 8.0 L (8.5-10.1) mg/dL Phosphorus 3.9 (2.5-4.9) mg/dL Magnesium 1.7 L (1.8-2.4) mg/dL Ferritin 201 (8-388) ng/ml Total Bilirubin 1.1 H (0.2-1.0) mg/dL AST 401 H D (15-37) U/L ALT 615 H (12-78) U/L Alkaline Phosphatase 125 H (46-116) U/L Total Protein 5.7 L (6.4-8.2) g/dL Albumin 3.2 L (3.4-5.0) g/dL Globulin 2.5 (2.3-3.5) g/dL Albumin/Globulin Ratio 1.3 (1.2-2.2) Vitamin B12 1407 H (193-986) pg/ml Folate 30.2 (8.6-58.9) ng/ml Influenza Type A RNA Negative (NEGATIVE) RSV RNA (INAAT) Negative (NEGATIVE) Influenza Type B RNA Negative (NEGATIVE) SARS-CoV-2 RNA (HANNAH) Negative (NEGATIVE) Result Diagrams: 07/10/21 04:40 07/10/21 04:40 Sepsis Event Note - Evaluation Sepsis Screening Result: No Definite Risk - Focused Exam Vital Signs: Vital Signs Temp Pulse Resp BP Pulse Ox 07/10/21 02:36 96.9 F 64 16 95/48 L 95 07/10/21 00:59 96 07/09/21 23:10 96 07/09/21 22:35 98.1 F 62 16 109/62 96 07/09/21 19:28 97.2 F 65 18 116/76 100 - Problem List (1) Partial small bowel obstruction SNOMED Code(s): 464039289 ICD Code: K56.600 - PARTIAL INTESTINAL OBSTRUCTION, UNSPECIFIED TO CAUSE Status: Acute Current Visit: Yes Problem List Initiated/Reviewed/Updated: Yes Orders Last 24hrs: Active Orders 24 hr Category Date Time Status Patient Status [ADT] Routine ADT 07/09/21 12:50 Active Ambulate [RC] QID Care 07/09/21 13:25 Active Antiembolic Devices [RC] .Routine Care 07/09/21 13:25 Active Incentive Breathing [RT Incentive Spirometry] [RC] Care 07/09/21 13:34 Active ASDIRECTED Intake and Output [RC] ASDIRECTED Care 07/09/21 13:37 Active Up to Chair [RC] QID Care 07/09/21 13:25 Active Verify Patient Consent Obtain [RC] ASDIRECTED Care 07/09/21 13:25 Active Vital Signs [RC] Q4H Care 07/09/21 13:25 Active Consult to Behavioral Health [Behavioral Health Cons 07/10/21 03:29 Active Evaluation] [CONS] Routine Nothing Per Oral Diet [DIET] Diet 07/09/21 Dinner Active ALPRAZolam [Xanax] Med 07/09/21 13:51 Active 0.25 mg PO TID PRN DULoxetine [Cymbalta] Med 07/10/21 09:00 Active 60 mg PO DAILY Dextrose 5%-Lactated Ringers 1,000 ml Med 07/09/21 22:00 Active IV ASDIRECTED HYDROmorphone/Normal Saline [Dilaudid DRIVER MATERIAL HANDLER 15 MG in NS Med 07/09/21 13:15 Active 30 ML] 0 mg IV ASDIRECTED PRN Ketamine [Ketalar] Med 07/10/21 08:00 Active 26 mg IV ASDIRECTED Ketamine [Ketalar] 15 mg Med 07/10/21 08:00 Active Sodium Chloride 0.9% [Normal Saline] 19.85 ml IV ASDIRECTED Meropenem [Merrem] 500 mg Med 07/10/21 09:00 Active Sodium Chloride 0.9% [Normal Saline AdvBag] 50 ml IV ONETIME Naloxone [Narcan] Med 07/09/21 14:00 Active 0.1 mg IV ASDIRECTED PRN Ondansetron [Zofran] Med 07/09/21 13:44 Active 4 mg IVPUSH Q4H PRN Pantoprazole [ProTONIX IV] Med 07/09/21 14:00 Active 40 mg IV Q24H Ropivacaine [Naropin 0.5%] 40 ml Med 07/10/21 08:00 Active dexAMETHasone [Decadron] 8 mg EPINEPHrine [Adrenalin] 0.4 mg Sodium Chloride 0.9% [Normal Saline] 37.6 ml NERVRT ASDIRECTED buPROPion [Wellbutrin] Med 07/10/21 09:00 Active 75 mg PO DAILY diphenhydrAMINE [Benadryl] Med 07/09/21 21:21 Active 25 - 50 mg PO Q4H PRN SCD [Sequential Compression Device] [OM.PC] Routine Oth 07/09/21 13:25 Ordered Medication Orders Alprazolam (Alprazolam 0.25 Mg Tab) 0.25 mg PO TID PRN PRN Reason: ANXIETY Last Admin: 07/10/21 02:39 Dose: 0.25 mg Documented by: INO Bupropion HCl (Bupropion 75 Mg Tab) 75 mg PO DAILY HENRY Ropivacaine 40 ml/Dexamethasone 8 mg/Epinephrine HCl 0.4 mg/ Sodium Chloride 37.6 ml 0 ml NERVRT ASDIRECTED HENRY Diphenhydramine HCl (Diphenhydramine 25 Mg Cap) 25 - 50 mg PO Q4H PRN PRN Reason: Itching Last Admin: 07/09/21 21:58 Dose: 50 mg Documented by: XIAO Duloxetine HCl (Duloxetine 30 Mg Cap) 60 mg PO DAILY [facility] Hydromorphone HCl (Hydromorphone/Normal Saline 15 Mg/30 Ml Network Control Technician) 0 mg IV ASDIREC AUGIE PRN; Protocol PRN Reason: DRIVER MATERIAL HANDLER PAIN CONTROL Last Admin: 07/09/21 13:36 Dose: 15 mg Documented by: BERNARD Ketamine HCl 15 mg/ Sodium (Chloride) 20 mls @ 20.8 mls/hr IV ASDIRECTED [facility] Dextrose/Lactated Ringer's (Dextrose 5%-Lactated Ringers) 1,000 mls @ 125 mls/hr IV ASDIRECTED [facility] Last Admin: 07/10/21 00:13 Dose: 125 mls/hr Documented by: INO Meropenem 500 mg/ Sodium (Chloride) 50 mls @ 100 mls/hr IV ONETIME ONE Stop: 07/10/21 09:29 Ketamine HCl (Ketamine 500 Mg/5 Ml Mdv) 26 mg IV ASDIRECTED [facility] Naloxone HCl (Naloxone 0.4 Mg/Ml Sdv) 0.1 mg IV ASDIRECTED PRN PRN Reason: decreased respiratory rate Ondansetron HCl (Ondansetron 4 Mg/2 Ml Sdv) 4 mg IVPUSH Q4H PRN PRN Reason: Nausea Last Admin: 07/10/21 04:10 Dose: 4 mg Documented by: Admin: 07/09/21 14:17 Dose: 4 mg Documented by: BERNARD Pantoprazole Sodium (Pantoprazole 40 Mg Vial) 40 mg IV Q24H [facility] Last Admin: 07/09/21 14:17 Dose: 40 mg Documented by: BERNARD Assessment: Partial Small Bowel Obstruction SP RNY Gastric Bypass Surgery Depression with previous suicide ideations Generalized anxiety disorder Nicotine Addiction Vitamin B Deficiency Vitamin D Deficiency Plan: Scheduled for Exploratory Laparotomy with release of small bowel obstruction and possible bowel resection. Case to Follow - 07/10/2021 Humberto Felder MD After preoperative assessment and discussion of possible risks and complications patient wishes to proceed with surgical procedure. Plan Hospital Stay - 4 nights and 5 days. Dori Wolfe 07/10/2021 - Mortality Measure Prognosis:: Good
[2021-07-10] MEDS ORDERED: Ketamine 15 MG in Sodium Chloride 0.9% 19.85 ML IV SCH (08:00)
[2021-07-10] MEDS ORDERED: Ketamine 500 MG/5 ML MDV IV SCH (08:00)
[2021-07-10] MEDS ORDERED: Ropivacaine 40 ML, dexAMETHasone 8 MG, EPINEPHrine 0.4 MG, Sodium Chloride 0.9% 37.6 ML NERVRT SCH ×4 (08:00)
[2021-07-10] MEDS ORDERED: DULoxetine 30 MG Cap PO SCH (09:00)
[2021-07-10] MEDS ORDERED: buPROPion 150 MG Tab.ER PO SCH (09:00)
[2021-07-10] MEDS ORDERED: Scopolamine 1.5 MG Transdermal Patch TRDERM PRN (09:00)
[2021-07-10] MEDS ORDERED: Meropenem 500 MG in Sodium Chloride 0.9% 50 ML IV ONE (09:00)
[2021-07-10] MEDS ORDERED: fentaNYL 250 MCG/5 ML SDV ONE ×2 (09:11→11:35)
[2021-07-10] MEDS ORDERED: Propofol 200 MG/20 ML SDV ONE (09:12)
[2021-07-10] MEDS ORDERED: Succinylcholine 200 MG/10 ML MDV ONE (09:12)
[2021-07-10] MEDS ORDERED: Dexamethasone 4 MG/ML SDV ONE (09:12)
[2021-07-10] MEDS ORDERED: Neostigmine Methylsulfate 1 MG/ML 5 ML Syringe ONE (09:12)
[2021-07-10] MEDS ORDERED: Ondansetron 4 MG/2 ML SDV ONE (09:12)
[2021-07-10] MEDS ORDERED: Glycopyrrolate 0.2 MG/ML 5 ML MDV ONE (09:12)
[2021-07-10] MEDS ORDERED: Rocuronium 50 MG/5 ML Vial ONE ×2 (09:12→12:19)
[2021-07-10] MEDS ORDERED: Lidocaine 1% with EPINEPHrine 1:100,000 50 ML MDV ONE (09:46)
[2021-07-10] MEDS ORDERED: Bupivacaine 0.5% 50 ML MDV ONE (09:46)
[2021-07-10] MEDS ORDERED: Meropenem 500 MG SDV ONE (09:48)
[2021-07-10] MEDS ORDERED: Labetalol 20 MG/4 ML Syringe ONE (12:01)
[2021-07-10] MEDS ORDERED: Lactated Ringers 1,000 ML ONE (12:21)
[2021-07-10] MEDS ORDERED: fentaNYL 100 MCG/2 ML SDV ONE (12:25)
[2021-07-10] MEDS: Cyclobenzaprine 10 MG Tab PO PRN (14:08)
[2021-07-10] MEDS: Metoclopramide 10 MG/2 ML SDV IVPUSH PRN (14:48)
[2021-07-10] MEDS ORDERED: Ondansetron 4 MG/2 ML SDV IVPUSH PRN (15:00)
[2021-07-10] MEDS ORDERED: diphenhydrAMINE 50 MG/ML SDV IVPUSH PRN (15:00)
[2021-07-10] MEDS ORDERED: Acetaminophen 500 MG Tab PO PRN (15:00)
[2021-07-10] MEDS ORDERED: Albuterol/Ipratropium 3.0-0.5 MG/3 ML Neb Soln INH PRN (15:00)
[2021-07-10] MEDS ORDERED: Pantoprazole 40 MG Vial IVPUSH SCH (15:00)
[2021-07-10] MEDS ORDERED: Labetalol 20 MG/4 ML Syringe IVPUSH PRN (15:00)
[2021-07-10] MEDS: Acetaminophen 500 MG Tab PO SCH ×2 (15:42→22:17)
[2021-07-10] MEDS: Meropenem 500 MG in Sodium Chloride 0.9% 50 ML IV SCH ×2 (15:48→22:16)
[2021-07-10] MEDS ORDERED: MVI, Adult with Vitamin K 10 ML, Thiamine 200 MG, Zinc/Copper/Manganese/Selenium 1 ML i... IV SCH ×4 (16:00)
[2021-07-10] MEDS: Pantoprazole 40 MG Vial IV SCH (16:21)
[2021-07-10] MEDS: diphenhydrAMINE 25 MG Cap PO PRN (17:19)
[2021-07-10] MEDS: HYDROmorphone/Normal Saline 15 MG/30 ML PCA IV PRN (20:34)
[2021-07-10] MEDS: DULoxetine 30 MG Cap PO SCH (20:35)
[2021-07-10] MEDS: Heparin Sodium 5,000 Units/ML Vial SUBCUT SCH (20:35)
[2021-07-11] MEDS: Meropenem 500 MG in Sodium Chloride 0.9% 50 ML IV SCH ×4 (03:25→21:07)
[2021-07-11] MEDS ORDERED: Iopamidol 612 MG/ML 50 ML SDV PO STA (03:26)
--- NOTE | 2021-07-11 04:44 | CRLCR ---
For Patients: As a result of the Century Cures Act, medical imaging exams and procedure reports are released immediately into your electronic medical record. You may view this report before your referring provider. If you have questions, please contact your health care provider. INDICATION: S/p 1 like gastric bypass surgery. Partial small bowel obstruction. Evaluate for leak. COMPARISON: Limited upper GI examination from 03/25/2018. FINDINGS: Four views of the abdomen are obtained in the upright position. The initial examination is a project development manager view. Again seen are surgical clips in the right upper quadrant from cholecystectomy and surgical carmella in the area of the gastric cardia. A new line of surgical skin carmella is seen along the midline of the lower abdomen and upper pelvis. There are new markers from mesh hernia repair in the periumbilical region. Subsequent films show swelling of oral contrast, opacifying a small gastric remnant. There is prompt passage of the swallowed contrast into the nondilated jejunum, with prompt passage into the small bowel. There is no sign of small bowel obstruction. There is no sign of extravasation of contrast into the peritoneum. The osseous structures are normal in appearance for the patient`s age. The lung bases are clear. IMPRESSION: Prompt passage of swallowed contrast through the small gastric remnant and through the nondilated jejunum. No sign of extravasation of contrast. Dictated by Pio Brown MD @ 07/11/2021 4:43:21 AM (Electronically Signed)
[2021-07-11] MEDS: Dextrose 5%-Lactated Ringers 1,000 ML IV SCH ×2 (04:50→13:45)
[2021-07-11] MEDS: Acetaminophen 500 MG Tab PO SCH ×3 (05:37→21:07)
[2021-07-11] MEDS: Heparin Sodium 5,000 Units/ML Vial SUBCUT SCH ×2 (07:49→21:06)
--- NOTE | 2021-07-11 07:49 | PN ---
DATE OF SERVICE: 07/11/2021 SUBJECTIVE: Pamela is postop day #1. Upper GI this morning was normal. Vital signs have been stable. She has been using her FARM TRACTOR MECHANIC for pain, up ambulating. Oral intake 1040. Urine output 3050. REVIEW OF SYSTEMS: Remainder of review of systems negative for any pertinent positives and negatives. OBJECTIVE: GENERAL: Pamela Mendoza is a pleasant 36-year-old female. She is sitting up in bed, alert and orientated. VITAL SIGNS: TPR is 96.7, 63, and 16. Blood pressure 125/72. HEENT: Negative. NECK: Supple. HEART: Regular rate and rhythm. LUNGS: Clear. ABDOMEN: Dressing dry and intact. Abdominal binder on. EXTREMITIES: Without peripheral edema. ASSESSMENT: Exploratory laparotomy with lysis of adhesions. 1. Small-bowel resection. 2. Separate enteric enterotomy to re-establish Emerson-en-Y small bowel anatomy. 3. Small bowel strictureplasty. 4. Repair of recurrent incarcerated incisional hernia. 5. Tube decompression of small bowel. 6. Placement of Interceed mesh. POSTOPERATIVE DIAGNOSES: High-grade peritoneal small bowel. Dori Mills PA-C /[id number]
[2021-07-11] MEDS: Docusate Sodium 100 MG Cap PO SCH ×2 (08:29→21:06)
[2021-07-11] MEDS: Bisacodyl 5 MG Tab PO SCH ×2 (08:30→21:06)
[2021-07-11] MEDS: Celecoxib 200 MG Cap PO SCH ×2 (08:31→21:07)
[2021-07-11] MEDS: Magnesium Sulfate/Water 2 GM in Premix Bag 1 BAG IV SCH ×3 (08:32→21:08)
[2021-07-11] MEDS: SCOPOLAMINE PATCH CHECK TOP SCH (08:39)
[2021-07-11] MEDS: diphenhydrAMINE 25 MG Cap PO PRN (08:42)
[2021-07-11] MEDS: Metoclopramide 10 MG/2 ML SDV IVPUSH PRN (10:26)
[2021-07-11] MEDS ORDERED: MVI, Adult with Vitamin K 10 ML, Thiamine 200 MG, Zinc/Copper/Manganese/Selenium 1 ML i... IV SCH ×4 (16:00)
[2021-07-11] MEDS: Pantoprazole 40 MG Tab.CR PO SCH (17:19)
[2021-07-11] MEDS: Ondansetron 4 MG Tab.DIS PO PRN (17:25)
[2021-07-11] MEDS: DULoxetine 30 MG Cap PO SCH (21:06)
[2021-07-11] MEDS: ALPRAZolam 0.25 MG Tab PO PRN (21:17)
[2021-07-11] MEDS: Calcium Carbonate 500 MG Tab.Chew PO PRN (23:24)
[2021-07-12] MEDS: Ondansetron 4 MG Tab.DIS PO PRN ×2 (02:56→22:24)
[2021-07-12] MEDS: Dextrose 5%-Lactated Ringers 1,000 ML IV SCH ×2 (02:57→13:47)
[2021-07-12] MEDS: Meropenem 500 MG in Sodium Chloride 0.9% 50 ML IV SCH ×2 (03:00→10:34)
[2021-07-12] MEDS: Magnesium Sulfate/Water 2 GM in Premix Bag 1 BAG IV SCH ×4 (03:02→21:51)
[2021-07-12] MEDS: Cyclobenzaprine 10 MG Tab PO PRN (05:28)
[2021-07-12] MEDS: Acetaminophen 500 MG Tab PO SCH ×3 (05:29→21:09)
[2021-07-12] MEDS: Heparin Sodium 5,000 Units/ML Vial SUBCUT SCH ×2 (07:40→21:09)
[2021-07-12] MEDS: Pantoprazole 40 MG Tab.CR PO SCH (07:40)
--- NOTE | 2021-07-12 08:40 | OR ---
DATE OF PROCEDURE: 07/10/2021 SURGEON: Humberto Felder MD PREOPERATIVE DIAGNOSIS: High-grade partial small bowel obstruction. POSTOPERATIVE DIAGNOSES: 1. High-grade partial small bowel obstruction at jejunojejunostomy. 2. Separate small bowel stricture at previous enteroenterostomy. 3. Marked distention of proximal small bowel. 4. Recurrent incarcerated incisional hernia. OPERATIVE PROCEDURES: Exploratory laparotomy with lysis of adhesions and: 1. Small bowel resection (77548). 2. Separate enteroenterostomy for re-establishment of Emerson-en-Y small bowel anatomy (55372). 3. Small bowel stricturoplasty (79952). 4. Repair of recurrent incarcerated incisional hernia (90284). 5. Enterotomy for tube decompression of dilated proximal small bowel (84059). 6. Placement of Interceed mesh to limit recurrent adhesion formation between pelvic and abdominal wall and underlying viscera (51322). ANESTHESIA: General. STITCH BONDING MACHINE OPERATOR: Dori Mills PA-C INDICATIONS FOR PROCEDURE: This is a 36-year-old with at least a several-week history of crampy abdominal pain presenting to [facility] on Wednesday night with a picture of small-bowel obstruction. At that time, there was fecalization leading up to what appeared to be a point of high-grade partial obstruction at the jejunojejunostomy. After rehydration, the patient is undergoing exploratory laparotomy. Potential risks of the procedure including bleeding, infection, injury to underlying viscera, problems with leaks from any GI tract closures, problems with recurrence of the bowel obstruction over time were all reviewed, and the patient wishes to proceed. DETAILS OF PROCEDURE: The patient was taken to the operating room, and after general endotracheal anesthesia was induced, a Branch catheter was inserted and the abdomen prepped and draped. An upper midline incision from the umbilicus to roughly 3 fingerbreadths below the xiphoid was made and carried down through the full-thickness abdominal wall. The patient had preexisting polypropylene mesh in that area which was divided. Prior to entering the bowel, the mesh was then sequestered under antibiotic containing sponges to limit chances of that becoming contaminated and then subsequently infected. Upon entering the abdomen, the patient was noted to have a tight narrowing at the point where the Emerson limb entered the jejunojejunostomy and the bowel proximal to that roughly 10 inches was markedly dilated and had some palpable solid material within it consistent with a preoperative CT scan. Additionally, the patient had what appeared to be an area of stricturing in the previous anastomosis which at this point was within the biliopancreatic limb with bowel proximal to that being quite dilated. At this point, the small bowel containing the current jejunojejunostomy was resected with TAJ carmella and the bowel at the proximal end of the edematous and distended portion was then divided as well, the underlying mesentery divided, and the segment of small bowel then delivered from the field. There was still quite a bit of fluid within the Emerson limb. Given this, an enterotomy was made in the divided end of the Emerson limb staple line and the bowel decompressed by means of a Bartholomew Sump tube being placed in that area. Small bowel anatomy was then initially reconstructed with a [id number] anastomosis between what had been the distal-most biliopancreatic limb to the proximal most common limb. This was with an internal firing of the Endo-TAJ 60 mm stapler. Common opening was closed transversely with the same stapler, angles anastomosed and mesenteric defect were then approximated with some 3-0 Vicryl stitch. GI tract continuity was then re-established with a second anastomosis between the distal end of the Emerson limb and the small bowel roughly 20 cm distal to the first anastomosis with the same sequence of carmella, and in this case, mesenteric defect was closed with a 2-0 silk stitch as this was a quite large mesenteric defect and would be prone to develop a subsequent volvulus. The area of stricturing within the biliopancreatic limb was then dealt by means of opening the small bowel on its antimesenteric border at the point of stricture placing a 60 mm stapler within it each side of the bowel, firing that and then closing the common opening transversely. The angles anastomosed were reinforced with some 3-0 Vicryl stitch and in this case there was no mesenteric defect. The patient on entering the abdomen was noted to have a small recurrence of hernia just above the pre-existing mesh, this containing roughly a grape sized bit of fatty tissue within it and this had been resected as well. At this point, new gowns and gloves were obtained. The area was once again irrigated with antibiotic-containing saline solution and the bowel returned back into the peritoneal cavity and the gauze around the mesh then taken down. The mesh was then reconstructed on its lower half with a running #1 Prolene stitch. Underlying the incision, a Vicryl mesh was then placed to limit recurrent adhesion formation between the mesh and surrounding abdominal and pelvic wall. The remaining portion of the mesh was also then reconnected with 0 Prolene stitch. The fascia overlying this was then approximated with #1 Vicryl stitch, subcutaneous tissue with 2 layers of 3-0 Vicryl stitch, and the skin with carmella. Prior to closure, bilateral transversus abdominis plane blocks were then placed and the wound was anesthetized with 1% lidocaine mixed with Marcaine. The patient was taken to the recovery room in satisfactory condition. Physician photography assistant, Dori Mills, played an essential role in assisting in this case, helping to position the patient, retract structures as needed, as well as suturing and cutting sutures and stapling when indicated. Her presence improved the patient's safety and decreased operative time. Humberto Felder MD Job #: [id number]
[2021-07-12] MEDS: Celecoxib 200 MG Cap PO SCH ×2 (08:42→21:09)
[2021-07-12] MEDS: Docusate Sodium 100 MG Cap PO SCH ×2 (08:42→21:09)
[2021-07-12] MEDS: Bisacodyl 5 MG Tab PO SCH ×2 (08:43→21:10)
[2021-07-12] MEDS: SCOPOLAMINE PATCH CHECK TOP SCH (08:43)
[2021-07-12] MEDS ORDERED: Cyanocobalamin (Vitamin B12) 1,000 MCG/ML SDV IM ONE (09:00)
[2021-07-12] MEDS: Calcium Carbonate 500 MG Tab.Chew PO PRN (12:57)
[2021-07-12] MEDS: DULoxetine 30 MG Cap PO SCH (21:09)
[2021-07-12] MEDS: ALPRAZolam 0.25 MG Tab PO PRN (21:16)
[2021-07-12] MEDS: oxyCODONE 5 MG Tab PO PRN (21:17)
[2021-07-13] MEDS: Cyclobenzaprine 10 MG Tab PO PRN (02:45)
[2021-07-13] MEDS: Calcium Carbonate 500 MG Tab.Chew PO PRN (02:48)
[2021-07-13] MEDS: oxyCODONE 5 MG Tab PO PRN ×2 (03:19→11:39)
[2021-07-13] MEDS: Acetaminophen 500 MG Tab PO SCH (06:24)
[2021-07-13] MEDS: Pantoprazole 40 MG Tab.CR PO SCH (07:37)
[2021-07-13] MEDS: Heparin Sodium 5,000 Units/ML Vial SUBCUT SCH (07:37)
[2021-07-13] MEDS ORDERED: Magnesium Hydroxide 400 MG/5 ML Susp 30 ML Cup PO ONE (09:00)
[2021-07-13] MEDS: Celecoxib 200 MG Cap PO SCH (09:03)
[2021-07-13] MEDS: Docusate Sodium 100 MG Cap PO SCH (09:03)
[2021-07-13] MEDS: Bisacodyl 5 MG Tab PO SCH (09:03)
[2021-07-13] MEDS: Ondansetron 4 MG Tab.DIS PO PRN (10:46)
[2021-07-13 10:49] VITALS: BP 159/96; PULSE 62
--- NOTE | 2021-07-13 13:58 | DISCH ---
FINAL DIAGNOSES: 1. High-grade partial small bowel obstruction at the jejunostomy. 2. Separate small bowel stricture at the previous enteroenterostomy. 3. Marked distention of proximal small bowel. 4. Recurrent incarcerated incisional hernia. SECONDARY DIAGNOSES: 1. Anxiety and depression. 2. Bariatric surgery status. 3. History of previous multiple bowel obstructions. OPERATIVE PROCEDURES: Done on 07/10/2021: 1. Exploratory laparotomy with lysis of adhesions: a. Small bowel resection. b. Separate enteroenterostomy to reestablish Emerson-en-Y small bowel anatomy. c. Small bowel stricturoplasty. d. Repair of recurrent incarcerated incisional hernia. e. Enterotomy for tube decompression of small bowel. f. Placement of Interceed mesh to limit recurrent adhesion formation between pelvic and abdominal wall and underlying viscera. SUMMARY: This is a 36-year-old female presenting with a small bowel obstruction. She was initially admitted to [facility] and transferred here subsequent morning. After preop evaluations and discussion, the patient underwent exploratory laparotomy with the above findings and procedures being completed. Postoperatively, she had a little slow return of bowel function, but otherwise is moving her bowels at this point and tolerating a step-3 diet. 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 She should be following up with Dori Mills at [facility] on 07/21/2021 and she will be instructed to start a step-3 diet this a.m., continued until her first appointment. Medication on discharge will include oxycodone 5 mg q.6 hours p.r.n. pain #12, Tylenol 1 g p.o. q.6 hours p.r.n. pain, and we will send her home with 2 doses of milk of magnesia to take as needed for any constipation that might occur. Job #: [id number]
--- NOTE | 2021-07-13 14:22 | PN ---
DATE OF SERVICE: 07/12/2021 The patient has been afebrile with stable vital signs. She is passing a little bit of flatus, no bowel movement as of yet pain medication. Oral intake was fair. We will continue the bowel stimulation, continue the ENERGY MANAGEMENT SPECIALIST, have her get in the shower today, change the Aquacel dressing, and most likely will be able to switch over to oral pain medication tomorrow. Humberto Felder MD Job #: [id number]
== END 2021-07-13 11:25 | disposition home or self-care (01) | DRG 221 ==
LOC: JP.MS 12:15
PROVIDERS: ADMIT Surgery; ATTEND Surgery
PROC: 0D1A0ZA Bypass Jejunum to Jejunum, Open Approach (ICD-10-PCS; principal; 2021-07-10)
PROC: 0WQF0ZZ Repair Abdominal Wall, Open Approach (ICD-10-PCS; 2021-07-10)
PROC: 3E0M05Z Introduction of Adhesion Barrier into Peritoneal Cavity, Open Approach (ICD-10-PCS; 2021-07-10)
PROC: 0DQ80ZZ Repair Small Intestine, Open Approach (ICD-10-PCS; 2021-07-10)
PROC: 0DB80ZZ Excision of Small Intestine, Open Approach (ICD-10-PCS; 2021-07-10)
DX: K95.89 Other complications of other bariatric procedure (principal); Y83.8 Other surgical procedures as the cause of abnormal reaction of the patient, or of later complication, without mention of misadventure at the time of the procedure; K56.600 Partial intestinal obstruction, unspecified as to cause; K63.89 Other specified diseases of intestine; K43.0 Incisional hernia with obstruction, without gangrene; F41.9 Anxiety disorder, unspecified; F32.A Depression, unspecified; Z98.84 Bariatric surgery status; Z88.1 Allergy status to other antibiotic agents; Z79.899 Other long term (current) drug therapy; G47.30 Sleep apnea, unspecified; K21.9 Gastro-esophageal reflux disease without esophagitis; Z87.440 Personal history of urinary (tract) infections; G43.909 Migraine, unspecified, not intractable, without status migrainosus; E66.9 Obesity, unspecified; E55.9 Vitamin D deficiency, unspecified; E53.8 Deficiency of other specified B group vitamins; Z90.49 Acquired absence of other specified parts of digestive tract; Z87.891 Personal history of nicotine dependence; Z20.822 Contact with and (suspected) exposure to COVID-19; Z68.31 Body mass index [BMI] 31.0-31.9, adult
CPT/HCPCS: 0241U; 36415; 74240; 80053; 82607; 82728; 82746; 83735; 84100; 85025; 94762; A9270-GY; C9113; J0171; J0330; J1100; J1170; J1644; J2020; J2185; J2405; J2704; J2710; J2765; J2795; J3010; J3411; J3420; J3475; J3490; J7120; J7121; Q9967

== ENCOUNTER 2022-09-01 19:25 | Emergency (ER) | payer BC ==
[2022-09-01] MEDS ORDERED: Sodium Chloride 0.9% 10 ML Syringe FLUSH PRN (19:34)
[2022-09-01] MEDS ORDERED: HYDROmorphone 0.5 MG/0.5 ML Syringe IVPUSH ONE (19:44)
[2022-09-01] MEDS ORDERED: Ondansetron 4 MG/2 ML SDV IVPUSH ONE (19:44)
[2022-09-01] MEDS ORDERED: Lactated Ringers 1,000 ML IV SCH (20:00)
[2022-09-01] MEDS ORDERED: Sodium Chloride 0.9% 75 ML IV SCH (20:00)
[2022-09-01] MEDS ORDERED: Iopamidol 612 MG/ML 100 ML Bottle IV SCH (20:00)
[2022-09-01 20:16] VITALS: BP 136/105; PULSE 87
[2022-09-01 20:34] LABS: CORONAVIRUS COVID-19 NAA NEGATIVE (NEGATIVE)
[2022-09-01 20:36] LABS: ESTIMATED GFR 115 mL/min (>60)
[2022-09-01] MEDS ORDERED: HYDROmorphone 0.5 MG/0.5 ML Syringe IVPUSH PRN (20:52)
[2022-09-01] MEDS ORDERED: Alum Hydrox/Mag Hydrox/Simeth 15 ML, Lidocaine 2% 15 ML PO ONE ×2 (21:14)
== END 2022-09-01 21:48 | disposition home or self-care (01) ==
LOC: JP.ED 19:25
DX: K21.00 Gastro-esophageal reflux disease with esophagitis, without bleeding (principal); E66.9 Obesity, unspecified; Z88.1 Allergy status to other antibiotic agents; Z79.899 Other long term (current) drug therapy; Z20.822 Contact with and (suspected) exposure to COVID-19; Z98.84 Bariatric surgery status; Z68.27 Body mass index [BMI] 27.0-27.9, adult
CPT/HCPCS: 0241U; 36415; 74177; 80053; 83605; 83690; 85025; 96361; 96374; 96375; 96376; 99284; A9270; J1170; J2405; J3490; J7120; Q9967

== ENCOUNTER 2022-09-21 09:17 | Day surgery (SDC) | payer BC ==
[2022-09-21] MEDS ORDERED: Glycopyrrolate 0.2 MG/ML 2 ML SDV IVPUSH ONE (10:00)
[2022-09-21] MEDS ORDERED: Lactated Ringers 1,000 ML IV ONE (10:00)
[2022-09-21] MEDS ORDERED: Cyanocobalamin (Vitamin B12) 1,000 MCG/ML SDV IM ONE (10:00)
[2022-09-21] MEDS ORDERED: MVI, Adult with Vitamin K 10 ML, Thiamine 200 MG, Zinc/Copper/Manganese/Selenium 1 ML i... IV ONE ×4 (10:30)
[2022-09-21] MEDS ORDERED: fentaNYL 100 MCG/2 ML SDV ONE (11:06)
[2022-09-21] MEDS ORDERED: Propofol 200 MG/20 ML SDV ONE (11:06)
[2022-09-21] MEDS ORDERED: Midazolam 1 MG/ML 2 ML SDV ONE (11:06)
[2022-09-21] MEDS ORDERED: Ondansetron 4 MG/2 ML SDV ONE (11:46)
[2022-09-21] MEDS ORDERED: Ondansetron 4 MG/2 ML SDV IVPUSH ONE (12:30)
[2022-09-21 13:07] VITALS: PULSE 72
[2022-09-21] MEDS ORDERED: LORazepam 0.5 MG Tab PO ONE (13:15)
[2022-09-21 13:30] VITALS: BP 134/98
== END 2022-09-21 13:42 | disposition home or self-care (01) ==
LOC: JP.SDS 09:17
PROVIDERS: ATTEND Surgery
DX: K31.7 Polyp of stomach and duodenum (principal); F41.9 Anxiety disorder, unspecified; Z98.84 Bariatric surgery status; Z88.1 Allergy status to other antibiotic agents; Z79.899 Other long term (current) drug therapy
CPT/HCPCS: 81025; A9270-GY; J2250; J2405; J2704; J3010; J3411; J3420; J3490; J7120

== ENCOUNTER 2023-01-28 09:23 | Inpatient (IN) | payer BC ==
[~2023-01-28 09:23] MED LIST changes: -fentaNYL 100 MCG/2 ML SDV ONE; +fentaNYL 50 MCG/ML SDV ONE
[2023-01-28] MEDS ORDERED: Cyanocobalamin (Vitamin B12) 1,000 MCG/ML SDV IM ONE (10:30)
[2023-01-28] MEDS ORDERED: Lactated Ringers 1,000 ML IV ONE (10:30)
[2023-01-28] MEDS ORDERED: Glycopyrrolate 0.2 MG/ML 2 ML SDV IVPUSH ONE (11:15)
[2023-01-28] MEDS ORDERED: MVI, Adult with Vitamin K 10 ML, Thiamine 200 MG, Zinc/Copper/Manganese/Selenium 1 ML i... IV ONE ×4 (11:30)
[2023-01-28] MEDS ORDERED: Ondansetron 4 MG/2 ML SDV IVPUSH ONE (12:00)
[2023-01-28] MEDS ORDERED: Propofol 200 MG/20 ML SDV ONE (12:05)
[2023-01-28] MEDS ORDERED: Acetaminophen 1,000 MG in Premix Bag 1 BAG IV ONE (13:30)
[2023-01-28] MEDS ORDERED: HYDROmorphone 0.5 MG/0.5 ML Syringe IVPUSH PRN (15:00)
[2023-01-28] MEDS: Dextrose 5%-Lactated Ringers 1,000 ML IV SCH (15:21)
[2023-01-28] MEDS: HYDROmorphone 1 MG/ML Syringe IV PRN ×2 (15:26→20:13)
[2023-01-28] MEDS: Pantoprazole 40 MG Vial IVPUSH SCH (15:26)
[2023-01-28 15:45] LABS: HEMATOCRIT 40.1 % (34.3-46.0); HEMOGLOBIN 13.7 g/dL (11.2-15.5); MEAN CORPUSCULAR HGB CONC 34.2 g/dL (31.6-35.5); MEAN CORPUSCULAR VOLUME 84.8 fL (81.4-99.0); RED BLOOD CELL COUNT 4.73 M/uL (3.77-5.24); WHITE BLOOD CELL COUNT,WBC 6.6 K/uL (3.2-11.0)
[2023-01-28] MEDS ORDERED: LORazepam 2 MG/ML SDV IVPUSH PRN (15:57)
[2023-01-28 16:09] LABS: A/G RATIO 1.1 (1.2-2.2); ALANINE AMINOTRANSFERASE,ALT 123 U/L (12-78); ALBUMIN 3.3 g/dL (3.4-5.0); ALKALINE PHOSPHATASE 136 U/L (46-116); ANION GAP 12.9 mmol/L (5.0-14.0); ASPARTATE AMNIOTRANSFERASE,AST 37 U/L (15-37); BILIRUBIN TOTAL 1.2 mg/dL (0.2-1.0); BLOOD UREA NITROGEN,BUN 8 mg/dL (7-18); CALCIUM 8.8 mg/dL (8.5-10.1); CARBON DIOXIDE,CO2 25 mmol/L (21-32); CHLORIDE,CL 103 mmol/L (100-108); CREATININE 0.7 mg/dL (0.6-1.0); EST CRCL DRUG DOSING (CG) 91.91 mL/min; ESTIMATED GFR 115 mL/min (>60); GLUCOSE RANDOM 92 mg/dL (74-106); POTASSIUM,K 3.9 mmol/L (3.6-5.2); PROTEIN TOTAL,TP 6.3 g/dL (6.4-8.2); SODIUM,NA 137 mmol/L (140-148)
[2023-01-28 16:32] LABS: FERRITIN 35 ng/ml (8-388); FOLIC ACID 19.3 ng/ml (8.6-58.9); MAGNESIUM 1.6 mg/dL (1.8-2.4); PHOSPHORUS 3.8 mg/dL (2.5-4.9)
[2023-01-28] MEDS: Ondansetron 4 MG/2 ML SDV IVPUSH PRN (19:35)
[2023-01-28] MEDS: DULoxetine 30 MG Cap PO SCH (22:46)
[2023-01-29] MEDS: HYDROmorphone 1 MG/ML Syringe IV PRN (00:13)
[2023-01-29] MEDS: Dextrose 5%-Lactated Ringers 1,000 ML IV SCH (00:22)
[2023-01-29] MEDS ORDERED: Meropenem 500 MG SDV ONE ×2 (07:01→10:47)
[2023-01-29] MEDS ORDERED: Lidocaine 1% with EPINEPHrine 1:100,000 50 ML MDV ONE (07:01)
[2023-01-29] MEDS ORDERED: Bupivacaine 0.5% 50 ML MDV ONE (07:01)
[2023-01-29] MEDS: Ondansetron 4 MG/2 ML SDV IVPUSH PRN ×2 (07:39→22:26)
[2023-01-29] MEDS ORDERED: Glycopyrrolate 0.2 MG/ML 5 ML MDV ONE (08:38)
[2023-01-29] MEDS ORDERED: Succinylcholine 200 MG/10 ML MDV ONE (08:38)
[2023-01-29] MEDS ORDERED: Rocuronium 50 MG/5 ML Vial ONE (08:38)
[2023-01-29] MEDS ORDERED: Dexamethasone 4 MG/ML SDV ONE (08:38)
[2023-01-29] MEDS ORDERED: Neostigmine Methylsulfate 1 MG/ML 5 ML Syringe ONE (08:38)
[2023-01-29] MEDS ORDERED: Ondansetron 4 MG/2 ML SDV ONE (08:38)
[2023-01-29] MEDS ORDERED: Propofol 200 MG/20 ML SDV ONE (08:38)
[2023-01-29] MEDS ORDERED: fentaNYL 250 MCG/5 ML SDV ONE ×2 (08:38→10:49)
[2023-01-29] MEDS ORDERED: Ketamine 15 MG in Sodium Chloride 0.9% 19.85 ML IV SCH (08:45)
[2023-01-29] MEDS ORDERED: Ketamine 500 MG/5 ML MDV IV SCH (08:45)
[2023-01-29] MEDS ORDERED: Lactated Ringers 1,000 ML ONE ×2 (10:20→11:34)
[2023-01-29] MEDS ORDERED: Scopolamine 1.5 MG Transdermal Patch ONE (10:25)
[2023-01-29] MEDS ORDERED: Sodium Chloride 0.9% 10 ML ONE (10:47)
[2023-01-29] MEDS ORDERED: Labetalol 20 MG/4 ML Syringe ONE (11:06)
[2023-01-29] MEDS ORDERED: Linezolid 600 MG/300 ML Premix Bag IRR ONE (11:16)
[2023-01-29] MEDS ORDERED: hydrALAZINE 20 MG/ML SDV ONE (11:51)
[2023-01-29] MEDS ORDERED: Ondansetron 4 MG/2 ML SDV IVPUSH ONE (12:45)
[2023-01-29] MEDS ORDERED: fentaNYL 50 MCG/ML SDV IVPUSH ONE (12:45)
[2023-01-29] MEDS ORDERED: hydrOXYzine HCl 50 MG/ML SDV IM ONE (12:45)
[2023-01-29] MEDS ORDERED: Naloxone 0.4 MG/ML SDV IVPUSH PRN (12:53)
[2023-01-29] MEDS ORDERED: HYDROmorphone/Normal Saline 6 MG/30 ML PCA Vial IV PRN (12:53)
[2023-01-29] MEDS ORDERED: diphenhydrAMINE 25 MG Cap PO PRN (12:53)
[2023-01-29] MEDS ORDERED: Ondansetron 4 MG/2 ML SDV IVPUSH PRN (12:53)
[2023-01-29] MEDS ORDERED: diphenhydrAMINE 50 MG/ML SDV IVPUSH PRN ×2 (12:53→14:05)
[2023-01-29] MEDS ORDERED: Acetaminophen 500 MG Tab PO PRN (14:05)
[2023-01-29] MEDS ORDERED: Labetalol 20 MG/4 ML Syringe IVPUSH PRN (14:05)
[2023-01-29] MEDS ORDERED: hydrOXYzine HCl 50 MG/ML SDV IM PRN (14:05)
[2023-01-29] MEDS ORDERED: Dextrose 5%-Lactated Ringers 1,000 ML IV SCH (14:15)
[2023-01-29] MEDS: Cyclobenzaprine 10 MG Tab PO PRN (14:30)
[2023-01-29] MEDS: HYDROmorphone/Normal Saline 6 MG/30 ML PCA Vial IV PRN ×2 (15:55→21:09)
[2023-01-29] MEDS: LORazepam 2 MG/ML SDV IVPUSH PRN ×2 (15:56→21:10)
[2023-01-29] MEDS ORDERED: MVI, Adult with Vitamin K 10 ML, Thiamine 200 MG, Zinc/Copper/Manganese/Selenium 1 ML i... IV SCH ×4 (16:00)
[2023-01-29] MEDS: Pantoprazole 40 MG Vial IVPUSH SCH (16:03)
[2023-01-29] MEDS: Meropenem 500 MG in Sodium Chloride 0.9% 50 ML IV SCH ×2 (16:17→22:26)
[2023-01-29] MEDS: Heparin Sodium 5,000 Units/ML Vial SUBCUT SCH (18:24)
[2023-01-29] MEDS: Acetaminophen 500 MG Tab PO SCH (21:15)
[2023-01-29] MEDS: DULoxetine 30 MG Cap PO SCH (21:15)
[2023-01-30] MEDS: Calcium Carbonate 500 MG Tab.Chew PO PRN (00:32)
[2023-01-30] MEDS: LORazepam 2 MG/ML SDV IVPUSH PRN (01:20)
[2023-01-30] MEDS ORDERED: Iopamidol 612 MG/ML 30 ML SDV PO STA (03:51)
[2023-01-30] MEDS ORDERED: LORazepam 2 MG/ML SDV IVPUSH STA (04:33)
[2023-01-30 05:17] LABS: BASOPHILS ABSOLUTE AUTO 0.03 K/uL (0.00-0.10); BASOPHILS PERCENT AUTO 0.2 % (0.1-1.3); HEMATOCRIT 37.7 % (34.3-46.0); HEMOGLOBIN 12.7 g/dL (11.2-15.5); IMMATURE GRAN ABSOLUTE AUTO 0.08 K/uL (0.00-0.23); IMMATURE GRAN PERCENT AUTO 0.5 % (0.0-0.7); LYMPHOCYTES ABSOLUTE AUTO 1.58 K/uL (0.8-3.3); LYMPHOCYTES PERCENT AUTO 10.8 % (11.4-47.7); MEAN CORPUSCULAR HEMOGLOBIN 28.9 pg (31.6-35.5); MEAN CORPUSCULAR HGB CONC 33.7 g/dL (31.6-35.5); MEAN CORPUSCULAR VOLUME 85.9 fL (81.4-99.0); MONOCYTES ABSOLUTE AUTO 0.93 K/uL (0.20-0.90); MONOCYTES PERCENT AUTO 6.4 % (3.3-12.6); NEUTROPHILS ABSOLUTE AUTO 11.99 K/uL (1.0-7.6); NEUTROPHILS PERCENT AUTO 82.1 % (40.0-78.1); PLATELET COUNT,PLT 208 K/uL (130-375); RED BLOOD CELL COUNT 4.39 M/uL (3.77-5.24); WHITE BLOOD CELL COUNT,WBC 14.6 K/uL (3.2-11.0)
[2023-01-30] MEDS: Meropenem 500 MG in Sodium Chloride 0.9% 50 ML IV SCH ×4 (05:33→22:37)
[2023-01-30] MEDS: Heparin Sodium 5,000 Units/ML Vial SUBCUT SCH ×2 (05:34→17:40)
[2023-01-30] MEDS: Acetaminophen 500 MG Tab PO SCH ×3 (05:34→21:16)
[2023-01-30 05:40] LABS: ALANINE AMINOTRANSFERASE,ALT 93 U/L (12-78); ALKALINE PHOSPHATASE 115 U/L (46-116); ASPARTATE AMNIOTRANSFERASE,AST 29 U/L (15-37); BILIRUBIN TOTAL 0.6 mg/dL (0.2-1.0); BLOOD UREA NITROGEN,BUN 4 mg/dL (7-18); CALCIUM 8.2 mg/dL (8.5-10.1); CARBON DIOXIDE,CO2 25 mmol/L (21-32); CHLORIDE,CL 105 mmol/L (100-108); CREATININE 0.6 mg/dL (0.6-1.0); EST CRCL DRUG DOSING (CG) 107.23 mL/min; ESTIMATED GFR 119 mL/min (>60); GLUCOSE RANDOM 145 mg/dL (74-106); MAGNESIUM 1.5 mg/dL (1.8-2.4); PHOSPHORUS 2.5 mg/dL (2.5-4.9); POTASSIUM,K 3.8 mmol/L (3.6-5.2); PROTEIN TOTAL,TP 5.9 g/dL (6.4-8.2); SODIUM,NA 138 mmol/L (140-148)
[2023-01-30] MEDS ORDERED: LORazepam 1 MG Tab PO SCH (05:45)
[2023-01-30 05:50] LABS: ANION GAP 11.8 mmol/L (5.0-14.0)
[2023-01-30] MEDS: LORazepam 2 MG/ML SDV IV SCH ×6 (05:55→21:06)
[2023-01-30] MEDS: Magnesium Sulfate/Water 2 GM in Premix Bag 1 BAG IV SCH ×3 (09:15→20:29)
[2023-01-30] MEDS: Nicotine 21 MG/24 Hr Patch TRDERM SCH (10:50)
[2023-01-30] MEDS: Gabapentin 100 MG Cap PO SCH ×3 (10:52→21:15)
[2023-01-30] MEDS: Thiamine 100 MG Tab PO SCH (10:53)
[2023-01-30] MEDS: Folic Acid 1 MG Tab PO SCH (10:53)
[2023-01-30] MEDS: Celecoxib 200 MG Cap PO SCH ×2 (10:56→21:15)
[2023-01-30] MEDS ORDERED: Potassium Phos in 0.9 % NaCl 15 MMOL in Premix Bag 1 BAG IV SCH ×2 (11:00)
[2023-01-30] MEDS: Sodium Ferric Gluconate Cmplex 250 MG in Sodium Chloride 0.9% 100 ML IV SCH (14:10)
[2023-01-30] MEDS: Dextrose 5%-Lactated Ringers 1,000 ML IV SCH (14:44)
[2023-01-30] MEDS: Pantoprazole 40 MG Vial IVPUSH SCH (15:32)
[2023-01-30] MEDS ORDERED: MVI, Adult with Vitamin K 10 ML, Thiamine 200 MG, Zinc/Copper/Manganese/Selenium 1 ML i... IV SCH ×4 (16:00)
[2023-01-30] MEDS: Potassium Phos in 0.9 % NaCl 15 MMOL in Premix Bag 1 BAG IV SCH ×4 (18:23→20:29)
[2023-01-30] MEDS: DULoxetine 30 MG Cap PO SCH (21:15)
[2023-01-31] MEDS: LORazepam 2 MG/ML SDV IV SCH ×2 (00:16→01:44)
[2023-01-31] MEDS: Dextrose 5%-Lactated Ringers 1,000 ML IV SCH ×3 (01:59→23:24)
[2023-01-31] MEDS: Magnesium Sulfate/Water 2 GM in Premix Bag 1 BAG IV SCH ×4 (02:00→21:18)
[2023-01-31 04:13] LABS: HEMATOCRIT 35.8 % (34.3-46.0); HEMOGLOBIN 11.8 g/dL (11.2-15.5); MEAN CORPUSCULAR HEMOGLOBIN 29.1 pg (31.6-35.5); MEAN CORPUSCULAR VOLUME 88.4 fL (81.4-99.0); RED BLOOD CELL COUNT 4.05 M/uL (3.77-5.24)
[2023-01-31 04:36] LABS: A/G RATIO 0.9 (1.2-2.2); ALANINE AMINOTRANSFERASE,ALT 60 U/L (12-78); ALBUMIN 2.4 g/dL (3.4-5.0); ALKALINE PHOSPHATASE 94 U/L (46-116); ASPARTATE AMNIOTRANSFERASE,AST 18 U/L (15-37); BILIRUBIN TOTAL 0.4 mg/dL (0.2-1.0); BLOOD UREA NITROGEN,BUN 3 mg/dL (7-18); CARBON DIOXIDE,CO2 28 mmol/L (21-32); CHLORIDE,CL 110 mmol/L (100-108); CREATININE 0.7 mg/dL (0.6-1.0); EST CRCL DRUG DOSING (CG) 91.91 mL/min; ESTIMATED GFR 115 mL/min (>60); GLUCOSE RANDOM 98 mg/dL (74-106); POTASSIUM,K 4.1 mmol/L (3.6-5.2); SODIUM,NA 143 mmol/L (140-148)
[2023-01-31] MEDS: Meropenem 500 MG in Sodium Chloride 0.9% 50 ML IV SCH ×2 (04:43→10:20)
[2023-01-31 05:01] LABS: ANION GAP 9.1 mmol/L (5.0-14.0)
[2023-01-31] MEDS: Heparin Sodium 5,000 Units/ML Vial SUBCUT SCH ×2 (05:46→17:54)
[2023-01-31] MEDS: Acetaminophen 500 MG Tab PO SCH ×3 (05:46→21:20)
[2023-01-31] MEDS: Nicotine 21 MG/24 Hr Patch TRDERM SCH (08:21)
[2023-01-31] MEDS: Gabapentin 100 MG Cap PO SCH ×3 (08:22→21:21)
[2023-01-31] MEDS: Folic Acid 1 MG Tab PO SCH (08:22)
[2023-01-31] MEDS: Thiamine 100 MG Tab PO SCH (08:23)
[2023-01-31] MEDS: Celecoxib 200 MG Cap PO SCH ×2 (08:23→21:21)
[2023-01-31] MEDS ORDERED: Cyanocobalamin (Vitamin B12) 1,000 MCG/ML SDV IM ONE (09:00)
[2023-01-31] MEDS ORDERED: Tamsulosin 0.4 MG Cap.ER PO ONE (10:00)
[2023-01-31] MEDS: Ondansetron 4 MG/2 ML SDV IVPUSH PRN ×2 (11:11→16:28)
[2023-01-31] MEDS: Sodium Ferric Gluconate Cmplex 250 MG in Sodium Chloride 0.9% 100 ML IV SCH (11:40)
[2023-01-31] MEDS: Pantoprazole 40 MG Vial IVPUSH SCH (15:06)
[2023-01-31] MEDS: LORazepam 0.5 MG Tab PO PRN (18:05)
[2023-01-31] MEDS: Cyclobenzaprine 10 MG Tab PO PRN (18:06)
[2023-01-31] MEDS ORDERED: Scopolamine 1.5 MG Transdermal Patch TOP ONE (18:49)
[2023-01-31] MEDS: HYDROmorphone/Normal Saline 6 MG/30 ML PCA Vial IV PRN (19:09)
[2023-01-31] MEDS: DULoxetine 30 MG Cap PO SCH (21:21)
[2023-01-31] MEDS: Tamsulosin 0.4 MG Cap.ER PO SCH (21:21)
[2023-01-31] MEDS: Calcium Carbonate 500 MG Tab.Chew PO PRN (23:24)
[2023-02-01] MEDS: LORazepam 0.5 MG Tab PO PRN ×2 (01:51→18:03)
[2023-02-01] MEDS: Magnesium Sulfate/Water 2 GM in Premix Bag 1 BAG IV SCH ×4 (03:32→21:33)
[2023-02-01 04:48] LABS: HEMATOCRIT 36.1 % (34.3-46.0); HEMOGLOBIN 11.9 g/dL (11.2-15.5); MEAN CORPUSCULAR HEMOGLOBIN 29.1 pg (31.6-35.5); MEAN CORPUSCULAR VOLUME 88.3 fL (81.4-99.0); RED BLOOD CELL COUNT 4.09 M/uL (3.77-5.24); WHITE BLOOD CELL COUNT,WBC 7.2 K/uL (3.2-11.0)
[2023-02-01 05:03] LABS: A/G RATIO 0.8 (1.2-2.2); ALANINE AMINOTRANSFERASE,ALT 45 U/L (12-78); ALBUMIN 2.2 g/dL (3.4-5.0); ALKALINE PHOSPHATASE 97 U/L (46-116); ASPARTATE AMNIOTRANSFERASE,AST 14 U/L (15-37); BILIRUBIN TOTAL 0.4 mg/dL (0.2-1.0); BLOOD UREA NITROGEN,BUN 4 mg/dL (7-18); CALCIUM 7.9 mg/dL (8.5-10.1); CARBON DIOXIDE,CO2 26 mmol/L (21-32); CHLORIDE,CL 107 mmol/L (100-108); CREATININE 0.6 mg/dL (0.6-1.0); EST CRCL DRUG DOSING (CG) 107.23 mL/min; ESTIMATED GFR 119 mL/min (>60); GLUCOSE RANDOM 95 mg/dL (74-106); MAGNESIUM 2.5 mg/dL (1.8-2.4); PHOSPHORUS 3.8 mg/dL (2.5-4.9); PROTEIN TOTAL,TP 4.9 g/dL (6.4-8.2); SODIUM,NA 139 mmol/L (140-148)
[2023-02-01] MEDS: Heparin Sodium 5,000 Units/ML Vial SUBCUT SCH ×2 (05:28→17:58)
[2023-02-01] MEDS: Acetaminophen 500 MG Tab PO SCH ×3 (05:28→21:35)
[2023-02-01] MEDS: Ondansetron 4 MG/2 ML SDV IVPUSH PRN ×3 (08:45→20:17)
[2023-02-01] MEDS: Dextrose 5%-Lactated Ringers 1,000 ML IV SCH ×2 (09:03→20:27)
[2023-02-01] MEDS: [UNRECOGNIZED DRUG - OTHER] TOP SCH (09:05)
[2023-02-01] MEDS: CHECK TOP SCH (09:05)
[2023-02-01] MEDS: Folic Acid 1 MG Tab PO SCH (09:29)
[2023-02-01] MEDS: Thiamine 100 MG Tab PO SCH (09:29)
[2023-02-01] MEDS: Celecoxib 200 MG Cap PO SCH ×2 (09:29→21:33)
[2023-02-01] MEDS: Bisacodyl 5 MG Tab PO SCH ×2 (09:30→21:34)
[2023-02-01] MEDS: Gabapentin 100 MG Cap PO SCH ×3 (09:30→21:35)
[2023-02-01] MEDS: Docusate Sodium 100 MG Cap PO SCH ×2 (09:30→21:34)
[2023-02-01] MEDS: Nicotine 21 MG/24 Hr Patch TRDERM SCH (09:31)
[2023-02-01] MEDS: HYDROmorphone 2 MG Tab PO PRN ×2 (14:13→20:17)
[2023-02-01] MEDS: Calcium Carbonate 500 MG Tab.Chew PO PRN (14:47)
[2023-02-01] MEDS: Pantoprazole 40 MG Vial IVPUSH SCH (15:16)
[2023-02-01] MEDS: Tamsulosin 0.4 MG Cap.ER PO SCH (21:35)
[2023-02-01] MEDS: DULoxetine 30 MG Cap PO SCH (21:35)
[2023-02-01] MEDS: Metoclopramide 10 MG/2 ML SDV IVPUSH PRN (23:42)
[2023-02-02] MEDS: Magnesium Sulfate/Water 2 GM in Premix Bag 1 BAG IV SCH (04:01)
[2023-02-02] MEDS: HYDROmorphone 2 MG Tab PO PRN ×5 (04:45→23:28)
[2023-02-02] MEDS: Metoclopramide 10 MG/2 ML SDV IVPUSH PRN (04:45)
[2023-02-02] MEDS: Heparin Sodium 5,000 Units/ML Vial SUBCUT SCH ×2 (05:25→17:06)
[2023-02-02] MEDS: Acetaminophen 500 MG Tab PO SCH ×3 (05:25→21:10)
[2023-02-02] MEDS: Dextrose 5%-Lactated Ringers 1,000 ML IV SCH ×2 (06:21→15:58)
[2023-02-02] MEDS: Gabapentin 100 MG Cap PO SCH ×3 (08:07→21:10)
[2023-02-02] MEDS: Bisacodyl 5 MG Tab PO SCH ×2 (08:07→21:10)
[2023-02-02] MEDS: Celecoxib 200 MG Cap PO SCH ×2 (08:07→21:09)
[2023-02-02] MEDS: Thiamine 100 MG Tab PO SCH (08:07)
[2023-02-02] MEDS: Docusate Sodium 100 MG Cap PO SCH ×2 (08:07→21:09)
[2023-02-02] MEDS: Folic Acid 1 MG Tab PO SCH (08:08)
[2023-02-02] MEDS: Nicotine 21 MG/24 Hr Patch TRDERM SCH (08:08)
[2023-02-02] MEDS: LORazepam 0.5 MG Tab PO PRN ×2 (09:49→21:18)
[2023-02-02] MEDS: CHECK TOP SCH (09:50)
[2023-02-02] MEDS: [UNRECOGNIZED DRUG - OTHER] TOP SCH (09:50)
[2023-02-02] MEDS: Cyclobenzaprine 10 MG Tab PO PRN ×2 (11:46→21:15)
[2023-02-02] MEDS ORDERED: Scopolamine 1.5 MG Transdermal Patch TRDERM PRN (12:41)
[2023-02-02] MEDS: Calcium Carbonate 500 MG Tab.Chew PO PRN (16:04)
[2023-02-02] MEDS ORDERED: Pantoprazole 40 MG Tab.CR PO SCH (16:30)
[2023-02-02] MEDS: Ondansetron 4 MG/2 ML SDV IVPUSH PRN (19:27)
[2023-02-02] MEDS: DULoxetine 30 MG Cap PO SCH (21:09)
[2023-02-02] MEDS: Tamsulosin 0.4 MG Cap.ER PO SCH (21:10)
[2023-02-03] MEDS: Dextrose 5%-Lactated Ringers 1,000 ML IV SCH ×2 (01:56→10:48)
[2023-02-03] MEDS: HYDROmorphone 2 MG Tab PO PRN ×2 (05:20→13:11)
[2023-02-03] MEDS: Heparin Sodium 5,000 Units/ML Vial SUBCUT SCH (05:59)
[2023-02-03] MEDS: Acetaminophen 500 MG Tab PO SCH ×2 (06:01→13:12)
[2023-02-03] MEDS: Cyclobenzaprine 10 MG Tab PO PRN (07:30)
[2023-02-03] MEDS: Ondansetron 4 MG/2 ML SDV IVPUSH PRN (07:36)
[2023-02-03] MEDS: Docusate Sodium 100 MG Cap PO SCH (08:42)
[2023-02-03] MEDS: Folic Acid 1 MG Tab PO SCH (08:43)
[2023-02-03] MEDS: Gabapentin 100 MG Cap PO SCH ×2 (08:43→13:11)
[2023-02-03] MEDS: Thiamine 100 MG Tab PO SCH (08:43)
[2023-02-03] MEDS: Bisacodyl 5 MG Tab PO SCH (08:43)
[2023-02-03] MEDS: Celecoxib 200 MG Cap PO SCH (08:43)
[2023-02-03] MEDS: Nicotine 21 MG/24 Hr Patch TRDERM SCH (08:44)
[2023-02-03] MEDS: LORazepam 0.5 MG Tab PO PRN ×2 (08:50→13:11)
[2023-02-03] MEDS ORDERED: MVI, Adult with Vitamin K 10 ML, Thiamine 200 MG, Zinc/Copper/Manganese/Selenium 1 ML i... IV ONE ×4 (09:00)
[2023-02-03 13:55] VITALS: BP 132/70; PULSE 71
== END 2023-02-03 13:57 | disposition home or self-care (01) | DRG 221 ==
LOC: JP.SDS 09:23 → JP.MS 14:47 → UNDOADMIN 14:47 → JP.MS 14:49 → JP.ICU 01-30 02:50
PROVIDERS: ADMIT Surgery; ATTEND Surgery
PROC: 0DJ08ZZ Inspection of Upper Intestinal Tract, Via Natural or Artificial Opening Endoscopic (ICD-10-PCS; 2023-01-28)
PROC: 0DQ80ZZ Repair Small Intestine, Open Approach (ICD-10-PCS; principal; 2023-01-29)
PROC: 8E0W0CZ Robotic Assisted Procedure of Trunk Region, Open Approach (ICD-10-PCS; principal; 2023-01-29)
PROC: 3E0M05Z Introduction of Adhesion Barrier into Peritoneal Cavity, Open Approach (ICD-10-PCS; principal; 2023-01-29)
PROC: 0WUF0JZ Supplement Abdominal Wall with Synthetic Substitute, Open Approach (ICD-10-PCS; principal; 2023-01-29)
PROC: 0DT80ZZ Resection of Small Intestine, Open Approach (ICD-10-PCS; principal; 2023-01-29)
PROC: 0DBW0ZZ Excision of Peritoneum, Open Approach (ICD-10-PCS; principal; 2023-01-29)
DX: K91.89 Other postprocedural complications and disorders of digestive system (principal); K56.600 Partial intestinal obstruction, unspecified as to cause; K90.9 Intestinal malabsorption, unspecified; F41.9 Anxiety disorder, unspecified; F32.A Depression, unspecified; F17.210 Nicotine dependence, cigarettes, uncomplicated; E53.8 Deficiency of other specified B group vitamins; K43.0 Incisional hernia with obstruction, without gangrene; D50.9 Iron deficiency anemia, unspecified; G89.29 Other chronic pain; M54.9 Dorsalgia, unspecified; F10.131 Alcohol abuse with withdrawal delirium; G47.30 Sleep apnea, unspecified; G43.909 Migraine, unspecified, not intractable, without status migrainosus; E66.9 Obesity, unspecified; Z96.22 Myringotomy tube(s) status; Z90.89 Acquired absence of other organs; Z88.8 Allergy status to other drugs, medicaments and biological substances; Z98.890 Other specified postprocedural states; Z79.899 Other long term (current) drug therapy; Z88.1 Allergy status to other antibiotic agents; Z90.49 Acquired absence of other specified parts of digestive tract; Z98.84 Bariatric surgery status; Z68.25 Body mass index [BMI] 25.0-25.9, adult
CPT/HCPCS: 36415; 51702; 74240; 74240-26; 80053; 82306; 82525; 82607; 82728; 82746; 83735; 84100; 84255; 84590; 84630; 85025; 85027; 88305; 88307; 94667; 94668; A9270-GY; C9113; J0131; J0171; J0330; J0360; J1100; J1170; J1644; J2020; J2060; J2185; J2250; J2405; J2704; J2710; J2765; J2795; J2916; J3010; J3410; J3411; J3420; J3475; J3490; J7120; J7121; Q9967; U0002